=== PATIENT | male | born 1960 | race Caucasian/White ===

== ENCOUNTER 2018-02-02 08:36 | Inpatient (IN) | payer BC ==
[2018-02-02] MEDS ORDERED: Heparin 1000 units/ml (10 Ml vial) 1,000 U in Sodium Chloride 0.9% 500 ML 500 ML IV ONE (08:37)
--- NOTE | 2018-02-02 08:53 | ERPHSYRPT ---
- History of Present Illness Source: patient Exam Limitations: no limitations Physician History: mild ache pain of the right foot ulcers for months, pt refused pain med, no bleeding or drainage at this time, no fever, pt is ambulatory, hx dm Allergies/Adverse Reactions: No Known Drug Allergies Allergy (Verified 02/02/18 08:50) Home Medications: Allopurinol 300 mg [Zyloprim 300 mg] 300 mg PO DAILY 04/26/15 [History] Metformin HCl 500 mg [Glucophage 500 MG] 500 mg PO DAILY 04/26/15 [History ] Aspirin EC 81 mg [Ecotrin 81 mg] 81 mg PO DAILY 07/07/17 [History] Atorvastatin Calcium [Lipitor] 80 mg PO HS 07/07/17 [History] Clopidogrel Bisulfate 75 mg [PLAVIX 75 MG Tablet] 75 mg PO DAILY 07/07/17 [History] Cyanocobalamin (Vitamin B-12) [Vitamin B12] 2,500 mcg PO DAILY 07/07/17 [History ] Gabapentin [Neurontin] 600 mg PO TID 07/07/17 [History] Lisinopril 20 mg [Zestril 20 MG] 20 mg PO DAILY 07/07/17 [History] Hx Tetanus, Diphtheria Vaccination/Date Given: No Hx Influenza Vaccination/Date Given: No Hx Pneumococcal Vaccination/Date Given: No - Review of Systems Constitutional: No Fever Eyes: No Eye Redness Ears, Nose, & Throat: No Nose Discharge Respiratory: No Dyspnea Cardiac: No Chest Pain Abdominal/Gastrointestinal: No Abdominal Pain Musculoskeletal: No Back Pain Skin: Skin Lesions Neurological: No Dizziness - Past Medical History Pertinent Past Medical History: Yes Neurological History: Peripheral Neuropathy ENT History: No Pertinent History Cardiac History: High Cholesterol, Hypertension Respiratory History: No Pertinent History Endocrine Medical History: Diabetes Type II Musculoskeletal History: No Pertinent History GI Medical History: No Pertinent History History: No Pertinent History Psycho-Social History: No Pertinent History Male Reproductive Disorders: Other Other Medical History: ED - Past Surgical History Past Surgical History: Yes Cardiac: Vascular Surgery Musculoskeletal: Other Other Surgical History: Vascular surg pradeep legs, in grown toe nails - Social History Smoking Status: Former smoker How long have you smoked: YRS Exposure to second hand smoke: Yes Drug Use: none Patient Lives Alone: No - Nursing Vital Signs Nursing Vital Signs: Initial Vital Signs Temperature 97.8 F 02/02/18 08:38 Pulse Rate 98 H 02/02/18 08:38 Respiratory Rate 16 02/02/18 08:38 Blood Pressure 166/81 02/02/18 08:38 O2 Sat by Pulse Oximetry 100 02/02/18 08:38 Pain Scale Pain Intensity 0 - Physical Exam General Appearance: no apparent distress Eye Exam: eyes nml inspection Neck Exam: normal inspection Respiratory Exam: No respiratory distress Cardiovascular Exam: regular rate/rhythm Gastrointestinal/Abdomen Exam: No distention Extremity Exam: No limited range of motion Neurologic Exam: alert, oriented x 3, cooperative Skin Exam: warm, other (ulcer of lateral right forefoot and plantar ball 2 to 4 cm, no bleeding, sen and pulses intact, no streaks) - Course Nursing assessment & vital signs reviewed: Yes - Radiology Exams Foot X-ray Interpretation: Discussed w/ radiologist, Other (+osteo and pathologic fx right 5th MT) Ordered Tests: Active Orders 24 hr Category Date Time Status FOOT (MINIMUM 3 VIEWS) Stat Exams 02/02/18 09:01 Completed GUIDE FOR VASCULAR ACCESS [US] Routine Exams 02/02/18 14:50 Ordered PICC LINE PLACEMENT Routine Exams 02/02/18 14:50 Ordered BLOOD CULTURE Stat Lab 02/02/18 09:25 Received CBC W DIFF Stat Lab 02/02/18 09:22 Completed CMP Stat Lab 02/02/18 09:22 Completed Lactic Acid Stat Lab 02/02/18 09:30 Completed SED RATE [Erythrocyte Sedimentation Rate] Stat Lab 02/02/18 15:01 Ordered Transfer Order Routine Transfer 02/02/18 Ordered Medication Summary Discontinued Medications Generic Name Dose Route Start Last Admin Trade Name Freq PRN Reason Stop Dose Admin Heparin Sodium (Beef Lung) 500 units 02/02/18 08:37 Heparin Lock Flush 100 Units/Ml 5ml Syringe IV 02/02/18 08:38 .STK-MED ONE Vancomycin HCl 1 gm in 250 mls @ 167 mls/hr 02/02/18 09:36 02/02/18 09:52 Vancomycin 1gm/ Ns 250ml IV 02/02/18 11:05 167 mls/hr STAT ONE Administration Vancomycin HCl Confirm 02/02/18 09:48 Vancomycin 1gm/ Ns 250ml Administered 02/02/18 09:49 Dose 250 mls @ ud IV .[facility] ONE Heparin Sodium (Porcine) 1,000 501 mls @ ud 02/02/18 08:37 u/ Sodium Chloride IV 02/02/18 08:38 .STK-MED ONE Lab/Rad Data: Laboratory Result Diagrams 02/02/18 09:22 02/02/18 09:22 Laboratory Results 02/02/18 02/02/18 02/02/18 Range/Units 09:30 09:22 09:22 WBC 8.8 (4.0-10.5) K/mm3 RBC 3.71 L (4.1-5.6) M/mm3 Hgb 11.2 L (12.5-18.0) gm/dl Hct 31.6 L (42-50) % MCV 85.2 (78-100) fl MCH 30.1 (26-32) pg MCHC 35.4 (32-36) g/dl RDW 13.1 (11.5-14.0) % Plt Count 387 (150-450) K/mm3 MPV 7.5 (6-9.5) fl Gran % 57.8 (36.0-66.0) % Eos # (Auto) 0.60 H (0-0.5) Absolute Lymphs (auto) 2.30 (1.0-4.6) Absolute Monos (auto) 0.79 (0.0-1.3) Lymphocytes % 26.1 (24.0-44.0) % Monocytes % 9.0 (0.0-12.0) % Eosinophils % 6.8 H (0.00-5.0) % Basophils % 0.3 (0.0-0.4) % Absolute Granulocytes 5.10 (1.4-6.9) Basophils # 0.03 (0-0.4) Sodium 123 L (137-145) mmol/L Potassium 4.5 (3.5-5.1) mmol/L Chloride 86 L (98-107) mmol/L Carbon Dioxide 24 (22-30) mmol/L Anion Gap 17.5 H (5-15) MEQ/L BUN 5 L (9-20) mg/dL Creatinine 0.44 L (0.66-1.25) mg/dL Estimated GFR > 60.0 ML/MIN Glucose 125 H (74-106) mg/dL Lactic Acid 1.8 (0.4-2.0) Calcium 9.0 (8.4-10.2) mg/dL Total Bilirubin 0.50 (0.2-1.3) mg/dL AST 19 (17-59) U/L ALT 16 (0-50) U/L Alkaline Phosphatase 99 (38-126) U/L Serum Total Protein 7.5 (6.3-8.2) g/dL Albumin 4.4 (3.5-5.0) g/dL - Progress Progress: unchanged Progress Note: 02/02/18 15:03 consult d/w Dr Jarquin 02/02/18 15:03 pt unable to transport himself for daily antibiotics, pt sent for picc line, pharm to dose vanc, pt a failure of outpat therapy Discussed with : Germán Will see patient in: hospital (full admit) Counseled pt/family regarding: lab results, diagnosis, rad results - Departure Time of Disposition: 15:04 Departure Disposition: In-patient Admission Clinical Impression: Osteomyelitis Qualifiers: Osteomyelitis type: unspecified type Osteomyelitis location: foot Laterality: right Qualified Code(s): M86.9 - Osteomyelitis, unspecified Condition: Stable Critical Care Time: No Referrals: PENNY WOODY [Primary Care Provider] -
--- NOTE | 2018-02-02 09:32 | XRAY ---
Indication: Worsening ulcers. Osteomyelitis. Comparison: July 07, 2017. 3 nonweightbearing views of the right foot obtained with marker placed adjacent to the 5th MTP where there is worsening lateral soft tissue swelling with new air, probable gas-forming bacterial infection. Also new displaced fracture involving the head of the 5th metatarsal and nondisplaced fracture involving the base of the proximal 5th phalanx, both appearing moth-eaten favoring pathologic fractures. Elsewhere stable heel spurs. Remaining right foot unremarkable. Impression: 1. Worsening cellulitis with new subcutaneous emphysema adjacent to the 5th MTP. Also new pathologic fractures involving the head of the 5th metatarsal and base of the proximal 5th phalanx due to underlying osteomyelitis. 2. Stable heel spurs.
[2018-02-02] MEDS ORDERED: Vancomycin 1GM/ Ns 250ML*** 1 GM/250 ML IVPB IV ONE (09:36)
[2018-02-02 09:47] LABS: BASOPHIL % 0.3 % (0.0-0.4); Basophil (Absolute #) 0.03 (0-0.4); Eosinophil % 6.8 % (0.00-5.0); Granulocytes % 57.8 % (36.0-66.0); Hematocrit 31.6 % (42-50); Hemoglobin 11.2 gm/dl (12.5-18.0); Lymphocytes % 26.1 % (24.0-44.0); Mean Cell Volume 85.2 fl (78-100); Mean Corpuscular Hgb Concent. 35.4 g/dl (32-36); Mean Platelet Volume 7.5 fl (6-9.5); Monocyte (Absolute #) 0.79 (0.0-1.3); Platelet Count 387 K/mm3 (150-450); Red Blood Count 3.71 M/mm3 (4.1-5.6); Red Cell Distribution Width 13.1 % (11.5-14.0); White Blood Count 8.8 K/mm3 (4.0-10.5)
[2018-02-02] MEDS ORDERED: Vancomycin 1GM/ Ns 250ML*** 250 ML IV ONE (09:48)
[2018-02-02 09:54] LABS: Mean Corpuscular Hemoglobin 30.1 pg (26-32)
[2018-02-02 09:57] LABS: ALBUMIN 4.4 g/dL (3.5-5.0); ALKALINE PHOSPHATASE 99 U/L (38-126); ANION GAP 17.5 MEQ/L (5-15); BLOOD UREA NITROGEN 5 mg/dL (9-20); CHLORIDE 86 mmol/L (98-107); Carbon Dioxide 24 mmol/L (22-30); Creatinine 1 0.44 mg/dL (0.66-1.25); Glucose 125 mg/dL (74-106); Potassium 4.5 mmol/L (3.5-5.1); SGOT/AST 19 U/L (17-59); SGPT/ALT 16 U/L (0-50); SODIUM 123 mmol/L (137-145); Total Protein 7.5 g/dL (6.3-8.2)
[2018-02-02] MEDS ORDERED: TYLENOL 325 MG PO PRN (15:48)
[2018-02-02] MEDS ORDERED: PHARMACY DOSING REQUIRED: VANCOMYCIN IV ONE (15:48)
[2018-02-02] MEDS ORDERED: PHARMACY DOSING REQUEST MC ONE (16:17)
--- NOTE | 2018-02-02 16:29 | XRAY ---
Indication: Ultrasound guidance for PICC line placement. Initial sonographic imaging of the right upper extremity was performed for localization of patent veins. A patent basilic vein identified above the elbow. Ultrasound guidance was then used for PICC line insertion. Full PICC line insertion is reported separately.
--- NOTE | 2018-02-02 16:32 | XRAY ---
Indication: Long-term IV access and therapy for right foot osteomyelitis. Informed consent obtained. Patient was placed on the fluoroscopic table in a supine position. Initial sonographic imaging of the right upper extremity was performed for localization of patent veins. The right upper extremity was then prepped and draped in sterile fashion. Tourniquet applied. 1% lidocaine plain used for local anesthesia. Using ultrasound guidance and a micropuncture needle, a basilic vein above the elbow was successfully percutaneously cannulized. A floppy tip 0.018 guidewire inserted. Tourniquet released. Needle was exchanged for a 5 Czech dilator peel-away sheath catheter. Ultimately a 5 Czech double-lumen PICC line was inserted over a longer 0.018 guidewire with the tip positioned in the distal SVC using fluoroscopic guidance. Guidewire removed. Both ports flushed with heparinized saline. Catheter was secured. Postoperative instructions and orders given. Patient discharged in good condition. Impression: Technically successful right upper extremity PICC line placement using ultrasound and fluoroscopic guidance. No immediate complications. Approximately 4 cc blood loss. Approximately 0.5 minute of fluoroscopy used. Catheter length is 39 cm.
[2018-02-02] MEDS: Sodium Chloride 0.9% 1000 ML 1,000 ML IV SCH (16:41)
[2018-02-02] MEDS: CLINDAMYCIN-D5W 600 MG/50 ML*** 600 MG/50 ML BAG IV SCH (16:41)
[2018-02-02] MEDS: NEURONTIN 300 MG PO SCH ×2 (17:29→22:06)
[2018-02-02] MEDS: VANCOCIN 1 GM VIAL*** 1.25 GM in Sodium Chloride 0.9% 250 ML 250 ML IV SCH (17:30)
[2018-02-02] MEDS ORDERED: NON-FORMULARY ITEM (Atorvastatin Calcium [Lipitor] 80 MG) PO SCH (22:00)
[2018-02-02] MEDS ORDERED: NON-FORMULARY ITEM (Gabapentin [Neurontin] 600 MG) PO SCH (22:00)
[2018-02-02] MEDS: ZOCOR 20MG PO SCH (22:07)
[2018-02-03] MEDS: CLINDAMYCIN-D5W 600 MG/50 ML*** 600 MG/50 ML BAG IV SCH ×3 (00:33→16:26)
[2018-02-03] MEDS: VANCOCIN 1 GM VIAL*** 1.25 GM in Sodium Chloride 0.9% 250 ML 250 ML IV SCH ×3 (02:26→17:56)
[2018-02-03 05:57] LABS: ANION GAP 13.1 MEQ/L (5-15); BLOOD UREA NITROGEN 4 mg/dL (9-20); CHLORIDE 94 mmol/L (98-107); Carbon Dioxide 25 mmol/L (22-30); Creatinine 1 0.42 mg/dL (0.66-1.25); Glucose 142 mg/dL (74-106); Potassium 4.6 mmol/L (3.5-5.1); SODIUM 128 mmol/L (137-145)
[2018-02-03 06:05] LABS: BASOPHIL % 0.3 % (0.0-0.4); Basophil (Absolute #) 0.02 (0-0.4); Eosinophil % 5.8 % (0.00-5.0); Eosinophil (Absolute #) 0.37 (0-0.5); Granulocyte Absolute (ANC) 3.76 (1.4-6.9); Granulocytes % 58.9 % (36.0-66.0); Hematocrit 32.8 % (42-50); Hemoglobin 11.3 gm/dl (12.5-18.0); Lymphocyte (Absolute #) 1.65 (1.0-4.6); Lymphocytes % 25.8 % (24.0-44.0); Mean Cell Volume 85.4 fl (78-100); Mean Corpuscular Hemoglobin 29.4 pg (26-32); Mean Corpuscular Hgb Concent. 34.5 g/dl (32-36); Mean Platelet Volume 7.8 fl (6-9.5); Monocyte (Absolute #) 0.59 (0.0-1.3); Monocytes % 9.2 % (0.0-12.0); Platelet Count 375 K/mm3 (150-450); Red Blood Count 3.84 M/mm3 (4.1-5.6); White Blood Count 6.4 K/mm3 (4.0-10.5)
[2018-02-03] MEDS: Sodium Chloride 0.9% 1000 ML 1,000 ML IV SCH ×2 (06:36→20:25)
[2018-02-03] MEDS: Glucophage 500 MG PO SCH (08:36)
[2018-02-03] MEDS: ECOTRIN 81 MG PO SCH (08:36)
[2018-02-03] MEDS: Zestril 20 MG PO SCH (08:37)
[2018-02-03] MEDS: PLAVIX 75 MG Tablet PO SCH (08:37)
[2018-02-03] MEDS: ZYLOPRIM 300 MG PO SCH (08:37)
[2018-02-03] MEDS: NEURONTIN 300 MG PO SCH ×3 (08:37→21:36)
--- NOTE | 2018-02-03 09:27 | HP ---
CHIEF COMPLAINT: Worsening right foot diabetic foot wound. HISTORY OF PRESENT ILLNESS: The patient is a 57 year-old white male patient who has been taking care of a diabetic foot wound for quite some time, being seen in the wound care management center. He is also being followed by Dr. Jarquin. Apparently the wound had looked much worse and the wound care management provider sent the patient to the emergency room for evaluation and management where he was found to have a pathologic fracture of the head of the right fifth metatarsal and gas-forming organisms appeared to be present with some subcutaneous emphysema in that area. We tried to get the patient to be admitted to another facility for evaluation and management by Dr. Jarquin but he felt that he should be admitted here for IV antibiotics. The patient does not wish to be seen by another provider as he is concerned of potential for amputation and he wishes to save the foot. PAST MEDICAL/SURGICAL HISTORY: Otherwise significant for his hypertension, diabetic neuropathy, hyperlipidemia, diabetes mellitus type 2. HOME MEDICATIONS: Currently include allopurinol 300 mg a day, metformin 500 mg twice a day, aspirin 81 mg a day, atorvastatin 80 mg a day, Plavix 75 mg a day, vitamin B12 daily, gabapentin 600 mg t.i.d., lisinopril 20 mg a day. ALLERGIES: NKDA. PHYSICAL EXAMINATION: Revealed a well-nourished, well-developed 57 year-old white male patient appearing in no acute distress. His temperature is 97.8F, pulse 98, respiratory rate 16, blood pressure 166/81 in the emergency room. HEENT: Normocephalic, atraumatic. Pupils equal round reactive to light. Extraocular movements intact. Oropharynx is pink and moist. NECK: Supple without lymphadenopathy, thyromegaly or JVD. CHEST: Clear to auscultation with good air movement bilaterally. HEART: Regular rate and rhythm without murmurs, rubs or gallops. ABDOMEN: Soft. No palpable masses. EXTREMITIES: The right lower extremity revealed the swollen, red area of the foot with the wound present. LAB DATA AND TESTS: He had lactic acid of 1.8. His metabolic panel showed glucose 142, BUN 4, creatinine 0.42. Glomerular filtration rate greater than 60. Sodium 120, potassium 4.6. He had a white blood cell count 6,400, hemoglobin 11.3, PLT count 375,000. Sed rate was 57. His x-ray showed the worsening cellulitis, subcutaneous emphysema adjacent to the fifth MTP with new pathologic fracture involving the head of the fifth metatarsal, underlying osteomyelitis considered to be present, stable heel spurs. ASSESSMENT: The patient had a PICC line placed and he has been admitted to the hospital for IV antibiotics with IV Vancomycin and Cleocin for what I suspect is a bacterial infection with the gas formation. The earliest time that Dr. Jarquin would see the patient is on 02/08/2018. The patient refused to wait to see him. He does not have transportation to come and back to the infusion center so he was therefore admitted to our facility for the IV antibiotics until he can arrange transportation. We have also offered to the patient to see general surgeon for possible debridement and he has declined this as well at the present time.
[2018-02-03] MEDS ORDERED: FLUZONE QUAD (36mo-64yo) 2018-2019 SYRINGE IM ONE (10:00)
[2018-02-03] MEDS ORDERED: NON-FORMULARY ITEM (Cyanocobalamin (Vitamin B-12) [Vitamin B12] 2,500 MCG) PO SCH (10:00)
[2018-02-03] MEDS: Vitamin B-12 500 MCG PO SCH (10:05)
[2018-02-03] MEDS: ZOCOR 20MG PO SCH (21:33)
[2018-02-04] MEDS: CLINDAMYCIN-D5W 600 MG/50 ML*** 600 MG/50 ML BAG IV SCH ×2 (00:38→09:16)
[2018-02-04] MEDS: Sodium Chloride 0.9% 1000 ML 1,000 ML IV SCH ×2 (00:43→09:30)
[2018-02-04] MEDS: VANCOCIN 1 GM VIAL*** 1.25 GM in Sodium Chloride 0.9% 250 ML 250 ML IV SCH ×3 (02:07→17:53)
[2018-02-04] MEDS: Glucophage 500 MG PO SCH (07:54)
[2018-02-04] MEDS: ECOTRIN 81 MG PO SCH (09:16)
[2018-02-04] MEDS: Zestril 20 MG PO SCH (09:16)
[2018-02-04] MEDS: NEURONTIN 300 MG PO SCH ×3 (09:16→21:30)
[2018-02-04] MEDS: PLAVIX 75 MG Tablet PO SCH (09:16)
[2018-02-04] MEDS: ZYLOPRIM 300 MG PO SCH (09:17)
[2018-02-04] MEDS: Vitamin B-12 500 MCG PO SCH (09:17)
[2018-02-04] MEDS ORDERED: TROUGH DRUG LEVELS IJ ONE (09:30)
--- NOTE | 2018-02-04 10:53 | PCM.NOTE ---
Date and Time: 02/04/18 1048 Subjective Assessment: Patient reports about a 2 month history of treating his current ulcers on his right foot. He has pictures of the ulcers on his phone and there are pictures in the chart from PT with measurements. Patient reports they are do to change the dressing tomorrow. He refuses surgical consultation here and states he plans to see Dr. Jarquin 02/08/18 if he has transportation to his [place] office. - Review of Systems Constitutional: No Symptoms Eyes: No Symptoms Ears, Nose, & Throat: No Symptoms Respiratory: No Symptoms Cardiac: No Symptoms Abdominal/Gastrointestinal: No Symptoms Genitourinary Symptoms: No Symptoms Musculoskeletal: No Symptoms Skin: Other (ulcers on feet) Objective Exam General Appearance: no apparent distress, alert, obese Neurologic Exam: alert, cooperative, normal mood/affect Skin Exam: normal color, warm, dry, No rash Respiratory Exam: normal breath sounds, lungs clear, No crackles/rales, No rhonchi, No wheezing Cardiovascular Exam: regular rate/rhythm, No murmur, No friction rub, No gallop Gastrointestinal/Abdomen Exam: soft, normal bowel sounds, No tenderness, No distention, No mass Extremity Exam: other (+1 edema of right lower leg, right foot dressed and wrapped, +1 edema left lower leg) OBJECTIVE DATA Vital Signs: Vital Signs - 24 hr Temp Pulse Resp BP Pulse Ox 02/04/18 08:00 97.7 F 89 18 141/65 97 02/04/18 04:00 98.3 F 83 17 110/58 94 L 02/03/18 23:45 98.6 F 86 17 145/70 95 02/03/18 19:42 98.5 F 91 H 18 138/64 98 02/03/18 16:08 98 F 90 20 162/74 100 02/03/18 11:01 97.6 F 84 18 149/67 98 Pain Assessment - Last Documented Pain Intensity 3 Pain Scale Used 0-10 Pain Scale Intake and Output: Intake & Output 02/02/18 02/03/18 02/04/18 02/05/18 06:59 06:59 06:59 06:59 Intake Total 3533 8997 360 Output Total 2038 6371 973 Balance -924 -5810 -560 Weight 124.8 kg 124.8 kg Lab Results: Accuchecks Date 02/04/18 Date 02/03/18 Date 02/03/18 Date 02/03/18 Time 07:30 Time 21:30 Time 16:08 Time 11:27 Accucheck Value: 147 Accucheck Value: 193 Accucheck Value: 151 Accucheck Value: 183 Radiology Exams: Radiology Procedures Category Date Time Status GUIDE FOR VASCULAR ACCESS [US] Routine Exams 02/02/18 14:50 Completed PICC LINE PLACEMENT Routine Exams 02/02/18 14:50 Completed Multi-Disciplinary Progress Notes: Multi-Disciplinary Progress Notes 02/03/18 15:22 Pharmacy Note by Roosevelt Carrera Wound cultures from 01-12-18 grew Pseudomonas and Staph. Recommend adding Pseudomonas coverage if does not improve. Zosyn, Tobramycin, Cefepime or Azactam would work. Initialized on 02/03/18 15:22 - END OF NOTE 02/03/18 13:50 Case Management Note by Delmy Zaidi S/W PATIENT AT THIS TIME. PATIENT STATES HE HAS AN ADEQUATE HOME ENVIRONMENT AND IS INDEPENDENT AT HOME. 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 HE DENIES ANY NEEDS FOR EQUIPMENT OR SERVICES AT HOME. HIS CAR IS CURRENTLY IN THE SHOP SO TRANSPORTATION IS AN ISSUE. PATIENT GIVEN MEDICAL TRANSPORTATION INFORMATION VIA HANDOUT AND VERIFIED UNDERSTANDING. MAY NEED ADDITIONAL SERVICES SETUP DEPENDING ON STATE OF FOOT AT DC AND PHYSICIAN ORDERS (WOUND CARE/IV THERAPY) Initialized on 02/03/18 13:50 - END OF NOTE Assessment/Plan (1) Osteomyelitis Current Visit: Yes Status: Acute Onset Date: ~02/02/18 Qualifiers: Osteomyelitis type: unspecified type Osteomyelitis location: foot Laterality: right Qualified Code(s): M86.9 - Osteomyelitis, unspecified Assessment & Plan: Will stop clindamycin and continue vancomycin for gram positive coverage. Will add Zosyn for pseudomonas coverage as he had a wound culture in December grow Pseudomonas. No current culture. He would benefit from a bone culture but has refused surgical consultation here and only wants the IV antibiotics and to see Dr. Jarquin on Tuesday. Code(s): M86.9 - OSTEOMYELITIS, UNSPECIFIED (2) Pathological fracture of metatarsal bone of right foot Current Visit: Yes Status: Acute Onset Date: ~02/02/18 Code(s): M84.474A - PATHOLOGICAL FRACTURE, RIGHT FOOT, INIT ENCNTR FOR FRACTURE (3) Diabetes type 2, uncontrolled Current Visit: Yes Status: Chronic Assessment & Plan: Currently controlled. Code(s): E11.65 - TYPE 2 DIABETES MELLITUS WITH HYPERGLYCEMIA (4) Wound infection Current Visit: Yes Status: Acute Onset Date: ~02/03/18 Code(s): T14.8XXA - OTHER INJURY OF UNSPECIFIED BODY REGION, INITIAL ENCOUNTER; L08.9 - LOCAL INFECTION OF THE SKIN AND SUBCUTANEOUS TISSUE, UNSP (5) Failure of outpatient treatment Current Visit: Yes Status: Acute Onset Date: ~02/02/18 Code(s): Z78.9 - OTHER SPECIFIED HEALTH STATUS (6) Hyponatremia Current Visit: Yes Status: Acute Onset Date: ~02/02/18 Assessment & Plan: Will stop IV fluids as he is taking fluids by mouth well. Code(s): E87.1 - HYPO-OSMOLALITY AND HYPONATREMIA (7) Anemia Current Visit: Yes Status: Acute Qualifiers: Anemia type: unspecified type Qualified Code(s): D64.9 - Anemia, unspecified Code(s): D64.9 - ANEMIA, UNSPECIFIED
[2018-02-04] MEDS: CORTISONE 1% CREAM TP SCH ×2 (11:35→21:58)
[2018-02-04] MEDS: Zosyn 3.375GM/100 Ml D5W 3.375 GM/100 ML IVPB IV SCH ×3 (11:50→16:59)
[2018-02-04] MEDS: NovoLOG Insulin SQ PRN (12:08)
[2018-02-04] MEDS: ZOCOR 20MG PO SCH (21:31)
[2018-02-05] MEDS: Zosyn 3.375GM/100 Ml D5W 3.375 GM/100 ML IVPB IV SCH ×4 (00:28→17:30)
[2018-02-05] MEDS: VANCOCIN 1 GM VIAL*** 1.25 GM in Sodium Chloride 0.9% 250 ML 250 ML IV SCH ×3 (01:57→18:19)
[2018-02-05 06:18] LABS: ANION GAP 13.1 MEQ/L (5-15); BLOOD UREA NITROGEN 3 mg/dL (9-20); CHLORIDE 97 mmol/L (98-107); Calcium 9.2 mg/dL (8.4-10.2); Carbon Dioxide 26 mmol/L (22-30); Creatinine 1 0.43 mg/dL (0.66-1.25); Glucose 154 mg/dL (74-106); Potassium 4.5 mmol/L (3.5-5.1); SODIUM 132 mmol/L (137-145)
[2018-02-05 06:32] LABS: BASOPHIL % 0.6 % (0.0-0.4); Basophil (Absolute #) 0.05 (0-0.4); Eosinophil % 6.5 % (0.00-5.0); Eosinophil (Absolute #) 0.52 (0-0.5); Granulocyte Absolute (ANC) 5.05 (1.4-6.9); Granulocytes % 63.3 % (36.0-66.0); Hematocrit 30.2 % (42-50); Hemoglobin 10.2 gm/dl (12.5-18.0); Lymphocyte (Absolute #) 1.78 (1.0-4.6); Lymphocytes % 22.3 % (24.0-44.0); Mean Cell Volume 87.3 fl (78-100); Mean Corpuscular Hgb Concent. 33.8 g/dl (32-36); Mean Platelet Volume 7.8 fl (6-9.5); Monocyte (Absolute #) 0.58 (0.0-1.3); Monocytes % 7.3 % (0.0-12.0); Platelet Count 376 K/mm3 (150-450); Red Blood Count 3.46 M/mm3 (4.1-5.6); Red Cell Distribution Width 13.3 % (11.5-14.0)
[2018-02-05 06:36] LABS: Mean Corpuscular Hemoglobin 29.4 pg (26-32)
[2018-02-05] MEDS: Glucophage 500 MG PO SCH (08:01)
[2018-02-05] MEDS: NEURONTIN 300 MG PO SCH ×3 (10:15→22:04)
[2018-02-05] MEDS: Vitamin B-12 500 MCG PO SCH (10:16)
[2018-02-05] MEDS: ECOTRIN 81 MG PO SCH (10:16)
[2018-02-05] MEDS: CORTISONE 1% CREAM TP SCH ×2 (10:16→22:06)
[2018-02-05] MEDS: PLAVIX 75 MG Tablet PO SCH (10:16)
[2018-02-05] MEDS: ZYLOPRIM 300 MG PO SCH (10:17)
[2018-02-05] MEDS: Zestril 20 MG PO SCH (10:20)
--- NOTE | 2018-02-05 10:40 | PCM.NOTE ---
Date and Time: 02/05/18 1035 Subjective Assessment: Patient reports only pain he has is from neuropathy. He reports he has been able to eat well and denies constipation. I discussed with him and mission planner, Ana Gerard, was present as well that I would recommend he see someone for debridement as soon as possible. He is willing to see a general surgeon her to discuss. His co pilot is Dr. Jarquin who does not have privledges here but who was called from the ER. Patient plans to see him Tuesday as an outpatient. We discussed with patient that the hospital cannot provide transportation to this appointment for him and also discussed that if he is discharged Tuesday, he will need to continue IV antibiotics under the care of Dr. Jarquin. - Review of Systems Constitutional: No Symptoms Eyes: No Symptoms Ears, Nose, & Throat: No Symptoms Respiratory: No Symptoms Cardiac: No Symptoms Abdominal/Gastrointestinal: No Symptoms Genitourinary Symptoms: No Symptoms Musculoskeletal: No Symptoms Skin: No Symptoms Neurological: Other (Neuropathy) Objective Exam General Appearance: no apparent distress Neurologic Exam: alert, cooperative, normal mood/affect Skin Exam: normal color, warm, dry, other (right foot wrapped. Pictures of wound in chart) Cardiovascular Exam: regular rate/rhythm, normal heart sounds, No murmur, No friction rub, No gallop Gastrointestinal/Abdomen Exam: soft, normal bowel sounds, No tenderness, No distention, No mass Extremity Exam: other (no c/c/e) OBJECTIVE DATA Vital Signs: Vital Signs - 24 hr Temp Pulse Resp BP Pulse Ox 02/05/18 08:00 98.1 F 80 17 123/62 98 02/05/18 03:55 97.3 F 79 16 136/65 97 02/04/18 23:49 97.9 F 81 18 133/66 95 02/04/18 19:56 97.6 F 83 18 168/79 98 02/04/18 16:00 98.4 F 85 18 158/72 95 02/04/18 12:00 97.6 F 82 18 176/79 100 Pain Assessment - Last Documented Pain Intensity 3 Pain Scale Used 0-10 Pain Scale,FLACC Intake and Output: Intake & Output 02/03/18 02/04/18 02/05/18 02/06/18 06:59 06:59 06:59 06:59 Intake Total 2057 5895 4775 460 Output Total 5873 3945 3785 500 Balance -639 -4620 688 -40 Weight 124.8 kg 124.8 kg Lab Results: Accuchecks Date 02/05/18 Date 02/04/18 Date 02/04/18 Date 02/04/18 Time 07:30 Time 21:00 Time 16:30 Time 11:30 Accucheck Value: 154 Accucheck Value: 178 Accucheck Value: 177 Accucheck Value: 217 Lab Results-Last 24 Hours 02/04/18 02/05/18 02/05/18 Range/Units 09:55 05:35 05:35 WBC 8.0 (4.0-10.5) K/mm3 RBC 3.46 L (4.1-5.6) M/mm3 Hgb 10.2 L (12.5-18.0) gm/dl Hct 30.2 L (42-50) % MCV 87.3 (78-100) fl MCH 29.4 (26-32) pg MCHC 33.8 (32-36) g/dl RDW 13.3 (11.5-14.0) % Plt Count 376 (150-450) K/mm3 MPV 7.8 (6-9.5) fl Gran % 63.3 (36.0-66.0) % Eos # (Auto) 0.52 H (0-0.5) Absolute Lymphs (auto) 1.78 (1.0-4.6) Absolute Monos (auto) 0.58 (0.0-1.3) Lymphocytes % 22.3 L (24.0-44.0) % Monocytes % 7.3 (0.0-12.0) % Eosinophils % 6.5 H (0.00-5.0) % Basophils % 0.6 (0.0-0.4) % Absolute Granulocytes 5.05 (1.4-6.9) Basophils # 0.05 (0-0.4) Sodium 132 L (137-145) mmol/L Potassium 4.5 (3.5-5.1) mmol/L Chloride 97 L (98-107) mmol/L Carbon Dioxide 26 (22-30) mmol/L Anion Gap 13.1 (5-15) MEQ/L BUN 3 L (9-20) mg/dL Creatinine 0.43 L (0.66-1.25) mg/dL Estimated GFR > 60.0 ML/MIN Glucose 154 H (74-106) mg/dL Calcium 9.2 (8.4-10.2) mg/dL Vancomycin Trough 9.33 L (10-20) ug/mL Assessment/Plan (1) Osteomyelitis Current Visit: Yes Status: Acute Onset Date: ~02/02/18 Qualifiers: Osteomyelitis type: unspecified type Osteomyelitis location: foot Laterality: right Qualified Code(s): M86.9 - Osteomyelitis, unspecified Assessment & Plan: Continue IV vanc and IV zosyn. Patient agreeable to general surgery consult. Ana Rajani states she will contact Dr. Jarquin tomorrow. PT is following. Patient wants to try to save his foot. Code(s): M86.9 - OSTEOMYELITIS, UNSPECIFIED (2) Pathological fracture of metatarsal bone of right foot Current Visit: Yes Status: Acute Onset Date: ~02/02/18 Code(s): M84.474A - PATHOLOGICAL FRACTURE, RIGHT FOOT, INIT ENCNTR FOR FRACTURE (3) Diabetes type 2, uncontrolled Current Visit: Yes Status: Chronic Assessment & Plan: Continue current treatment. Currently controlled in the hospital. Code(s): E11.65 - TYPE 2 DIABETES MELLITUS WITH HYPERGLYCEMIA (4) Wound infection Current Visit: Yes Status: Acute Onset Date: ~02/03/18 Code(s): T14.8XXA - OTHER INJURY OF UNSPECIFIED BODY REGION, INITIAL ENCOUNTER; L08.9 - LOCAL INFECTION OF THE SKIN AND SUBCUTANEOUS TISSUE, UNSP (5) Failure of outpatient treatment Current Visit: Yes Status: Acute Onset Date: ~02/02/18 Code(s): Z78.9 - OTHER SPECIFIED HEALTH STATUS (6) Hyponatremia Current Visit: Yes Status: Acute Onset Date: ~02/02/18 Assessment & Plan: Improving. Code(s): E87.1 - HYPO-OSMOLALITY AND HYPONATREMIA (7) Anemia Current Visit: Yes Status: Acute Qualifiers: Anemia type: unspecified type Qualified Code(s): D64.9 - Anemia, unspecified Code(s): D64.9 - ANEMIA, UNSPECIFIED
[2018-02-05] MEDS: ENOXAPARIN SODIUM SQ SCH (13:00)
[2018-02-05] MEDS: NovoLOG Insulin SQ PRN (13:57)
[2018-02-05] MEDS: ZOCOR 20MG PO SCH (22:04)
[2018-02-06] MEDS: Zosyn 3.375GM/100 Ml D5W 3.375 GM/100 ML IVPB IV SCH ×4 (00:28→17:47)
[2018-02-06] MEDS: VANCOCIN 1 GM VIAL*** 1.25 GM in Sodium Chloride 0.9% 250 ML 250 ML IV SCH ×3 (01:59→18:57)
[2018-02-06] MEDS: Glucophage 500 MG PO SCH (08:10)
--- NOTE | 2018-02-06 08:54 | PCM.NOTE ---
Date and Time: 02/06/18 0852 Subjective Assessment: Patient reports that Dr. Abhay Jimenez saw him and wanted to wait a couple of days. supervisor hardboard said he recommended removing part of his foot. Dictation not completed yet. Pt denies fever, chills, nausea, abdominal pain or any concerns. - Review of Systems Constitutional: No Symptoms Eyes: No Symptoms Ears, Nose, & Throat: No Symptoms Respiratory: No Symptoms Cardiac: No Symptoms Abdominal/Gastrointestinal: No Symptoms Genitourinary Symptoms: No Symptoms Musculoskeletal: No Symptoms Skin: Other (right foot ulcers) Objective Exam General Appearance: no apparent distress, obese Neurologic Exam: alert, cooperative, normal mood/affect Skin Exam: normal color, warm, dry, other (right foot wrapped and dressed; pictures in chart from PT during dressing change yesterday.) Respiratory Exam: normal breath sounds, lungs clear, No prolonged expirations, No crackles/rales, No wheezing Cardiovascular Exam: regular rate/rhythm, normal heart sounds (trace edema bilat ), No murmur, No friction rub, No gallop OBJECTIVE DATA Vital Signs: Vital Signs - 24 hr Temp Pulse Resp BP Pulse Ox 02/06/18 07:34 98.1 F 81 18 126/61 96 02/06/18 04:00 98.1 F 77 18 150/70 96 02/06/18 00:00 98.2 F 84 18 141/66 97 02/05/18 19:59 98.2 F 76 18 167/75 100 02/05/18 16:00 97.6 F 76 17 178/83 100 02/05/18 12:00 97.5 F 75 16 150/70 100 Pain Assessment - Last Documented Pain Intensity 3 Pain Scale Used 0-10 Pain Scale Intake and Output: Intake & Output 02/04/18 02/05/18 02/06/18 02/07/18 06:59 06:59 06:59 06:59 Intake Total 4151 7300 3582 480 Output Total 2821 2825 3100 Balance -1070 692 482 480 Weight 124.8 kg Lab Results: Accuchecks Date 02/06/18 Date 02/05/18 Date 02/05/18 Date 02/05/18 Time 07:30 Time 21:30 Time 16:30 Time 11:30 Accucheck Value: 188 Accucheck Value: 197 Accucheck Value: 161 Accucheck Value: 213 Multi-Disciplinary Progress Notes: Multi-Disciplinary Progress Notes 02/05/18 11:47 Case Management Note by Ana Gerard DISCHARGE PLAN REVIEWED WITH BOTH PATIENT AND HIS BROTHER, WITH DR. MONDRAGON PRESENT. PATIENT PLAN AT THIS TIME IS TO LEAVE HERE ON THURSDAY 02/08, WITH HIS OWN TRANSPORTATION, AND F/U WITH HIS MULTI CARE TECHNICIAN IN [place], DR. ANDERSON. HE WAS OFFERED TRANSFER TO ANOTHER FACILITY WHERE A MULTI CARE TECHNICIAN IS LASER SPECIALIST, HE REFUSED. HE WAS OFFERED TO HAVE FURTHER TREATMENT & SURGICAL CONSULT HERE, AND DID FINALLY CONCEDE, SO THE D/C PLAN MAY CHANGE AFTER HE SEES SURGERY AND THEIR MUTUAL DECISION. WILL CONTINUE TO MONITOR THIS PT FOR ALL D/ C NEEDS. THIS OFFICE WILL F/U WITH DR. ANDERSON'S OFFICE TOMORROW 02/06/2018 AT [phone] TO SEE WHICH AND IF HE HAS PRIVILEGES AT ANY LOCAL HOSPITALS. Initialized on 02/05/18 11:47 - END OF NOTE Assessment/Plan (1) Osteomyelitis Current Visit: Yes Status: Acute Onset Date: ~02/02/18 Qualifiers: Osteomyelitis type: unspecified type Osteomyelitis location: foot Laterality: right Qualified Code(s): M86.9 - Osteomyelitis, unspecified Assessment & Plan: Continue vancomycin and Zosyn. General surgeon consulted. Code(s): M86.9 - OSTEOMYELITIS, UNSPECIFIED (2) Pathological fracture of metatarsal bone of right foot Current Visit: Yes Status: Acute Onset Date: ~02/02/18 Code(s): M84.474A - PATHOLOGICAL FRACTURE, RIGHT FOOT, INIT ENCNTR FOR FRACTURE (3) Diabetes type 2, uncontrolled Current Visit: Yes Status: Chronic Assessment & Plan: Continue current treatment. Code(s): E11.65 - TYPE 2 DIABETES MELLITUS WITH HYPERGLYCEMIA (4) Wound infection Current Visit: Yes Status: Acute Onset Date: ~02/03/18 Code(s): T14.8XXA - OTHER INJURY OF UNSPECIFIED BODY REGION, INITIAL ENCOUNTER; L08.9 - LOCAL INFECTION OF THE SKIN AND SUBCUTANEOUS TISSUE, UNSP (5) Failure of outpatient treatment Current Visit: Yes Status: Acute Onset Date: ~02/02/18 Code(s): Z78.9 - OTHER SPECIFIED HEALTH STATUS (6) Hyponatremia Current Visit: Yes Status: Acute Onset Date: ~02/02/18 Assessment & Plan: will check BMP in AM. Code(s): E87.1 - HYPO-OSMOLALITY AND HYPONATREMIA (7) Anemia Current Visit: Yes Status: Acute Qualifiers: Anemia type: unspecified type Qualified Code(s): D64.9 - Anemia, unspecified Code(s): D64.9 - ANEMIA, UNSPECIFIED
--- NOTE | 2018-02-06 10:12 | CONS ---
CONSULT DATE: 02/05/2018 REASON FOR CONSULT: Osteomyelitis. HISTORY: The patient has had history since May. He has lateral fifth area that opened up and has been debrided. I believe he is under the care of Dr. Jarquin in [place]. He subsequently has first metatarsal head that opened up. There are pictures on the chart. It is markedly necrotic. It does look like it goes to bone. It did have Pseudomonas cultured. It is getting slightly better. The dressing was not taken off today. We will see him again later in the week. At this time it certainly looked like there was a severe infection of the first metatarsal head and I would suspect this would include bone. There is already a positive Pseudomonas culture. Undergoing daily debridement by physical therapy and is getting IV antibiotics. It is unclear what the senior care disposition is. He clearly needs continued treatment of this infection.
[2018-02-06] MEDS: CORTISONE 1% CREAM TP SCH ×2 (10:42→21:48)
[2018-02-06] MEDS: NEURONTIN 300 MG PO SCH ×3 (10:43→21:39)
[2018-02-06] MEDS: Vitamin B-12 500 MCG PO SCH (10:43)
[2018-02-06] MEDS: ENOXAPARIN SODIUM SQ SCH (10:44)
[2018-02-06] MEDS: Zestril 20 MG PO SCH (10:44)
[2018-02-06] MEDS: ECOTRIN 81 MG PO SCH (10:44)
[2018-02-06] MEDS: PLAVIX 75 MG Tablet PO SCH (10:44)
[2018-02-06] MEDS: ZYLOPRIM 300 MG PO SCH (10:50)
[2018-02-06] MEDS: ZOCOR 20MG PO SCH (21:39)
[2018-02-07] MEDS: Zosyn 3.375GM/100 Ml D5W 3.375 GM/100 ML IVPB IV SCH ×5 (00:27→23:09)
[2018-02-07] MEDS: VANCOCIN 1 GM VIAL*** 1.25 GM in Sodium Chloride 0.9% 250 ML 250 ML IV SCH ×3 (01:36→18:15)
[2018-02-07 05:57] LABS: BASOPHIL % 0.6 % (0.0-0.4); Basophil (Absolute #) 0.06 (0-0.4); Eosinophil % 5.8 % (0.00-5.0); Eosinophil (Absolute #) 0.56 (0-0.5); Granulocytes % 67.9 % (36.0-66.0); Hematocrit 32.6 % (42-50); Lymphocyte (Absolute #) 1.94 (1.0-4.6); Lymphocytes % 20.2 % (24.0-44.0); Mean Cell Volume 87.2 fl (78-100); Mean Corpuscular Hemoglobin 29.4 pg (26-32); Mean Corpuscular Hgb Concent. 33.7 g/dl (32-36); Mean Platelet Volume 7.4 fl (6-9.5); Monocyte (Absolute #) 0.53 (0.0-1.3); Monocytes % 5.5 % (0.0-12.0); Platelet Count 339 K/mm3 (150-450); Red Blood Count 3.74 M/mm3 (4.1-5.6); Red Cell Distribution Width 13.3 % (11.5-14.0); White Blood Count 9.6 K/mm3 (4.0-10.5)
[2018-02-07 06:43] LABS: ANION GAP 15.4 MEQ/L (5-15); BLOOD UREA NITROGEN 4 mg/dL (9-20); CHLORIDE 96 mmol/L (98-107); Calcium 9.6 mg/dL (8.4-10.2); Carbon Dioxide 27 mmol/L (22-30); Creatinine 1 0.54 mg/dL (0.66-1.25); Glucose 160 mg/dL (74-106); Potassium 4.4 mmol/L (3.5-5.1); SODIUM 133 mmol/L (137-145)
[2018-02-07] MEDS: Glucophage 500 MG PO SCH (07:40)
--- NOTE | 2018-02-07 08:43 | PCM.NOTE ---
Date and Time: 02/07/18837 Subjective Assessment: Patient only has pain from neuropathy and when his ulcer is debrided. Right now he has an appointment with Dr. Jarquin on Tuesday that he will need to be discharged to go to but it is unclear how he will continue to get IV antibiotics after discharged. I tried to call Dr. Jarquin, but there was no answer so I left my number for him to return my call. Per cyber ops planner, Dr. Barbara Sorto does not think a simple I and D will take care of the problem. They also report that Milka would plan on a surgical procedure as an outpatient on Tuesday at another facility. He does not have privledges here and we do not have another administration intern here. He was seen by surgeon, Dr. Maciej Jimenez, during this admission. - Review of Systems Constitutional: No Symptoms Eyes: No Symptoms Ears, Nose, & Throat: No Symptoms Respiratory: No Symptoms Cardiac: No Symptoms Abdominal/Gastrointestinal: No Symptoms Genitourinary Symptoms: No Symptoms Musculoskeletal: No Symptoms Skin: Other (ulcers of right foot) Neurological: No Symptoms Psychological: No Symptoms Objective Exam General Appearance: no apparent distress, obese Neurologic Exam: alert, cooperative, normal mood/affect Respiratory Exam: normal breath sounds, lungs clear Cardiovascular Exam: regular rate/rhythm, normal heart sounds, No murmur, No friction rub, No gallop Gastrointestinal/Abdomen Exam: soft, normal bowel sounds, No tenderness, No distention, No mass Extremity Exam: other (right foot dressed, trace edema bilat) OBJECTIVE DATA Vital Signs: Vital Signs - 24 hr Temp Pulse Resp BP Pulse Ox 02/07/18 07:12 97.9 F 79 18 122/63 98 02/07/18 04:00 98.1 F 87 20 124/65 96 02/07/18 00:00 97.7 F 76 20 128/63 96 02/06/18 20:00 98.2 F 75 18 145/65 100 02/06/18 16:00 98.5 F 76 18 145/65 99 02/06/18 12:00 98.2 F 77 18 135/65 98 Pain Assessment - Last Documented Pain Intensity 0 Pain Scale Used 0-10 Pain Scale Intake and Output: Intake & Output 11/18/18 11/19/18 11/20/18 11/21/18 06:59 06:59 06:59 06:59 Intake Total 0368 5108 316 Output Total 3177 3100 450 Balance 646 163 1065 Lab Results: Accuchecks Date 02/07/18 Date 02/06/18 Date 02/06/18 Date 02/06/18 Time 07:30 Time 22:00 Time 16:30 Time 12:30 Accucheck Value: 175 Accucheck Value: 173 Accucheck Value: 169 Accucheck Value: 191 Lab Results-Last 24 Hours 02/07/18 02/07/18 Range/Units 05:45 05:45 WBC 9.6 (4.0-10.5) K/mm3 RBC 3.74 L (4.1-5.6) M/mm3 Hgb 11.0 L (12.5-18.0) gm/dl Hct 32.6 L (42-50) % MCV 87.2 (78-100) fl MCH 29.4 (26-32) pg MCHC 33.7 (32-36) g/dl RDW 13.3 (11.5-14.0) % Plt Count 339 (150-450) K/mm3 MPV 7.4 (6-9.5) fl Gran % 67.9 H (36.0-66.0) % Eos # (Auto) 0.56 H (0-0.5) Absolute Lymphs (auto) 1.94 (1.0-4.6) Absolute Monos (auto) 0.53 (0.0-1.3) Lymphocytes % 20.2 L (24.0-44.0) % Monocytes % 5.5 (0.0-12.0) % Eosinophils % 5.8 H (0.00-5.0) % Basophils % 0.6 (0.0-0.4) % Absolute Granulocytes 6.50 (1.4-6.9) Basophils # 0.06 (0-0.4) Sodium 133 L (137-145) mmol/L Potassium 4.4 (3.5-5.1) mmol/L Chloride 96 L (98-107) mmol/L Carbon Dioxide 27 (22-30) mmol/L Anion Gap 15.4 H (5-15) MEQ/L BUN 4 L (9-20) mg/dL Creatinine 0.54 L (0.66-1.25) mg/dL Estimated GFR > 60.0 ML/MIN Glucose 160 H (74-106) mg/dL Calcium 9.6 (8.4-10.2) mg/dL Multi-Disciplinary Progress Notes: Multi-Disciplinary Progress Notes 02/06/18 09:34 Nutrition Note by Reina Perry F/u Note: Note 1999 ada diet con't with 100% po intake. Labs 02/05: Na 132, cl 197, BUN 3 , Cr 0.43, glu 154, alb wnl, hgb 10.2, hct 30.2. Recommend adding cardiac restriction to diet order. Pt refused diet ed. goal #1) maintain po intake >= 75%; meeting. #2) glu wnl; not meeting--both goals continue. Will monitor and f /u prn. TIFFANIE Rosales Initialized on 02/06/18 09:34 - END OF NOTE Assessment/Plan (1) Osteomyelitis Current Visit: Yes Status: Acute Onset Date: ~02/02/18 Qualifiers: Osteomyelitis type: unspecified type Osteomyelitis location: foot Laterality: right Qualified Code(s): M86.9 - Osteomyelitis, unspecified Assessment & Plan: Continue Zosyn and vancomycin. Awaiting call back from Dr. Jarquin. The best plan we have right now is to discharge him to see Dr. Jarquin as patient does not want partial foot amputation by general surgeon here. The problem is how he will continue to receive IV antibiotics for treatment of infection. He failed outpatient levofloxacin. Code(s): M86.9 - OSTEOMYELITIS, UNSPECIFIED (2) Pathological fracture of metatarsal bone of right foot Current Visit: Yes Status: Acute Onset Date: ~02/02/18 Code(s): M84.474A - PATHOLOGICAL FRACTURE, RIGHT FOOT, INIT ENCNTR FOR FRACTURE (3) Diabetes type 2, uncontrolled Current Visit: Yes Status: Chronic Assessment & Plan: Patient on metformin and sliding scale but blood glucoses have been running in the high 100's. Will start lantus 10 units subcutanously daily. Code(s): E11.65 - TYPE 2 DIABETES MELLITUS WITH HYPERGLYCEMIA (4) Wound infection Current Visit: Yes Status: Acute Onset Date: ~02/03/18 Code(s): T14.8XXA - OTHER INJURY OF UNSPECIFIED BODY REGION, INITIAL ENCOUNTER; L08.9 - LOCAL INFECTION OF THE SKIN AND SUBCUTANEOUS TISSUE, UNSP (5) Failure of outpatient treatment Current Visit: Yes Status: Acute Onset Date: ~02/02/18 Code(s): Z78.9 - OTHER SPECIFIED HEALTH STATUS (6) Hyponatremia Current Visit: Yes Status: Acute Onset Date: ~02/02/18 Assessment & Plan: stable. Code(s): E87.1 - HYPO-OSMOLALITY AND HYPONATREMIA (7) Anemia Current Visit: Yes Status: Acute Qualifiers: Anemia type: unspecified type Qualified Code(s): D64.9 - Anemia, unspecified Assessment & Plan: stable. Most likely due to chronic disease. Code(s): D64.9 - ANEMIA, UNSPECIFIED
[2018-02-07] MEDS: ECOTRIN 81 MG PO SCH (09:40)
[2018-02-07] MEDS: Zestril 20 MG PO SCH (09:40)
[2018-02-07] MEDS: NEURONTIN 300 MG PO SCH ×3 (09:40→21:36)
[2018-02-07] MEDS: PLAVIX 75 MG Tablet PO SCH (09:40)
[2018-02-07] MEDS: ENOXAPARIN SODIUM SQ SCH (09:40)
[2018-02-07] MEDS: ZYLOPRIM 300 MG PO SCH (09:40)
[2018-02-07] MEDS: Vitamin B-12 500 MCG PO SCH (09:41)
[2018-02-07] MEDS: CORTISONE 1% CREAM TP SCH ×2 (09:41→21:37)
[2018-02-07] MEDS: Lantus Insulin SQ SCH (09:42)
[2018-02-07] MEDS: NovoLOG Insulin SQ PRN ×2 (12:20→21:36)
[2018-02-07] MEDS: ZOCOR 20MG PO SCH (21:36)
[2018-02-08] MEDS: VANCOCIN 1 GM VIAL*** 1.25 GM in Sodium Chloride 0.9% 250 ML 250 ML IV SCH ×2 (01:28→10:21)
[2018-02-08] MEDS: Zosyn 3.375GM/100 Ml D5W 3.375 GM/100 ML IVPB IV SCH ×2 (06:22→12:10)
[2018-02-08 07:19] VITALS: O2SAT 98
[2018-02-08] MEDS: Glucophage 500 MG PO SCH (07:47)
[2018-02-08] MEDS: Lantus Insulin SQ SCH (07:47)
--- NOTE | 2018-02-08 08:54 | PCM.DCORD ---
- Discharge Discharge Date: 02/08/18 Disposition: Home, Self-Care Condition: Stable Prescriptions: New Ciprofloxacin HCl 750 mg PO Q12H #20 tablet Hydrocortisone 1% Cream [Cortisone 1% Cream] 0.5 gm TP BID #60 g Metformin HCl 500 mg [Glucophage 500 MG] 2 tab PO DAILY #60 tablet Linezolid [Zyvox] 600 mg PO Q12H #20 tablet Continue Allopurinol 300 mg [Zyloprim 300 mg] 300 mg PO DAILY Lisinopril 20 mg [Zestril 20 MG] 20 mg PO DAILY Gabapentin [Neurontin] 600 mg PO TID Clopidogrel Bisulfate 75 mg [PLAVIX 75 MG Tablet] 75 mg PO DAILY Atorvastatin Calcium [Lipitor] 80 mg PO HS Aspirin EC 81 mg [Ecotrin 81 mg] 81 mg PO DAILY Cyanocobalamin (Vitamin B-12) [Vitamin B12] 2,500 mcg PO DAILY Discontinued Metformin HCl 500 mg [Glucophage 500 MG] 500 mg PO DAILY Instructions: Diabetic Foot Ulcer (DC), Osteomyelitis (DC), Wound Infection Additional Instructions: KEEP SCHEDULED FOLLOWUP APPOINTMENT TODAY WITH DR. ANDERSON AT 3:15 You most likely will need antibiotics longer than 10 days. Please check with Dr. Anderson and Dr. Dunlap about the length of antibiotics needed when you see each in follow up. I would like to keep your PICC line in until you see both Dr. Anderson and Dr. Dunlap. You will need to have this flushed weekly at [facility]. Follow up with: PENNY DUNLAP [Primary Care Provider] - 02/16/18 10:00 am MARIE ANDERSON [PODIATRY STAFF] - 02/08/18 3:15 pm (Formerly [facility]) Forms: Discharge Instructions
[2018-02-08] MEDS: CORTISONE 1% CREAM TP SCH (10:23)
[2018-02-08] MEDS: Vitamin B-12 500 MCG PO SCH (10:24)
[2018-02-08] MEDS: ENOXAPARIN SODIUM SQ SCH (10:24)
[2018-02-08] MEDS: PLAVIX 75 MG Tablet PO SCH (10:24)
[2018-02-08] MEDS: Zestril 20 MG PO SCH (10:24)
[2018-02-08] MEDS: ZYLOPRIM 300 MG PO SCH (10:24)
[2018-02-08] MEDS: NEURONTIN 300 MG PO SCH (10:24)
[2018-02-08] MEDS: ECOTRIN 81 MG PO SCH (10:24)
[2018-02-08 11:46] VITALS: BP 122/63; PULSE 86
== END 2018-02-08 13:45 | disposition home or self-care (01) | DRG 540 ==
LOC: ED 08:36 → MED SURG 15:44
PROVIDERS: ADMIT Family Medicine; ATTEND Family Medicine
DX: M86.9 Osteomyelitis, unspecified (principal); M84.474A Pathological fracture, right foot, initial encounter for fracture; E87.1 Hypo-osmolality and hyponatremia; E11.65 Type 2 diabetes mellitus with hyperglycemia; Z79.4 Long term (current) use of insulin; L08.9 Local infection of the skin and subcutaneous tissue, unspecified; Z78.9 Other specified health status; I10 Essential (primary) hypertension; E78.5 Hyperlipidemia, unspecified; D64.9 Anemia, unspecified; G62.9 Polyneuropathy, unspecified; Z79.899 Other long term (current) drug therapy
CPT/HCPCS: 36000; 36415; 36569; 73630; 76937; 77001; 80048; 80053; 80202; 82962; 83605; 85025; 85652; 87040; 96365; 99285; C1769; G0008; J1642; J1644; J1650; J2543; J3370; A9270-GY

== ENCOUNTER 2018-07-04 10:03 | Day surgery (SDC) | payer BC ==
[~2018-07-04 10:03] MED LIST: ACETAZOLAMIDE 250 MG TABLET PO ONE; Ak-Dilate OPHTHALMIC*** 1.065 ML, Cyclogyl 1% OPHTH SOL 5 ML 1.065 ML, GATIFLOXACIN 0.5... OP ONE; BETADINE 5% OPHTHALMIC 30 ML OP ONE; BSS 500 ML, Fortaz/Tazicef 1 GM** 0.2 G IO ONE; Epinephrine Preservative Free 1 MG/ML INTRAOP ONE; LIDOCAINE HCL 1% AMPUL 5 ML IJ ONE; Lactated Ringers 1,000 ML IV SCH; TETRACAINE 0.5% STERI-UNIT SOL OP ONE; Zofran 4 MG/2 ML VIAL IV PRN
[2018-07-04] MEDS ORDERED: DIPRIVAN 200 MG/20 ML IV ONE (10:04)
[2018-07-04] MEDS ORDERED: Lactated Ringers 1,000 ML IV ONE (10:50)
--- NOTE | 2018-07-04 13:09 | OP ---
DATE/TIME OF OPERATION: 07/04/2018 1121 TIME DICTATED: 1235 PREOPERATIVE DIAGNOSIS: Senile cataract of right eye. POSTOPERATIVE DIAGNOSIS: Senile cataract of right eye. SURGEON: Sundar Collazo MD NON LICENSED NUCLEAR PLANT OPERATOR: None. OPERATION: Cataract extraction of right eye with an intraocular lens implant. STANDARD __X___ COMPLEX ANESTHESIA: MAC. ___X___ Monitored anesthesia care in combination with topical and intra-cameral anesthesia (because of the established specific risk of reflux, arrhythmias, or an anxiety attack associated with ocular manipulation as well as difficulty of the medical chemist to manage such potentially catastrophic events while simultaneously attempting to complete the surgical procedure, it was deemed necessary for the patient's safety to have an anesthesiologist or a nurse hoisting pile driving engineer present during the procedure whenever possible. The anesthesiologist or the nurse hoisting pile driving engineer was utilized to monitor and regulate the intravenous sedation of the patient, so the patient was cooperative, relaxed, and comfortable). Topical anesthesia using Tetracaine eye drops together with intra cameral anesthesia using Lidocaine 1% MPF. The nurse was utilized to monitor the patient. ANESTHESIA PROVIDER: Floyd White CRNA. COMPLICATIONS: None. BLOOD LOSS: None. INDICATIONS: The patient is undergoing cataract surgery in the hopes of eliminating the visual complaints and difficulty. PROCEDURE: After arriving at the facility's outpatient surgery area, an IV was started; the patient was given 5 mg of p.o. Versed. (If an anesthesia provider was not monitoring the patient) The patient was then given topical anesthetic Tetracaine eye drops. A cotton pellet was soaked into a solution of a combination of Zymaxid 0.5%, Mendoza-Synephrine 2.5% and Ocufen (other drops might have been substituted referenced in the patient's record). The pellet was inserted by the RN into the lower conjunctival cul-de-sac with a sterile forceps and left for 20 minutes. The pellet was then removed by the RN with a sterile forceps before taking the patient to the operating room. The preoperative area nurse identified the patient and marked the correct eye to be operated on. I identified the correct eye to be operated on and marked it appropriately in the outpatient surgery area. The patient was then taken into the operating room. Tetracaine eye drops were installed again in the correct eye. The eyelids and the lashes and the lid margins were scrubbed with Betadine solution. One drop of the diluted Betadine solution was placed in the conjunctival cul-de-sac for 45 seconds and then was irrigated. A drop of Tetracaine Gel was placed in the conjunctival cul-de-sac. The patient's forehead was taped to secure it during the procedure. The patient was monitored. The patient was then draped in the usual way for this procedure. An eye speculum was used to separate the eyelids. The eye was then fixated and a temporal 2.5 mm incision was made in the clear cornea temporally at the limbus. Through the incision, 0.25 cc of 1% non-preserved lidocaine was injected into the anterior chamber for intracameral anesthesia. The anterior chamber was then filled with viscoelastic. The pupil was small. I felt that it would be safer to mechanically dilate the pupil. A Malyugin ring was used at this point which dilated the pupil. That was removed at the end of the procedure prior to aspiration of the viscoelastic from the anterior chamber and posterior to the intraocular lens implant. The cataract had a great amount of cortical changes. That rendered seeing the anterior capsule difficult for a safe performance of an anterior capsulotomy. I injected an air bubble into the anterior chamber. I then injected 1 ML of vision blue solution into the anterior chamber. The vision blue solution was irrigated from the anterior chamber after 30 seconds. The anterior capsule was stained which facilitated performing the anterior capsulotomy safely. After that was completed, a cystotome was introduced into the anterior chamber and a round anterior capsulotomy was performed. The capsule was removed by a forceps. Hydrodissection was next carried utilizing a 25-gauge cannula and balanced salt solution to delineate the cortical material from the capsule and the nucleus from the cortical material. The nucleus was rotated freely into the capsular bag with no difficulty. The phaco tip of the [employer] Phacoemulsifier was introduced into the anterior chamber and two grooves were made into the nucleus 90 degrees apart. Using two spatulas resulted into the nucleus being fractured into four quadrants. The phaco tip was then used to remove each quadrant of the nucleus. Viscoelastic was used during this process to protect the corneal endothelium. Once the entire nucleus was removed, the phaco tip then was removed and the irrigation tip was introduced into the eye and the cortex was removed. The posterior capsule was polished. It was noticed that there was a tear into the posterior capsule with few vitreous strands into the pupil plan. An anterior vitrectomy was performed. A 15.00 diopter, [id number], posterior chamber lens implant, was inspected and found to be grossly normal. The implant was inserted into the implant injector cartridge; Viscoelastic again was introduced into the anterior chamber, which filled the capsular bag. The implant injector's cartridge tip was placed at the limbal wound and the posterior chamber implant was released into the capsular bag and rotated appropriately. The implant was found to be into the capsular bag and it was centered. ___X__ 0.2 ml of Tri-Moxi was introduced via 27 gauge cannula into the vitreous cavity through the ciliary processes. Viscoelastic was aspirated from the anterior chamber and posterior to the intraocular lens implant from the capsular bag using the irrigating tip. The anterior chamber was irrigated and filled with 5 cc antibiotic solution (500 cc of BSS plus 2 ml of Fortaz 100 mg/ml) ( if patient was not allergic to the medication). The lips of the corneal incision were hydrated using BSS solution. The anterior chamber was checked and found to be water tight. One drop each of antibiotic, steroid and NSAID drops (refer to chart for drops used) were placed in the conjunctival cul-de-sac of the operated eye. Patient tolerated the procedure quite well and left the operating room in satisfactory condition. DISCHARGE SUMMARY: The patient was released in stable condition. The patient and those with the patient were given an instruction sheet as of how to care for the eye after surgery as well as counseling on any abnormal laboratory studies by the postoperative RN. The patient was also given an appointment card for follow-up in the office and is to call immediately for any difficulties including but not limited to pain in the eye, decreased vision, discharge from the eye, headache and or fever. DISCHARGE DIAGNOSIS: Pseudophakia of right eye.
[2018-07-04 13:13] VITALS: O2SAT 100
[2018-07-04 13:15] VITALS: BP 175/85; PULSE 80
== END 2018-07-04 12:50 | disposition home or self-care (01) ==
LOC: SDC 10:03
PROVIDERS: ATTEND Ophthalmology
DX: H25.811 Combined forms of age-related cataract, right eye (principal); E11.9 Type 2 diabetes mellitus without complications; Z79.84 Long term (current) use of oral hypoglycemic drugs; Z79.899 Other long term (current) drug therapy
CPT/HCPCS: 82962; C1780; J0171; J2704; A9270-GY

== ENCOUNTER 2018-11-09 11:47 | Inpatient (IN) | payer BC | END 2018-11-13 11:50 | disposition home or self-care (01) | LOC: MED SURG 11:47 ==

== ENCOUNTER 2018-11-24 17:48 | Inpatient (IN) | payer BC ==
[2018-11-24] MEDS ORDERED: TYLENOL EXTRA STRENGTH 500 MG PO STA (18:26)
--- NOTE | 2018-11-24 18:39 | ERPHSYRPT ---
- History of Present Illness Time Seen by Provider: 11/24/18 18:20 Source: patient Exam Limitations: no limitations Patient Subjective Stated Complaint: pt started treatment on 11/15/18 of IV cefepime outpatient twice daily. pt reports he is being treated for an infected diabetic ulcer of his right foot. pt reprots prior to the he was also treated with vanocomycin for 5 days. today after pt finished his treatment the nurse noted his heart rate to be elevated as well as his temperature. nurse reports she walked pt to [facility] and noted him to be short of breath, she escorted pt to ER registration to be evaluated, pt reports he has severe pain to the entire length of the right leg. reports he feels weak and was short of breath walking the short distance. Triage Nursing Assessment: pt is aox3, pupils perrl, pt is febrile, pt resps are easy and non labored at this time, radial pulses strong and equal, pt tachycardic, cap refill < 3 seconds, pt skin pale warm dry. dressing in palce to the right foot. dressing clean dry. Physician History: Fever and tachycardia after receiving IV cefepime for an infected diabetic foot ulcer on the right side. Timing/Duration: today Fever Severity: moderate Fever Therapy MESS ATTENDANT: none Associated Symptoms: No abdominal pain, No chest pain, No confusion, No cough, No diaphoresis, No headache, No muscle aches, No nausea/vomiting, No rash, No rhinorrhea, No shortness of breath, No sore throat, No stiff neck, No syncope, No weakness International travel in last 2 weeks: No Allergies/Adverse Reactions: No Known Drug Allergies Allergy (Verified 11/24/18 18:17) Home Medications: Allopurinol 300 mg [Zyloprim 300 mg] 300 mg PO DAILY 04/26/15 [History] Aspirin EC 81 mg [Ecotrin 81 mg] 81 mg PO DAILY 07/07/17 [History] Atorvastatin Calcium [Lipitor] 40 mg PO HS 07/07/17 [History] Clopidogrel Bisulfate 75 mg [PLAVIX 75 MG Tablet] 75 mg PO DAILY 07/07/17 [History] Gabapentin [Neurontin] 800 mg PO TID 07/07/17 [History] Lisinopril 20 mg [Zestril 20 MG] 20 mg PO DAILY 07/07/17 [History] Metformin HCl 500 mg [Glucophage 500 MG] 2 tab PO BID 05/29/18 [History] glyBURIDE [Glyburide] 5 mg PO BID 05/29/18 [History] Empagliflozin [Jardiance] 10 mg PO BID 11/09/18 [History] Dulaglutide [Trulicity] 0.75 mg SQ WEEKLY 11/19/18 [History] Hx Tetanus, Diphtheria Vaccination/Date Given: (unk) Hx Influenza Vaccination/Date Given: Yes Hx Pneumococcal Vaccination/Date Given: No Immunizations Up to Date: Yes - Review of Systems Constitutional: Fever, No Fatigue Eyes: No Symptoms, No Eye Pain, No Vision Changes Ears, Nose, & Throat: No Symptoms Respiratory: No Cough, No Dyspnea Cardiac: No Chest Pain, No Edema, No Syncope Abdominal/Gastrointestinal: No Abdominal Pain, No Nausea, No Vomiting, No Diarrhea Genitourinary Symptoms: No Dysuria Musculoskeletal: No Back Pain, No Neck Pain Skin: No Rash Neurological: No Dizziness, No Focal Weakness, No Sensory Changes Psychological: No Symptoms Endocrine: No Symptoms Hematologic/Lymphatic: No Easy Bleeding, No Easy Bruising All Other Systems: Reviewed and Negative - Past Medical History Pertinent Past Medical History: Yes Neurological History: Peripheral Neuropathy ENT History: Cataracts Cardiac History: High Cholesterol, Hypertension Respiratory History: No Pertinent History Endocrine Medical History: Diabetes Type II Musculoskeletal History: Other GI Medical History: No Pertinent History History: No Pertinent History Psycho-Social History: No Pertinent History Male Reproductive Disorders: Other Other Medical History: ED, osteomyelitis in r foot, gout - Past Surgical History Past Surgical History: Yes Neuro Surgical History: No Pertinent History Cardiac: Vascular Surgery Respiratory: No Pertinent History Gastrointestinal: No Pertinent History Genitourinary: No Pertinent History Musculoskeletal: No Pertinent History, Other Male Surgical History: No Pertinent History Other Surgical History: Vascular surg pradeep legs, in grown toe nails - Social History Smoking Status: Former smoker How long have you smoked: YRS Exposure to second hand smoke: No Drug Use: none Patient Lives Alone: No - Nursing Vital Signs Nursing Vital Signs: Initial Vital Signs Temperature 102.5 F 11/24/18 17:58 Pulse Rate 120 H 11/24/18 17:58 Respiratory Rate 20 11/24/18 17:58 Blood Pressure 104/61 11/24/18 17:58 O2 Sat by Pulse Oximetry 99 11/24/18 17:58 Pain Scale Pain Intensity 0 - Physical Exam General Appearance: no apparent distress, alert Eye Exam: PERRL/EOMI ENT Exam: normal ENT inspection, No pharyngeal erythema, No tonsillar exudate Neck Exam: supple, full range of motion, No meningismus Respiratory Exam: normal breath sounds, lungs clear, no respiratory distress Cardiovascular/Chest Exam: normal heart sounds, regular rate/rhythm, No murmur, No edema Gastrointestinal/Abdominal Exam: soft, non tender, no distention Extremity Exam: non-tender, normal range of motion, normal inspection, normal capillary refill, pedal edema (dorsum of right foot, mild with no erythema or warmth) Neurologic Exam: alert, oriented x 3, cooperative, feather cutting machine feeder II-XII nml as tested, normal mood/affect, sensation nml, No motor deficits Skin Exam: normal color, warm, dry, other (ulcer to sole on left foot that has clear drainage and healing granulation tissue), No rash SpO2 Interpretation: normal SpO2: 99 O2 Delivery: Room Air - Course EKG Interpreted by Me: RATE (120), Sinus Tach, NORMAL AXIS, NORMAL INTERVALS, NORMAL QRS, NORMAL ST-T, Other (no change in patient's EKG in comparison from ) - Radiology Exams Chest X-ray Interpretation: Interpreted by me, Reviewed by me, Negative, No Pneumonia , No Pneumothorax, Nml Heart Size, No Infiltrates, Nml Mediastinum, Other (no effusions) Right Foot X-ray Interpretation: Interpreted by me, Reviewed by me, No Fracture, Nml Alignment, Other (right foot has missing 5th metatarsal shaft, unchanged from foot x-ray) Ordered Tests: Active Orders 24 hr Category Date Time Status Kick Boxer STAT Care 11/24/18 18:27 Active EKG-ER Only STAT Care 11/24/18 18:26 Active IV Insertion STAT Care 11/24/18 18:26 Active Pulse Oximetry (ED) STAT Care 11/24/18 18:25 Active Pulse Oximetry (ED) STAT Care 11/24/18 18:26 Active Wound Care STAT Care 11/24/18 19:04 Active CHEST 1 VIEW (PORTABLE) Stat Exams 11/24/18 18:25 Taken FOOT (MINIMUM 3 VIEWS) Stat Exams 11/24/18 18:28 Taken BLOOD CULTURE Stat Lab 11/24/18 18:50 Received CBC W DIFF Stat Lab 11/24/18 18:45 Completed CMP Stat Lab 11/24/18 18:45 Completed CULTURE,URINE Stat Lab 11/24/18 20:25 Received Lactic Acid Stat Lab 11/24/18 18:43 Completed Lactic Acid Stat Lab 11/24/18 20:47 Ordered PROTIME WITH INR Stat Lab 11/24/18 18:45 Completed PTT Stat Lab 11/24/18 18:45 Completed Urinalysis with Microscopy Stat Lab 11/24/18 20:25 Completed Medication Summary Generic Name Dose Route Start Last Admin Trade Name Freq PRN Reason Stop Dose Admin Sodium Chloride 1,000 mls @ 999 mls/hr 11/24/18 18:30 11/24/18 20:23 Sodium Chloride 0.9% 1000 Ml IV 11/24/18 22:30 999 mls/hr .Q1H1M JAYANT Administration Discontinued Medications Generic Name Dose Route Start Last Admin Trade Name Freq PRN Reason Stop Dose Admin Acetaminophen 1,000 mg 11/24/18 18:26 11/24/18 18:45 Tylenol Extra Strength 500 Mg PO 11/24/18 18:27 1,000 mg STAT STA Administration Acetaminophen Confirm 11/24/18 18:42 Tylenol Extra Strength 500 Mg Administered 11/24/18 18:43 Dose 1,000 mg .ROUTE .STK-MED ONE Piperacillin Sod/Tazobactam Sod 3.375 gm in 100 mls @ 200 mls/hr 11/24/18 20: 12 11/24/18 20:33 Zosyn 3.375gm/100 Ml D5w IV 11/24/18 20:41 200 mls/hr STAT STA 200 mls/hr Administration Piperacillin Sod/Tazobactam Sod Confirm 11/24/18 20:21 Zosyn 3.375gm/100 Ml D5w Administered 11/24/18 20:22 Dose 3.375 gm in 100 mls @ ud IV .STK-MED ONE Lab/Rad Data: Laboratory Result Diagrams 11/24/18 18:45 11/24/18 18:45 Laboratory Results 11/24/18 11/24/18 11/24/18 Range/Units 20:25 18:45 18:45 WBC (4.0-10.5) K/mm3 RBC (4.1-5.6) M/mm3 Hgb (12.5-18.0) gm/dl Hct (42-50) % MCV (78-100) fl MCH (26-32) pg MCHC (32-36) g/dl RDW (11.5-14.0) % Plt Count (150-450) K/mm3 MPV (6-9.5) fl Gran % (36.0-66.0) % Eos # (Auto) (0-0.5) Absolute Lymphs (auto) (1.0-4.6) Absolute Monos (auto) (0.0-1.3) Lymphocytes % (24.0-44.0) % Monocytes % (0.0-12.0) % Eosinophils % (0.00-5.0) % Basophils % (0.0-0.4) % Absolute Granulocytes (1.4-6.9) Basophils # (0-0.4) PT 12.0 (8.83-12.87) SECONDS INR 1.06 (0.8-3.0) APTT 31.9 (24.1-36.1) SECONDS Sodium 134 L (137-145) mmol/L Potassium 5.1 (3.5-5.1) mmol/L Chloride 99 (98-107) mmol/L Carbon Dioxide 24 (22-30) mmol/L Anion Gap 16.5 H (5-15) MEQ/L BUN 9 (9-20) mg/dL Creatinine 0.60 L (0.66-1.25) mg/dL Estimated GFR > 60.0 ML/MIN Glucose 191 H (74-106) mg/dL Lactic Acid (0.4-2.0) Calcium 9.0 (8.4-10.2) mg/dL Total Bilirubin 0.50 (0.2-1.3) mg/dL AST 20 (17-59) U/L ALT 17 (0-50) U/L Alkaline Phosphatase 126 (38-126) U/L Serum Total Protein 7.8 (6.3-8.2) g/dL Albumin 4.1 (3.5-5.0) g/dL Urine Color STRAW (YELLOW) Urine Appearance CLEAR (CLEAR) Urine pH 5.0 (5-6) Ur Specific [place] 1.020 (1.005-1.025) Urine Protein NEGATIVE (Negative) Urine Ketones NEGATIVE (NEGATIVE) Urine Blood NEGATIVE (0-5) Jasmeet/ul Urine Nitrite NEGATIVE (NEGATIVE) Urine Bilirubin NEGATIVE (NEGATIVE) Urine Urobilinogen NEGATIVE (0-1) mg/dL Ur Leukocyte Esterase NEGATIVE (NEGATIVE) Urine WBC (Auto) NONE (0-5) /HPF Urine RBC (Auto) NONE (0-2) /HPF U Epithel Cells (Auto) NONE (FEW) /HPF Urine Bacteria (Auto) NONE (NEGATIVE) /HPF Urine Glucose >=500 (NEGATIVE) mg/dL 11/24/18 11/24/18 Range/Units 18:45 18:43 WBC 11.6 H (4.0-10.5) K/mm3 RBC 3.52 L (4.1-5.6) M/mm3 Hgb 10.4 L (12.5-18.0) gm/dl Hct 32.0 L (42-50) % MCV 90.9 (78-100) fl MCH 29.5 (26-32) pg MCHC 32.5 (32-36) g/dl RDW 15.8 H (11.5-14.0) % Plt Count 395 (150-450) K/mm3 MPV 8.2 (6-9.5) fl Gran % 71.2 H (36.0-66.0) % Eos # (Auto) 0.39 (0-0.5) Absolute Lymphs (auto) 1.87 (1.0-4.6) Absolute Monos (auto) 1.01 (0.0-1.3) Lymphocytes % 16.1 L (24.0-44.0) % Monocytes % 8.7 (0.0-12.0) % Eosinophils % 3.4 (0.00-5.0) % Basophils % 0.6 (0.0-0.4) % Absolute Granulocytes 8.27 H (1.4-6.9) Basophils # 0.07 (0-0.4) PT (8.83-12.87) SECONDS INR (0.8-3.0) APTT (24.1-36.1) SECONDS Sodium (137-145) mmol/L Potassium (3.5-5.1) mmol/L Chloride (98-107) mmol/L Carbon Dioxide (22-30) mmol/L Anion Gap (5-15) MEQ/L BUN (9-20) mg/dL Creatinine (0.66-1.25) mg/dL Estimated GFR ML/MIN Glucose (74-106) mg/dL Lactic Acid 2.3 H (0.4-2.0) Calcium (8.4-10.2) mg/dL Total Bilirubin (0.2-1.3) mg/dL AST (17-59) U/L ALT (0-50) U/L Alkaline Phosphatase (38-126) U/L Serum Total Protein (6.3-8.2) g/dL Albumin (3.5-5.0) g/dL Urine Color (YELLOW) Urine Appearance (CLEAR) Urine pH (5-6) Ur Specific [place] (1.005-1.025) Urine Protein (Negative) Urine Ketones (NEGATIVE) Urine Blood (0-5) Jasmeet/ul Urine Nitrite (NEGATIVE) Urine Bilirubin (NEGATIVE) Urine Urobilinogen (0-1) mg/dL Ur Leukocyte Esterase (NEGATIVE) Urine WBC (Auto) (0-5) /HPF Urine RBC (Auto) (0-2) /HPF U Epithel Cells (Auto) (FEW) /HPF Urine Bacteria (Auto) (NEGATIVE) /HPF Urine Glucose (NEGATIVE) mg/dL - Progress Progress: improved Progress Note: 11/24/18 20:53 Patient's fever and tachycardia have improved with IV hydration and medication. Discussed with Dr Dowd, Hospitalist at [facility]. Dr Dowd accepted the patient for admission due to concern of returning osteomyelitis or resistant bacteria causing another right foot infection. Discussed with : Darryl Will see patient in: hospital (full admit) Counseled pt/family regarding: lab results, diagnosis, need for follow-up, rad results - Departure Departure Disposition: In-patient Admission Clinical Impression: SIRS (systemic inflammatory response syndrome) Fever Qualifiers: Fever type: unspecified Qualified Code(s): R50.9 - Fever, unspecified Condition: Fair Critical Care Time: No Referrals: PENNY WOODY [Primary Care Provider] -
[2018-11-24] MEDS ORDERED: Sodium Chloride 0.9% 1000 ML 1,000 ML ONE ×4 (18:42→22:33)
[2018-11-24] MEDS ORDERED: TYLENOL EXTRA STRENGTH 500 MG ONE (18:42)
[2018-11-24] MEDS: Sodium Chloride 0.9% 1000 ML 1,000 ML IV SCH ×4 (18:45→22:39)
[2018-11-24 18:49] LABS: Lactic Acid 2.3 (0.4-2.0)
[2018-11-24 19:06] LABS: BASOPHIL % 0.6 % (0.0-0.4); Basophil (Absolute #) 0.07 (0-0.4); Eosinophil % 3.4 % (0.00-5.0); Eosinophil (Absolute #) 0.39 (0-0.5); Granulocyte Absolute (ANC) 8.27 (1.4-6.9); Granulocytes % 71.2 % (36.0-66.0); Hemoglobin 10.4 gm/dl (12.5-18.0); Lymphocyte (Absolute #) 1.87 (1.0-4.6); Lymphocytes % 16.1 % (24.0-44.0); Mean Cell Volume 90.9 fl (78-100); Mean Corpuscular Hemoglobin 29.5 pg (26-32); Mean Corpuscular Hgb Concent. 32.5 g/dl (32-36); Mean Platelet Volume 8.2 fl (6-9.5); Monocyte (Absolute #) 1.01 (0.0-1.3); Monocytes % 8.7 % (0.0-12.0); Platelet Count 395 K/mm3 (150-450); Red Blood Count 3.52 M/mm3 (4.1-5.6); Red Cell Distribution Width 15.8 % (11.5-14.0); White Blood Count 11.6 K/mm3 (4.0-10.5)
[2018-11-24 19:15] LABS: INR 1.06 (0.8-3.0)
[2018-11-24 19:18] LABS: ALBUMIN 4.1 g/dL (3.5-5.0); ALKALINE PHOSPHATASE 126 U/L (38-126); ANION GAP 16.5 MEQ/L (5-15); BLOOD UREA NITROGEN 9 mg/dL (9-20); CHLORIDE 99 mmol/L (98-107); Carbon Dioxide 24 mmol/L (22-30); Glucose 191 mg/dL (74-106); PTT 31.9 SECONDS (24.1-36.1); Potassium 5.1 mmol/L (3.5-5.1); SGOT/AST 20 U/L (17-59); SGPT/ALT 17 U/L (0-50); SODIUM 134 mmol/L (137-145); Total Protein 7.8 g/dL (6.3-8.2)
[2018-11-24] MEDS ORDERED: Zosyn 3.375GM/100 Ml D5W 3.375 GM/100 ML IVPB IV STA (20:12)
[2018-11-24] MEDS ORDERED: Zosyn 3.375GM/100 Ml D5W 3.375 GM/100 ML IVPB IV ONE (20:21)
[2018-11-24 20:34] LABS: Appearance CLEAR (CLEAR); Bilirubin NEGATIVE (NEGATIVE); Blood NEGATIVE Ery/ul (0-5); Glucose >=500 mg/dL (NEGATIVE); Ketones NEGATIVE (NEGATIVE); Leukocyte Esterase NEGATIVE (NEGATIVE); Nitrite NEGATIVE (NEGATIVE); Protein,Urine Dip NEGATIVE (Negative); Urobilinogen NEGATIVE mg/dL (0-1)
[2018-11-24] MEDS ORDERED: VANCOCIN 1 GM VIAL*** 1 GM in Sodium Chloride 0.9% 250 ML 250 ML IV SCH (21:30)
--- NOTE | 2018-11-24 21:49 | XRAY ---
Indication: Possible sepsis. Osteomyelitis. Impression: No Portable chest obtained. No focal infiltrate, consolidation, or large effusion. Heart and mediastinal structures within normal limits. Right arm PICC line tip projects over the SVC. Bony thorax intact with mild spinal degenerative changes. Impression: Nonacute chest with chronic features.
--- NOTE | 2018-11-24 21:56 | XRAY ---
Indication: Right foot infection. Fever. Diabetes. Comparison: July 03, 2018. 3 nonweightbearing views of the right foot demonstrates new radiolucencies base 1st proximal phalanx with soft tissue swelling and tiny subcutaneous air worrisome for cellulitis/osteomyelitis. Stable 5th metatarsal resection with reabsorption of graft like material, tiny focus osteomyelitis base 5th proximal phalanx, and tiny heel spurs. Remaining right foot unremarkable.
[2018-11-24] MEDS: Zosyn INJ 4.5 GM in D5w 100ML Mini Bag 100 ML 100 ML IV SCH (22:01)
[2018-11-24] MEDS ORDERED: Vancomycin 1GM/ Ns 250ML*** 250 ML IV ONE (22:20)
[2018-11-24] MEDS ORDERED: ZOCOR 20MG ONE (23:47)
[2018-11-25] MEDS: ZOCOR 20MG PO SCH ×2 (00:11→21:25)
[2018-11-25] MEDS: Neurontin 400 MG PO SCH ×4 (00:12→21:25)
[2018-11-25] MEDS: Micronase 5 MG PO SCH ×3 (00:12→16:40)
[2018-11-25] MEDS: Glucophage 500 MG PO SCH ×3 (00:12→16:39)
[2018-11-25 06:20] LABS: BASOPHIL % 0.6 % (0.0-0.4); Basophil (Absolute #) 0.05 (0-0.4); Eosinophil % 4.4 % (0.00-5.0); Eosinophil (Absolute #) 0.38 (0-0.5); Granulocyte Absolute (ANC) 5.49 (1.4-6.9); Granulocytes % 63.5 % (36.0-66.0); Hematocrit 28.3 % (42-50); Lymphocyte (Absolute #) 1.87 (1.0-4.6); Lymphocytes % 21.6 % (24.0-44.0); Mean Corpuscular Hemoglobin 28.9 pg (26-32); Mean Corpuscular Hgb Concent. 31.8 g/dl (32-36); Mean Platelet Volume 8.3 fl (6-9.5); Monocyte (Absolute #) 0.86 (0.0-1.3); Monocytes % 9.9 % (0.0-12.0); Platelet Count 355 K/mm3 (150-450); Red Blood Count 3.11 M/mm3 (4.1-5.6); Red Cell Distribution Width 15.5 % (11.5-14.0); White Blood Count 8.7 K/mm3 (4.0-10.5)
[2018-11-25 06:44] LABS: ANION GAP 11.9 MEQ/L (5-15); BLOOD UREA NITROGEN 6 mg/dL (9-20); CHLORIDE 107 mmol/L (98-107); Calcium 8.4 mg/dL (8.4-10.2); Carbon Dioxide 23 mmol/L (22-30); Creatinine 1 0.54 mg/dL (0.66-1.25); Glucose 102 mg/dL (74-106); Potassium 4.5 mmol/L (3.5-5.1); SODIUM 137 mmol/L (137-145)
[2018-11-25] MEDS: Zosyn INJ 4.5 GM in D5w 100ML Mini Bag 100 ML 100 ML IV SCH ×3 (08:17→21:24)
[2018-11-25] MEDS: VANCOCIN 1 GM VIAL*** 2 GM in Sodium Chloride 0.9% 500 ML 500 ML IV SCH ×2 (09:58→22:07)
--- NOTE | 2018-11-25 16:07 | PCM.HP ---
<RAMOS ROUSE - Last Filed: 11/25/18 15:59> History of Present Illness - Chief Complaint Chief Complaint: SIRS Date: 11/25/18 History of Present Illness: is a 58 year old male seen this am following ER admission for SIRS likely related to his osteomyelitis and failed outpatient therapy. Patient has been getting outpatient IV antibiotic infusion therapy for osteomyelitis. His cultures grew pseudomonas sensitive to cefipime. Patient was going for infusion 2x a day. Patient has PICC line in place. Patient reports that yesterday when he was at infusion services the nurses were concerned that he was running a fever and he was sent over to be evaluated in ER. Patient reports that he has pain in both lower extremities R>L. Patient also reported that he was SOB last night in ER but is not SOB now. Patient reports he has appt with Dr Jarquin lead burner apprentice this month to discuss osteomyelitis treatment options. Patient denies any nausea vomiting constipation. Patient reports diarrhea since being on antibiotics. Patient denies any difficulty with urination. - Review of Systems Constitutional: Fever Eyes: No Vision Changes, No Double Vision Respiratory: Short Of Breath, No Cough Cardiac: Edema, No Chest Pain Abdominal/Gastrointestinal: Diarrhea, No Abdominal Pain, No Nausea, No Vomiting , No Constipation Genitourinary Symptoms: No Dysuria Musculoskeletal: Other (R lower extremity pain and swelling) Skin: Cellulitis Neurological: Other (neuropathy) Endocrine: Other (hypoglycemic episodes) Hematologic/Lymphatic: No Anemia Medications & Allergies Home Medications: Home Medication List Allopurinol 300 mg [Zyloprim 300 mg] 300 mg PO DAILY 04/26/15 [History Confirmed 11/24/18] Aspirin EC 81 mg [Ecotrin 81 mg] 81 mg PO DAILY 07/07/17 [History Confirmed 11/24/18] Atorvastatin Calcium [Lipitor] 40 mg PO HS 07/07/17 [History Confirmed 11/24/18] Clopidogrel Bisulfate 75 mg [PLAVIX 75 MG Tablet] 75 mg PO DAILY 07/07/17 [History Confirmed 11/24/18] Gabapentin [Neurontin] 800 mg PO TID 07/07/17 [History Confirmed 11/24/18] Lisinopril 20 mg [Zestril 20 MG] 20 mg PO DAILY 07/07/17 [History Confirmed 11/24/18] Metformin HCl 500 mg [Glucophage 500 MG] 2 tab PO BID 05/29/18 [History Confirmed 11/24/18] glyBURIDE [Glyburide] 5 mg PO BID 05/29/18 [History Confirmed 11/24/18] Empagliflozin [Jardiance] 10 mg PO BID 11/09/18 [History Confirmed 11/24/18] Dulaglutide [Trulicity] 0.75 mg SQ WEEKLY 11/19/18 [History Confirmed 11/24/18] Allergies/Adverse Reactions: Allergies Allergy/AdvReac Type Severity Reaction Status Date / Time No Known Drug Allergies Allergy Verified 11/24/18 18:17 - Past Medical History Past Medical History: Yes Neurological History: Peripheral Neuropathy ENT History: Cataracts Cardiac History: High Cholesterol, Hypertension Respiratory History: No Pertinent History Endocrine Medical History: Diabetes Type II Musculoskelatal History: Other GI Medical History: No Pertinent History History: No Pertinent History Pyscho-Social History: No Pertinent History Male Reproductive Disorders: Other Comment: ED, osteomyelitis in r foot, gout - Past Surgical History Past Surgical History: Yes Neuro Surgical History: No Pertinent History Cardiac History: Vascular Surgery Respiratory Surgery: No Pertinent History GI Surgical History: No Pertinent History Genitourinary Surgical Hx: No Pertinent History Musculskeletal Surgical Hx: No Pertinent History, Other Male Surgical History: No Pertinent History Other Surgical History: Vascular surg pradeep legs, in grown toe nails - Social History Smoking Status: Former smoker How long have you smoked: YRS Exposure to second hand smoke: No Alcohol: Occasionally Drug Use: none - Physical Exam Vital Signs: Vital Signs - 24 hr Temp Pulse Resp BP Pulse Ox 11/25/18 12:00 18 11/25/18 11:50 98.6 F 88 18 117/61 99 11/25/18 08:00 18 11/25/18 07:24 99.0 F 90 18 135/69 96 11/25/18 04:00 98.4 F 86 18 120/69 95 11/25/18 00:00 98.0 F 93 H 18 125/59 94 L 11/24/18 23:26 98.4 F 93 H 19 123/58 98 11/24/18 21:03 100 H 16 111/53 97 11/24/18 20:56 99 11/24/18 20:36 102 H 18 126/59 99 11/24/18 19:43 98.7 F 11/24/18 19:11 108 H 20 112/63 100 11/24/18 18:40 90 L 11/24/18 18:39 96 11/24/18 17:58 102.5 F 120 H 20 104/61 98 General Appearance: mild distress Neurologic Exam: alert, oriented x 3, cooperative Eye Exam: eyes nml inspection Ears, Nose, Throat Exam: moist mucous membranes Neck Exam: normal inspection Respiratory Exam: normal breath sounds, lungs clear Cardiovascular Exam: regular rate/rhythm, normal heart sounds Gastrointestinal/Abdomen Exam: soft, normal bowel sounds, No tenderness, No distention Rectal Exam: deferred Extremity Exam: pedal edema, other (Non healing r plantar ulcer on ball of foot. Suspicion for overlying cellulitis R foot and ankle. Pain with palpation R foot.) Skin Exam: warm, dry, other (Erythema R foot) Wound Assessment: Skin/Wound Assessment Wound/Incision Assessment Start: 11/24/18 19: 07 Text: Status: Active Freq: Protocol: Document 11/24/18 19:07 MM (Rec: 11/24/18 19:10 MM [id number]) Wound Assessment Right Posterior Foot Wound Type diabetic ulcer Dressing Status Dry & Intact Drainage Amount Minimal Drainage Description Serosanguineous Drainage Odor None/Absent General Appearance Reddened Length (cm) 2 Width (cm) 2 Wound Bed Greatest Portion Red (Granulation) Surrounding Tissue Bright Red Primary Dressing Absorbant Pad Secondary Dressing Gauze Roll/Wrap Results - Labs Lab/Micro Results: Lab Results-Last 24 Hours 11/24/18 11/24/18 11/24/18 Range/Units 18:43 18:45 18:45 WBC 11.6 H (4.0-10.5) K/mm3 RBC 3.52 L (4.1-5.6) M/mm3 Hgb 10.4 L (12.5-18.0) gm/dl Hct 32.0 L (42-50) % MCV 90.9 (78-100) fl MCH 29.5 (26-32) pg MCHC 32.5 (32-36) g/dl RDW 15.8 H (11.5-14.0) % Plt Count 395 (150-450) K/mm3 MPV 8.2 (6-9.5) fl Gran % 71.2 H (36.0-66.0) % Eos # (Auto) 0.39 (0-0.5) Absolute Lymphs (auto) 1.87 (1.0-4.6) Absolute Monos (auto) 1.01 (0.0-1.3) Lymphocytes % 16.1 L (24.0-44.0) % Monocytes % 8.7 (0.0-12.0) % Eosinophils % 3.4 (0.00-5.0) % Basophils % 0.6 (0.0-0.4) % Absolute Granulocytes 8.27 H (1.4-6.9) Basophils # 0.07 (0-0.4) PT (8.83-12.87) SECONDS INR (0.8-3.0) APTT (24.1-36.1) SECONDS Sodium 134 L (137-145) mmol/L Potassium 5.1 (3.5-5.1) mmol/L Chloride 99 (98-107) mmol/L Carbon Dioxide 24 (22-30) mmol/L Anion Gap 16.5 H (5-15) MEQ/L BUN 9 (9-20) mg/dL Creatinine 0.60 L (0.66-1.25) mg/dL Estimated GFR > 60.0 ML/MIN Glucose 191 H (74-106) mg/dL Lactic Acid 2.3 H (0.4-2.0) Calcium 9.0 (8.4-10.2) mg/dL Total Bilirubin 0.50 (0.2-1.3) mg/dL AST 20 (17-59) U/L ALT 17 (0-50) U/L Alkaline Phosphatase 126 (38-126) U/L Serum Total Protein 7.8 (6.3-8.2) g/dL Albumin 4.1 (3.5-5.0) g/dL Urine Color (YELLOW) Urine Appearance (CLEAR) Urine pH (5-6) Ur Specific [place] (1.005-1.025) Urine Protein (Negative) Urine Ketones (NEGATIVE) Urine Blood (0-5) Jasmeet/ul Urine Nitrite (NEGATIVE) Urine Bilirubin (NEGATIVE) Urine Urobilinogen (0-1) mg/dL Ur Leukocyte Esterase (NEGATIVE) Urine WBC (Auto) (0-5) /HPF Urine RBC (Auto) (0-2) /HPF U Epithel Cells (Auto) (FEW) /HPF Urine Bacteria (Auto) (NEGATIVE) /HPF Urine Glucose (NEGATIVE) mg/dL 11/24/18 11/24/18 11/24/18 Range/Units 18:45 20:25 20:56 WBC (4.0-10.5) K/mm3 RBC (4.1-5.6) M/mm3 Hgb (12.5-18.0) gm/dl Hct (42-50) % MCV (78-100) fl MCH (26-32) pg MCHC (32-36) g/dl RDW (11.5-14.0) % Plt Count (150-450) K/mm3 MPV (6-9.5) fl Gran % (36.0-66.0) % Eos # (Auto) (0-0.5) Absolute Lymphs (auto) (1.0-4.6) Absolute Monos (auto) (0.0-1.3) Lymphocytes % (24.0-44.0) % Monocytes % (0.0-12.0) % Eosinophils % (0.00-5.0) % Basophils % (0.0-0.4) % Absolute Granulocytes (1.4-6.9) Basophils # (0-0.4) PT 12.0 (8.83-12.87) SECONDS INR 1.06 (0.8-3.0) APTT 31.9 (24.1-36.1) SECONDS Sodium (137-145) mmol/L Potassium (3.5-5.1) mmol/L Chloride (98-107) mmol/L Carbon Dioxide (22-30) mmol/L Anion Gap (5-15) MEQ/L BUN (9-20) mg/dL Creatinine (0.66-1.25) mg/dL Estimated GFR ML/MIN Glucose (74-106) mg/dL Lactic Acid 1.2 (0.4-2.0) Calcium (8.4-10.2) mg/dL Total Bilirubin (0.2-1.3) mg/dL AST (17-59) U/L ALT (0-50) U/L Alkaline Phosphatase (38-126) U/L Serum Total Protein (6.3-8.2) g/dL Albumin (3.5-5.0) g/dL Urine Color STRAW (YELLOW) Urine Appearance CLEAR (CLEAR) Urine pH 5.0 (5-6) Ur Specific [place] 1.020 (1.005-1.025) Urine Protein NEGATIVE (Negative) Urine Ketones NEGATIVE (NEGATIVE) Urine Blood NEGATIVE (0-5) Jasmeet/ul Urine Nitrite NEGATIVE (NEGATIVE) Urine Bilirubin NEGATIVE (NEGATIVE) Urine Urobilinogen NEGATIVE (0-1) mg/dL Ur Leukocyte Esterase NEGATIVE (NEGATIVE) Urine WBC (Auto) NONE (0-5) /HPF Urine RBC (Auto) NONE (0-2) /HPF U Epithel Cells (Auto) NONE (FEW) /HPF Urine Bacteria (Auto) NONE (NEGATIVE) /HPF Urine Glucose >=500 (NEGATIVE) mg/dL 11/25/18 11/25/18 Range/Units 05:33 05:33 WBC 8.7 (4.0-10.5) K/mm3 RBC 3.11 L (4.1-5.6) M/mm3 Hgb 9.0 L (12.5-18.0) gm/dl Hct 28.3 L (42-50) % MCV 91.0 (78-100) fl MCH 28.9 (26-32) pg MCHC 31.8 L (32-36) g/dl RDW 15.5 H (11.5-14.0) % Plt Count 355 (150-450) K/mm3 MPV 8.3 (6-9.5) fl Gran % 63.5 (36.0-66.0) % Eos # (Auto) 0.38 (0-0.5) Absolute Lymphs (auto) 1.87 (1.0-4.6) Absolute Monos (auto) 0.86 (0.0-1.3) Lymphocytes % 21.6 L (24.0-44.0) % Monocytes % 9.9 (0.0-12.0) % Eosinophils % 4.4 (0.00-5.0) % Basophils % 0.6 (0.0-0.4) % Absolute Granulocytes 5.49 (1.4-6.9) Basophils # 0.05 (0-0.4) PT (8.83-12.87) SECONDS INR (0.8-3.0) APTT (24.1-36.1) SECONDS Sodium 137 (137-145) mmol/L Potassium 4.5 (3.5-5.1) mmol/L Chloride 107 (98-107) mmol/L Carbon Dioxide 23 (22-30) mmol/L Anion Gap 11.9 (5-15) MEQ/L BUN 6 L (9-20) mg/dL Creatinine 0.54 L (0.66-1.25) mg/dL Estimated GFR > 60.0 ML/MIN Glucose 102 (74-106) mg/dL Lactic Acid (0.4-2.0) Calcium 8.4 (8.4-10.2) mg/dL Total Bilirubin (0.2-1.3) mg/dL AST (17-59) U/L ALT (0-50) U/L Alkaline Phosphatase (38-126) U/L Serum Total Protein (6.3-8.2) g/dL Albumin (3.5-5.0) g/dL Urine Color (YELLOW) Urine Appearance (CLEAR) Urine pH (5-6) Ur Specific [place] (1.005-1.025) Urine Protein (Negative) Urine Ketones (NEGATIVE) Urine Blood (0-5) Jasmeet/ul Urine Nitrite (NEGATIVE) Urine Bilirubin (NEGATIVE) Urine Urobilinogen (0-1) mg/dL Ur Leukocyte Esterase (NEGATIVE) Urine WBC (Auto) (0-5) /HPF Urine RBC (Auto) (0-2) /HPF U Epithel Cells (Auto) (FEW) /HPF Urine Bacteria (Auto) (NEGATIVE) /HPF Urine Glucose (NEGATIVE) mg/dL Microbiology 11/24/18 20:25 Urine Culture - Preliminary Clean Catch Midstream NO GROWTH TO DATE - Radiology Impressions Radiology Exams & Impressions: Radiology Procedures Category Date Time Status CHEST 1 VIEW (PORTABLE) Stat Exams 11/24/18 18:25 Completed FOOT (MINIMUM 3 VIEWS) Stat Exams 11/24/18 18:28 Completed Assessment/Plan (1) SIRS (systemic inflammatory response syndrome) Status: Acute Assessment & Plan: Patient failed outpatient tx for osteomyelitis. Changed antibiotics to broad spectrum pending cultures. Patient was initially being treated for pseudomonas but could also have another bacteria causing osteo or cellulitis Code(s): R65.10 - SIRS OF NON-INFECTIOUS ORIGIN W/O ACUTE ORGAN DYSFUNCTION (2) Diabetic foot ulcer Status: Acute Assessment & Plan: Non healing foot ulcer. Patient may need wound debridement to clean infection. Patient does have follow up with lead burner apprentice this month Code(s): E11.621 - TYPE 2 DIABETES MELLITUS WITH FOOT ULCER; L97.509 - NON- PRESSURE CHRONIC ULCER OTH PRT UNSP FOOT W UNSP SEVERITY (3) Failure of outpatient treatment Status: Acute Onset Date: ~02/02/18 Code(s): Z78.9 - OTHER SPECIFIED HEALTH STATUS (4) Osteomyelitis Status: Acute Onset Date: ~02/02/18 Qualifiers: Osteomyelitis type: unspecified type Osteomyelitis location: foot Laterality: right Qualified Code(s): M86.9 - Osteomyelitis, unspecified Code(s): M86.9 - OSTEOMYELITIS, UNSPECIFIED (5) Diabetes type 2, uncontrolled Status: Chronic Assessment & Plan: Patient has reported some low blood sugars around 80. This might be related to glyburide. Will monitor accuchecks and if patient continues to have low BS will discontinue this medication Code(s): E11.65 - TYPE 2 DIABETES MELLITUS WITH HYPERGLYCEMIA <GIUSEPPE LOPEZ - Last Filed: 12/04/18 16:43> History of Present Illness - Chief Complaint History of Present Illness: Agree with H&P and A&P. Results - Labs Lab/Micro Results: Microbiology 11/24/18 18:50 Blood Culture Gram Stain - Final Blood Not Reportable Blood Culture - Final NO GROWTH 11/24/18 18:45 Blood Culture Gram Stain - Final Blood Not Reportable Blood Culture - Final NO GROWTH 11/24/18 20:25 Urine Culture - Final Clean Catch Midstream NO GROWTH
[2018-11-25] MEDS ORDERED: NON-FORMULARY ITEM (Dulaglutide [Trulicity] 0.75 MG) SQ SCH (16:30)
[2018-11-25] MEDS: ECOTRIN 81 MG PO SCH (16:39)
[2018-11-25] MEDS: PLAVIX 75 MG Tablet PO SCH (16:39)
[2018-11-25] MEDS: Zestril 20 MG PO SCH (16:40)
[2018-11-26] MEDS: Zosyn INJ 4.5 GM in D5w 100ML Mini Bag 100 ML 100 ML IV SCH ×3 (05:54→21:35)
[2018-11-26 08:43] LABS: BASOPHIL % 0.6 % (0.0-0.4); Basophil (Absolute #) 0.05 (0-0.4); Eosinophil % 5.1 % (0.00-5.0); Eosinophil (Absolute #) 0.41 (0-0.5); Granulocyte Absolute (ANC) 4.91 (1.4-6.9); Granulocytes % 61.2 % (36.0-66.0); Hematocrit 30.9 % (42-50); Lymphocyte (Absolute #) 2.12 (1.0-4.6); Lymphocytes % 26.4 % (24.0-44.0); Mean Cell Volume 91.7 fl (78-100); Mean Corpuscular Hgb Concent. 32.4 g/dl (32-36); Mean Platelet Volume 8.1 fl (6-9.5); Monocyte (Absolute #) 0.54 (0.0-1.3); Monocytes % 6.7 % (0.0-12.0); Platelet Count 353 K/mm3 (150-450); Red Blood Count 3.37 M/mm3 (4.1-5.6); Red Cell Distribution Width 15.7 % (11.5-14.0)
[2018-11-26 08:44] LABS: Mean Corpuscular Hemoglobin 29.6 pg (26-32)
[2018-11-26] MEDS: Glucophage 500 MG PO SCH ×2 (08:55→17:30)
[2018-11-26] MEDS: Micronase 5 MG PO SCH ×2 (08:55→17:30)
[2018-11-26 09:00] LABS: ANION GAP 13.6 MEQ/L (5-15); BLOOD UREA NITROGEN 4 mg/dL (9-20); CHLORIDE 103 mmol/L (98-107); Calcium 8.8 mg/dL (8.4-10.2); Carbon Dioxide 25 mmol/L (22-30); Creatinine 1 0.56 mg/dL (0.66-1.25); Glucose 143 mg/dL (74-106); Potassium 4.3 mmol/L (3.5-5.1); SODIUM 137 mmol/L (137-145)
[2018-11-26] MEDS ORDERED: PATIENT OWN MEDICATION SQ SCH (10:00)
[2018-11-26] MEDS: Neurontin 400 MG PO SCH ×3 (10:54→21:35)
[2018-11-26] MEDS: ZYLOPRIM 300 MG PO SCH (10:54)
[2018-11-26] MEDS: ECOTRIN 81 MG PO SCH (10:55)
[2018-11-26] MEDS: PLAVIX 75 MG Tablet PO SCH (10:55)
[2018-11-26] MEDS: VANCOCIN 1 GM VIAL*** 2 GM in Sodium Chloride 0.9% 500 ML 500 ML IV SCH ×2 (10:55→22:36)
[2018-11-26] MEDS: Zestril 20 MG PO SCH (10:55)
[2018-11-26] MEDS ORDERED: MEDICATION INTERVENTION MC SCH ×2 (12:00)
--- NOTE | 2018-11-26 15:37 | PCM.NOTE ---
Date and Time: 11/26/18 1536 Subjective Assessment: 58 yr old male seen and examined this am. Patient reports that his leg feels much better. He reports that it is less swollen as well. Patient denies any fevers. He reports that the diarrhea he was having has slowed down. He denies any other concerns at this time. <RAMOS ROUSE - Last Filed: 11/26/18 15:42> Date and Time: 12/04/18 1643 Subjective Assessment: Agree with A&P. <GIUSEPPE LOPEZ - Last Filed: 12/04/18 16:43> - Review of Systems Constitutional: No Fever Eyes: No Vision Changes, No Double Vision Respiratory: No Cough, No Short Of Breath Cardiac: Edema (improved from yesterday), No Chest Pain Abdominal/Gastrointestinal: No Abdominal Pain, No Nausea, No Vomiting, No Diarrhea, No Constipation Genitourinary Symptoms: No Dysuria Musculoskeletal: Other (R lower extremity/foot pain) Skin: Cellulitis Neurological: Other (neuropathy bilateral lower extremities) Hematologic/Lymphatic: No Anemia <RAMOS ROUSE - Last Filed: 11/26/18 15:42> Objective Exam General Appearance: no apparent distress Neurologic Exam: alert, oriented x 3, cooperative, normal mood/affect Skin Exam: normal color, warm, dry (Plantar foot ulcer. Dressing has small amount of blood tinged drainage. Erythema present on R foot has decreased from yesterday.) Wound Assessment: Skin/Wound Assessment Wound/Incision Assessment Start: 11/24/18 19: 07 Text: Status: Active Freq: Protocol: Document 11/24/18 19:07 MM (Rec: 11/24/18 19:10 MM [id number]) Wound Assessment Right Posterior Foot Wound Type diabetic ulcer Dressing Status Dry & Intact Drainage Amount Minimal Drainage Description Serosanguineous Drainage Odor None/Absent General Appearance Reddened Length (cm) 2 Width (cm) 2 Wound Bed Greatest Portion Red (Granulation) Surrounding Tissue Bright Red Primary Dressing Absorbant Pad Secondary Dressing Gauze Roll/Wrap Eye Exam: eyes nml inspection Ears, Nose, Throat Exam: moist mucous membranes Neck Exam: normal inspection Respiratory Exam: normal breath sounds, lungs clear Cardiovascular Exam: regular rate/rhythm, normal heart sounds Gastrointestinal/Abdomen Exam: soft, normal bowel sounds, No tenderness, No distention Extremity Exam: other (R lower extremity cellulitis and R plantar foot ulcer) Back Exam: normal inspection <RAMOS ROUSE - Last Filed: 11/26/18 15:42> OBJECTIVE DATA Vital Signs: Vital Signs - 24 hr Temp Pulse Resp BP Pulse Ox 11/26/18 12:00 98.6 F 82 18 129/60 99 11/26/18 08:00 98.1 F 86 18 116/58 98 11/26/18 04:00 97.9 F 75 18 145/60 96 11/26/18 00:00 18 11/25/18 20:00 98.1 F 89 17 134/62 97 11/25/18 16:00 98.6 F 85 18 144/67 100 Pain Assessment - Last Documented Pain Intensity 4 Pain Scale Used 0-10 Pain Scale Intake and Output: Intake & Output 11/24/18 11/25/18 11/26/18 11/27/18 11:59 11:59 11:59 11:59 Intake Total 3610 2320 580 Output Total 1950 2500 500 Balance 1660 -180 80 Weight 125.2 kg 125 kg Lab Results: Lab Results-Last 24 Hours 11/26/18 11/26/18 Range/Units 08:30 08:30 WBC 8.0 (4.0-10.5) K/mm3 RBC 3.37 L (4.1-5.6) M/mm3 Hgb 10.0 L (12.5-18.0) gm/dl Hct 30.9 L (42-50) % MCV 91.7 (78-100) fl MCH 29.6 (26-32) pg MCHC 32.4 (32-36) g/dl RDW 15.7 H (11.5-14.0) % Plt Count 353 (150-450) K/mm3 MPV 8.1 (6-9.5) fl Gran % 61.2 (36.0-66.0) % Eos # (Auto) 0.41 (0-0.5) Absolute Lymphs (auto) 2.12 (1.0-4.6) Absolute Monos (auto) 0.54 (0.0-1.3) Lymphocytes % 26.4 (24.0-44.0) % Monocytes % 6.7 (0.0-12.0) % Eosinophils % 5.1 H (0.00-5.0) % Basophils % 0.6 (0.0-0.4) % Absolute Granulocytes 4.91 (1.4-6.9) Basophils # 0.05 (0-0.4) Sodium 137 (137-145) mmol/L Potassium 4.3 (3.5-5.1) mmol/L Chloride 103 (98-107) mmol/L Carbon Dioxide 25 (22-30) mmol/L Anion Gap 13.6 (5-15) MEQ/L BUN 4 L (9-20) mg/dL Creatinine 0.56 L (0.66-1.25) mg/dL Estimated GFR > 60.0 ML/MIN Glucose 143 H (74-106) mg/dL Calcium 8.8 (8.4-10.2) mg/dL Radiology Exams: Radiology Procedures Category Date Time Status CHEST 1 VIEW (PORTABLE) Stat Exams 11/24/18 18:25 Completed FOOT (MINIMUM 3 VIEWS) Stat Exams 11/24/18 18:28 Completed Multi-Disciplinary Progress Notes: Multi-Disciplinary Progress Notes 11/26/18 13:26 Pharmacy Note by Britton Noble Vancomycin dosing: Pharmacokinetic dosing service Date: 11/25/18 Time: 0800 Objective: SEPSIS, DIABETIC FOOT Patient: GEORGES SOSA Floor: 112 Age: 58 yo Serum creatinine: 0.56 mg/dL Height: 73 Inches Weight (kg): 125 Diagnosis: DIABETIC FOOT INFECTION, SEPSIS Cultures and sensitivities: Previously - Pseudomonas Other labs: sr cr = 0.56 wbc 11.6 IBW (kg): 79.90 Dosing wt(kg): 125 Estimated Creatinine clearance (ml/min): 130 Clearance limited to 130 ml/ min to reduce risk of overdosing. CRCL method: Cockcroft and Gault using ibw( default). Drug selected: Vancomycin Loading dose (mg): none Vd (liters): 100.0 (factor used: 0.8 L/kg) Bonifacio (hr-1): 0.112 Half life ( hrs): 6.19 Recommended dose: 2000 mg Interval: 12 hrs Infusion time (hrs): 3.0 Predicted peak (mcg/mL): 23.0 Predicted trough (mcg/mL): 8.39 Total body weight is being used for vancomycin dosing. Renal function is stable [ XXXX] /unstable [ ] Recommendations: Give Vancomycin 2000 mg q 12 hrs with an expected Cpeak of 23.0 mcg/ml and an expected Ctrough of 8.39 mcg/ml Patient was previously on vancomnycin 2 gm during previous stay and resulted in trough of 23 Renal dosing of other antibiotics (review renal dosing of other medications and list guidelines here): On Zosyn 4.5 gm Thank you for the consult, will continue to follow. Signature: Britton Noble Patient received 1 gm vancomycin in ed on 11/24 pm Vancomycin Trough Tuesday 930 AM 11/27 Initialized on 11/26/18 13:26 - END OF NOTE <RAMOS ROUSE - Last Filed: 11/26/18 15:42> Vital Signs: Pain Assessment - Last Documented Pain Intensity 0 Pain Scale Used FLACC <GIUSEPPE LOPEZ - Last Filed: 12/04/18 16:43> Assessment/Plan (1) SIRS (systemic inflammatory response syndrome) Status: Acute Assessment & Plan: Patient's WBC has trended down. Patient's VS have stabilized. He has been afebrile. Cultures still pending. Will continue on broad spectrum at this time as patient's symptoms have improved. Code(s): R65.10 - SIRS OF NON-INFECTIOUS ORIGIN W/O ACUTE ORGAN DYSFUNCTION (2) Diabetic foot ulcer Status: Acute Assessment & Plan: Chronic in nature patient has known osteomyelitis and his R foot ulcer will likely need debridement. Patient has appt with Dr Jarquin steam station supervisor Code(s): E11.621 - TYPE 2 DIABETES MELLITUS WITH FOOT ULCER; L97.509 - NON- PRESSURE CHRONIC ULCER OTH PRT UNSP FOOT W UNSP SEVERITY (3) Failure of outpatient treatment Status: Acute Onset Date: ~02/02/18 Code(s): Z78.9 - OTHER SPECIFIED HEALTH STATUS (4) Osteomyelitis Status: Acute Onset Date: ~02/02/18 Qualifiers: Osteomyelitis type: unspecified type Osteomyelitis location: foot Laterality: right Qualified Code(s): M86.9 - Osteomyelitis, unspecified Code(s): M86.9 - OSTEOMYELITIS, UNSPECIFIED (5) Diabetes type 2, uncontrolled Status: Chronic Assessment & Plan: Patient's BS have been above 100 so no reported episodes of hypoglycemia. Will continue to monitor BS. Will continue on routine DM medications at this time. Code(s): E11.65 - TYPE 2 DIABETES MELLITUS WITH HYPERGLYCEMIA <RAMOS ROUSE - Last Filed: 11/26/18 15:42>
[2018-11-26] MEDS: PATIENT OWN MEDICATION PO SCH (16:00)
[2018-11-26] MEDS: ZOCOR 20MG PO SCH (21:35)
[2018-11-27 05:05] LABS: Granulocytes % 51.3 % (36.0-66.0); Hematocrit 29.9 % (42-50); Hemoglobin 9.6 gm/dl (12.5-18.0); Mean Cell Volume 91.2 fl (78-100); Mean Corpuscular Hgb Concent. 32.1 g/dl (32-36); Mean Platelet Volume 8.5 fl (6-9.5); Platelet Count 361 K/mm3 (150-450); Red Blood Count 3.28 M/mm3 (4.1-5.6); Red Cell Distribution Width 15.5 % (11.5-14.0); White Blood Count 8.3 K/mm3 (4.0-10.5)
[2018-11-27 05:06] LABS: BASOPHIL % 0.7 % (0.0-0.4); Basophil (Absolute #) 0.06 (0-0.4); Eosinophil % 5.6 % (0.00-5.0); Eosinophil (Absolute #) 0.46 (0-0.5); Granulocyte Absolute (ANC) 4.24 (1.4-6.9); Lymphocyte (Absolute #) 2.93 (1.0-4.6); Lymphocytes % 35.5 % (24.0-44.0); Monocyte (Absolute #) 0.57 (0.0-1.3); Monocytes % 6.9 % (0.0-12.0)
[2018-11-27 05:10] LABS: Mean Corpuscular Hemoglobin 29.2 pg (26-32)
[2018-11-27 05:31] LABS: ANION GAP 12.7 MEQ/L (5-15); BLOOD UREA NITROGEN 3 mg/dL (9-20); CHLORIDE 104 mmol/L (98-107); Calcium 9.2 mg/dL (8.4-10.2); Carbon Dioxide 25 mmol/L (22-30); Creatinine 1 0.47 mg/dL (0.66-1.25); Glucose 82 mg/dL (74-106); Potassium 4.3 mmol/L (3.5-5.1); SODIUM 137 mmol/L (137-145)
[2018-11-27] MEDS: Zosyn INJ 4.5 GM in D5w 100ML Mini Bag 100 ML 100 ML IV SCH ×3 (05:45→22:18)
[2018-11-27] MEDS: Glucophage 500 MG PO SCH ×2 (07:51→16:30)
[2018-11-27] MEDS: Micronase 5 MG PO SCH ×2 (07:51→16:30)
[2018-11-27] MEDS ORDERED: TROUGH DRUG LEVELS IJ ONE (09:30)
[2018-11-27] MEDS: VANCOCIN 1 GM VIAL*** 2 GM in Sodium Chloride 0.9% 500 ML 500 ML IV SCH ×2 (10:19→22:57)
[2018-11-27] MEDS: Zestril 20 MG PO SCH (10:19)
[2018-11-27] MEDS: ZYLOPRIM 300 MG PO SCH (10:19)
[2018-11-27] MEDS: ECOTRIN 81 MG PO SCH (10:19)
[2018-11-27] MEDS: PLAVIX 75 MG Tablet PO SCH (10:20)
[2018-11-27] MEDS: Neurontin 400 MG PO SCH ×3 (10:20→22:18)
[2018-11-27] MEDS: PATIENT OWN MEDICATION PO SCH (10:20)
[2018-11-27] MEDS: ZOCOR 20MG PO SCH (22:17)
[2018-11-28] MEDS: Zosyn INJ 4.5 GM in D5w 100ML Mini Bag 100 ML 100 ML IV SCH ×3 (05:57→21:45)
[2018-11-28] MEDS: Micronase 5 MG PO SCH ×2 (08:14→16:43)
[2018-11-28] MEDS: Glucophage 500 MG PO SCH ×2 (08:14→16:43)
[2018-11-28] MEDS: VANCOCIN 1 GM VIAL*** 2 GM in Sodium Chloride 0.9% 500 ML 500 ML IV SCH ×2 (11:04→22:41)
[2018-11-28] MEDS: ECOTRIN 81 MG PO SCH (11:09)
[2018-11-28] MEDS: Neurontin 400 MG PO SCH ×3 (11:09→21:45)
[2018-11-28] MEDS: PATIENT OWN MEDICATION PO SCH (11:10)
[2018-11-28] MEDS: PLAVIX 75 MG Tablet PO SCH (11:11)
[2018-11-28] MEDS: ZYLOPRIM 300 MG PO SCH (11:12)
[2018-11-28] MEDS: Zestril 20 MG PO SCH (11:12)
--- NOTE | 2018-11-28 14:04 | XRAY ---
Exam: MRI of the right foot without and with 20 ML's of IV Magnevist contrast from 11/28/2018. Comparison: Right foot plain films from 11/24/2018. Indication/history 58-year-old male with diabetic ulcer at first MTP joint, possible osteomyelitis. Technique: Multiplanar, multisequence MR imaging of the right foot was obtained without and with IV contrast material. Findings: The flexor hallux longus tendon is avulsed from its insertion on the first proximal phalanx with areas retracted approximately 3 cm (see image #12 of series 1200 and image #16 of series 1100). The extensor tendons appear unremarkable without evidence of tear. The muscles are atrophic and edematous. A plantar ulcer extends into the first MTP joint. In the distal 5 cm of the right first metatarsal and in the proximal phalanx of the right great toe, there is bone marrow edema, osteolysis, and contrast enhancement which confirm osteomyelitis. There is septic arthritis at the first metatarsophalangeal joint. There is a prominent joint effusion, synovial enhancement, and osteomyelitis of the adjacent bones. Resection of the right fifth metatarsal, except for a 3 cm segment at its base is seen. There is no evidence of osteomyelitis within the remaining fifth metatarsal segment. Impression: 1. In the distal 5 cm of the right first metatarsal and in the proximal phalanx of the right great toe, there is osteomyelitis. 2. Septic arthritis at the first metatarsophalangeal joint of the right foot.. 3. The flexor hallux longus tendon is avulsed from its insertion within the proximal phalanx of the right great toe with 3 cm retraction proximally. 4. A plantar ulcer extends into the first MTP joint.
[2018-11-28] MEDS: ZOCOR 20MG PO SCH (21:45)
[2018-11-29 04:53] VITALS: BP 139/69; PULSE 92; O2SAT 95
[2018-11-29] MEDS ORDERED: TROUGH DRUG LEVELS IJ ONE (09:30)
== END 2018-11-29 06:25 | disposition home or self-care (01) | DRG 541 ==
LOC: ED 17:48 → MED SURG 21:13
PROVIDERS: ADMIT Family Medicine; ATTEND Family Medicine
DX: M86.171 Other acute osteomyelitis, right ankle and foot (principal); E11.621 Type 2 diabetes mellitus with foot ulcer; E11.65 Type 2 diabetes mellitus with hyperglycemia; E11.649 Type 2 diabetes mellitus with hypoglycemia without coma; Z79.01 Long term (current) use of anticoagulants; Z79.899 Other long term (current) drug therapy
CPT/HCPCS: 36000; 36415; 71045; 73630; 73720; 80048; 80053; 80202; 81001; 83605; 85025; 85610; 85730; 87040; 87086; 93005; 93041; 94760; 96360; 96361; 96365; 99285; J1642; J2543; J3370; A9270-GY

== ENCOUNTER 2018-12-19 10:39 | Observation (INO) | payer BC ==
[2018-12-19] MEDS ORDERED: Sodium Chloride 0.9% 1000 ML 1,000 ML IV STA (10:46)
[2018-12-19] MEDS ORDERED: NovoLOG Insulin SQ PRN (11:34)
[2018-12-19 11:44] LABS: Absolute Neutrophil Ct (ANC) 7.38 (1.4-6.9); BASOPHIL % 0.4 % (0.0-0.4); Basophil (Absolute #) 0.04 (0-0.4); Eosinophil % 2.7 % (0.00-5.0); Eosinophil (Absolute #) 0.28 (0-0.5); Hematocrit 29.2 % (42-50); Hemoglobin 9.5 gm/dl (12.5-18.0); Lymphocyte (Absolute #) 1.83 (1.0-4.6); Lymphocytes % 17.7 % (24.0-44.0); Mean Cell Volume 86.6 fl (78-100); Mean Corpuscular Hgb Concent. 32.5 g/dl (32-36); Mean Platelet Volume 8.1 fl (6-9.5); Monocyte (Absolute #) 0.83 (0.0-1.3); Neutrophil % 71.2 % (36.0-66.0); Platelet Count 611 K/mm3 (150-450); Red Blood Count 3.37 M/mm3 (4.1-5.6); Red Cell Distribution Width 14.9 % (11.5-14.0); White Blood Count 10.4 K/mm3 (4.0-10.5)
[2018-12-19 11:47] LABS: Mean Corpuscular Hemoglobin 28.1 pg (26-32)
[2018-12-19 13:27] LABS: ALKALINE PHOSPHATASE 105 U/L (38-126); ANION GAP 20.5 MEQ/L (5-15); BLOOD UREA NITROGEN 15 mg/dL (9-20); CHLORIDE 97 mmol/L (98-107); Calcium 9.4 mg/dL (8.4-10.2); Carbon Dioxide 21 mmol/L (22-30); Creatinine 1 0.77 mg/dL (0.66-1.25); Glucose 189 mg/dL (74-106); Potassium 4.7 mmol/L (3.5-5.1); SGOT/AST 31 U/L (17-59); SGPT/ALT 22 U/L (0-50); SODIUM 133 mmol/L (137-145); Total Protein 8.2 g/dL (6.3-8.2)
[2018-12-19] MEDS: ZYLOPRIM 300 MG PO SCH (13:31)
[2018-12-19] MEDS: ECOTRIN 81 MG PO SCH (13:31)
[2018-12-19] MEDS: NEURONTIN 300 MG PO SCH ×2 (13:31→17:34)
[2018-12-19] MEDS: SODIUM CHLORIDE 0.45% W/ 20 mEq KCL 1,000 ML IV SCH ×2 (13:31→22:18)
[2018-12-19] MEDS: PLAVIX 75 MG Tablet PO SCH (13:31)
[2018-12-19] MEDS ORDERED: GABAPENTIN 300 MG PO SCH (17:00)
[2018-12-19] MEDS: Glucophage 500 MG PO SCH (17:33)
[2018-12-19] MEDS: Maxipime 2 GM** 2 G in Dextrose 5%/Water IV Soln. 100ML PLUS BAG 100 ML IV SCH (17:34)
[2018-12-19] MEDS ORDERED: NON-FORMULARY ITEM (Atorvastatin Calcium [Lipitor] 10 MG) PO SCH (22:00)
[2018-12-19] MEDS ORDERED: Zocor 10MG PO SCH (22:00)
[2018-12-20] MEDS: Maxipime 2 GM** 2 G in Dextrose 5%/Water IV Soln. 100ML PLUS BAG 100 ML IV SCH (05:54)
[2018-12-20] MEDS: SODIUM CHLORIDE 0.45% W/ 20 mEq KCL 1,000 ML IV SCH (06:49)
[2018-12-20] MEDS: NEURONTIN 300 MG PO SCH (07:49)
[2018-12-20 08:07] VITALS: BP 125/68; PULSE 88; O2SAT 97
[2018-12-20] MEDS: Glucophage 500 MG PO SCH (08:41)
[2018-12-20] MEDS: ZYLOPRIM 300 MG PO SCH (09:18)
--- NOTE | 2018-12-20 09:18 | SSS ---
DISCHARGE DIAGNOSES: 1) HYPOTENSION. 2) DEHYDRATION. 3) OSTEOMYELITIS RIGHT FOOT. 4) DIABETES MELLITUS ON INSULIN. HISTORY: The patient is a 58 year-old white male patient who presented to my office being somewhat hypotensive. His systolic blood pressure was never above 100. He had been noted to have been seen in the infusion center as he has been getting infusions of antibiotics twice daily. He apparently has been having this problem for several months and has been in our facility receiving IV antibiotics approximately a month or so ago. He had follow up with his metal weather stripper, Dr. Jarquin, who has essentially discharged him from his care due to noncompliance on ability to get to his appointments as instructed for his wound care management. He is now seeing a metal weather stripper down in [place] who recently did debridement, bone biopsy and cultures fairly recently. The patient in the interim between his visits to see Dr. Jarquin and this new metal weather stripper had been without antibiotics for three weeks. The patient is fairly noncompliant with his wound treatment appointments as instructed as he continues to claim he has no transportation. In fact this morning the patient has an appointment to see his metal weather stripper for which I was in earlier in order to discharge him in time to be at the appointment and he now tells me that he will not be able to get there because he again has no transportation. The patient has otherwise felt to be ready for discharge home as he is no longer hypotensive after having received IV fluids. MEDICATIONS: The patient's home medications currently include allopurinol 300 mg a day, aspirin 81 mg a day, Lipitor 10 mg at night, Plavix 75 mg daily, Trulicity 0.75 mg subcu weekly, Jardiance 10 mg daily, gabapentin 300 mg t.i.d., Glyburide 5 mg b.i.d., lisinopril 20 mg daily, Metformin 1,000 mg b.i.d. ALLERGIES: NKDA. PHYSICAL EXAMINATION: Revealed a mildly obese, white male patient whose hypotension has resolved with the IV fluids. His initial blood pressures were running in the 80's to 90's systolic. His heart rate was not significantly elevated at the time. He wishes to be a No Code. LAB DATA AND TESTS: His laboratory studies have shown a lactic acid of 1.4. White count 10,400, hemoglobin 9.5, PLT count 611,000. His metabolic panel showed sugar 189, BUN 15, creatinine 0.77. Electrolytes were fairly normal. Liver enzymes were normal. HOSPITAL COURSE: A patient with hypotension due to dehydration and fairly recent debridement of a foot wound. He had just started getting his antibiotics twice a day over the past two to three days. The patient is felt to be ready for discharge home at this time to follow up with his metal weather stripper as soon as possible. We will attempt to make another appointment for him today to see his metal weather stripper as soon as possible. He will continue to use his home medications other than discontinue his lisinopril at this point. He will have follow up also in my office in one week or earlier if he has any further problems.
[2018-12-20] MEDS: ECOTRIN 81 MG PO SCH (09:19)
[2018-12-20] MEDS: PLAVIX 75 MG Tablet PO SCH (09:19)
== END 2018-12-20 11:30 | disposition home or self-care (01) ==
LOC: MED SURG 10:39
PROVIDERS: ADMIT Family Medicine; ATTEND Family Medicine
DX: E86.0 Dehydration (principal); I95.9 Hypotension, unspecified; E11.69 Type 2 diabetes mellitus with other specified complication; M86.8X7 Other osteomyelitis, ankle and foot; Z79.4 Long term (current) use of insulin; Z79.01 Long term (current) use of anticoagulants; Z79.899 Other long term (current) drug therapy; Z91.19 Patient's noncompliance with other medical treatment and regimen
CPT/HCPCS: 36415; 80053; 82962; 83605; 85025; 93268; G0378; J0692; J1642; A9270-GY

== ENCOUNTER 2020-09-09 10:04 | Inpatient (IN) | payer OTHER ==
[2020-09-09] MEDS ORDERED: VANCOMYCIN 1 GRAM/200 ML BAG 1 GM/200 ML PIGGYBACK IV SCH (11:00)
[2020-09-09] MEDS ORDERED: Sodium Chloride 0.9% 10 ML FLUSH Syringe IV PRN (11:15)
[2020-09-09] MEDS: VANCOMYCIN 2 GRAM/400 ML BAG 2 GM/400 ML PIGGYBACK IV SCH ×2 (12:02→21:33)
[2020-09-09 12:27] LABS: Absolute Neutrophil Ct (ANC) 4.39 (1.4-6.9); BASOPHIL % 0.4 % (0.0-0.4); Basophil (Absolute #) 0.03 (0-0.4); Eosinophil % 5.1 % (0.00-5.0); Eosinophil (Absolute #) 0.38 (0-0.5); Hematocrit 40.3 % (42-50); Lymphocyte (Absolute #) 2.16 (1.0-4.6); Mean Cell Volume 91.4 fl (78-100); Mean Corpuscular Hemoglobin 29.5 pg (26-32); Mean Corpuscular Hgb Concent. 32.3 g/dl (32-36); Mean Platelet Volume 9.8 fl (7.5-11.0); Monocytes % 6.7 % (0.0-12.0); Neutrophil % 58.8 % (36.0-66.0); Platelet Count 260 K/mm3 (150-450); Red Blood Count 4.41 M/mm3 (4.1-5.6); Red Cell Distribution Width 15.7 % (11.5-14.0); White Blood Count 7.5 K/mm3 (4.0-10.5)
--- NOTE | 2020-09-09 12:28 | PCM.CONS ---
Podiatry HPI - Consult Date of Consultation Date: 09/09/20 Consulting Provider: CÉSAR BURNS DPM - [facility] History of Present Illness: Kishore is a very pleasant 60-year-old male who Presented to my office today for follow-up of a right heel ulceration. Patient has been seeing me for this issue for a number of months now however has had recurrent infections which have failed a number of attempts at wound care as well as oral antibiotics. Today he presents with a recurrent Pseudomonas infection and a positive probe to bone indicating possible osteomyelitis. Patient indicates that there was some significant drainage over the course of the last week which has led to an indication of possible reinfection. Patient currently denies any constitutional symptoms of infection however he is failed therapy multiple times. Its for this reason I believe the patient needs IV antibiotics to proceed to uncomplicated wound healing without infection. He currently denies any constitutional symptoms of infection. He denies any other pedal complaints at this time. Medications & Allergies Home Medications: Home Medication List Allopurinol 300 mg [Zyloprim 300 mg] 300 mg PO DAILY 04/26/15 [History Confirmed 09/09/20] Aspirin EC 81 mg [Ecotrin 81 mg] 81 mg PO DAILY 07/07/17 [History Confirmed 09/09/20] Atorvastatin Calcium [Lipitor] 80 mg PO HS 07/07/17 [History Confirmed 09/09/20] Clopidogrel Bisulfate 75 mg [PLAVIX 75 MG Tablet] 75 mg PO DAILY 07/07/17 [History Confirmed 09/09/20] Metformin HCl 500 mg [Glucophage 500 MG] 1,000 tab PO BID 05/29/18 [History Confirmed 09/09/20] Dulaglutide [Trulicity] 0.75 mg SQ WEEKLY 11/19/18 [History Confirmed 09/09/20] Carvedilol 3.125 mg [Coreg 3.125 MG] 3.125 mg PO BID 09/09/20 [History Confirmed 09/09/20] Empagliflozin/Metformin HCl [Synjardy 5-1,000 mg Tablet] 5 - 1,000 mg PO BID 09/09/20 [History Confirmed 09/09/20] Gabapentin 800 mg PO TID 09/09/20 [History Confirmed 09/09/20] Brush-3/Dha/Epa/Fish Oil [Fish Oil 1,000 mg Softgel] 1 each PO DAILY 09/09/20 [History Confirmed 09/09/20] Allergies/Adverse Reactions: Allergies Allergy/AdvReac Type Severity Reaction Status Date / Time No Known Drug Allergies Allergy Verified 12/19/18 11:30 - Past Medical History Past Medical History: Yes Neurological History: Peripheral Neuropathy ENT History: Cataracts Cardiac History: High Cholesterol Respiratory History: No Pertinent History Endocrine Medical History: Diabetes Type II Musculoskelatal History: Other GI Medical History: No Pertinent History History: No Pertinent History Pyscho-Social History: No Pertinent History Male Reproductive Disorders: Other Comment: ED, osteomyelitis in r foot, gout - Past Surgical History Past Surgical History: Yes Neuro Surgical History: No Pertinent History Cardiac History: Vascular Surgery Respiratory Surgery: No Pertinent History GI Surgical History: No Pertinent History Genitourinary Surgical Hx: No Pertinent History Musculskeletal Surgical Hx: No Pertinent History, Other Male Surgical History: No Pertinent History Other Surgical History: Vascular surg pradeep legs, in grown toe nails, FOOT SURGERY FOR DECUBITUS - Social History Smoking Status: Former smoker How long have you smoked: YRS Exposure to second hand smoke: Yes Alcohol: Daily Drug Use: none Physical Exam - Narrative Narrative Physical Exam: Podiatry Physical Exam: Vascular: DP and PT pulses non-palpable b/l. CFT <5 seconds b/l. Skin temperature warm to Cold from the proximal tibial tuberosity to distal toes b/l. Absent pedal hair growth b/l. Varicosities noted to lower legs b/l. No cellulitis, proximal streaking or lymphangitis noted. No lymphadenopathy on palpation of the popliteal or inguinal lymph nodes b/l Neurological: Protective sensation diminished 0/10 on the right and 0/10 on the left as indicated with Sargents-Cayla 5.07 monofilament b/l. Lower extremity temperature sensation diminished b/l. Evidence of intrinsic muscle atrophy. Dermatological: Severe trophic changes to the skin. Skin is xerotic and scaly in nature. Turgor is rigid. No cicatrix noted. Open lesion as noted below. Toenails 2 through 5 on the right and 2 through 5 on the right and 1 through 5 on the left. b/l are abnormal in length, thickness and are discolored yellow. They are dystrophic crumbling and incurvated. They are painful on compression. Webspaces are clean, dry and intact b/l.Hyperkeratotic fissure to the plantar medial aspect of the right foot. There is also a small full-thickness ulceration to the lateral aspect of the heel measuring approximately2.0 x 1.8 x 0.5. There is now a positive probe to bone which is a new finding 09/09/2020. Musculoskeletal: Strength is intact for all muscle groups to the bilateral lower extremity. There is a rectus foot architecture noted. Amputations noted to the first ray and the proximal extent of the fifth metatarsal extending from the styloid to the digit. Patient has retained his eversion strength. Patient is ambulating in a pair of diabetic custom molded custom fabricated shoes. Results - Labs Lab/Micro Results: Lab Results-Last 24 Hours 09/09/20 09/09/20 Range/Units 10:39 11:07 POC Glucometer 137 H (74 to 106) mg/dL SARS-CoV-2 (PCR) NEGATIVE (NEGATIVE) Assessment/Plan (1) Pseudomonas aeruginosa infection Current Visit: Yes Status: Acute Code(s): A49.8 - OTHER BACTERIAL INFECTIONS OF UNSPECIFIED SITE (2) Diabetes mellitus with hyperglycemia Current Visit: No Status: Chronic Code(s): E11.65 - TYPE 2 DIABETES MELLITUS WITH HYPERGLYCEMIA (3) Diabetic foot ulcer Current Visit: No Status: Acute Code(s): E11.621 - TYPE 2 DIABETES MELLITUS WITH FOOT ULCER; L97.509 - NON-PRESSURE CHRONIC ULCER OTH PRT UNSP FOOT W UNSP SEVERITY (4) Osteomyelitis Current Visit: No Status: Acute Assessment & Plan: Patient examination and evaluation. Patient is a high risk diabetic patient with multiple histories of diabetic foot amputations. Cultures taken on last visit demonstrating continued growth of Pseudomonas despite multiple courses of antibiotic therapy. Patient has continued to drain excessively to the right foot and now there is a positive probe to bone which was demonstrated last week and is worsening at this time. Patient would benefit from admission at this time and IV antibiotics for a number of 2 to 6 weeks depending on results of bone biopsy of the right calcaneus. Patient will be admitted at this time under the charge of Dr. Dunlap. Orders placed for CBC CMP ESR CRP lactic acid in order to assess for potential acute infection systemically. Patient would likely benefit from surgical intervention with aggressive debridement of the right foot with possible right calcaneus debridement/bone biopsy possible application of Integra split-thickness skin graft. Patient would likely benefit from admission to a [facility] as he is unable to take care of dressing changes by himself and a course of IV antibiotics is likely problematic given that he is unable to obtain transportation. Partial weightbearing to the right heel PT OT to treat and eval. nutrition services aide to assess for discharge to usp for IV antibiotics and monitoring Surgical intervention likely to take place tomorrow/ Thank you for the consult.. Code(s): M86.9 - OSTEOMYELITIS, UNSPECIFIED
[2020-09-09 12:30] LABS: ALBUMIN 4.4 g/dL (3.5-5.0); ALKALINE PHOSPHATASE 65 U/L (38-126); ANION GAP 17.1 MEQ/L (5-15); BLOOD UREA NITROGEN 5 mg/dL (9-20); CHLORIDE 100 mmol/L (98-107); Carbon Dioxide 24 mmol/L (22-30); Creatinine 1 0.56 mg/dL (0.66-1.25); EST GLOMERULAR FILTRATION RATE > 60.0 ML/MIN; Glucose 128 mg/dL (74-106); SGOT/AST 25 U/L (17-59); SGPT/ALT 18 U/L (0-50); SODIUM 137 mmol/L (137-145); Total Protein 6.9 g/dL (6.3-8.2)
[2020-09-09 13:30] LABS: Erythrocyte Sedimentation Rate 6 mm/hr (0-15)
[2020-09-09] MEDS: Zosyn 3.375 GM Vial 3.375 GM in Sodium Chloride 100ML MINI-BAG PLUS 100 ML IV SCH ×2 (15:41→21:29)
[2020-09-09] MEDS: Neurontin 400 MG PO SCH ×2 (15:41→21:28)
[2020-09-09] MEDS ORDERED: HUMALOG SQ PRN (16:49)
[2020-09-09] MEDS: Glucophage 500 MG PO SCH (17:12)
[2020-09-09] MEDS ORDERED: Coreg 3.125 MG ONE (19:37)
[2020-09-09] MEDS ORDERED: Zocor 10MG ONE (19:37)
[2020-09-09] MEDS: Coreg 3.125 MG PO SCH (21:28)
[2020-09-09] MEDS: ZOCOR 20MG PO SCH (21:42)
[2020-09-09] MEDS ORDERED: NON-FORMULARY ITEM (Gabapentin [Gabapentin] 800 MG) PO SCH (22:00)
[2020-09-09] MEDS ORDERED: NON-FORMULARY ITEM (Atorvastatin Calcium [Lipitor] 80 MG) PO SCH (22:00)
[2020-09-10] MEDS: Zosyn 3.375 GM Vial 3.375 GM in Sodium Chloride 100ML MINI-BAG PLUS 100 ML IV SCH ×3 (05:27→21:13)
[2020-09-10] MEDS: Glucophage 500 MG PO SCH ×2 (08:23→17:25)
[2020-09-10] MEDS: ZYLOPRIM 300 MG PO SCH (10:25)
[2020-09-10] MEDS: FISH OIL 1,000 MG CAPSULE PO SCH (10:25)
[2020-09-10] MEDS: ECOTRIN 81 MG PO SCH (10:26)
[2020-09-10] MEDS: Coreg 3.125 MG PO SCH ×2 (10:26→21:12)
[2020-09-10] MEDS: VANCOMYCIN 2 GRAM/400 ML BAG 2 GM/400 ML PIGGYBACK IV SCH ×2 (10:26→21:14)
[2020-09-10] MEDS: Neurontin 400 MG PO SCH ×3 (10:26→21:13)
--- NOTE | 2020-09-10 13:19 | XRAY ---
Exam: AP upright portable chest film from 09/10/2020. Comparison: A portable chest film from 11/24/2018. Indication: Left-sided PICC line placement in 59-year-old male. Findings: 2 images are submitted for evaluation. A left-sided PICC line is seen in place with the tip pointing inferiorly within the distal SVC. No pneumothorax is seen. There is an 11 cm in length bright linear radiopaque density overlying the left side of the chest. This is probably artifactual and may lie in front of or in back of the patient. Correlate clinically. Some obliquely oriented, linear scarring/chronic atelectasis is again seen overlying the right hilum representing no change from 11/24/2018. The remainder of the lung ritchie appears clear. The pulmonary vascularity is normal. Lateral osteophyte formation is seen within the mid and lower thoracic spine. No pleural effusion is evident. Some vascular calcification is seen within both carotid artery bifurcations. Impression: 1. Left-sided PICC line with tip pointing inferiorly within the distal SVC in satisfactory position. No pneumothorax is seen. I called this report to the floor at 1:06 PM on 09/10/2020. 2. 11 cm in length bright linear density overlying the left hemithorax, probably artifactual. Correlate clinically regarding something projected over the left side of the patient's chest, either in front of or in back of the patient. 3. Chronic focal linear scarring/atelectasis overlying the right hilum representing change from 11/24/2018. 4. No air space infiltrates or other acute cardiopulmonary disease is seen. 5. Moderate atherosclerotic vascular calcification is seen within both carotid artery bifurcations on one of the images.
[2020-09-10] MEDS: ENOXAPARIN SODIUM SQ SCH (14:51)
[2020-09-10] MEDS: ZOCOR 20MG PO SCH (21:12)
[2020-09-11 05:04] LABS: Absolute Neutrophil Ct (ANC) 3.78 (1.4-6.9); BASOPHIL % 0.7 % (0.0-0.4); Basophil (Absolute #) 0.05 (0-0.4); Eosinophil % 4.6 % (0.00-5.0); Eosinophil (Absolute #) 0.33 (0-0.5); Hematocrit 37.7 % (42-50); Lymphocyte (Absolute #) 2.57 (1.0-4.6); Lymphocytes % 35.6 % (24.0-44.0); Mean Cell Volume 92.4 fl (78-100); Mean Corpuscular Hemoglobin 29.4 pg (26-32); Mean Corpuscular Hgb Concent. 31.8 g/dl (32-36); Mean Platelet Volume 9.3 fl (7.5-11.0); Monocyte (Absolute #) 0.48 (0.0-1.3); Monocytes % 6.7 % (0.0-12.0); Neutrophil % 52.4 % (36.0-66.0); Platelet Count 249 K/mm3 (150-450); Red Blood Count 4.08 M/mm3 (4.1-5.6); Red Cell Distribution Width 15.5 % (11.5-14.0); White Blood Count 7.2 K/mm3 (4.0-10.5)
[2020-09-11] MEDS: Zosyn 3.375 GM Vial 3.375 GM in Sodium Chloride 100ML MINI-BAG PLUS 100 ML IV SCH ×3 (05:08→21:24)
[2020-09-11 05:18] LABS: ALBUMIN 3.8 g/dL (3.5-5.0); ALKALINE PHOSPHATASE 73 U/L (38-126); ANION GAP 11.9 MEQ/L (5-15); BLOOD UREA NITROGEN 7 mg/dL (9-20); CHLORIDE 104 mmol/L (98-107); Calcium 8.8 mg/dL (8.4-10.2); Carbon Dioxide 24 mmol/L (22-30); Creatinine 1 0.62 mg/dL (0.66-1.25); EST GLOMERULAR FILTRATION RATE > 60.0 ML/MIN; Glucose 139 mg/dL (74-106); Potassium 3.9 mmol/L (3.5-5.1); SGOT/AST 26 U/L (17-59); SGPT/ALT 18 U/L (0-50); SODIUM 136 mmol/L (137-145); Total Protein 6.1 g/dL (6.3-8.2)
[2020-09-11 05:46] LABS: Erythrocyte Sedimentation Rate 6 mm/hr (0-15)
[2020-09-11] MEDS: Glucophage 500 MG PO SCH ×2 (08:11→17:35)
[2020-09-11] MEDS ORDERED: TROUGH DRUG LEVELS IJ ONE (09:30)
[2020-09-11] MEDS: Coreg 3.125 MG PO SCH ×2 (10:55→21:24)
[2020-09-11] MEDS: ECOTRIN 81 MG PO SCH (10:55)
[2020-09-11] MEDS: ZYLOPRIM 300 MG PO SCH (10:55)
[2020-09-11] MEDS: Neurontin 400 MG PO SCH ×3 (10:55→21:23)
[2020-09-11] MEDS: FISH OIL 1,000 MG CAPSULE PO SCH (10:55)
[2020-09-11] MEDS: ENOXAPARIN SODIUM SQ SCH (10:56)
[2020-09-11] MEDS: VANCOMYCIN 2 GRAM/400 ML BAG 2 GM/400 ML PIGGYBACK IV SCH ×2 (11:17→22:00)
[2020-09-11] MEDS: ZOCOR 20MG PO SCH (21:24)
[2020-09-12] MEDS: Zosyn 3.375 GM Vial 3.375 GM in Sodium Chloride 100ML MINI-BAG PLUS 100 ML IV SCH (04:59)
[2020-09-12 05:35] LABS: Absolute Neutrophil Ct (ANC) 4.67 (1.4-6.9); BASOPHIL % 0.6 % (0.0-0.4); Basophil (Absolute #) 0.05 (0-0.4); Eosinophil % 4.6 % (0.00-5.0); Eosinophil (Absolute #) 0.36 (0-0.5); Hematocrit 39.5 % (42-50); Hemoglobin 12.6 gm/dl (12.5-18.0); Lymphocyte (Absolute #) 2.34 (1.0-4.6); Lymphocytes % 29.7 % (24.0-44.0); Mean Cell Volume 92.5 fl (78-100); Mean Corpuscular Hemoglobin 29.5 pg (26-32); Mean Corpuscular Hgb Concent. 31.9 g/dl (32-36); Mean Platelet Volume 9.4 fl (7.5-11.0); Monocyte (Absolute #) 0.47 (0.0-1.3); Neutrophil % 59.1 % (36.0-66.0); Platelet Count 263 K/mm3 (150-450); Red Blood Count 4.27 M/mm3 (4.1-5.6); Red Cell Distribution Width 15.5 % (11.5-14.0); White Blood Count 7.9 K/mm3 (4.0-10.5)
[2020-09-12] MEDS ORDERED: BUPIVACAINE 0.5% VIAL IJ ONE (06:55)
[2020-09-12] MEDS ORDERED: XYLOCAINE 1% HCL 20 ML MDV ONE (06:55)
[2020-09-12] MEDS ORDERED: Lactated Ringers 1,000 ML IV SCH (08:00)
[2020-09-12] MEDS: Glucophage 500 MG PO SCH ×2 (08:06→16:06)
--- NOTE | 2020-09-12 09:41 | OP ---
Podiatry Procedure Note Procedure Date:: 09/12/20 Procedure Time: 09:00 Podiatry Procedure Note: Surgeon: John Barraza DPM Jailer: None Preoperative diagnosis: [Chronic diabetic foot infection, diabetes mellitus type 2 uncontrolled, osteomyelitis right foot, history of multiple amputations] Post-operative diagnosis:[Chronic diabetic foot infection, diabetes mellitus type 2 uncontrolled, osteomyelitis right foot, history of multiple amputations.] Anesthesia: [Local 10 cc of a one-to-one mixture of 0.5% bupivacaine plain and 1 cc of lidocaine plain injected to the posterior tibial nerve distribution] Hemostasis: [Pressure dressing] Findings:[Incision and drainage demonstrating adequate healthy bleeding edge of wound, combination of curettes Aponte and a 15 blade utilized to debride all necrotic fibrotic and devitalized tissue to the wound base and the wound edges. Adequate apposition of the graft on the wound surface. Bolster dressing applied to maintain apposition of graft against wound base] Estimated Blood Loss: [Less than 20 cc] Materials: [Integra [employer] synthetic skin substitute, medical jeanette] Injectibles: [5]ccs 1% lidocaine plain + [5] ccs 0.5 % marcaine plain. Total [10]ccs Specimens:[ Wound culture soft tissue right heel Bone biopsy, Jamshidi needlePathological assessment/permanentRight calcaneus] Complications:[None] Condition:[Stable] Procedure Details:[] Following satisfactory pre-op evaluation the patient was brought into the OR and placed on the OR table in the supine position. Following sedation a time out was then called identifying patient identity, procedure, operative location, date, alergies, antibiotics, and other pertinent information in regards to the surgery to which everyone agreed. At this time 10 cc of a one-to-one mixture of 0.5% Marcaine plain and 1% lidocaine plain was injected to the posterior tibial nerve distribution of the right lower extremity. The foot was then prepped and draped in the usual sterile manner and lowered onto the surgical field. Attention was then directed to the Right lower extremity where the wound at the plantar aspect of the right heel was measured out at 1.8 cm x 2.1 cm x 0.3 cm. Following this a 15 blade was utilized to incise the edge of the wound base demonstrating a healthy bleeding surface at the wound edges. The necrotic and devitalized tissue was removed utilizing a combination of curettes rongeurs and sharp and dull dissection. Following this assessment of the wound base was made determining that there were no remaining nonviable or infected appearing tissue at the surface. At this time a bone biopsy was retrieved utilizing a Jamshidi needle at the level of the calcaneus at the 2 o'clock position of the wound base where there was a positive probe to bone this was handed off the field at this time for pathological assessment and permanent. Following this a pulse lavage with 3 L of sterile saline was utilized to flush the incision site with copious amounts of sterile saline. Following this an additional assessment of the wound base was observed and determined to be free of any necrosis or nonviable tissue. At this time the 2 x 2 Integra synthetic skin substitute was soaked in saline and handed onto the surgical field this was cut according to the wound size and secured utilizing skin jeanette at the plantar aspect of the right extremity apposition was made at this time fenestration ensured lessen the possibility of hematoma underneath the graft. At this time the remaining lower extremity was cleansed with a wet saline soaked lap and a clean lap was utilized to dry the extremity. Following this a bolster dressing was applied consisting of Adaptic a bolster 4 x 4 secured with additional 4 x 4's and an ABD this was then secured utilizing 2 Kerlix and a 4 inch and 6 inch Jamal The patient tolerated Local anesthesia and the procedure well and was transported back to the floor with VSS and VSI to the Right foot. Orders fore the following were placed: 1. notify medicine of return to floor 2. resume all pre-op medications, orders, and diet 3. Keep dressing clean dry and intact until follow-up visit #1. Patient will likely be seen at his [facility] following clinic on Tuesday of next week. 4 nonweightbearing to the right lower extremity. 5 elevate right lower extremity offload right lower extremity 6 patient cleared for discharge from my standpoint
--- NOTE | 2020-09-12 09:46 | PCM.NOTE ---
Podiatry Post-Op Plan Podiatry Post-Op Plan: Podiatry Post-Op Plan Post-operative plan is as follows:[] ANTIBIOTICS: Continue vancomycin 2 g every 12 hours. Piperacillin/tazobactam 3.375 g every 8 hours PAIN CONTROL: Patient largely neuropathic. Tylenol for pain VTE PROPHYLAXIS: Continue Lovenox and 81 mg aspirin at this time DRESSINGS: Dressing to remain clean and dry. Reinforce with Kerlix/ALLYSON as necessary. Dressing is not to be taken down for any reason. Will be assessed on follow-up visit #1 ACTIVITY: NWB to right lower extremity THERAPIES: PT/OT consult for gait training, assistive device training, and assessment of functional status with NWB to right lower extremity incentive Spirometry. PLACEMENT: CM consultpatient to discharge to [facility].
[2020-09-12] MEDS: ECOTRIN 81 MG PO SCH (10:58)
[2020-09-12] MEDS: Neurontin 400 MG PO SCH ×2 (10:58→16:05)
[2020-09-12] MEDS: ENOXAPARIN SODIUM SQ SCH (10:59)
[2020-09-12] MEDS: VANCOMYCIN 2 GRAM/400 ML BAG 2 GM/400 ML PIGGYBACK IV SCH (10:59)
[2020-09-12] MEDS: Coreg 3.125 MG PO SCH (10:59)
[2020-09-12] MEDS: FISH OIL 1,000 MG CAPSULE PO SCH (10:59)
[2020-09-12] MEDS: ZYLOPRIM 300 MG PO SCH (10:59)
[2020-09-12 16:56] VITALS: BP 145/67; PULSE 85; O2SAT 97
[2020-09-14] MEDS ORDERED: NON-FORMULARY ITEM (Dulaglutide [Trulicity] 0.75 MG) SQ SCH (10:00)
--- NOTE | 2020-09-19 09:41 | HP ---
CHIEF COMPLAINT: Foot wound. HISTORY OF PRESENT ILLNESS: The patient is a 60 year-old white male patient who had been seen in consultation by Dr. John Reyes, Animal Control Officer, and was found to have a draining wound in his foot. The compressor station operator is concerned about the patient with possible pseudomonas infection and possibility of osteomyelitis. The patient was admitted to the hospital for medical treatment while he is pending surgery and biopsy of the foot after which the patient responded that he is supposed to go to rehab where he could not be weightbearing for two weeks while he is allowing for this foot issue to heal. PAST MEDICAL/SURGICAL HISTORY: Again significant for diabetes mellitus and atherosclerotic disease. He has diabetic neuropathy as well. HOME MEDICATIONS: Allopurinol 300 mg a day, aspirin enteric coated 81 mg a day, Lipitor 80 mg a day, Plavix 75 mg daily, metformin 500 mg 2 tablets b.i.d., Trulicity 0.75 mg weekly, carvedilol 3.125 mg twice a day. He is on empagliflozin/metformin (Synjardy) 5 - 1,000 mg twice a day, Gabapentin 800 mg t.i.d. ALLERGIES: NKDA. PHYSICAL EXAMINATION: The patient's vital signs on admission were afebrile with stable vital signs. HEENT: Normocephalic, atraumatic. Pupils equal round reactive to light. Extraocular movements intact. Oropharynx is pink and moist. NECK: Supple without lymphadenopathy, thyromegaly or JVD. CHEST: Clear to auscultation. HEART: Regular rate and rhythm. ABDOMEN: Soft. No palpable masses. EXTREMITIES: The right foot has a dressing over a small hole on the area over the heel which is currently not draining, not red or tender. NEUROLOGIC: The patient is alert and oriented x3 with no focal deficits noted. ASSESSMENT: The patient was felt the need to have evaluation and biopsy to rule out synovitis. However the patient had no fever and his white count was not elevated. He will be seen by Dr. John Reyes and apparently taken to surgery on this coming Tuesday for bone biopsy after which he will be discharged to a rehab setting for continue to be nonweightbearing for healing of the foot.
--- NOTE | 2020-09-19 11:13 | DS ---
DISCHARGE DIAGNOSIS: POSSIBLE OSTEOMYELITIS AND NONHEALING WOUND AREA OVER RIGHT HEEL AREA. HOSPITAL COURSE: The patient is a 60 year-old white male patient with a long history of diabetes mellitus type II who has had long trouble with foot problems over the past couple of years. He had gotten to the point where the foot was nearly healed and he had a draining wound on his right heel. He saw Dr. John Reyes in the office and felt that he needed to be admitted and have a bone biopsy performed to rule out osteomyelitis. He was admitted to the hospital on 09/09/2020 and continued on his usual home medications awaiting surgery on 09/12/2020. After 09/12/2020, the patient was to be discharged to a nursing care facility where he remained nonweightbearing for the next two weeks allowing for the foot wound to heal up. Again, the patient was discharged with instructions to follow up with the nursing care facility of his choice in [place]. I believe it was [facility] and to continue his home medications.
== END 2020-09-12 17:43 | DRG 465 ==
LOC: UNDOADMOB 10:04 → MED SURG 10:04 → INTOOBSV 10:19 → OBSVTOIN 10:19 → PREOBSVTOIN 10:32
PROVIDERS: ADMIT Family Medicine; ATTEND Family Medicine
PROC: 0JBQ0ZZ Excision of Right Foot Subcutaneous Tissue and Fascia, Open Approach (ICD-10-PCS; principal; 2020-09-12)
PROC: 0QBL0ZX Excision of Right Tarsal, Open Approach, Diagnostic (ICD-10-PCS; 2020-09-12)
PROC: 0HR Skin and Breast, Replacement (ICD-10-PCS; 2020-09-12)
DX: M86.171 Other acute osteomyelitis, right ankle and foot (principal); E11.621 Type 2 diabetes mellitus with foot ulcer; L97.519 Non-pressure chronic ulcer of other part of right foot with unspecified severity; E11.65 Type 2 diabetes mellitus with hyperglycemia; Z79.899 Other long term (current) drug therapy; Z79.01 Long term (current) use of anticoagulants; E78.00 Pure hypercholesterolemia, unspecified; A49.8 Other bacterial infections of unspecified site; Z20.828 Contact with and (suspected) exposure to other viral communicable diseases
CPT/HCPCS: 11042; 15275; 20225; 36415; 36573; 71045; 80053; 80202; 82947; 83036; 83605; 85025; 85652; 86140; 87070; 87077; 87186; 88307; 88311; J1650; U0003; A9270-GY; J3370

== ENCOUNTER 2021-10-06 12:12 | Observation (INO) | payer MEDICARE ==
[~2021-10-06 12:12] MED LIST changes: -ACETAZOLAMIDE 250 MG TABLET PO ONE; -Ak-Dilate OPHTHALMIC*** 1.065 ML, Cyclogyl 1% OPHTH SOL 5 ML 1.065 ML, GATIFLOXACIN 0.5... OP ONE; -BETADINE 5% OPHTHALMIC 30 ML OP ONE; -BSS 500 ML, Fortaz/Tazicef 1 GM** 0.2 G IO ONE; -Epinephrine Preservative Free 1 MG/ML INTRAOP ONE; -LIDOCAINE HCL 1% AMPUL 5 ML IJ ONE; -Lactated Ringers 1,000 ML IV SCH; +Marcaine Mpf 0.5% Vial 30 Ml ONE; -TETRACAINE 0.5% STERI-UNIT SOL OP ONE; -Zofran 4 MG/2 ML VIAL IV PRN
[2021-10-06 13:44] LABS: ALBUMIN 4.1 g/dL (3.5-5.0); ALKALINE PHOSPHATASE 85 U/L (38-126); Absolute Neutrophil Ct (ANC) 7.25 x10^3/uL (1.4-6.9); BLOOD UREA NITROGEN 8 mg/dL (9-20); Basophil (Absolute #) 0.04 x10^3/uL (0-0.4); CHLORIDE 101 mmol/L (98-107); Calcium 9.3 mg/dL (8.4-10.2); Carbon Dioxide 26 mmol/L (22-30); Creatinine 1 0.66 mg/dL (0.66-1.25); EST GLOMERULAR FILTRATION RATE > 60.0 ML/MIN; Eosinophil % 1.8 % (0.00-5.0); Eosinophil (Absolute #) 0.18 x10^3/uL (0-0.5); Glucose 122 mg/dL (74-106); Hematocrit 37.5 % (42-50); Hemoglobin 11.8 g/dL (12.5-18.0); Lymphocyte (Absolute #) 1.89 x10^3/uL (1.0-4.6); Lymphocytes % 18.7 % (24.0-44.0); Mean Cell Volume 87.6 fL (78-100); Mean Corpuscular Hemoglobin 27.6 pg (26-32); Mean Corpuscular Hgb Concent. 31.5 g/dL (32-36); Mean Platelet Volume 8.9 fL (7.5-11.0); Monocyte (Absolute #) 0.71 x10^3/uL (0.0-1.3); Neutrophil % 71.8 % (36.0-66.0); Platelet Count 347 x10^3/uL (150-450); Potassium 4.1 mmol/L (3.5-5.1); Red Blood Count 4.28 x10^6/uL (4.1-5.6); Red Cell Distribution Width 16.5 % (11.5-14.0); SGOT/AST 23 U/L (17-59); SGPT/ALT 18 U/L (0-50); SODIUM 137 mmol/L (137-145); Total Protein 7.6 g/dL (6.3-8.2); White Blood Count 10.1 x10^3/uL (4.0-10.5)
[2021-10-06 13:53] LABS: INR 0.97 (0.8-3.0); PROTIME 10.3 SECONDS (9.4-12.5); PTT 26.8 SECONDS (25.1-36.5)
[2021-10-06] MEDS: PIPERACILLIN/TAZOBACTAM 3.375 GM in Sodium Chloride 100ML MINI-BAG PLUS 100 ML IV SCH ×2 (15:35→23:46)
[2021-10-06 15:39] LABS: Erythrocyte Sedimentation Rate 41 mm/hr (0-15)
[2021-10-06] MEDS: Sodium Chloride 0.9% 1000 ML 1,000 ML IV SCH ×2 (15:54→20:12)
[2021-10-06] MEDS ORDERED: DIPRIVAN 200 MG/20 ML IV ONE (17:17)
[2021-10-06] MEDS ORDERED: SUBLIMAZE 100 MCG/2 ML ONE (17:17)
[2021-10-06] MEDS ORDERED: Versed 2 MG/2 ML Injection ONE (17:17)
[2021-10-06] MEDS ORDERED: Xylocaine-Mpf 2% 5 Ml Vial ONE (17:17)
[2021-10-06 18:53] LABS: INFLUENZA A NEGATIVE (NEGATIVE); INFLUENZA B NEGATIVE (NEGATIVE); RESPIRATORY SYNCTIAL VIRUS NEGATIVE (Negative); SARS-CoV-2 Xpert Express NEGATIVE (NEGATIVE)
--- NOTE | 2021-10-06 18:59 | PCM.NOTE ---
Podiatry Post-Op Plan Podiatry Post-Op Plan: Post-operative plan is as follows: ANTIBIOTICS: Vanco 1.25g q12h zosyn 3.375g q8h daily. awaiting preliminary cultures obtained intraop for narrowing abx management PAIN CONTROL: Marmaduke 5/325mg q4h moderate pain. Morphine 2 mg q4h severe pain. Patient largely neuropathic. VTE PROPHYLAXIS: Aspirin and Clopidigrel as prescribed at home. Being managed by Dr. Eugene Mcdaniel. DRESSINGS: Dressing to remain clean and dry. Reinforce with Kerlix/ALLYSON as necessary. ACTIVITY: NWB to operative side. THERAPIES: PT/OT consult for gait training, assistive device training, and assessment of functional status with NWB to the Right leg. Incentive Spirometry. PLACEMENT: CM consult for evaluation for possible plan d/c to home after infection appears to resolve. Will plan outpatient for peroneus brevis muscle flap in order to close wound and provide bulk to lateral right heel if angiogram shows at minimum 2 blood vessel runoff to lateral compartment of right lower extremity. Likely no plan for return to OR this stay. Will plan for D/c when patient shows indications of improvement.
[2021-10-06] MEDS: VANCOMYCIN 1.25 GM/250 ML BAG 1.25 GM/250 ML PIGGYBACK IV SCH (20:11)
[2021-10-06] MEDS: HYDROCODONE-ACETAMIN 10-325 MG PO PRN (21:01)
[2021-10-06] MEDS ORDERED: NEURONTIN PO ONE (22:00)
[2021-10-06] MEDS ORDERED: Coreg 3.125 MG PO ONE (22:00)
[2021-10-06] MEDS ORDERED: ZOCOR 20MG PO ONE (22:00)
[2021-10-07] MEDS: VANCOMYCIN 1.25 GM/250 ML BAG 1.25 GM/250 ML PIGGYBACK IV SCH ×3 (03:52→19:38)
[2021-10-07] MEDS ORDERED: NON-FORMULARY ITEM (Dulaglutide [Trulicity] 0.75 MG/0.5 ML Pen.Injctr) SQ SCH (07:15)
[2021-10-07] MEDS ORDERED: MEDICATION INTERVENTION MC SCH ×2 (07:30)
[2021-10-07] MEDS: Glucotrol 5 MG PO SCH ×2 (08:24→16:20)
[2021-10-07] MEDS: HYDROCODONE-ACETAMIN 10-325 MG PO PRN ×2 (08:25→22:07)
[2021-10-07] MEDS: PIPERACILLIN/TAZOBACTAM 3.375 GM in Sodium Chloride 100ML MINI-BAG PLUS 100 ML IV SCH ×3 (08:26→22:06)
[2021-10-07] MEDS: ZYLOPRIM 300 MG PO SCH (09:44)
[2021-10-07] MEDS: Coreg 3.125 MG PO SCH ×2 (09:45→22:08)
[2021-10-07] MEDS: NEURONTIN PO SCH ×3 (09:45→22:06)
[2021-10-07] MEDS: FISH OIL 1,000 MG CAPSULE PO SCH (09:45)
[2021-10-07] MEDS ORDERED: ECOTRIN 81 MG PO SCH (10:00)
[2021-10-07] MEDS ORDERED: METFORMIN HCL PO SCH (10:00)
[2021-10-07] MEDS ORDERED: NON-FORMULARY ITEM (Gabapentin [Gabapentin] 800 MG Tablet) PO SCH (10:00)
[2021-10-07] MEDS ORDERED: PLAVIX Tablet PO SCH (10:00)
[2021-10-07] MEDS ORDERED: [UNRECOGNIZED DRUG - OTHER] PO SCH (10:00)
[2021-10-07] MEDS ORDERED: EMPAGLIFLOZIN PO SCH (10:00)
--- NOTE | 2021-10-07 12:28 | XRAY ---
Indication: [facility] clearance. Comparison: September 10, 2020 Portable chest demonstrates stable minimal right suprahilar subsegmental atelectasis/scarring. Remaining lungs clear. Heart and mediastinal structures within normal limits. PICC line has been removed. Bony thorax intact again with mild osteopenia and degenerative changes. Impression: Continued nonacute chest with chronic features.
[2021-10-07] MEDS: HUMALOG SQ PRN ×2 (12:39→17:30)
--- NOTE | 2021-10-07 16:55 | PCM.NOTE ---
Date and Time: 10/07/21 164 Subjective Assessment: POD #1. patient seen at bedside with minimal complaints. Denies any consitutional symptoms of infection at this time. Minimal pain to right LE. Denies any new calf pain, SOB or chest pain. No other pedal complaints at this time. Physical Exam - Vascular Peripheral Pulses: Posterior tibialis: 0, Dorsalis-Pedis: 0 Capillary Refill Time: > 3 seconds Varicosities: Positive Edema: None Skin: Supple, not atrophic Skin Temperature: Warm to touch - Muscular Muscle Strength: 5/5 on all 4 quadrants Digital Deformity: Mult amps - Narrative Narrative Physical Exam: Podiatry Physical Exam dermatological examination: Wound appearing with minimal necrosis to surrounding wound edges at this time. No residual signs of infection. No other soft tissue or osseous abnormalities identified. OBJECTIVE DATA Vital Signs: Vital Signs - 24 hr Temp Pulse Resp BP Pulse Ox 10/07/21 12:00 98.4 F 82 19 129/61 93 L 10/07/21 08:00 97.5 F 80 19 131/62 98 10/07/21 04:07 97.3 F 76 12 121/58 95 10/07/21 02:00 96.8 F 77 16 129/63 95 10/06/21 22:35 96.8 F 77 16 129/63 95 10/06/21 20:40 98.1 F 77 18 135/63 98 10/06/21 20:10 76 19 155/72 99 10/06/21 20:08 97.7 F 74 18 159/61 10/06/21 19:38 97.1 F 75 18 154/68 99 10/06/21 19:23 97.1 F 75 18 152/72 99 10/06/21 18:50 97.5 F 69 20 106/61 98 Pain Assessment - Last Documented Pain Intensity 3 Pain Scale Used 0-10 Pain Scale Intake and Output: Intake & Output 10/05/21 10/06/21 10/07/21 10/08/21 11:59 11:59 11:59 11:59 Intake Total 1515 528 Output Total 2200 Balance -685 528 Weight 122.8 kg Lab Results: Lab Results-Last 24 Hours 10/06/21 10/06/21 10/06/21 Range/Units 12:30 13:20 20:38 POC Glucometer 139 H (74 to 106) mg/dL Hemoglobin A1c 7.93 H (4.5-6.0) % Influenza Type A Ag NEGATIVE (NEGATIVE) Influenza Type B Ag NEGATIVE (NEGATIVE) RSV (PCR) NEGATIVE (Negative) SARS-CoV-2 (PCR) NEGATIVE (NEGATIVE) 10/06/21 10/07/21 10/07/21 Range/Units 20:45 08:06 11:55 POC Glucometer 111 H 136 H 206 H (74 to 106) mg/dL Hemoglobin A1c (4.5-6.0) % Influenza Type A Ag (NEGATIVE) Influenza Type B Ag (NEGATIVE) RSV (PCR) (Negative) SARS-CoV-2 (PCR) (NEGATIVE) 10/07/21 Range/Units 16:25 POC Glucometer 227 H (74 to 106) mg/dL Hemoglobin A1c (4.5-6.0) % Influenza Type A Ag (NEGATIVE) Influenza Type B Ag (NEGATIVE) RSV (PCR) (Negative) SARS-CoV-2 (PCR) (NEGATIVE) Radiology Exams: Radiology Procedures Category Date Time Status CHEST 1 VIEW (PORTABLE) Urgent Exams 10/07/21 11:49 Completed PICC LINE PLACEMENT Urgent Exams 10/08/21 13:09 Ordered Multi-Disciplinary Progress Notes: Multi-Disciplinary Progress Notes 10/07/21 13:11 Case Management Note by Delmy Zaidi HAS ACCEPTED PATIENT AND WILL START PRECERT TODAY Initialized on 10/07/21 13:11 - END OF NOTE 10/07/21 13:06 Case Management Note by Delmy Zaidi S/W ELIEZER IN ANESTHESIA- HE REPORTS HE PLACED A REGULAR IV 10/06/21. PATIENT DOES NOT CURRENTLY HAVE A PICC LINE. S/W GERARDO- HE WILL NEED A PICC LINE FOR IV ANTIBIOTIC. NEW ORDER RECEIVED AND PLACED Initialized on 10/07/21 13:06 - END OF NOTE 10/07/21 11:50 Case Management Note by Delmy Zaidi REFERRALS FAXED TO [facility], [facility]- UNABLE TO PROVIDE TRANSPORTATION FOR FOLLOW UP APT. Initialized on 10/07/21 11:50 - END OF NOTE 10/07/21 11:28 Case Management Note by Delmy Zaidi S/W PATIENT REGARDING PLACEMENT- PATENT #1 CHOICE IS [facility] BUT IS OPEN TO ANYWHERE THAT CAN GET HIM IN AND PROVIDE HIS CARE AND TRANSPORTATION FOR HIS APTS PATIENT NO FAMILY TO ASSIST Initialized on 10/07/21 11:28 - END OF NOTE 10/07/21 10:50 Case Management Note by Delmy Zaidi S/W PATIENT ABOUT PLANS AT [place]- Lauren GAMBOA HAD MENTIONED [facility] WITH HOME INFUSIONS. WHEN I EDUCATED PATIENT THAT THE [facility] WOULD TEACH HIM OR A CAREGIVER HOW TO DO THE INFUSIONS- PATIENT STATED HE DID NOT FEEL COMFORTABLE WITH THAT. HE PREFERS TO GO TO [place] IF HE CAN TO GET THOSE INFUSIONS. S/W DR. LINDSEY- PATIENT TO HAVE INVANZ 1GM IV DAILY FOR AT LEAST 2 WEEKS- COULD NEED UP TO 6 WEEKS DEPENDING ON CULTURES. Initialized on 10/07/21 10:50 - END OF NOTE Assessment/Plan (1) Diabetes mellitus with hyperglycemia Current Visit: No Status: Chronic Code(s): E11.65 - TYPE 2 DIABETES MELLITUS WITH HYPERGLYCEMIA (2) Diabetic foot ulcer Current Visit: No Status: Acute Assessment & Plan: Examination evaluation. Radiographs reviewed demonstrating no significant soft tissue or osseous pathology at this time. Patient postop day 1 status post incision and drainage with bone debridement to right heel with ulceration probing directly to bone. Patient soft tissue does appear to be improving at this time however awaiting bone biopsies to assess for the potential of bone infection. Patient does have an extensive history of Pseudomonas aeruginosa as an infection agent and would benefit from at minimum repeat debridement at bedside prior to discharge along with several weeks of IV antibiotics. Tentative plan will be for bedside debridement tomorrow of ulceration Plan for minimum 2 weeks of IV antibiotics maximum 6 weeks if surgical pathology returns with positive results. Working closely with Dr. Kenji Mcdaniel to assess if patient's vascular status would support patient having a peroneus brevis muscle flap to provide increased blood flow vascularity and muscle bulk to the deficit at the plantar aspect of the heel and patient's wound healing capacity at that time. Tentatively planning for angiogram on the with Dr. Mcdaniel which will be ultimately determine wound healing capacitiy and probability of proceeding with this plan. At this time patient is amenable to proceeding with discharge to nursing facility for wound care and IV antibiotics. No return to the OR however bedside debridement prior to discharge. Nonweightbearing to the right lower extremity Continue clopidogrel 75 mg as well as aspirin 81 mg for DVT prophylaxis Pain prophylaxis as prescribed Infection prophylaxis as prescribed On discharge patient will be placed on Invanz 1 g daily Will follow alva Code(s): E11.621 - TYPE 2 DIABETES MELLITUS WITH FOOT ULCER; L97.509 - NON- PRESSURE CHRONIC ULCER OTH PRT UNSP FOOT W UNSP SEVERITY (3) Osteomyelitis Current Visit: No Status: Acute Code(s): M86.9 - OSTEOMYELITIS, UNSPECIFIED
[2021-10-07] MEDS: JARDIANCE PO SCH (17:29)
[2021-10-07] MEDS: Glucophage 500 MG PO SCH (17:30)
[2021-10-07] MEDS ORDERED: ZOCOR 20MG PO SCH (22:00)
[2021-10-07] MEDS ORDERED: NON-FORMULARY ITEM (Atorvastatin Calcium [Lipitor] 80 MG Tablet) PO SCH (22:00)
[2021-10-08] MEDS: VANCOMYCIN 1.25 GM/250 ML BAG 1.25 GM/250 ML PIGGYBACK IV SCH (04:00)
[2021-10-08] MEDS: HYDROCODONE-ACETAMIN 10-325 MG PO PRN (04:08)
[2021-10-08] MEDS: PIPERACILLIN/TAZOBACTAM 3.375 GM in Sodium Chloride 100ML MINI-BAG PLUS 100 ML IV SCH (05:30)
[2021-10-08 07:47] VITALS: BP 121/60; PULSE 77; O2SAT 92
[2021-10-08] MEDS: NEURONTIN PO SCH (08:56)
[2021-10-08] MEDS: JARDIANCE PO SCH (08:56)
[2021-10-08] MEDS: FISH OIL 1,000 MG CAPSULE PO SCH (08:56)
[2021-10-08] MEDS: Glucotrol 5 MG PO SCH (08:57)
[2021-10-08] MEDS: Glucophage 500 MG PO SCH (08:57)
[2021-10-08] MEDS: Coreg 3.125 MG PO SCH (08:58)
[2021-10-08] MEDS: ZYLOPRIM 300 MG PO SCH (08:58)
--- NOTE | 2021-10-08 10:57 | SSS ---
DISCHARGE DIAGNOSIS: DIABETIC FOOT WOUND. PRESSER AND BLOCKER KNITTED GOODS: Dr. John Reyes. HISTORY: The patient is a 61-year-old white male patient with long history of diabetic foot problem. He reported that his foot had been healing well. This problem with his foot has been going on for several years. He has had multiple operations on it previously including amputation of great toe. The patient reported that his foot had looked pretty good. He went in for an evaluation to see. Dr. Lopez and was found to have a foot wound which was very odorous and apparently a lot of destruction was already occurring. The patient was brought into the hospital for debridement and for definitive management of his foot wound including IV antibiotics. PAST MEDICAL/SURGICAL HISTORY: Significant for his diabetes mellitus type II under poor control. He had coronary artery disease in the past. HOME MEDICATIONS: Current list includes: [place] 10-325 every 4 hours PRN for pain. He is on Allopurinol 300 mg a day, aspirin 81 mg a day, carvedilol 3.125 mg b.i.d., Plavix 75 mg a day. He is on empagliflozin 10 mg tablet one-half tablet twice a day, gabapentin 900 mg t.i.d., Glipizide 5 mg b.i.d. He is on Humulin Lispro on sliding scale coverage basis. Metformin 1,000 mg b.i.d. ALLERGIES: NKDA. PHYSICAL EXAMINATION: Revealed a well-nourished, well-developed 61-year-old white male patient in no obvious distress. His vital signs showed his temperature to be 97.5F, pulse 80, respiratory rate 19 and blood pressure 131/62. O2 saturation 98% on room air. HEENT: Normocephalic, atraumatic. Pupils equal round reactive to light. Extraocular movements intact. Oropharynx is pink and moist. NECK: Supple without lymphadenopathy, thyromegaly or JVD. CHEST: Clear to auscultation. HEART: Regular rate and rhythm without murmurs, rubs or gallops. ABDOMEN: Soft. No palpable masses. EXTREMITIES: Without cyanosis, clubbing or edema. There is a dressing over the right foot recently placed by his sales engagement manager. He is missing the right great toe. NEUROLOGIC: The patient is alert and oriented x3 with no focal deficits. LAB DATA AND TESTS: His laboratory studies show him to be negative for COVID, respiratory syncytial virus and influenza. His A1C was at 7.93. His white count was 10.1 with hemoglobin 11.8, PLT count 347,000. His sed rate was 41. Prealbumin 13.09. His sugar was initially was 122, BUN 8, creatinine 0.66. His electrolytes and liver enzymes were normal. INR 0.97. Lactic acid 1.6. Chest x-ray continued nonacute with chronic features. He had an EKG showing normal sinus rhythm with no acute changes noted. HOSPITAL COURSE: The patient was admitted. He was taken to surgery and debridement had been performed. The patient received a PICC line today for continued treatment with Vancomycin and Zosyn pending culture reports. He will be placed in rehab as he has been there before for similar circumstances and attempting to obtain placement for him at this time for him to be discharged later today.
[2021-10-08] MEDS ORDERED: TROUGH DRUG LEVELS IJ ONE (11:30)
--- NOTE | 2021-10-08 11:38 | XRAY ---
Indication: Long-term IV access and therapy for right foot infection and diabetic ulcer. Informed consent obtained. Patient was placed on the fluoroscopic table in a supine position. Initial sonographic imaging of the right upper extremity was performed for localization of patent veins. The right upper extremity was then prepped and draped in sterile fashion. Tourniquet applied. 1% lidocaine plain used for local anesthesia. Using ultrasound guidance and a micropuncture needle, a basilic vein above the elbow was successfully percutaneously cannulized. A floppy tip 0.018 guidewire inserted. Tourniquet released. Needle was exchanged for a 5 Macedonian dilator peel-away sheath catheter. Ultimately a 5 Macedonian double-lumen PICC line was inserted over a longer 0.018 guidewire with the tip positioned in the distal SVC using fluoroscopic guidance. Guidewire removed. Both ports flushed with heparinized saline. Catheter was secured. Postoperative instructions and orders given. Patient discharged in good condition. Impression: Technically successful right upper extremity PICC line placement using ultrasound and fluoroscopic guidance. No immediate complications. Approximately 2 cc blood loss. Approximately 0.5 minute of fluoroscopy used. Catheter length is 40 cm.
--- NOTE | 2021-10-08 18:29 | PCM.NOTE ---
Date and Time: 10/08/211827 Subjective Assessment: POD #2. patient seen at bedside with minimal complaints. Denies any consitutional symptoms of infection at this time. Minimal pain to right LE. Denies any new calf pain, SOB or chest pain. No other pedal complaints at this time. Physical Exam - Narrative Narrative Physical Exam: Podiatry Physical Exam dermatological examination: Wound appearing with minimal necrosis to surrounding wound edges at this time. No residual signs of infection. No other soft tissue or osseous abnormalities identified. OBJECTIVE DATA Vital Signs: Vital Signs - 24 hr Temp Pulse Resp BP Pulse Ox 10/08/21 07:46 96.9 F 77 19 121/60 92 L 10/08/21 04:00 97.1 F 82 20 128/60 98 10/08/21 00:46 97.6 F 94 H 20 138/78 96 10/08/21 00:00 97.4 F 83 20 131/58 96 10/07/21 19:48 97.9 F 89 20 146/64 97 Pain Assessment - Last Documented Pain Intensity 0 Pain Scale Used 0-10 Pain Scale Intake and Output: Intake & Output 10/06/21 10/07/21 10/08/21 10/09/21 11:59 11:59 11:59 11:59 Intake Total 1515 3121 Output Total 2200 5800 Balance -834 -1628 Weight 122.8 kg Lab Results: Lab Results-Last 24 Hours 10/06/21 10/07/21 10/08/21 Range/Units 01:20 21:25 07:01 POC Glucometer 201 H 144 H (74 to 106) mg/dL C-Reactive Prot, Quant 67 H (0-10) mg/L Radiology Exams: Radiology Procedures Category Date Time Status CHEST 1 VIEW (PORTABLE) Urgent Exams 10/07/21 11:49 Completed GUIDE FOR VASCULAR ACCESS [US] Routine Exams 10/08/21 11:11 Completed PICC LINE PLACEMENT Urgent Exams 10/08/21 13:09 Completed Multi-Disciplinary Progress Notes: Multi-Disciplinary Progress Notes 10/08/21 11:22 Case Management Note by Delmy Zaidi/Hernandez GERARDO AT [facility]- THEY WILL START INVANZ SOON POSSIBLE Initialized on 10/08/21 11:22 - END OF NOTE 10/08/21 11:11 Case Management Note by Delmy Zaidi/W PATIENT- NOTIFIED MMM ACCEPTED AND WILL BE HERE SHORTLY TO GET HIM. PATIENT VERIFIED UNDERSTANDING AND IS IN AGREEMENT WITH PLAN Initialized on 10/08/21 11:11 - END OF NOTE 10/08/21 10:35 Case Management Note by Delmy Zaidi MMM RECEIVED APPROVAL FROM INSURANCE AND ARE READY FOR PATIENT TODAY Initialized on 10/08/21 10:35 - END OF NOTE Assessment/Plan (1) Diabetes mellitus with hyperglycemia Status: Chronic Code(s): E11.65 - TYPE 2 DIABETES MELLITUS WITH HYPERGLYCEMIA (2) Diabetic foot ulcer Status: Acute Assessment & Plan: Examination evaluation. Radiographs reviewed demonstrating no significant soft tissue or osseous pathology at this time. Patient postop day 1 status post incision and drainage with bone debridement to right heel with ulceration probing directly to bone. Patient soft tissue does appear to be improving at this time however awaiting bone biopsies to assess for the potential of bone infection. Patient does have an extensive history of Pseudomonas aeruginosa as an infection agent and would benefit from at minimum repeat debridement at bedside prior to discharge along with several weeks of IV antibiotics. Attention was directed to the Right foot heel ulceration Verbal consent was obtained prior to the procedure. Sharp, excisional debridement was performed of the Right heel ulcer using a loop curette. Removal of nonviable tissue was performed with the debridement: fibrotic and necrotic tissue Depth of debridement: to level of bone removing necrotic and non viable tissue from the field. Hemostasis was obtained a using pressure dressing. Pre- and post- debridement measurements as follows: Pre-Debridement: Size 3.5 x 1.9 x 1.5 Post-Debridement: Size - 3.7 x 2.6 x 1.5 Plan for minimum 2 weeks of IV antibiotics maximum 6 weeks if surgical pathology returns with positive results. Working closely with Dr. Kenji Mcdaniel to assess if patient's vascular status would support patient having a peroneus brevis muscle flap to provide increased blood flow, vascularity and muscle bulk to the deficit at the plantar aspect of the heel and improve patient's wound healing capacity at that time. Tentatively planning for angiogram on the with Dr. Mcdaniel which will be ultimately determine wound healing capacitiy and probability of proceeding with this plan. At this time patient is amenable to proceeding with discharge to nursing facility for wound care and IV antibiotics. Nonweightbearing to the right lower extremity Continue clopidogrel 75 mg as well as aspirin 81 mg for DVT prophylaxis Pain prophylaxis as prescribed Infection prophylaxis as prescribed PICC line placed On discharge patient will be placed on Invanz 1 g daily Will follow alva Code(s): E11.621 - TYPE 2 DIABETES MELLITUS WITH FOOT ULCER; L97.509 - NON- PRESSURE CHRONIC ULCER OTH PRT UNSP FOOT W UNSP SEVERITY (3) Osteomyelitis Status: Acute Code(s): M86.9 - OSTEOMYELITIS, UNSPECIFIED
--- NOTE | 2021-10-13 08:34 | OP ---
SURGERY DATE/TIME: 10/06/20211815 PREOPERATIVE DIAGNOSES: 1) Chronic diabetic foot ulcer, right heel. 2) Peripheral vascular disease. 3) Osteomyelitis. 4) Infection diabetic foot ulcer. POSTOPERATIVE DIAGNOSES: 1) Chronic diabetic foot ulcer, right heel. 2) Peripheral vascular disease. 3) Osteomyelitis. 4) Infection diabetic foot ulcer. PROCEDURE: Incision and drainage with bone debridement of the right heel ulcer with open packing. SURGEON: John Reyes DPM. COB SAWYER: None. ANESTHESIA: Monitored anesthesia care with a local block. HEMOSTASIS: Pressure dressing. ESTIMATED BLOOD LOSS: Less than 10 cc. MATERIALS: 0.5 inch Iodoform packing. INJECTABLES: 20 cc of 1:1 mixture of 1% lidocaine plain and 0.5% bupivacaine plain injected in a V-block type fashion proximal to the wound postoperatively. INDICATION FOR SURGERY: Kishore is a very well-known patient to my service. I have been seeing him for over a year and working very closely with the vascular surgeon for an attempt at closure of his chronic diabetic foot wound. The patient is no stranger to amputation as the majority of the digits to this extremity have been amputated. The patient did develop a wound to the plantar lateral aspect of the right heel and we have been making attempt to get this closed under the course of a year. Approximately one year ago he had a graft which did shrink the wound quite significantly. However, we have stagnated at approximately 3 x 3 mm of the wound until recently. Today, he presents with a significant malodor, dark necrotic tissue and extreme drainage to the right lower extremity. The patient indicates that he started seeing the symptomatology getting worse over the course of the last 24 hours. However, the patient is unable to see the bottom of his foot and unable to assess what is occurring to his feet. He does not have assistance at home to change his dressing so he is essentially dressing a blind wound until he sees me on a regular basis. The patient understands all risks, complications and benefits of surgical intervention including but not limited to delayed wound healing, nonwound healing, possibility of need for surgical intervention at a later date which in this case is planned to be staged with a muscle flap if his most recent angiogram permits a muscle flap to be performed to this extremity. He understands all of these risks and wishes to proceed with surgical intervention at this time. No guarantees were provided as to the outcome. He is at high risk for amputation. At this time however I will do everything in my power to prevent that from being a reality. It is with that we decided to proceed. DESCRIPTION OF PROCEDURE AND FINDINGS: The patient is brought into the OR and placed on the OR table in the supine position. At this time monitored anesthesia care was administered and the right lower extremity was prepped and draped in the typical sterile fashion. At this time attention was directed to the right heel wound where a significant amount of necrotic tissue was encountered. The wound was measured to be 2.7 x 1.5 x 0.2 initially with a positive probe to bone. Following debridement which was carried out utilizing a combination of 15 blade, curette, rongeur and the wound was measured to be 3.5 x 2.6 x 1.9. There is a positive probe to bone and the bone was debrided utilizing a curette. A bone biopsy was taken as well as bone culture. The culture and biopsy as well as soft tissue culture was obtained and handed off the field at this time for permanent and microbiological assessment. Following this, 3 liters of sterile saline were utilized to flush the surgical site. After this, the site was inspected for any remaining necrotic tissue. The wound was then packed with Iodine soaked Iodoform packing and a dressing consisting of Betadine, Adaptic, 4x4, Kerlix and ALLYSON were applied. ABD and ALLYSON were applied to the right lower extremity with minimal compression. The patient was then reversed from anesthesia and returned to the postoperative anesthesia care unit with vital signs stable and vascular status intact. The patient handled the anesthesia as well as procedure without significant complication. Postoperative orders as indicated in the patient's chart.
== END 2021-10-08 11:32 ==
LOC: MED SURG 12:12
PROVIDERS: ADMIT Family Medicine; ATTEND Family Medicine
DX: E11.621 Type 2 diabetes mellitus with foot ulcer (principal); M79.671 Pain in right foot; E11.42 Type 2 diabetes mellitus with diabetic polyneuropathy; I73.9 Peripheral vascular disease, unspecified; E11.65 Type 2 diabetes mellitus with hyperglycemia; M86.271 Subacute osteomyelitis, right ankle and foot; Z79.899 Other long term (current) drug therapy; Z20.828 Contact with and (suspected) exposure to other viral communicable diseases; Z79.01 Long term (current) use of anticoagulants
CPT/HCPCS: 0241U; 11044; 28005; 36415; 36573; 71045; 76937; 77001; 80053; 82947; 83036; 83605; 84134; 85025; 85610; 85652; 85730; 86140; 87046; 87070; 87075; 87116; 87206; 93005; 97110; 97161; 97165; 99226; G0378; 99024; C1769; J1642; J1817; J2250; J2704; J3010; A9270-GY; J3370

== ENCOUNTER 2021-11-20 05:54 | Day surgery (SDC) | payer MEDICARE ==
[2021-11-20] MEDS ORDERED: Marcaine Mpf 0.5% Vial 30 Ml IJ ONE (05:55)
[2021-11-20] MEDS ORDERED: XYLOCAINE 1% HCL 20 ML MDV ONE (06:17)
[2021-11-20] MEDS ORDERED: Lactated Ringers 1,000 ML IV SCH (06:30)
[2021-11-20] MEDS ORDERED: CEFAZOLIN 2 GM-D5W BAG** 2 GM/50 ML ML IV SCH (06:30)
[2021-11-20] MEDS ORDERED: Lactated Ringers 1,000 ML IV ONE (06:37)
[2021-11-20] MEDS ORDERED: CEFAZOLIN 2 GM-D5W BAG** 2 GM/50 ML ML IV ONE (06:38)
[2021-11-20] MEDS ORDERED: DIPRIVAN 200 MG/20 ML IV ONE ×3 (06:46→06:58)
[2021-11-20] MEDS ORDERED: Zofran 4 MG/2 ML VIAL ONE ×2 (06:50→06:58)
[2021-11-20] MEDS ORDERED: Decadron 4 MG INJ ONE ×2 (06:50→06:58)
[2021-11-20] MEDS ORDERED: BRIDION 200MG/2ML IV ONE (06:54)
[2021-11-20] MEDS ORDERED: SUBLIMAZE 100 MCG/2 ML ONE ×2 (06:58→09:48)
[2021-11-20] MEDS ORDERED: Quelicin Fliptop 200 MG/10 ML ONE (06:58)
[2021-11-20] MEDS ORDERED: Xylocaine-Mpf 2% 5 Ml Vial ONE (06:58)
[2021-11-20] MEDS ORDERED: Pre-Attached Lta Kit TP ONE (07:07)
[2021-11-20] MEDS ORDERED: OFIRMEV 100 ML IV ONE (07:07)
[2021-11-20] MEDS ORDERED: Ephedrine Sulfate 50 MG/ML ONE (08:14)
[2021-11-20 10:04] LABS: Hematocrit 41.6 % (42-50); Hemoglobin 13.3 g/dL (12.5-18.0)
[2021-11-20 10:44] VITALS: PULSE 82
[2021-11-20 10:52] VITALS: BP 132/76; O2SAT 97
--- NOTE | 2021-11-24 11:07 | OP ---
SURGERY DATE/TIME: 11/20/2021 0720 PREOPERATIVE DIAGNOSES: 1) Pain right foot. 2) Foot ulcer due to diabetes mellitus type II. 3) Diabetic peripheral neuropathy. 4) Diabetes mellitus. 5) Diabetic foot ulcer. 6) Osteomyelitis. 7) Peripheral vascular disease with recent intervention. POSTOPERATIVE DIAGNOSES: 1) Pain right foot. 2) Foot ulcer due to diabetes mellitus type II. 3) Diabetic peripheral neuropathy. 4) Diabetes mellitus. 5) Diabetic foot ulcer. 6) Osteomyelitis. 7) Peripheral vascular disease with recent intervention. PROCEDURES: 1) Incision and drainage. 2) Bone debridement of the right heel. 3) Peroneus brevis pedicle muscle flap and application of synthetic skin substitute right foot. SURGEON: John Reyes DPM. SIZE CHANGER: None. ANESTHESIA: General plus a postoperative ankle block consisting of 30 cc of a 1:1 mixture of 1% lidocaine plain and 0.5% bupivacaine plain injected in ankle block-type fashion. HEMOSTASIS: Pressure dressing postoperatively. ESTIMATED BLOOD LOSS: Approximately 60 cc. MATERIALS: Integra 2 x 2 inch graft, surgical cutaneous jeanette, 2-0 Vicryl. INDICATION FOR PROCEDURE: Kishore is very well-known to my service for ulcerations to the right foot. The patient has been seen for approximately two years now and due to his extreme neuropathy and peripheral vascular disease we were at a standstill for proceeding with surgical intervention with the possibility of risk of potential subjugating the patient to a potential amputation needlessly. The patient has handled routine wound care for approximately two years now. From that standpoint he did develop an infection relatively rapidly approximately four weeks ago this was addressed aggressively. Following this the decision was made to be aggressive with vascular surgery to see if we could restore some blood flow to the patient's lower extremity and potentially set him up for potentially expediting the healing process to the right lower extremity. From that standpoint Dr. Kenji Mcdaniel, Vascular Surgeon, has been in close contact with my office in regards to his plans for intervention during the angiogram. The patient was able to unblock a stent to the patient's right lower extremity. Luckily for us the patient does have one blood vessel run off and it is relatively robust to the peroneal compartment. For that reason the decision was made to proceed with peroneus brevis muscle flap that is distally based. This has been discussed with the patient given the long standing history of ulceration, an attempt at limb salvage and prevention of wound from getting worse with time and leading to an amputation. The patient understands that there are no guarantees as to the outcome of the surgical intervention. Plenty of complications could occur as a result of proceeding with surgical intervention at this time including but not limited to infection, hematoma, seroma, possibility of delayed skin healing, possibility of failure of surgical outcome, possibility of of flap, and possible need for surgical intervention at a later date. The patient has voiced his understanding from that standpoint. At this time attempts are for limb salvage and with that we would like to proceed. DESCRIPTION OF PROCEDURE AND FINDINGS: The patient is brought into the OR and placed on the OR table in the supine position. At this time general anesthesia was administered until the patient was sedated. The right lower extremity was prepped and draped in the typical sterile fashion and the surgical extremity was lowered onto the surgical field. At this time a Doppler was utilized to identify 5, 10 and 15 cm from the distal tip of the fibula to identify the perforators which two of the distal ones were easily identifiable utilizing the Doppler probe. These areas were marked out as sites to look out for the distal pedicles. Arc of rotation was also measured initially from the second pedicle proximally this was in order to assess how high the resection of the peroneus brevis muscle belly was to be harvested. Once this was identified a linear incision was made through the skin and initial subcutaneous tissue 1 cm posterior to the fibula at that level. At this time attention was directed to the anterior aspect of the fibula where the muscle belly was identified. The peroneal compartment was incised along the anterior lip of the fibula and reflected off of the lateral aspect of the fibula and interosseous membrane. At this time attention was directed to the intramuscular septum and the muscle sheath was between the peroneus longus and the peroneus brevis. The tendon of the peroneus brevis was quite long and robust at this area and muscle belly was removed from some of the peroneus longus at this point in order to flap down with the peroneus brevis. Once the peroneus brevis was muscle belly was identified any proximal pedicle that dove into the anterior compartment were tied off utilizing 2-0 Vicryl and cut. The last two pedicles approximately 10 cm from the tip of the fibula was then salvaged, identified with vessel loops and protected for the remainder of the toes. The proximal aspect of the peroneus brevis muscle belly was resected and the distal flap was beginning to be performed. Following this a tunnel was made to the lateral aspect of the foot where the peroneus brevis muscle belly was transferred to the plantar aspect of the heel. At this time an incision was made down to the bone at the lateral aspect of the heel excising the ulceration in toto. Curettes were utilized to debride the plantar fascial layer as well as the bone at the plantar aspect of the heel. This site was flushed with copious amounts of sterile saline. Following this the muscle belly was laid into the deficit and sutured utilizing 2-0 Vicryl in a trauma stitch-type fashion at multiple locations as well as the muscle belly. The proximal aspect of the lateral wound was closed primarily utilizing 2-0 Vicryl and surgical skin jeanette in everted-type fashion. Following this a 2 x 2 Integra graft was applied to the heel ulceration and the muscle belly, this was stapled. Any remainder of the graft was resected, scraped off and placed underneath the Integra synthetic skin substitute. Following this a dressing consisting of Betadine, Adaptic, 4x4, Kerlix and ALLYSON was applied to the patient's right lower extremity. A well-padded posterior splint was then applied to the patient's right foot. The patient was then reversed from anesthesia and returned to the postoperative anesthesia care unit with vital signs stable and vascular status intact. The patient handled the anesthesia as well as the procedure without significant complication. Postoperative orders as indicated in the patient's discharge chart.
== END 2021-11-20 11:05 | disposition home or self-care (01) ==
LOC: SDC 05:54
PROVIDERS: ATTEND Podiatrist Foot & Ankle Surgery
DX: E11.621 Type 2 diabetes mellitus with foot ulcer (principal); M79.671 Pain in right foot; E11.42 Type 2 diabetes mellitus with diabetic polyneuropathy; M86.9 Osteomyelitis, unspecified; I73.9 Peripheral vascular disease, unspecified
CPT/HCPCS: 36415; 82947; 85014; 85018; 93005; J0330; J0690; J1100; J2405; J2704; J3010

== ENCOUNTER 2021-12-11 05:51 | Day surgery (SDC) | payer MEDICARE ==
[2021-12-11] MEDS ORDERED: XYLOCAINE 1% HCL 20 ML MDV ONE (06:23)
[2021-12-11] MEDS ORDERED: CEFAZOLIN 2 GM-D5W BAG** 2 GM/50 ML ML IV SCH (07:00)
[2021-12-11] MEDS ORDERED: Lactated Ringers 1,000 ML IV SCH (07:00)
[2021-12-11] MEDS ORDERED: DIPRIVAN 200 MG/20 ML IV ONE (07:13)
[2021-12-11] MEDS ORDERED: Zofran 4 MG/2 ML VIAL ONE (07:13)
[2021-12-11] MEDS ORDERED: Zemuron 100 MG/10 ML ONE (07:13)
[2021-12-11] MEDS ORDERED: BRIDION 200MG/2ML IV ONE (07:13)
[2021-12-11] MEDS ORDERED: Xylocaine-Mpf 2% 5 Ml Vial ONE (07:13)
[2021-12-11] MEDS ORDERED: TORAdol 30 mg Injection ONE ×2 (07:13→10:19)
[2021-12-11] MEDS ORDERED: SUBLIMAZE 100 MCG/2 ML ONE ×2 (07:13→10:27)
[2021-12-11] MEDS ORDERED: Decadron 4 MG INJ ONE (07:13)
[2021-12-11] MEDS ORDERED: OFIRMEV 1,000 MG/100 ML ML IV ONE (07:18)
--- NOTE | 2021-12-11 11:44 | OP ---
SURGERY DATE/TIME: 12/11/2021 0808 PREOPERATIVE DIAGNOSES: 1) Diabetes mellitus complicated by diabetic foot ulcer. 2) Chronic diabetic foot ulcer. 3) Severe peripheral vascular disease. 4) Failed synthetic skin graft. POSTOPERATIVE DIAGNOSES: 1) Diabetes mellitus complicated by diabetic foot ulcer. 2) Chronic diabetic foot ulcer. 3) Severe peripheral vascular disease. 4) Failed synthetic skin graft. PROCEDURES: 1) Repeat incision and drainage with bone debridement right foot and ankle. 2) Application of synthetic skin substitute. 3) Application of negative pressure wound vac therapy. SURGEON: John Reyes DPM. CHANNEL SPECIALIST: None. ANESTHESIA: General. HEMOSTASIS: Pressure dressing. ESTIMATED BLOOD LOSS: Less than 25 cc. MATERIALS: Integra 4 x 5 inch synthetic skin substitute and a Medela Wound Vac. INJECTABLES: 20 cc of 1:1 mixture consisting of 1% lidocaine plain and 0.5% bupivacaine plain injected into common peroneal block. INDICATION FOR SURGERY: Kishore is a very pleasant 61-year-old male who is very well known to my service for chronic heel ulceration. In recent history, the patient did have a significant and acute infection that eroded the soft tissue to the level of the bone with a wound initially starting out as 3.0 x 2.5 in a circular pattern on the plantar aspect of his foot. Discussions were had with the patient in regards to treatment options and the patient has been dealing with this ulceration for over two to three years now. With the recent infection the patient is frustrated and would like to proceed with a limb salvage attempt. Being sent to his vascular surgeon and discussion with Dr. Kenji Mcdaniel in regards to treatment options, he opted for proceeding with a reverse peroneus brevis-type flap to the plantar aspect of the foot given that he does have a robust peroneal artery and blood supply. It is with that we decided to proceed with surgical intervention for this effort. Over the course of the last twenty days, the muscle however appeared to stabilize and take to the lateral aspect of his leg. At this time there is healthy bleeding surface to the muscle belly. However, the synthetic skin substitute that was applied did fail likely secondary to bleeding underneath the graft which is necessary for the patient's vascular supply to be maintained. At this time, the patient understands all risks, benefits and complications of the procedure understanding that this is an attempt of limb salvage. It is with that we decided to proceed. DESCRIPTION OF PROCEDURE AND FINDINGS: The patient is brought into the OR and placed on the OR table. At this time adequate anesthesia was administered until the patient was sedated. The patient's right lower extremity was prepped and draped in the typical sterile fashion and lowered onto to the surgical field. At this time, attention was directed to the right lower extremity where some of the distal aspect of the muscle belly and the bone was exposed. This muscle was debrided utilizing a combination of a 15 blade and a curette until there was healthy bleeding muscle. At this time it should be noted that the muscle does appear to be viable twenty days after the index procedure and the muscle transfer indicating success of the initial procedure. At this time the muscle was debrided and the bone that was exposed was debrided and muscle was sutured to the underlying soft tissue. The wound edges were incised at this time and determined to be healthy with a healthy level of bleeding at the edges. All remaining necrotic and nonviable tissue was evacuated from the surgical site. Following this, a more proximal segment of a wound dehiscence was debrided and this was debrided to the level of the muscle this is a separate wound measuring 6 x 2.3 cm in length to the level of muscle this area was debrided. Both sites were then flushed with copious amounts of sterile saline in a Pulsavac. Following this an Integra was introduced over the incision sites and over the muscle belly. These were secured utilizing jeanette. Following this a negative pressure wound vac therapy was applied to the right lower extremity. Pressure was set to 175 mm of Mercury at this time in order to get adequate apposition of the wound vac over the graft site. At this time a dressing consisting of tube gauze, Kerlix and ALLYSON was applied to secure the wound vac to the leg. A common peroneal block was then performed utilizing 20 cc of a 1:1 mixture of 1% plain and 0.5% bupivacaine plain and the site was covered with a Band-Aid. Following this, the patient was reversed from anesthesia and returned to the postoperative anesthesia care unit with vital signs stable and vascular status intact. The patient handled the anesthesia as well as the procedure without significant complication. Postoperative orders as indicated in the patient's discharge chart.
[2021-12-11] MEDS ORDERED: NORCO 5/325 MG PO PRN (11:55)
[2021-12-11] MEDS ORDERED: NORCO 5/325 MG ONE (11:58)
[2021-12-11 12:28] VITALS: BP 158/82; PULSE 80; O2SAT 98
== END 2021-12-11 12:28 ==
LOC: SDC 05:51
PROVIDERS: ATTEND Podiatrist Foot & Ankle Surgery
DX: E11.621 Type 2 diabetes mellitus with foot ulcer (principal); I73.9 Peripheral vascular disease, unspecified; T86.821 Skin graft (allograft) (autograft) failure; M79.671 Pain in right foot; M25.674 Stiffness of right foot, not elsewhere classified
CPT/HCPCS: 15275; 27607; 82947; 97605; J0690; J1100; J1885; J2405; J2704; J3010; A9270-GY

== ENCOUNTER 2022-01-01 05:56 | Day surgery (SDC) | payer MEDICARE ==
[2022-01-01] MEDS ORDERED: XYLOCAINE 1% HCL 20 ML MDV ONE (06:31)
[2022-01-01] MEDS ORDERED: Marcaine Mpf 0.5% Vial 30 Ml ONE (06:40)
[2022-01-01] MEDS ORDERED: Lactated Ringers 1,000 ML IV ONE (06:50)
[2022-01-01] MEDS ORDERED: Lactated Ringers 1,000 ML IV SCH (07:00)
[2022-01-01] MEDS ORDERED: CEFAZOLIN 2 GM-D5W BAG** 2 GM/50 ML ML IV SCH (07:00)
[2022-01-01] MEDS ORDERED: DIPRIVAN 200 MG/20 ML IV ONE ×4 (08:24→09:22)
[2022-01-01] MEDS ORDERED: Versed 2 MG/2 ML Injection ONE (08:24)
[2022-01-01] MEDS ORDERED: SUBLIMAZE 100 MCG/2 ML ONE (08:24)
[2022-01-01 13:21] VITALS: BP 112/67; PULSE 111; O2SAT 96
--- NOTE | 2022-01-01 13:39 | OP ---
SURGERY DATE: 01/01/2022 SURGERY TIME: 821 PREOPERATIVE DIAGNOSIS: 1. DIABETIC FOOT ULCER. 2. PERIPHERAL VASCULAR DISEASE. 3. OSTEOMYELITIS. 4. FAILURE OF CLOSURE OF SURGICAL WOUND. POSTOPERATIVE DIAGNOSIS: 1. 1. DIABETIC FOOT ULCER. 2. PERIPHERAL VASCULAR DISEASE. 3. OSTEOMYELITIS. 4. FAILURE OF CLOSURE OF SURGICAL WOUND. PROCEDURE: 1. Incision and drainage with bone debridement right lower extremity to the level of the fibula as well as application of a negative pressure wound vac therapy. SURGEON: John Reyes D.P.M. SPORTS DEVELOPMENT OFFICER: None. ANESTHESIA: MAC. HEMOSTASIS: A pressure dressing. ESTIMATED BLOOD LOSS: 200 cc. MATERIALS: Medela wound vac with white and black foam. INJECTABLES: None. INDICATIONS FOR PROCEDURE: Kishore is a very pleasant 61 year-old male very well known to our service. In recent history, he did have worsening of an infection on the right lower extremity on a chronic diabetic food wound that resulted in a significant amount of infection with polymicrobial bacterial infection. Debridements were performed until the infection was alleviated. Patient was left with an extremely large deficit with no proven healing potential at that time as the initiating ulceration was chronic for over 3 years now. Patient was referred to his vascular surgeon where an angiogram with intervention was performed to the right lower extremity. This resulted in confidence in proceeding with a peroneal muscle flap between myself and the vascular surgeon. The peroneus brevis muscle flap was performed in the subsequent weeks. Patient did very well for the muscle and the muscle appears to be viable to this day, approximately 5 weeks later from the index procedure. In the last week, the patient has had a wound vac applied to his leg and was progressing without complication. However, the wound vac was shut off and patient continued to actively bleed through the lateral aspect of his leg leaving the wound macerated for over 6 days. When patient was seen, there was significant amount of degradation of the skin closure as well as worsening of the lateral leg wound. Ironically, in this situation, the plantar heel wound appears to be close to healed at this time. Patient wishes to proceed with limb salvage efforts as we continue to do so and that is consisting of a debridement past the level of tendon to bone of the right ankle as well as application of a wound vac. Since there is exposed tendon and bone, the wound vac would only be viable option if we were to include the white premoistened foam. Patient understands all risks, complications, and benefits. Discussion with patient in regards to outcome given complication at this time is more morbid than when we first initially started. However, he understands this risk and wishes to proceed. Obviously, no guarantees were made in regards to limb salvage efforts. 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 Mcdaniel confidence in success of surgical intervention. It is with that we decided to proceed. DESCRIPTION OF PROCEDURE: The patient was brought in to the OR and placed on the OR table in the supine position. At this time, MAC was administered. The right lower extremity was prepped and draped in the typical sterile fashion. A curette was utilized initially to debride the nonviable tissue of the lateral aspect of the leg with the wound down to the level of the fibula. At this time, the peroneus longus tendon was identified. The tendon was deemed to be nonviable PDS was utilized to suture the ends to the proximal aspect of the peroneus brevis muscle belly and the distal extent was resected from the site exposing a healthier appearing wound. A combination of sharp and blunt dissection was utilized to remove all nonviable tissue from this area. Over the muscle flap, there was some Eschar that had developed in the last several days that was debrided using scrub debridement revealing healthy bleeding muscle beneath. At this time, copious amounts of sterile saline were utilized to flush the surgical site of any necrotic and nonviable tissue. Soft tissue cultures were taken at this time. A wound vac was applied to the right lower extremity 175 mm Hg with no appreciable leaks. A dressing consisting of iodine, Adaptic, 4 X 4, Kerlix, and Jamal was applied to the right lower extremity. Patient was reversed for anesthesia and returned to the PACU with vital signs stable and vascular status intact. Patient handled the anesthesia as well as the procedure without significant complication. Postoperative orders as indicated in the patient's discharge chart.
== END 2022-01-01 13:15 | disposition home or self-care (01) ==
LOC: SDC 05:56
PROVIDERS: ATTEND Podiatrist Foot & Ankle Surgery
DX: E11.621 Type 2 diabetes mellitus with foot ulcer (principal); I73.9 Peripheral vascular disease, unspecified; E11.69 Type 2 diabetes mellitus with other specified complication; M86.9 Osteomyelitis, unspecified; E11.42 Type 2 diabetes mellitus with diabetic polyneuropathy; M79.671 Pain in right foot
CPT/HCPCS: 27607; 82947; 97608; J0690; J2250; J2704; J3010

== ENCOUNTER 2022-02-26 10:00 | Emergency (ER) | payer MEDICARE ==
[2022-02-26 10:38] LABS: Absolute Neutrophil Ct (ANC) 7.09 x10^3/uL (1.4-6.9); Basophil (Absolute #) 0.06 x10^3/uL (0-0.4); Hematocrit 20.9 % (42-50); Lymphocyte (Absolute #) 1.79 x10^3/uL (1.0-4.6); Lymphocytes % 17.3 % (24.0-44.0); Mean Cell Volume 66.8 fL (78-100); Mean Corpuscular Hemoglobin 18.5 pg (26-32); Mean Corpuscular Hgb Concent. 27.8 g/dL (32-36); Mean Platelet Volume 8.4 fL (7.5-11.0); Monocyte (Absolute #) 1.26 x10^3/uL (0.0-1.3); Monocytes % 12.2 % (0.0-12.0); Neutrophil % 68.4 % (36.0-66.0); Platelet Count 700 x10^3/uL (150-450); Red Blood Count 3.13 x10^6/uL (4.1-5.6); Red Cell Distribution Width 18.7 % (11.5-14.0); White Blood Count 10.4 x10^3/uL (4.0-10.5)
[2022-02-26 10:41] LABS: Hemoglobin 5.8 g/dL (12.5-18.0)
[2022-02-26 10:51] LABS: ALBUMIN 3.7 g/dL (3.5-5.0); ALKALINE PHOSPHATASE 91 U/L (38-126); ANION GAP 14.9 MEQ/L (5-15); BLOOD UREA NITROGEN 13 mg/dL (9-20); CHLORIDE 94 mmol/L (98-107); Calcium 8.6 mg/dL (8.4-10.2); Carbon Dioxide 25 mmol/L (22-30); Creatinine 1 1.15 mg/dL (0.66-1.25); EST GLOMERULAR FILTRATION RATE > 60.0 ML/MIN; Glucose 203 mg/dL (74-106); Potassium 4.3 mmol/L (3.5-5.1); SGOT/AST 18 U/L (17-59); SGPT/ALT 13 U/L (0-50); SODIUM 129 mmol/L (137-145); Total Protein 6.6 g/dL (6.3-8.2)
[2022-02-26 10:52] LABS: INR 1.07 (0.8-3.0); PROTIME 11.3 SECONDS (9.4-12.5); PTT 26.5 SECONDS (25.1-36.5)
[2022-02-26 10:59] LABS: Slide Review 1 YES
[2022-02-26 11:28] LABS: INFLUENZA A NEGATIVE (NEGATIVE); INFLUENZA B NEGATIVE (NEGATIVE); RESPIRATORY SYNCTIAL VIRUS NEGATIVE (Negative); SARS-CoV-2 Xpert Express NEGATIVE (NEGATIVE)
--- NOTE | 2022-02-26 12:17 | XRAY ---
Indication: Fever. Comparison: October 07, 2021 Portable chest unchanged again demonstrating right suprahilar subsegmental atelectasis/scarring and right perihilar calcified granuloma. Remaining heart and lungs unremarkable. Bony thorax intact again with osteopenia and degenerative changes. No new/acute findings.
--- NOTE | 2022-02-26 12:18 | ERPHSYRPT ---
- History of Present Illness Source: patient Exam Limitations: other (Poor jail history) Patient Subjective Stated Complaint: pt with abnormal labs drawn this am at [facility], pt HGB and HCT found to be critical - low. pt sent by [facility] for evaluation. pt complains of fatigue and some intermittent confusion. Triage Nursing Assessment: pt is aox3, pupils perrl, pt febrile, resps easy and non labored, cap refill < 3 seconds, radial pulses strong and equal, pt abd soft non tender, pt skin pale warm dry. pt presents with wound vac in place to the right lower foot/ankle, wound vac plugged into exam room outlet at this time. Physician History: 61 yo wm from [place] presents per EMS for low Hb on routine blood draw today. [place] states that pt requested CBC. Pt has a chronic RLE wound due to surgery by Dr. Lopez in September and has wound vac in place. Pt noted to be febrile upon ER presentation but denies cough/N/V/D/abdominal pain/chest pain. He states that he is mildly dyspneic and has generalized myalgias. Melena/hematochezia also denied. Timing/Duration: today Severity: moderate Modifying Factors: Improves With: nothing Associated Symptoms: denies symptoms, shortness of breath Allergies/Adverse Reactions: No Known Drug Allergies Allergy (Verified 02/26/22 10:14) Home Medications: Allopurinol 300 mg [Zyloprim 300 mg] 300 mg PO DAILY 04/26/15 [History] Aspirin EC 81 mg [Ecotrin 81 mg] 81 mg PO DAILY 07/07/17 [History] Atorvastatin Calcium [Lipitor] 80 mg PO HS 07/07/17 [History] Clopidogrel Bisulfate [PLAVIX Tablet] 75 mg PO DAILY 07/07/17 [History] Dulaglutide [Trulicity] 0.75 mg SQ WEEKLY 11/19/18 [History] Carvedilol 3.125 mg [Coreg 3.125 MG] 3.125 mg PO BID 09/09/20 [History] Empagliflozin/Metformin HCl [Synjardy 5-1,000 mg Tablet] 5 - 1,000 mg PO BID 0 09/09/20 [History] Gabapentin 900 mg PO TID 09/09/20 [History] [place]-3/Dha/Epa/Fish Oil [Fish Oil 1,000 mg Softgel] 2 each PO DAILY 09/09/20 [History] Glipizide 5 mg [Glucotrol 5 MG] 5 mg PO BID 10/06/21 [History] Hydrocodone/Acetaminophen [Hydrocodone-Acetamin 10-325 mg] 1 tablet PO Q6H PRN PRN 11/18/21 [History] Glucagon [Baqsimi] 3 mg NS DAILY PRN 12/10/21 [History] Ferrous Sulfate 325 mg [Feosol 325 mg] 325 mg PO DAILY 02/26/22 [History] Hydrocodone/Acetaminophen [Hydrocodone-Acetamin 10-325 mg] 1 each PO Q6HPRN PRN 02/26/22 [History] Hydrocodone/Acetaminophen [Hydrocodone-Acetamin 7.5-325] 1 each PO Q4HPRN PRN 02/26/22 [History] Smz/Tmp Ds Tablet [Bactrim Ds Tablet] 1 tab PO Q12H 02/26/22 [History] Hx Tetanus, Diphtheria Vaccination/Date Given: Yes Hx Influenza Vaccination/Date Given: Yes Hx Pneumococcal Vaccination/Date Given: Yes Immunizations Up to Date: Yes Travel Risk - International Travel Have you traveled outside of the country in past 3 weeks: No - Coronavirus Screening Are you exhibiting any of the following symptoms?: No Close contact with a COVID-19 positive Pt in past 14-21 Days: No - Vaccine Status Have you recieved a Covid-19 vaccination: Yes 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 - Vaccination Dates Dates if Unknown: unk - Review of Systems Constitutional: No Symptoms, Malaise Eyes: No Symptoms Ears, Nose, & Throat: No Symptoms Respiratory: No Symptoms, Dyspnea Cardiac: No Symptoms Abdominal/Gastrointestinal: No Symptoms Genitourinary Symptoms: No Symptoms Musculoskeletal: No Symptoms, Myalgias Neurological: No Symptoms Psychological: No Symptoms Endocrine: No Symptoms Hematologic/Lymphatic: No Symptoms Immunological/Allergic: No Symptoms - Past Medical History Pertinent Past Medical History: Yes Neurological History: Peripheral Neuropathy ENT History: Cataracts Cardiac History: High Cholesterol, Hypertension, Peripheral Vascular Disease Respiratory History: Sleep Apnea Endocrine Medical History: Diabetes Type II, Hypoglycemia Musculoskeletal History: Fractures, Other GI Medical History: No Pertinent History History: No Pertinent History Psycho-Social History: No Pertinent History Male Reproductive Disorders: Other Other Medical History: RIGHT FOOT 4 SURGERIES - REMOVAL 5TH METATARSAL, GREAT TOE AMPUTATED GREAT TOE AND FLAP SURGERY ON HEEL (08/2020), LE BYPASS SURGERY (FEM-POP) BILATERAL - Past Surgical History Past Surgical History: Yes Neuro Surgical History: No Pertinent History Cardiac: Vascular Surgery, Cardiac Stent, Cardiac Catheterization Respiratory: No Pertinent History Gastrointestinal: No Pertinent History Genitourinary: No Pertinent History Musculoskeletal: No Pertinent History, Other Male Surgical History: No Pertinent History Other Surgical History: Vascular surg pradeep legs, in grown toe nails, FOOT SURGERY FOR DECUBITUS - Social History Smoking Status: Former smoker How long have you smoked: YRS Exposure to second hand smoke: No Drug Use: none Patient Lives Alone: No - Nursing Vital Signs Nursing Vital Signs: Initial Vital Signs Temperature 101.4 F 02/26/22 10:01 Pulse Rate 108 H 02/26/22 10:01 Respiratory Rate 18 02/26/22 10:01 Blood Pressure 95/60 02/26/22 10:01 O2 Sat by Pulse Oximetry 94 L 02/26/22 10:01 Pain Scale Pain Intensity 0 Febrile/tachy/hypotensive - Physical Exam General Appearance: no apparent distress Eye Exam: PERRL/EOMI, eyes nml inspection Ears, Nose, Throat Exam: normal ENT inspection, TMs normal, pharynx normal, moist mucous membranes Neck Exam: normal inspection, non-tender, supple, full range of motion, No meningismus, No mass, No Brudzinski, No Kernig's, No carotid bruit Respiratory Exam: airway intact, crackles/rales (Faint rales at bases B) Cardiovascular Exam: tachycardia, No murmur Gastrointestinal/Abdomen Exam: soft, normal bowel sounds, No tenderness Male Genitalia Exam: normal genitalia Rectal Exam: other (No grtoss blood) Back Exam: normal range of motion, other (Mild sacral erythema wo ulcer for mation) Extremity Exam: other (RLL bandaged w posterior pad/wound vac in palce) Neurologic Exam: alert, oriented x 3, cooperative, 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, normal mood/affect, sensation nml Skin Exam: pale Lymphatic Exam: No adenopathy SpO2 Interpretation: normal SpO2: 94 O2 Delivery: Room Air - Course Nursing assessment & vital signs reviewed: Yes EKG Interpreted by Me: RATE (Sinus tach/Normal QT-QTc/Dig effect/No acute ST segment changes) - Radiology Exams Chest X-ray Interpretation: Discussed w/ radiologist (CXR neg per Rad) Ordered Tests: Active Orders 24 hr Category Date Time Status CHEST 1 VIEW (PORTABLE) Stat Exams 02/26/22 10:23 Completed BLOOD CULTURE Stat Lab 02/26/22 10:15 Received CBC W DIFF Stat Lab 02/26/22 10:20 Completed CMP Stat Lab 02/26/22 10:20 Completed Lactic Acid Stat Lab 02/26/22 10:50 Completed PROTIME WITH INR Stat Lab 02/26/22 10:20 Completed PTT Stat Lab 02/26/22 10:20 Completed TROPONIN Q4H Lab 02/26/22 10:20 Completed TROPONIN Q4H Lab 02/26/22 12:36 Completed UA W/RFX CULTURE Stat Lab 02/26/22 14:50 Completed Medication Summary Discontinued Medications Generic Name Dose Route Start Last Admin Trade Name Freq PRN Reason Stop Dose Admin Acetaminophen 1,000 mg 02/26/22 14:03 02/26/22 14:04 Acetaminophen 500 Mg Tablet PO 02/26/22 14:04 1,000 mg NOW ONE Administration Acetaminophen Confirm 02/26/22 14:04 Acetaminophen 500 Mg Tablet Administered 02/26/22 14:05 Dose 1,000 mg .ROUTE .STK-MED ONE Sodium Chloride Confirm 02/26/22 13:58 Sodium Chloride 0.9% 250 Ml Administered 02/26/22 13:59 Dose 250 mls @ ud IV .STK-MED ONE Ceftriaxone Sodium/Dextrose 1 g in 50 mls @ 100 mls/hr 02/26/22 14:51 02/26/22 15:38 Rocephin 1 Gm-D5w 50 Ml Bag IV 02/26/22 15:20 Infused STAT STA Infusion Ceftriaxone Sodium/Dextrose Confirm 02/26/22 15:01 Rocephin 1 Gm-D5w 50 Ml Bag Administered 02/26/22 15:02 Dose 1 g in 50 mls @ ud IV .STK-MED ONE Lab/Rad Data: Laboratory Result Diagrams 02/26/22 10:20 02/26/22 10:20 Laboratory Results 02/26/22 02/26/22 02/26/22 Range/Units Unknown 14:50 12:36 WBC (4.0-10.5) x10^3/uL RBC (4.1-5.6) x10^6/uL Hgb (12.5-18.0) g/dL Hct (42-50) % MCV (78-100) fL MCH (26-32) pg MCHC (32-36) g/dL RDW (11.5-14.0) % Plt Count (150-450) x10^3/uL MPV (7.5-11.0) fL Gran % (36.0-66.0) % Immature Gran % (Auto) (0.00-0.4) % Nucleat RBC Rel Count (0.00-0.1) % Eos # (Auto) (0-0.5) x10^3/uL Immature Gran # (Auto) (0.00-0.03) x10^3u/L Absolute Lymphs (auto) (1.0-4.6) x10^3/uL Absolute Monos (auto) (0.0-1.3) x10^3/uL Absolute Nucleated RBC (0.00-0.01) x10^3u/L Lymphocytes % (24.0-44.0) % Monocytes % (0.0-12.0) % Eosinophils % (0.00-5.0) % Basophils % (0.0-0.4) % Absolute Granulocytes (1.4-6.9) x10^3/uL Basophils # (0-0.4) x10^3/uL PT (9.4-12.5) SECONDS INR (0.8-3.0) APTT (25.1-36.5) SECONDS Sodium (137-145) mmol/L Potassium (3.5-5.1) mmol/L Chloride (98-107) mmol/L Carbon Dioxide (22-30) mmol/L Anion Gap (5-15) MEQ/L BUN (9-20) mg/dL Creatinine (0.66-1.25) mg/dL Estimated GFR ML/MIN Glucose (74-106) mg/dL Lactic Acid (0.4-2.0) Calcium (8.4-10.2) mg/dL Total Bilirubin (0.2-1.3) mg/dL AST (17-59) U/L ALT (0-50) U/L Alkaline Phosphatase (38-126) U/L Troponin I 0.665 H* (0.000-0.034) ng/mL Serum Total Protein (6.3-8.2) g/dL Albumin (3.5-5.0) g/dL Urinalys Dipstick Clnc MAIN LAB Urine Color YELLOW (YELLOW) Urine Appearance CLEAR (CLEAR) Urine pH 5.5 (5-6) Ur Specific [place] 1.010 (1.005-1.025) POC Urine Protein Conf NEGATIVE (Negative) Urine Ketones NEGATIVE (NEGATIVE) Urine Nitrite NEGATIVE (NEGATIVE) Urine Bilirubin NEGATIVE (NEGATIVE) Urine Urobilinogen 0.2 (0-1) mg/dL Urine Leukocytes NEGATIVE (NEGATIVE) Urine WBC (Auto) 0-2 (0-5) /HPF Urine RBC (Auto) Not Reportable U Epithel Cells (Auto) Not Reportable Urine Bacteria (Auto) Not Reportable Urine RBC NEGATIVE (0-5) Jasmeet/ul Ur Culture Indicated? NO Urine Glucose 500 A (NEGATIVE) mg/dL Influenza Type A Ag (NEGATIVE) Influenza Type B Ag (NEGATIVE) RSV (PCR) (Negative) SARS-CoV-2 (PCR) (NEGATIVE) Slides for Path Review ABO Group O Rh Factor POSITIVE Antibody Screen NEGATIVE (NEGATIVE) Crossmatch COMPATIBLE (COMPATIBLE) 02/26/22 02/26/22 02/26/22 Range/Units 10:50 10:35 10:20 WBC 10.4 (4.0-10.5) x10^3/uL RBC 3.13 L (4.1-5.6) x10^6/uL Hgb 5.8 L* (12.5-18.0) g/dL Hct 20.9 L (42-50) % MCV 66.8 L (78-100) fL MCH 18.5 L (26-32) pg MCHC 27.8 L (32-36) g/dL RDW 18.7 H (11.5-14.0) % Plt Count 700 H (150-450) x10^3/uL MPV 8.4 (7.5-11.0) fL Gran % 68.4 H (36.0-66.0) % Immature Gran % (Auto) 0.5 H (0.00-0.4) % Nucleat RBC Rel Count 0.0 (0.00-0.1) % Eos # (Auto) 0.10 (0-0.5) x10^3/uL Immature Gran # (Auto) 0.05 H (0.00-0.03) x10^3u/L Absolute Lymphs (auto) 1.79 (1.0-4.6) x10^3/uL Absolute Monos (auto) 1.26 (0.0-1.3) x10^3/uL Absolute Nucleated RBC 0.00 (0.00-0.01) x10^3u/L Lymphocytes % 17.3 L (24.0-44.0) % Monocytes % 12.2 H (0.0-12.0) % Eosinophils % 1.0 (0.00-5.0) % Basophils % 0.6 (0.0-0.4) % Absolute Granulocytes 7.09 H (1.4-6.9) x10^3/uL Basophils # 0.06 (0-0.4) x10^3/uL PT (9.4-12.5) SECONDS INR (0.8-3.0) APTT (25.1-36.5) SECONDS Sodium (137-145) mmol/L Potassium (3.5-5.1) mmol/L Chloride (98-107) mmol/L Carbon Dioxide (22-30) mmol/L Anion Gap (5-15) MEQ/L BUN (9-20) mg/dL Creatinine (0.66-1.25) mg/dL Estimated GFR ML/MIN Glucose (74-106) mg/dL Lactic Acid 1.3 (0.4-2.0) Calcium (8.4-10.2) mg/dL Total Bilirubin (0.2-1.3) mg/dL AST (17-59) U/L ALT (0-50) U/L Alkaline Phosphatase (38-126) U/L Troponin I (0.000-0.034) ng/mL Serum Total Protein (6.3-8.2) g/dL Albumin (3.5-5.0) g/dL Urinalys Dipstick Clnc Urine Color (YELLOW) Urine Appearance (CLEAR) Urine pH (5-6) Ur Specific [place] (1.005-1.025) POC Urine Protein Conf (Negative) Urine Ketones (NEGATIVE) Urine Nitrite (NEGATIVE) Urine Bilirubin (NEGATIVE) Urine Urobilinogen (0-1) mg/dL Urine Leukocytes (NEGATIVE) Urine WBC (Auto) (0-5) /HPF Urine RBC (Auto) U Epithel Cells (Auto) Urine Bacteria (Auto) Urine RBC (0-5) Jasmeet/ul Ur Culture Indicated? Urine Glucose (NEGATIVE) mg/dL Influenza Type A Ag NEGATIVE (NEGATIVE) Influenza Type B Ag NEGATIVE (NEGATIVE) RSV (PCR) NEGATIVE (Negative) SARS-CoV-2 (PCR) NEGATIVE (NEGATIVE) Slides for Path Review YES ABO Group Rh Factor Antibody Screen (NEGATIVE) Crossmatch (COMPATIBLE) 02/26/22 02/26/22 02/26/22 Range/Units 10:20 10:20 10:20 WBC (4.0-10.5) x10^3/uL RBC (4.1-5.6) x10^6/uL Hgb (12.5-18.0) g/dL Hct (42-50) % MCV (78-100) fL MCH (26-32) pg MCHC (32-36) g/dL RDW (11.5-14.0) % Plt Count (150-450) x10^3/uL MPV (7.5-11.0) fL Gran % (36.0-66.0) % Immature Gran % (Auto) (0.00-0.4) % Nucleat RBC Rel Count (0.00-0.1) % Eos # (Auto) (0-0.5) x10^3/uL Immature Gran # (Auto) (0.00-0.03) x10^3u/L Absolute Lymphs (auto) (1.0-4.6) x10^3/uL Absolute Monos (auto) (0.0-1.3) x10^3/uL Absolute Nucleated RBC (0.00-0.01) x10^3u/L Lymphocytes % (24.0-44.0) % Monocytes % (0.0-12.0) % Eosinophils % (0.00-5.0) % Basophils % (0.0-0.4) % Absolute Granulocytes (1.4-6.9) x10^3/uL Basophils # (0-0.4) x10^3/uL PT 11.3 (9.4-12.5) SECONDS INR 1.07 (0.8-3.0) APTT 26.5 (25.1-36.5) SECONDS Sodium 129 L (137-145) mmol/L Potassium 4.3 (3.5-5.1) mmol/L Chloride 94 L (98-107) mmol/L Carbon Dioxide 25 (22-30) mmol/L Anion Gap 14.9 (5-15) MEQ/L BUN 13 (9-20) mg/dL Creatinine 1.15 (0.66-1.25) mg/dL Estimated GFR > 60.0 ML/MIN Glucose 203 H (74-106) mg/dL Lactic Acid (0.4-2.0) Calcium 8.6 (8.4-10.2) mg/dL Total Bilirubin 0.80 (0.2-1.3) mg/dL AST 18 (17-59) U/L ALT 13 (0-50) U/L Alkaline Phosphatase 91 (38-126) U/L Troponin I 0.542 H* (0.000-0.034) ng/mL Serum Total Protein 6.6 (6.3-8.2) g/dL Albumin 3.7 (3.5-5.0) g/dL Urinalys Dipstick Clnc Urine Color (YELLOW) Urine Appearance (CLEAR) Urine pH (5-6) Ur Specific [place] (1.005-1.025) POC Urine Protein Conf (Negative) Urine Ketones (NEGATIVE) Urine Nitrite (NEGATIVE) Urine Bilirubin (NEGATIVE) Urine Urobilinogen (0-1) mg/dL Urine Leukocytes (NEGATIVE) Urine WBC (Auto) (0-5) /HPF Urine RBC (Auto) U Epithel Cells (Auto) Urine Bacteria (Auto) Urine RBC (0-5) Jasmeet/ul Ur Culture Indicated? Urine Glucose (NEGATIVE) mg/dL Influenza Type A Ag (NEGATIVE) Influenza Type B Ag (NEGATIVE) RSV (PCR) (Negative) SARS-CoV-2 (PCR) (NEGATIVE) Slides for Path Review ABO Group Rh Factor Antibody Screen (NEGATIVE) Crossmatch (COMPATIBLE) - Progress Progress Note: 02/26/22 13:[address] Mcdaniel at [facility] due to elevating troponin Pt alert and oriented x 3 and in NAD during entire stay. 1unit PRBC before transfer 1gm IV Rocephin 02/26/22 18:03 Counseled pt/family regarding: lab results, diagnosis, need for follow-up, rad results - Departure Departure Disposition: Transfer Clinical Impression: Anemia, Elevated troponin, Fever Condition: Stable Critical Care Time: Yes Critical Care Time(excluding separately billable procedures): Critical 30-74 mins Referrals: PENNY WOODY [Primary Care Provider] - Follow up/PCP as directed
[2022-02-26 13:52] LABS: ABO TYPING O; Antibody Screen NEGATIVE (NEGATIVE); RH TYPING POSITIVE
[2022-02-26 13:53] LABS: CROSS MATCH (PRBC) COMPATIBLE (COMPATIBLE)
[2022-02-26] MEDS ORDERED: Sodium Chloride 0.9% 250 ML 250 ML IV ONE (13:58)
[2022-02-26] MEDS ORDERED: TYLENOL EXTRA STRENGTH 500 MG PO ONE (14:03)
[2022-02-26] MEDS ORDERED: TYLENOL EXTRA STRENGTH 500 MG ONE (14:04)
[2022-02-26] MEDS ORDERED: ROCEPHIN 1 Gm-D5w 50 ml Bag** 1 G/50 ML IVPB IV STA (14:51)
[2022-02-26] MEDS ORDERED: ROCEPHIN 1 Gm-D5w 50 ml Bag** 1 G/50 ML IVPB IV ONE (15:01)
[2022-02-26 15:10] LABS: Appearance CLEAR (CLEAR)
[2022-02-26 15:11] LABS: Bilirubin NEGATIVE (NEGATIVE); Dipstick done @ ? MAIN LAB; Glucose 500 mg/dL (NEGATIVE); Ketones NEGATIVE (NEGATIVE); Nitrite NEGATIVE (NEGATIVE); Ph 5.5 (5-6); Protein,Urine Dip NEGATIVE (Negative); RBC NEGATIVE Ery/ul (0-5); Urobilinogen 0.2 mg/dL (0-1)
[2022-02-26 15:16] VITALS: BP 97/59; PULSE 103
[2022-02-26 15:19] LABS: Urine Cultured Indicated? NO; WBC 0-2 /HPF (0-5)
[2022-02-26 15:51] VITALS: O2SAT 94
== END 2022-02-26 15:45 | disposition short-term general hospital (02) ==
LOC: ED 10:00
DX: D64.9 Anemia, unspecified (principal); R77.8 Other specified abnormalities of plasma proteins; R50.9 Fever, unspecified; I21.4 Non-ST elevation (NSTEMI) myocardial infarction; R06.00 Dyspnea, unspecified; M79.10 Myalgia, unspecified site; E78.5 Hyperlipidemia, unspecified; I10 Essential (primary) hypertension; E11.42 Type 2 diabetes mellitus with diabetic polyneuropathy; Z79.02 Long term (current) use of antithrombotics/antiplatelets; Z79.899 Other long term (current) drug therapy; Z79.84 Long term (current) use of oral hypoglycemic drugs; Z79.85 Long-term (current) use of injectable non-insulin antidiabetic drugs; Z79.891 Long term (current) use of opiate analgesic; Z20.828 Contact with and (suspected) exposure to other viral communicable diseases
CPT/HCPCS: 0241U; 36000; 36415; 71045; 80053; 81015; 83605; 84484; 85025; 85610; 85730; 86850; 86900; 86901; 86922; 87040; 99285; 99291; P9016; 36430; J0696; A9270-GY

== ENCOUNTER 2022-03-30 08:43 | Day surgery (SDC) | payer MEDICARE ==
[2022-03-30] MEDS ORDERED: CEFAZOLIN 2 GM-D5W BAG** 2 GM/50 ML ML IV SCH (09:00)
[2022-03-30] MEDS ORDERED: Sensorcaine 0.25% 10 ML ONE (09:20)
[2022-03-30] MEDS ORDERED: XYLOCAINE 1% HCL 20 ML MDV ONE (09:20)
[2022-03-30] MEDS ORDERED: CEFAZOLIN 2 GM-D5W BAG** 2 GM/50 ML ML IV ONE (10:14)
[2022-03-30] MEDS ORDERED: Xylocaine 1% Vial 30 ML PF IJ ONE (11:40)
[2022-03-30] MEDS ORDERED: Marcaine Mpf 0.5% Vial 30 Ml ONE (11:40)
[2022-03-30] MEDS ORDERED: VANCOCIN INJECTION IV ONE (12:04)
[2022-03-30 13:50] VITALS: BP 121/67; PULSE 92; O2SAT 99
[2022-03-30 14:14] LABS: Hematocrit 36.2 % (42-50); Hemoglobin 10.9 g/dL (12.5-18.0)
--- NOTE | 2022-03-31 08:29 | OP ---
SURGERY DATE/TIME: 03/30/2022 1140 PREOPERATIVE DIAGNOSES: 1) Diabetic foot ulcer. 2) Dehiscence of surgical wound. 3) Ulceration to the level of bone lateral right leg. 4) Wound to level of tendon anterior right ankle. 5) Pressure ulcer right heel and lateral foot. 6) Peripheral neuropathy. 7) Peripheral vascular disease. POSTOPERATIVE DIAGNOSES: 1) Diabetic foot ulcer. 2) Dehiscence of surgical wound. 3) Ulceration to the level of bone lateral right leg. 4) Wound to level of tendon anterior right ankle. 5) Pressure ulcer right heel and lateral foot. 6) Peripheral neuropathy. 7) Peripheral vascular disease. PROCEDURES: 1) Incision and drainage as well as debridement to lateral right leg, lateral right ankle. 2) Incision and drainage as well as debridement to level of tendon and fascia right foot. 3) Application of synthetic skin substitute and application of negative pressure wound vac therapy. SURGEON: John Reyes DPM. PROCEDURE RN: None. ANESTHESIA: None. HEMOSTASIS: Pressure dressing. ESTIMATED BLOOD LOSS: Approximately 150 cc. MATERIALS: Integra 4 x 5 synthetic skin substitute, 4-0 Nylon and a Medela Wound Vac. INJECTABLES: 10 cc of a 1:1 mixture of 1% lidocaine plain and 0.5% bupivacaine plain injected in a V block-type at the proximal aspect of the lateral leg wound. The patient is largely neuropathic otherwise. INDICATION FOR SURGERY: Kishore is a very pleasant 61-year-old male who has had a long standing history of a complication as a result of surgical intervention after a peroneus brevis and muscle flap was successful at the plantar aspect of his foot. However, a wound vac was placed to the lateral aspect of the leg leading to significant laceration and infection. As a result, the patient was brought back to the OR and the wound was debrided resulting in a sizeable wound which we had been managing in an outpatient setting for a number of months now. At this time the patient has made progress and bone at the lateral aspect of the leg has improved slowly. However, the patient has stagnated in his therapy. On a recent stay at a new hospital, he did have debridement of a wound at the anterior aspect of the leg which did break down and the tendon at the tibialis anterior has become exposed and the tendon sheath is bowstringing through the wound. At this time discussion with the patient was had in regards to proceeding with surgical intervention in order to get the bone as well as the tendon closed over. The patient is eager and would like to expedite this process if possible. I am willing to accommodate this for the patient due to his prolonged healing status at this time. The patient understands all risks, benefits and complications of surgical intervention including but not limited to infection recurrence, possibility of delayed skin healing, nonskin healing, possibility of need for surgical intervention at a later date that being said this is intended to be a staged procedure and perhaps return to the OR in approximately two to three weeks' time for a repeat application of synthetic skin substitute versus application and harvest of full thickness skin graft. The patient understands all risks and wishes to proceed with surgical intervention at this time. DESCRIPTION OF PROCEDURE AND FINDINGS: The patient is brought into the OR and placed on the OR table in the supine position. At this time the patient's right lower extremity was prepped and draped in the typical sterile fashion and lowered onto the surgical field. At this time light debridement was carried out utilizing a rongeur to the level of bone to the lateral aspect of the right leg. Further debridement of necrotic and fibrotic tissue was carried out at the distal end proximal extent of the wound and this was also carried out to the level of the tendon at the anterior aspect of the right ankle and the tendon was debrided of its sheath and any necrotic tissue and fibrotic tissue that was surrounding the tendon. Three additional wounds at the plantar heel, the lateral aspect of the right foot as well as the distal extent of the right calcaneus was debrided. The measurements of the wounds are as follows: 29 x 2.9 for the lateral leg wound, 7.3 x 5.4 over the right anterior ankle, 2.3 x 2.5 to the lateral styloid process and 4.1 x 2.2 at the distal extent of the lateral wall of the calcaneus. At this time following debridement, a pulse vac was then utilized to clean out the surgical site and then application of a synthetic skin substitute was carefully approximated to the surface of the wounds and a wound vac was applied to the lateral and the anteromedial wounds of the right leg under adequate apposition. A dressing consisting of Betadine, Adaptic, 4x4, Kerlix and ALLYSON were then applied to the right foot to the level of the popliteal fossa. The patient then was returned to the postoperative anesthesia care unit with vital signs stable and vascular status intact. The patient handled the anesthesia as well as the procedure without significant complication. Postoperative orders as indicated in the patient's discharge chart.
== END 2022-03-30 15:10 | disposition home or self-care (01) ==
LOC: SDC 08:43
PROVIDERS: ATTEND Podiatrist Foot & Ankle Surgery
DX: E11.621 Type 2 diabetes mellitus with foot ulcer (principal); T81.31XA Disruption of external operation (surgical) wound, not elsewhere classified, initial encounter; L97.426 Non-pressure chronic ulcer of left heel and midfoot with bone involvement without evidence of necrosis; G62.9 Polyneuropathy, unspecified; I73.9 Peripheral vascular disease, unspecified
CPT/HCPCS: 36415; 82947; 85014; 85018; J0690; J2001; J3370; Q4104

== ENCOUNTER 2022-04-20 09:21 | Observation (INO) | payer MEDICARE ==
[2022-04-20] MEDS ORDERED: CEFAZOLIN 2 GM-D5W BAG** 2 GM/50 ML ML IV ONE (09:57)
[2022-04-20] MEDS ORDERED: Lactated Ringers 1,000 ML IV ONE (09:57)
[2022-04-20] MEDS ORDERED: CEFAZOLIN 2 GM-D5W BAG** 2 GM/50 ML ML IV SCH (10:00)
[2022-04-20] MEDS: Lactated Ringers 1,000 ML IV SCH ×2 (10:02→20:32)
[2022-04-20] MEDS ORDERED: XYLOCAINE 1%/Epi 1:100000 MDV 20 ML ONE (11:04)
[2022-04-20] MEDS ORDERED: Thrombin-JMI 5000 UNITS TP ONE ×2 (11:05→16:48)
[2022-04-20] MEDS ORDERED: MINERAL OIL LIGHT 10 ML FOR SURGERY ONE (11:05)
[2022-04-20] MEDS ORDERED: Xylocaine-Mpf 2% 5 Ml Vial ONE (11:24)
[2022-04-20] MEDS ORDERED: Versed 2 MG/2 ML Injection ONE (11:24)
[2022-04-20] MEDS ORDERED: SUBLIMAZE 100 MCG/2 ML ONE (11:24)
[2022-04-20] MEDS ORDERED: DIPRIVAN 200 MG/20 ML IV ONE (11:24)
[2022-04-20] MEDS ORDERED: Ketamine HCl 50 MG/ML ONE (11:27)
[2022-04-20] MEDS ORDERED: Decadron 4 MG INJ ONE (12:15)
[2022-04-20] MEDS ORDERED: Zofran 4 MG/2 ML VIAL ONE (12:15)
--- NOTE | 2022-04-20 15:16 | OP ---
SURGERY DATE/TIME: 04/20/2022 1143 PREOPERATIVE DIAGNOSES: 1) Diabetic foot wound. 2) Peripheral vascular disease. 3) Peripheral neuropathy. 4) Pain right foot. 5) Pain right leg. 6) Ulceration nonpressure in origin to level of bone. 7) Pressure ulceration to level of tendon. POSTOPERATIVE DIAGNOSES: 1) Diabetic foot wound. 2) Peripheral vascular disease. 3) Peripheral neuropathy. 4) Pain right foot. 5) Pain right leg. 6) Ulceration nonpressure in origin to level of bone. 7) Pressure ulceration to level of tendon. PROCEDURES: 1) Incision and drainage with soft tissue debridement to level of tendon foot right. 2) Incision and drainage with bone debridement right ankle and leg. 3) Application of synthetic skin substitute right foot. [place] and application of split thickness skin graft right thigh to right leg and application of negative pressure wound vac therapy right foot. SURGEON: John Reyes DPM. BOGGER OPERATOR: None. ANESTHESIA: General plus intraoperative block. HEMOSTASIS: Pressure dressing as well as topical thrombin. MATERIALS: 3-0 Nylon, Integra synthetic skin substitute 4x5, Medela Wound Vac. INJECTABLES: 20 cc of 1% lidocaine plain with epinephrine for harvest site right thigh. INDICATION FOR SURGERY: Kishore is a very well-known patient, 61 years old with a chronic leg ulceration as a result of surgical intervention and dehiscence of the wound secondary to wound vac failure. At this time the patient has made significant progress over the last four months and had progressed to the point where the bone is nearly completely closed over after recent synthetic skin substitute. At this time we have decided to proceed with an attempt at split thickness skin grafting to the right leg from the right thigh. The patient is showing signs of improvement over the tendon that is exposed at the right ankle. However, it is not completely closed over at this time and we would like to proceed with an additional synthetic skin substitute. The patient understands all risks, benefits and complications of surgical intervention including but not limited to infection, hematoma, seroma, possibility of delayed wound healing, nonwound healing, delayed skin healing, nonskin healing and possibility of need for surgical intervention at a later date. No guarantees were provided as to the outcome of surgical intervention at this time. It is with that we decided to proceed. DESCRIPTION OF PROCEDURE AND FINDINGS: The patient is brought into the OR and placed on the OR table in the supine position. At this time general anesthesia was administered until the patient was sedated. The right lower extremity wound vac was taken down at this time. Attention was directed to the graft sites where total take was identified over the lateral aspect of the wound and almost 80% take was identified at the anterior aspect of the right ankle. At this time the graft was removed. The right lower extremity was prepped and draped in the typical sterile fashion and lowered onto the surgical field. At this time attention was directed to the lateral aspect of the leg where utilizing a 15 blade, curette and rongeurs debridement was taken place to the level of bone to the right lower extremity at the level of the leg and ankle. Following this a separate wound at the anterior aspect of the right ankle was explored utilizing a curette and 15 blade looking for healthy bleeding edge and was debrided down to the level of tibialis anterior tendon. This was cleansed with sterile saline. Copious amounts of sterile saline were utilized to flush this site under pulse irrigation and low pressure. Following this the anterior leg wound a synthetic skin substitute was applied to the shape of the wound and a wound vac was applied utilizing sterile drape making sure that no appreciable leaks were identified. Following this, the wound at the lateral aspect of the right foot was then debrided utilizing 15 blade, rongeur and a curette until healthy bleeding surface was identified and additional Integra graft was applied to this wound. The heel wound was then debrided utilizing a curette. Following this, 3-0 Nylon was then utilized to coapt the Integra graft to the surface of the skin. Following this an injection consisting of 20 cc of 1% lidocaine with epinephrine was injected to the upper thigh utilizing mineral oil which was slicked on the surface of the skin in preparation for the harvest. A dermatome was utilized with 2 inch blade set to 0.16 mm and a harvest was taken from this site under significant tension. Following this the harvest was run through a 1 to 1.5 mesher and the meshed graft was applied over the lateral aspect of the leg this process was repeated two additional times until the majority of the leg wound was covered. Following this, the grafts were sutured loosely to the surface of the skin utilizing 3.0 Nylon in a simple interrupted-type fashion. Following this a dressing consisting of Xeroform, Bolster, 4x4 and additional 4x4 as well as Adaptic, 4x4, Kerlix and ALLYSON were then applied to the right leg over the proximal harvest site. Topical thrombin was applied and allowed to set. Following this a dressing consisting of Xeroform, 4x4's and wound vac dressing drape was applied to the surgical site. The patient then was reversed from anesthesia and returned to the postoperative anesthesia care unit with vital signs stable and vascular status intact. The patient handled the anesthesia as well as the procedure without significant complication. Postoperative orders as indicated in the patient's discharge chart.
[2022-04-20 16:13] LABS: Hematocrit 37.3 % (42-50); Hemoglobin 11.1 g/dL (12.5-18.0)
[2022-04-20] MEDS ORDERED: NORCO 7.5/325 MG TAB PO PRN (16:16)
[2022-04-20] MEDS ORDERED: NORCO 7.5/325 MG TAB ONE (16:19)
[2022-04-20 20:29] LABS: Absolute Neutrophil Ct (ANC) 11.04 x10^3/uL (1.4-6.9); BASOPHIL % 0.2 % (0.0-0.4); Basophil (Absolute #) 0.03 x10^3/uL (0-0.4); Eosinophil (Absolute #) 0 x10^3/uL (0-0.5); Hematocrit 32.3 % (42-50); Hemoglobin 9.8 g/dL (12.5-18.0); IMMATURE GRAN # 0.04 x10^3u/L (0.00-0.03); IMMATURE GRAN % 0.3 % (0.00-0.4); Lymphocyte (Absolute #) 1.19 x10^3/uL (1.0-4.6); Lymphocytes % 9.6 % (24.0-44.0); Mean Cell Volume 77.6 fL (78-100); Mean Corpuscular Hemoglobin 23.6 pg (26-32); Mean Corpuscular Hgb Concent. 30.3 g/dL (32-36); Mean Platelet Volume 8.6 fL (7.5-11.0); Monocyte (Absolute #) 0.12 x10^3/uL (0.0-1.3); Neutrophil % 88.9 % (36.0-66.0); Platelet Count 469 x10^3/uL (150-450); Red Blood Count 4.16 x10^6/uL (4.1-5.6); Red Cell Distribution Width 23.9 % (11.5-14.0); White Blood Count 12.4 x10^3/uL (4.0-10.5)
[2022-04-20] MEDS: KEFZOL 1 GM/50 ML PREMIX** 1 GM/50 ML IVPB IV SCH (20:32)
[2022-04-20] MEDS: HYDROCODONE-ACETAMIN 10-325 MG PO PRN (20:33)
[2022-04-20] MEDS ORDERED: Coreg 3.125 MG PO ONE (22:00)
[2022-04-20] MEDS ORDERED: ZOCOR 20MG PO ONE (22:00)
[2022-04-20] MEDS ORDERED: Glucotrol 5 MG PO ONE (22:00)
[2022-04-20] MEDS ORDERED: NEURONTIN PO ONE (22:00)
[2022-04-20 22:36] LABS: ABO TYPING O; Antibody Screen NEGATIVE (NEGATIVE); RH TYPING POSITIVE
[2022-04-21 00:27] LABS: Hematocrit 31.1 % (42-50); Hemoglobin 9.2 g/dL (12.5-18.0); Mean Cell Volume 78.5 fL (78-100); Mean Corpuscular Hemoglobin 23.2 pg (26-32); Mean Corpuscular Hgb Concent. 29.6 g/dL (32-36); Mean Platelet Volume 8.3 fL (7.5-11.0); Platelet Count 445 x10^3/uL (150-450); Red Blood Count 3.96 x10^6/uL (4.1-5.6); Red Cell Distribution Width 23.9 % (11.5-14.0); White Blood Count 11.4 x10^3/uL (4.0-10.5)
[2022-04-21] MEDS: HYDROCODONE-ACETAMIN 10-325 MG PO PRN ×5 (00:48→18:22)
[2022-04-21] MEDS: KEFZOL 1 GM/50 ML PREMIX** 1 GM/50 ML IVPB IV SCH ×3 (04:51→22:21)
[2022-04-21 05:32] LABS: Hematocrit 28.3 % (42-50); Hemoglobin 8.6 g/dL (12.5-18.0)
[2022-04-21] MEDS ORDERED: HYDROCODONE-ACETAMIN 10-325 MG PO PRN (07:04)
[2022-04-21] MEDS: ZYLOPRIM 300 MG PO SCH (08:57)
[2022-04-21] MEDS: Glucophage 500 MG PO SCH ×2 (08:57→16:39)
[2022-04-21] MEDS: NEURONTIN PO SCH ×3 (08:58→21:22)
[2022-04-21] MEDS: FISH OIL 1,000 MG CAPSULE PO SCH (08:59)
[2022-04-21] MEDS: ECOTRIN 81 MG PO SCH (08:59)
[2022-04-21] MEDS: Glucotrol 5 MG PO SCH ×2 (09:00→16:39)
[2022-04-21] MEDS: JARDIANCE PO SCH ×2 (09:01→16:39)
[2022-04-21] MEDS: Coreg 3.125 MG PO SCH ×2 (09:01→21:25)
[2022-04-21] MEDS: PLAVIX Tablet PO SCH (09:06)
[2022-04-21 09:39] LABS: Hemoglobin 8.1 g/dL (12.5-18.0)
[2022-04-21] MEDS ORDERED: [UNRECOGNIZED DRUG - OTHER] PO SCH (10:00)
[2022-04-21] MEDS ORDERED: NON-FORMULARY ITEM (Gabapentin [Gabapentin] 800 MG Tablet) PO SCH (10:00)
[2022-04-21] MEDS ORDERED: EMPAGLIFLOZIN PO SCH (10:00)
[2022-04-21] MEDS ORDERED: METFORMIN HCL PO SCH (10:00)
--- NOTE | 2022-04-21 10:58 | PCM.CONS ---
Podiatry HPI - Consult Date of Consultation Date: 04/21/22 Reason for Consult: Post op bleed Consulting Provider: CÉSAR BURNS DPM - [facility] History of Present Illness: Post op bleed/ acute blood loss. Patient POD #1 doing well. Pain moderately controlled. No other complaints Medications & Allergies Home Medications: Home Medication List Allopurinol 300 mg [Zyloprim 300 mg] 300 mg PO DAILY 04/26/15 [History Confirmed 04/20/22] Aspirin EC 81 mg [Ecotrin 81 mg] 81 mg PO DAILY 07/07/17 [History Confirmed 04/20/22] Atorvastatin Calcium [Lipitor] 80 mg PO HS 07/07/17 [History Confirmed 04/20/22] Clopidogrel Bisulfate [PLAVIX Tablet] 75 mg PO DAILY 07/07/17 [History Confirmed 04/20/22] Dulaglutide [Trulicity] 0.75 mg SQ WEEKLY 11/19/18 [History Confirmed 04/20/22] Carvedilol 3.125 mg [Coreg 3.125 MG] 3.125 mg PO BID 09/09/20 [History Confirmed 04/20/22] Empagliflozin/Metformin HCl [Synjardy 5-1,000 mg Tablet] 5 - 1,000 mg PO BID 09/09/20 [History Confirmed 04/20/22] Gabapentin 900 mg PO TID 09/09/20 [History Confirmed 04/20/22] [place]-3/Dha/Epa/Fish Oil [Fish Oil 1,000 mg Softgel] 2 each PO DAILY 09/09/20 [History Confirmed 04/20/22] Glipizide 5 mg [Glucotrol 5 MG] 5 mg PO BID 10/06/21 [History Confirmed 04/20/22] Hydrocodone/Acetaminophen [Hydrocodone-Acetamin 10-325 mg] 1 each PO Q6HPRN PRN 02/26/22 [History Confirmed 04/20/22] Allergies/Adverse Reactions: Allergies Allergy/AdvReac Type Severity Reaction Status Date / Time No Known Drug Allergies Allergy Verified 04/20/22 09:39 - Past Medical History Past Medical History: Yes Neurological History: Peripheral Neuropathy ENT History: Cataracts Cardiac History: Deep Vein Thrombosis, High Cholesterol, Hypertension, Peripheral Vascular Disease Respiratory History: Sleep Apnea Endocrine Medical History: Diabetes Type II, Hypoglycemia Musculoskelatal History: Fractures, Other GI Medical History: No Pertinent History History: No Pertinent History Pyscho-Social History: No Pertinent History Male Reproductive Disorders: Other Comment: RIGHT FOOT 5 SURGERIES - REMOVAL 5TH METATARSAL, GREAT TOE AMPUTATED GREAT TOE AND FLAP SURGERY ON HEEL (08/2020), LE BYPASS SURGERY (FEM-POP) BILATERAL,left foot skin graft with wound vac placed 02/26/23 - Past Surgical History Past Surgical History: Yes Neuro Surgical History: No Pertinent History Cardiac History: Vascular Surgery, Cardiac Stent, Cardiac Catheterization Respiratory Surgery: No Pertinent History GI Surgical History: No Pertinent History Genitourinary Surgical Hx: No Pertinent History Musculskeletal Surgical Hx: No Pertinent History, Other Male Surgical History: No Pertinent History Other Surgical History: Vascular surg pradeep legs, in grown toe nails, FOOT SURGERY FOR DECUBITUS - Social History Smoking Status: Former smoker How long have you smoked: YRS Exposure to second hand smoke: No Alcohol: None Drug Use: none Physical Exam - Narrative Narrative Physical Exam: Podiatry Physical Exam Results - Labs Lab/Micro Results: Lab Results-Last 24 Hours 04/20/22 04/20/22 04/20/22 Range/Units 16:00 20:15 20:15 WBC 12.4 H (4.0-10.5) x10^3/uL RBC 4.16 (4.1-5.6) x10^6/uL Hgb 11.1 L 9.8 L (12.5-18.0) g/dL Hct 37.3 L 32.3 L (42-50) % MCV 77.6 L (78-100) fL MCH 23.6 L (26-32) pg MCHC 30.3 L (32-36) g/dL RDW 23.9 H (11.5-14.0) % Plt Count 469 H (150-450) x10^3/uL MPV 8.6 (7.5-11.0) fL Gran % 88.9 H (36.0-66.0) % Immature Gran % (Auto) 0.3 (0.00-0.4) % Nucleat RBC Rel Count 0.0 (0.00-0.1) % Eos # (Auto) 0 (0-0.5) x10^3/uL Immature Gran # (Auto) 0.04 H (0.00-0.03) x10^3u/L Absolute Lymphs (auto) 1.19 (1.0-4.6) x10^3/uL Absolute Monos (auto) 0.12 (0.0-1.3) x10^3/uL Absolute Nucleated RBC 0.00 (0.00-0.01) x10^3u/L Lymphocytes % 9.6 L (24.0-44.0) % Monocytes % 1.0 (0.0-12.0) % Eosinophils % 0.0 (0.00-5.0) % Basophils % 0.2 (0.0-0.4) % Absolute Granulocytes 11.04 H (1.4-6.9) x10^3/uL Basophils # 0.03 (0-0.4) x10^3/uL POC Glucometer (74 to 106) mg/dL ABO Group O Rh Factor POSITIVE Antibody Screen NEGATIVE (NEGATIVE) 04/20/22 04/21/22 04/21/22 Range/Units 21:00 00:25 04:40 WBC 11.4 H (4.0-10.5) x10^3/uL RBC 3.96 L (4.1-5.6) x10^6/uL Hgb 9.2 L 8.6 L (12.5-18.0) g/dL Hct 31.1 L 28.3 L (42-50) % MCV 78.5 (78-100) fL MCH 23.2 L (26-32) pg MCHC 29.6 L (32-36) g/dL RDW 23.9 H (11.5-14.0) % Plt Count 445 (150-450) x10^3/uL MPV 8.3 (7.5-11.0) fL Gran % (36.0-66.0) % Immature Gran % (Auto) (0.00-0.4) % Nucleat RBC Rel Count (0.00-0.1) % Eos # (Auto) (0-0.5) x10^3/uL Immature Gran # (Auto) (0.00-0.03) x10^3u/L Absolute Lymphs (auto) (1.0-4.6) x10^3/uL Absolute Monos (auto) (0.0-1.3) x10^3/uL Absolute Nucleated RBC (0.00-0.01) x10^3u/L Lymphocytes % (24.0-44.0) % Monocytes % (0.0-12.0) % Eosinophils % (0.00-5.0) % Basophils % (0.0-0.4) % Absolute Granulocytes (1.4-6.9) x10^3/uL Basophils # (0-0.4) x10^3/uL POC Glucometer 253 H (74 to 106) mg/dL ABO Group Rh Factor Antibody Screen (NEGATIVE) 04/21/22 04/21/22 Range/Units 07:31 09:07 WBC (4.0-10.5) x10^3/uL RBC (4.1-5.6) x10^6/uL Hgb 8.1 L (12.5-18.0) g/dL Hct 26.0 L (42-50) % MCV (78-100) fL MCH (26-32) pg MCHC (32-36) g/dL RDW (11.5-14.0) % Plt Count (150-450) x10^3/uL MPV (7.5-11.0) fL Gran % (36.0-66.0) % Immature Gran % (Auto) (0.00-0.4) % Nucleat RBC Rel Count (0.00-0.1) % Eos # (Auto) (0-0.5) x10^3/uL Immature Gran # (Auto) (0.00-0.03) x10^3u/L Absolute Lymphs (auto) (1.0-4.6) x10^3/uL Absolute Monos (auto) (0.0-1.3) x10^3/uL Absolute Nucleated RBC (0.00-0.01) x10^3u/L Lymphocytes % (24.0-44.0) % Monocytes % (0.0-12.0) % Eosinophils % (0.00-5.0) % Basophils % (0.0-0.4) % Absolute Granulocytes (1.4-6.9) x10^3/uL Basophils # (0-0.4) x10^3/uL POC Glucometer 172 H (74 to 106) mg/dL ABO Group Rh Factor Antibody Screen (NEGATIVE) Accuchecks Date 04/21/22 Time 07:35 Assessment/Plan (1) Acute postoperative anemia due to expected blood loss Current Visit: Yes Status: Acute Assessment & Plan: Paient examination and evaluation Patient likely needs continued observation due to acute blood loss from surgical intervention from graft harvest site. Patient to hold plavix for now. 1 unit on hold following type cross and match Hgb dropped 3 units in less than 24 hours and patient showing signs of lethargy Patient will continue non weight bearing at this time This is a limb salvage case Pain control Will follow closely. Code(s): D62 - ACUTE POSTHEMORRHAGIC ANEMIA (2) Diabetes mellitus Current Visit: Yes Status: Acute Code(s): E11.9 - TYPE 2 DIABETES MELLITUS WITHOUT COMPLICATIONS (3) Diabetic foot ulcer Current Visit: No Status: Acute Code(s): E11.621 - TYPE 2 DIABETES MELLITUS WITH FOOT ULCER; L97.509 - NON-PRESSURE CHRONIC ULCER OTH PRT UNSP FOOT W UNSP SEVERITY (4) Diabetes type 2, uncontrolled Current Visit: No Status: Chronic Code(s): E11.65 - TYPE 2 DIABETES MELLITUS WITH HYPERGLYCEMIA
[2022-04-21 16:48] LABS: Hematocrit 22.6 % (42-50)
[2022-04-21] MEDS ORDERED: Hydromorphone 1 mg/ml Injection IV PRN (17:17)
[2022-04-21 18:25] LABS: CROSS MATCH (PRBC) COMPATIBLE (COMPATIBLE)
[2022-04-21] MEDS: Sodium Chloride 0.9% 1000 ML 1,000 ML IV SCH (18:28)
[2022-04-21 18:39] LABS: CROSS MATCH (PRBC) COMPATIBLE (COMPATIBLE)
[2022-04-21] MEDS: ZOCOR 20MG PO SCH (21:22)
[2022-04-21] MEDS ORDERED: NON-FORMULARY ITEM (Atorvastatin Calcium [Lipitor] 80 MG Tablet) PO SCH (22:00)
[2022-04-21] MEDS: Lactated Ringers 1,000 ML IV SCH (23:05)
[2022-04-22] MEDS: HYDROCODONE-ACETAMIN 10-325 MG PO PRN ×5 (03:24→21:31)
[2022-04-22 05:43] LABS: Hematocrit 28.1 % (42-50); Hemoglobin 8.6 g/dL (12.5-18.0)
[2022-04-22] MEDS: KEFZOL 1 GM/50 ML PREMIX** 1 GM/50 ML IVPB IV SCH ×3 (06:00→21:31)
[2022-04-22] MEDS: Glucotrol 5 MG PO SCH ×2 (06:57→17:14)
[2022-04-22] MEDS ORDERED: Hydromorphone 1 mg/ml Injection IV ONE (07:00)
--- NOTE | 2022-04-22 08:05 | PCM.NOTE ---
Date and Time: 04/22/22 0756 Subjective Assessment: Minimal strike through on secondary dressing on presentation. Patient symptoms improving. No other complaints. Physical Exam - General General Appearance: no apparent distress, lethargy - Neuro Neurologic: Epicritic and protopathic (absent) - Vascular Capillary Refill Time: < 3 seconds Edema: None - Narrative Narrative Physical Exam: Podiatry Physical Exam: Bleeding improved to thigh right lower extremity. Dressing to the right lower extremity intact with STSG. Not taken down. Will assess tomorrow. OBJECTIVE DATA Vital Signs: Vital Signs - 24 hr Temp Pulse Resp BP Pulse Ox 04/22/22 07:04 97.1 F 83 18 111/53 100 04/22/22 03:42 97.1 F 85 16 105/58 96 04/22/22 00:16 97.3 F 85 17 100/52 93 L 04/22/22 00:00 20 04/21/22 19:45 94 H 20 100/51 04/21/22 16:00 98.1 F 100 H 16 108/53 92 L 04/21/22 11:37 97.9 F 102 H 16 91/52 95 04/21/22 10:55 97.9 F 102 H 16 91/52 95 Pain Assessment - Last Documented Pain Intensity 8 Pain Scale Used 0-10 Pain Scale Intake and Output: Intake & Output 04/19/22 04/20/22 04/21/22 04/22/22 11:59 11:59 11:59 11:59 Intake Total 850 Output Total 2650 Balance -1800 Weight 111.097 kg 111.097 kg Lab Results: Lab Results-Last 24 Hours 04/21/22 04/21/22 04/21/22 Range/Units 09:07 11:33 16:25 Hgb 8.1 L (12.5-18.0) g/dL Hct 26.0 L (42-50) % POC Glucometer 147 H 180 H (74 to 106) mg/dL Crossmatch (COMPATIBLE) 04/21/22 04/21/22 04/21/22 Range/Units 16:45 18:21 21:35 Hgb 7.0 L* (12.5-18.0) g/dL Hct 22.6 L (42-50) % POC Glucometer 149 H (74 to 106) mg/dL Crossmatch COMPATIBLE (COMPATIBLE) 04/21/22 04/22/22 04/22/22 Range/Units Unknown 05:10 06:34 Hgb 8.6 L D (12.5-18.0) g/dL Hct 28.1 L (42-50) % POC Glucometer 108 H (74 to 106) mg/dL Crossmatch COMPATIBLE (COMPATIBLE) Multi-Disciplinary Progress Notes: Multi-Disciplinary Progress Notes 04/21/22 11:45 Case Management Note by Delmy Zaidi S/W [facility]- THEY WANT TO SKILL PATIENT WHEN HE COMES BACK. THEY WILL NEED TO GET PRECERT FOR STAY. UPDATED CLINICAL FAXED AT THIS TIME Initialized on 04/21/22 11:45 - END OF NOTE Assessment/Plan (1) Acute postoperative anemia due to expected blood loss Current Visit: Yes Status: Acute Assessment & Plan: Improved clinical presentation this AM with minimal 5cc of draiange on primary dressings. Dressing taken down and bleeding appears to be controlled at this time, Continue to hold plavix Monitor H&H are this time and assess for symptoms Pain control wean off parenteral in favor of oral. Case management working on placement back to nursing facility Tomorrow will change dressing to leg and thigh and assess split-thickness skin graft take at that time. Prevalon boot to remain on while in bed at all times Code(s): D62 - ACUTE POSTHEMORRHAGIC ANEMIA (2) Diabetes mellitus Current Visit: Yes Status: Acute Code(s): E11.9 - TYPE 2 DIABETES MELLITUS WITHOUT COMPLICATIONS (3) Diabetic foot ulcer Current Visit: No Status: Acute Code(s): E11.621 - TYPE 2 DIABETES MELLITUS WITH FOOT ULCER; L97.509 - NON-PRESSURE CHRONIC ULCER OTH PRT UNSP FOOT W UNSP SEVERITY (4) Diabetes type 2, uncontrolled Current Visit: No Status: Chronic Code(s): E11.65 - TYPE 2 DIABETES MELLITUS WITH HYPERGLYCEMIA
--- NOTE | 2022-04-22 08:08 | PCM.HP ---
History of Present Illness - Chief Complaint Chief Complaint: POST OP BLEEDING History of Present Illness: is a 61 year old male who had a surgical procedure with Dr Carcamo with some post op bleeding so was admitted for transfusion of 2 units packed red blood cells. - Review of Systems Constitutional: No Fever, No Chills Respiratory: No Cough, No Short Of Breath Cardiac: No Chest Pain, No Edema, No Syncope Abdominal/Gastrointestinal: No Abdominal Pain, No Nausea, No Vomiting, No Diarrhea Skin: No Rash Medications & Allergies Home Medications: Home Medication List Allopurinol 300 mg [Zyloprim 300 mg] 300 mg PO DAILY 04/26/15 [History Confirmed 04/20/22] Aspirin EC 81 mg [Ecotrin 81 mg] 81 mg PO DAILY 07/07/17 [History Confirmed 04/20/22] Atorvastatin Calcium [Lipitor] 80 mg PO HS 07/07/17 [History Confirmed 04/20/22] Clopidogrel Bisulfate [PLAVIX Tablet] 75 mg PO DAILY 07/07/17 [History Confirmed 04/20/22] Dulaglutide [Trulicity] 0.75 mg SQ WEEKLY 11/19/18 [History Confirmed 04/20/22] Carvedilol 3.125 mg [Coreg 3.125 MG] 3.125 mg PO BID 09/09/20 [History Confirmed 04/20/22] Empagliflozin/Metformin HCl [Synjardy 5-1,000 mg Tablet] 5 - 1,000 mg PO BID 09/09/20 [History Confirmed 04/20/22] Gabapentin 900 mg PO TID 09/09/20 [History Confirmed 04/20/22] [place]-3/Dha/Epa/Fish Oil [Fish Oil 1,000 mg Softgel] 2 each PO DAILY 09/09/20 [History Confirmed 04/20/22] Glipizide 5 mg [Glucotrol 5 MG] 5 mg PO BID 10/06/21 [History Confirmed 04/20/22] Hydrocodone/Acetaminophen [Hydrocodone-Acetamin 10-325 mg] 1 each PO Q6HPRN PRN 02/26/22 [History Confirmed 04/20/22] Allergies/Adverse Reactions: Allergies Allergy/AdvReac Type Severity Reaction Status Date / Time No Known Drug Allergies Allergy Verified 04/20/22 09:39 - Past Medical History Past Medical History: Yes Neurological History: Peripheral Neuropathy ENT History: Cataracts Cardiac History: Deep Vein Thrombosis, High Cholesterol, Hypertension, Periphe ral Vascular Disease Respiratory History: Sleep Apnea Endocrine Medical History: Diabetes Type II, Hypoglycemia Musculoskelatal History: Fractures, Other GI Medical History: No Pertinent History History: No Pertinent History Pyscho-Social History: No Pertinent History Male Reproductive Disorders: Other Comment: RIGHT FOOT 5 SURGERIES - REMOVAL 5TH METATARSAL, GREAT TOE AMPUTATED GREAT TOE AND FLAP SURGERY ON HEEL (08/2020), LE BYPASS SURGERY (FEM-POP) BILATERAL,left foot skin graft with wound vac placed 02/26/23 - Past Surgical History Past Surgical History: Yes Neuro Surgical History: No Pertinent History Cardiac History: Vascular Surgery, Cardiac Stent, Cardiac Catheterization Respiratory Surgery: No Pertinent History GI Surgical History: No Pertinent History Genitourinary Surgical Hx: No Pertinent History Musculskeletal Surgical Hx: No Pertinent History, Other Male Surgical History: No Pertinent History Other Surgical History: Vascular surg pradeep legs, in grown toe nails, FOOT SURGERY FOR DECUBITUS - Social History Smoking Status: Former smoker How long have you smoked: YRS Exposure to second hand smoke: No Alcohol: None Drug Use: none - Physical Exam Vital Signs: Vital Signs - 24 hr Temp Pulse Resp BP Pulse Ox 04/22/22 07:04 97.1 F 83 18 111/53 100 04/22/22 03:42 97.1 F 85 16 105/58 96 04/22/22 00:16 97.3 F 85 17 100/52 93 L 04/22/22 00:00 20 04/21/22 19:45 94 H 20 100/51 04/21/22 16:00 98.1 F 100 H 16 108/53 92 L 04/21/22 11:37 97.9 F 102 H 16 91/52 95 04/21/22 10:55 97.9 F 102 H 16 91/52 95 General Appearance: no apparent distress Neurologic Exam: alert, oriented x 3 Respiratory Exam: normal breath sounds, lungs clear, No respiratory distress Cardiovascular Exam: regular rate/rhythm, normal heart sounds, normal peripheral pulses Gastrointestinal/Abdomen Exam: soft, normal bowel sounds, No tenderness, No mass Extremity Exam: other (rt lower leg wrapped and in a boot, patient was just seen by podiatry so wound was left dressed (see podiatry note)) Wound Assessment: Skin/Wound Assessment Wound/Incision Assessment Start: 04/21/22 11:12 Text: Status: Active Freq: Q4H Protocol: Document 04/22/22 04:00 MS (Rec: 04/22/22 04:47 MS [id number]) Wound/Incision Assessment Right Lower Other Wound Assessment Shift Assessment Wound Stage Non Pressure Wound Dressing Status Dry & Intact Drainage Amount None Comment wound vac present, dressing remains CDI Right Upper Thigh Wound Assessment Shift Assessment Wound Type skin graft Wound Stage Non Pressure Wound Dressing Status Dry & Intact Drainage Amount None Comment wrapped per Dr Carcamo, remains CDI Results - Labs Lab/Micro Results: Lab Results-Last 24 Hours 04/21/22 04/21/22 04/21/22 Range/Units 09:07 11:33 16:25 Hgb 8.1 L (12.5-18.0) g/dL Hct 26.0 L (42-50) % POC Glucometer 147 H 180 H (74 to 106) mg/dL Crossmatch (COMPATIBLE) 04/21/22 04/21/22 04/21/22 Range/Units 16:45 18:21 21:35 Hgb 7.0 L* (12.5-18.0) g/dL Hct 22.6 L (42-50) % POC Glucometer 149 H (74 to 106) mg/dL Crossmatch COMPATIBLE (COMPATIBLE) 04/21/22 04/22/22 04/22/22 Range/Units Unknown 05:10 06:34 Hgb 8.6 L D (12.5-18.0) g/dL Hct 28.1 L (42-50) % POC Glucometer 108 H (74 to 106) mg/dL Crossmatch COMPATIBLE (COMPATIBLE) Accuchecks Date 04/22/22 Date 04/21/22 Date 04/21/22 Time 07:04 Time 16:35 Time 11:39 Assessment/Plan (1) Post-op bleeding Current Visit: Yes Status: Acute Assessment & Plan: hgb 8.6 after 2 units of red cells this am. will monitor Code(s): [id number] - (2) Diabetes mellitus Current Visit: Yes Status: Acute Code(s): E11.9 - TYPE 2 DIABETES MELLITUS WITHOUT COMPLICATIONS (3) Anemia Current Visit: No Status: Acute Qualifiers: Code(s): D64.9 - ANEMIA, UNSPECIFIED
[2022-04-22] MEDS: Glucophage 500 MG PO SCH ×2 (08:25→17:14)
[2022-04-22] MEDS: JARDIANCE PO SCH ×2 (08:25→17:14)
[2022-04-22] MEDS: ZYLOPRIM 300 MG PO SCH (10:51)
[2022-04-22] MEDS: NEURONTIN PO SCH ×3 (10:51→21:32)
[2022-04-22] MEDS: ECOTRIN 81 MG PO SCH (10:51)
[2022-04-22] MEDS: Coreg 3.125 MG PO SCH ×2 (10:51→21:32)
[2022-04-22] MEDS: FISH OIL 1,000 MG CAPSULE PO SCH (10:51)
[2022-04-22] MEDS: Sodium Chloride 0.9% 1000 ML 1,000 ML IV SCH (11:21)
[2022-04-22] MEDS: ZOCOR 20MG PO SCH (21:32)
[2022-04-23] MEDS: HYDROCODONE-ACETAMIN 10-325 MG PO PRN ×5 (03:31→22:12)
[2022-04-23 05:52] LABS: Absolute Neutrophil Ct (ANC) 5.72 x10^3/uL (1.4-6.9); BASOPHIL % 0.5 % (0.0-0.4); Basophil (Absolute #) 0.05 x10^3/uL (0-0.4); Eosinophil % 3.5 % (0.00-5.0); Eosinophil (Absolute #) 0.33 x10^3/uL (0-0.5); Hematocrit 26.9 % (42-50); Hemoglobin 8.2 g/dL (12.5-18.0); IMMATURE GRAN # 0.06 x10^3u/L (0.00-0.03); IMMATURE GRAN % 0.6 % (0.00-0.4); Lymphocyte (Absolute #) 2.65 x10^3/uL (1.0-4.6); Lymphocytes % 28.1 % (24.0-44.0); Mean Cell Volume 79.8 fL (78-100); Mean Corpuscular Hemoglobin 24.3 pg (26-32); Mean Corpuscular Hgb Concent. 30.5 g/dL (32-36); Mean Platelet Volume 8.7 fL (7.5-11.0); Monocyte (Absolute #) 0.63 x10^3/uL (0.0-1.3); Monocytes % 6.7 % (0.0-12.0); Neutrophil % 60.6 % (36.0-66.0); Platelet Count 342 x10^3/uL (150-450); Red Blood Count 3.37 x10^6/uL (4.1-5.6); Red Cell Distribution Width 22.2 % (11.5-14.0); White Blood Count 9.4 x10^3/uL (4.0-10.5)
[2022-04-23 06:17] LABS: ALBUMIN 3.6 g/dL (3.5-5.0); ALKALINE PHOSPHATASE 73 U/L (38-126); ANION GAP 9.5 MEQ/L (5-15); BLOOD UREA NITROGEN 10 mg/dL (9-20); CHLORIDE 101 mmol/L (98-107); Calcium 8.3 mg/dL (8.4-10.2); Carbon Dioxide 28 mmol/L (22-30); Creatinine 1 0.64 mg/dL (0.66-1.25); EST GLOMERULAR FILTRATION RATE > 60.0 ML/MIN; Glucose 112 mg/dL (74-106); Potassium 3.8 mmol/L (3.5-5.1); SGOT/AST 14 U/L (17-59); SGPT/ALT 10 U/L (0-50); SODIUM 135 mmol/L (137-145); Total Protein 6.3 g/dL (6.3-8.2)
[2022-04-23] MEDS: KEFZOL 1 GM/50 ML PREMIX** 1 GM/50 ML IVPB IV SCH ×3 (06:28→22:13)
[2022-04-23 07:24] LABS: Slide Review 1 YES
[2022-04-23] MEDS: Glucophage 500 MG PO SCH ×2 (08:00→16:47)
[2022-04-23] MEDS: Glucotrol 5 MG PO SCH ×2 (08:00→16:47)
[2022-04-23] MEDS: JARDIANCE PO SCH ×2 (08:01→16:48)
--- NOTE | 2022-04-23 08:32 | PCM.NOTE ---
Date and Time: 04/23/22830 Subjective Assessment: no acute distress, awaiting ECF recert per nursing. Objective Exam General Appearance: no apparent distress Neurologic Exam: alert, oriented x 3 Wound Assessment: Skin/Wound Assessment Wound/Incision Assessment Start: 04/21/22 11:12 Text: Status: Active Freq: Q6H Protocol: Document 04/23/22 03:30 MS (Rec: 04/23/22 03:40 MS [id number]) Wound/Incision Assessment Right Lower Other Wound Assessment Shift Assessment Wound Type WOUND Wound Stage Non Pressure Wound Dressing Status Dry & Intact Drainage Amount None Comment DRESSING REMAINS CDI AND WOUND VAC IN PLACE Right Upper Thigh Wound Assessment Shift Assessment Wound Type SKIN GRAFT Wound Stage Non Pressure Wound Dressing Status Dry & Intact Drainage Amount None Comment DRESSING REMAINS CDI Wound Photo Photo Taken No Respiratory Exam: normal breath sounds, lungs clear, No respiratory distress Cardiovascular Exam: regular rate/rhythm, normal heart sounds OBJECTIVE DATA Vital Signs: Vital Signs - 24 hr Temp Pulse Resp BP Pulse Ox 04/23/22 08:00 98.0 F 75 16 125/60 99 04/23/22 04:00 97.9 F 80 18 125/58 99 04/23/22 00:00 97.0 F 85 16 113/58 98 04/22/22 20:00 97.1 F 85 18 109/55 99 04/22/22 16:00 97.5 F 77 16 109/58 99 04/22/22 11:26 97.2 F 80 18 119/57 99 Pain Assessment - Last Documented Pain Intensity 6 Pain Scale Used 0-10 Pain Scale Intake and Output: Intake & Output 04/20/22 04/21/22 04/22/22 04/23/22 11:59 11:59 11:59 11:59 Intake Total 850 3683 Output Total 3500 2700 Balance -2650 983 Weight 111.097 kg 111.097 kg Lab Results: Lab Results-Last 24 Hours 04/22/22 04/22/22 04/22/22 Range/Units 10:47 15:15 22:14 WBC (4.0-10.5) x10^3/uL RBC (4.1-5.6) x10^6/uL Hgb (12.5-18.0) g/dL Hct (42-50) % MCV (78-100) fL MCH (26-32) pg MCHC (32-36) g/dL RDW (11.5-14.0) % Plt Count (150-450) x10^3/uL MPV (7.5-11.0) fL Gran % (36.0-66.0) % Immature Gran % (Auto) (0.00-0.4) % Nucleat RBC Rel Count (0.00-0.1) % Eos # (Auto) (0-0.5) x10^3/uL Immature Gran # (Auto) (0.00-0.03) x10^3u/L Absolute Lymphs (auto) (1.0-4.6) x10^3/uL Absolute Monos (auto) (0.0-1.3) x10^3/uL Absolute Nucleated RBC (0.00-0.01) x10^3u/L Lymphocytes % (24.0-44.0) % Monocytes % (0.0-12.0) % Eosinophils % (0.00-5.0) % Basophils % (0.0-0.4) % Absolute Granulocytes (1.4-6.9) x10^3/uL Basophils # (0-0.4) x10^3/uL Sodium (137-145) mmol/L Potassium (3.5-5.1) mmol/L Chloride (98-107) mmol/L Carbon Dioxide (22-30) mmol/L Anion Gap (5-15) MEQ/L BUN (9-20) mg/dL Creatinine (0.66-1.25) mg/dL Estimated GFR ML/MIN Glucose (74-106) mg/dL POC Glucometer 144 H 127 H 125 H (74 to 106) mg/dL Calcium (8.4-10.2) mg/dL Total Bilirubin (0.2-1.3) mg/dL AST (17-59) U/L ALT (0-50) U/L Alkaline Phosphatase (38-126) U/L Serum Total Protein (6.3-8.2) g/dL Albumin (3.5-5.0) g/dL Slides for Path Review 04/23/22 04/23/22 04/23/22 Range/Units 05:10 05:10 07:08 WBC 9.4 (4.0-10.5) x10^3/uL RBC 3.37 L (4.1-5.6) x10^6/uL Hgb 8.2 L (12.5-18.0) g/dL Hct 26.9 L (42-50) % MCV 79.8 (78-100) fL MCH 24.3 L (26-32) pg MCHC 30.5 L (32-36) g/dL RDW 22.2 H (11.5-14.0) % Plt Count 342 (150-450) x10^3/uL MPV 8.7 (7.5-11.0) fL Gran % 60.6 (36.0-66.0) % Immature Gran % (Auto) 0.6 H (0.00-0.4) % Nucleat RBC Rel Count 0.0 (0.00-0.1) % Eos # (Auto) 0.33 (0-0.5) x10^3/uL Immature Gran # (Auto) 0.06 H (0.00-0.03) x10^3u/L Absolute Lymphs (auto) 2.65 (1.0-4.6) x10^3/uL Absolute Monos (auto) 0.63 (0.0-1.3) x10^3/uL Absolute Nucleated RBC 0.00 (0.00-0.01) x10^3u/L Lymphocytes % 28.1 (24.0-44.0) % Monocytes % 6.7 (0.0-12.0) % Eosinophils % 3.5 (0.00-5.0) % Basophils % 0.5 (0.0-0.4) % Absolute Granulocytes 5.72 (1.4-6.9) x10^3/uL Basophils # 0.05 (0-0.4) x10^3/uL Sodium 135 L (137-145) mmol/L Potassium 3.8 (3.5-5.1) mmol/L Chloride 101 (98-107) mmol/L Carbon Dioxide 28 (22-30) mmol/L Anion Gap 9.5 (5-15) MEQ/L BUN 10 (9-20) mg/dL Creatinine 0.64 L (0.66-1.25) mg/dL Estimated GFR > 60.0 ML/MIN Glucose 112 H (74-106) mg/dL POC Glucometer 106 (74 to 106) mg/dL Calcium 8.3 L (8.4-10.2) mg/dL Total Bilirubin 0.30 (0.2-1.3) mg/dL AST 14 L (17-59) U/L ALT 10 (0-50) U/L Alkaline Phosphatase 73 (38-126) U/L Serum Total Protein 6.3 (6.3-8.2) g/dL Albumin 3.6 (3.5-5.0) g/dL Slides for Path Review YES Multi-Disciplinary Progress Notes: Multi-Disciplinary Progress Notes 04/22/22 09:36 Case Management Note by Delmy Zaidi UPDATED CLINICAL FAXED TO [facility] FOR PRECERT Initialized on 04/22/22 09:36 - END OF NOTE Assessment/Plan (1) Post-op bleeding Current Visit: Yes Status: Acute Assessment & Plan: hemoglobin stable at 8.2, restart iron. awaiting certification to return to ECF. dispo per podiatry with graft/wound management at this time when certified for ECF Code(s): [id number] - (2) Diabetes mellitus Current Visit: Yes Status: Acute Code(s): E11.9 - TYPE 2 DIABETES MELLITUS WITHOUT COMPLICATIONS (3) Anemia Current Visit: No Status: Acute Qualifiers: Code(s): D64.9 - ANEMIA, UNSPECIFIED
[2022-04-23] MEDS: ZYLOPRIM 300 MG PO SCH (09:49)
[2022-04-23] MEDS: NEURONTIN PO SCH ×3 (09:49→22:13)
[2022-04-23] MEDS: FEOSOL 325 MG PO SCH (09:49)
[2022-04-23] MEDS: ECOTRIN 81 MG PO SCH (09:49)
[2022-04-23] MEDS: Coreg 3.125 MG PO SCH ×2 (09:50→22:13)
[2022-04-23] MEDS: FISH OIL 1,000 MG CAPSULE PO SCH (09:50)
--- NOTE | 2022-04-23 18:15 | PCM.NOTE ---
Date and Time: 04/23/221813 Subjective Assessment: Dressings changed to thigh and leg. Bleeding all but stopped. Asymptomatic at this time. Good appetite. No other complaints Physical Exam - Narrative Narrative Physical Exam: Podiatry Physical Exam OBJECTIVE DATA Vital Signs: Vital Signs - 24 hr Temp Pulse Resp BP Pulse Ox 04/23/22 15:53 97.1 F 84 18 107/52 97 04/23/22 11:31 98.1 F 83 16 121/56 98 04/23/22 08:00 98.0 F 75 16 125/60 99 04/23/22 04:00 97.9 F 80 18 125/58 99 04/23/22 00:00 97.0 F 85 16 113/58 98 04/22/22 20:00 97.1 F 85 18 109/55 99 Pain Assessment - Last Documented Pain Intensity 3 Pain Scale Used 0-10 Pain Scale Intake and Output: Intake & Output 04/21/22 04/22/22 04/23/22 04/24/22 11:59 11:59 11:59 11:59 Intake Total 850 3923 480 Output Total 3500 3400 400 Balance -2650 523 80 Weight 111.097 kg Lab Results: Lab Results-Last 24 Hours 04/22/22 04/23/22 04/23/22 Range/Units 22:14 05:10 05:10 WBC 9.4 (4.0-10.5) x10^3/uL RBC 3.37 L (4.1-5.6) x10^6/uL Hgb 8.2 L (12.5-18.0) g/dL Hct 26.9 L (42-50) % MCV 79.8 (78-100) fL MCH 24.3 L (26-32) pg MCHC 30.5 L (32-36) g/dL RDW 22.2 H (11.5-14.0) % Plt Count 342 (150-450) x10^3/uL MPV 8.7 (7.5-11.0) fL Gran % 60.6 (36.0-66.0) % Immature Gran % (Auto) 0.6 H (0.00-0.4) % Nucleat RBC Rel Count 0.0 (0.00-0.1) % Eos # (Auto) 0.33 (0-0.5) x10^3/uL Immature Gran # (Auto) 0.06 H (0.00-0.03) x10^3u/L Absolute Lymphs (auto) 2.65 (1.0-4.6) x10^3/uL Absolute Monos (auto) 0.63 (0.0-1.3) x10^3/uL Absolute Nucleated RBC 0.00 (0.00-0.01) x10^3u/L Lymphocytes % 28.1 (24.0-44.0) % Monocytes % 6.7 (0.0-12.0) % Eosinophils % 3.5 (0.00-5.0) % Basophils % 0.5 (0.0-0.4) % Absolute Granulocytes 5.72 (1.4-6.9) x10^3/uL Basophils # 0.05 (0-0.4) x10^3/uL Sodium 135 L (137-145) mmol/L Potassium 3.8 (3.5-5.1) mmol/L Chloride 101 (98-107) mmol/L Carbon Dioxide 28 (22-30) mmol/L Anion Gap 9.5 (5-15) MEQ/L BUN 10 (9-20) mg/dL Creatinine 0.64 L (0.66-1.25) mg/dL Estimated GFR > 60.0 ML/MIN Glucose 112 H (74-106) mg/dL POC Glucometer 125 H (74 to 106) mg/dL Calcium 8.3 L (8.4-10.2) mg/dL Total Bilirubin 0.30 (0.2-1.3) mg/dL AST 14 L (17-59) U/L ALT 10 (0-50) U/L Alkaline Phosphatase 73 (38-126) U/L Serum Total Protein 6.3 (6.3-8.2) g/dL Albumin 3.6 (3.5-5.0) g/dL Slides for Path Review YES 04/23/22 04/23/22 04/23/22 Range/Units 07:08 11:09 14:56 WBC (4.0-10.5) x10^3/uL RBC (4.1-5.6) x10^6/uL Hgb (12.5-18.0) g/dL Hct (42-50) % MCV (78-100) fL MCH (26-32) pg MCHC (32-36) g/dL RDW (11.5-14.0) % Plt Count (150-450) x10^3/uL MPV (7.5-11.0) fL Gran % (36.0-66.0) % Immature Gran % (Auto) (0.00-0.4) % Nucleat RBC Rel Count (0.00-0.1) % Eos # (Auto) (0-0.5) x10^3/uL Immature Gran # (Auto) (0.00-0.03) x10^3u/L Absolute Lymphs (auto) (1.0-4.6) x10^3/uL Absolute Monos (auto) (0.0-1.3) x10^3/uL Absolute Nucleated RBC (0.00-0.01) x10^3u/L Lymphocytes % (24.0-44.0) % Monocytes % (0.0-12.0) % Eosinophils % (0.00-5.0) % Basophils % (0.0-0.4) % Absolute Granulocytes (1.4-6.9) x10^3/uL Basophils # (0-0.4) x10^3/uL Sodium (137-145) mmol/L Potassium (3.5-5.1) mmol/L Chloride (98-107) mmol/L Carbon Dioxide (22-30) mmol/L Anion Gap (5-15) MEQ/L BUN (9-20) mg/dL Creatinine (0.66-1.25) mg/dL Estimated GFR ML/MIN Glucose (74-106) mg/dL POC Glucometer 106 129 H 168 H (74 to 106) mg/dL Calcium (8.4-10.2) mg/dL Total Bilirubin (0.2-1.3) mg/dL AST (17-59) U/L ALT (0-50) U/L Alkaline Phosphatase (38-126) U/L Serum Total Protein (6.3-8.2) g/dL Albumin (3.5-5.0) g/dL Slides for Path Review Multi-Disciplinary Progress Notes: Multi-Disciplinary Progress Notes 04/23/22 09:39 Case Management Note by Delmy Zaidi Addendum entered by Delmy Zaidi 04/23/22 13:30: UPDATED CLINICAL FAXED TO [facility] FOR PRECERT AT THIS TIME Original Note: [facility] THEY ARE WAITING ON INSURANCE APPROVAL FOR PATIENT TO RETURN. THIS PROCESS HAS BEEN STARTED Initialized on 04/23/22 09:39 - END OF NOTE Assessment/Plan (1) Acute postoperative anemia due to expected blood loss Current Visit: Yes Status: Acute Assessment & Plan: Improved clinical presentation this AM. Dressings taken down to leg and thigh and bleeding appears to be controlled at this time Graft at lateral leg showing early signs of take restart plavix tomorrow am Monitor H&H are this time and assess for symptoms Case management working on placement back to nursing facility- awaiting precert. Daily dressing changes to thigh Prevalon boot to remain on while in bed at all times Code(s): D62 - ACUTE POSTHEMORRHAGIC ANEMIA (2) Diabetes mellitus Current Visit: Yes Status: Acute Code(s): E11.9 - TYPE 2 DIABETES MELLITUS WITHOUT COMPLICATIONS (3) Diabetic foot ulcer Current Visit: No Status: Acute Code(s): E11.621 - TYPE 2 DIABETES MELLITUS WITH FOOT ULCER; L97.509 - NON-PRESSURE CHRONIC ULCER OTH PRT UNSP FOOT W UNSP SEVERITY (4) Diabetes type 2, uncontrolled Current Visit: No Status: Chronic Code(s): E11.65 - TYPE 2 DIABETES MELLITUS WITH HYPERGLYCEMIA
[2022-04-23] MEDS: ZOCOR 20MG PO SCH (22:13)
[2022-04-24] MEDS: HYDROCODONE-ACETAMIN 10-325 MG PO PRN ×5 (03:36→19:41)
[2022-04-24] MEDS: KEFZOL 1 GM/50 ML PREMIX** 1 GM/50 ML IVPB IV SCH ×3 (06:39→22:14)
--- NOTE | 2022-04-24 06:58 | PCM.NOTE ---
Date and Time: 04/24/22 0656 Subjective Assessment: POD #4. Resting comfortably in bed this AM. Nurse at bedside. No complaints. Physical Exam - Narrative Narrative Physical Exam: Podiatry Physical Exam OBJECTIVE DATA Vital Signs: Vital Signs - 24 hr Temp Pulse Resp BP Pulse Ox 04/24/22 04:00 97.1 F 82 16 120/56 98 04/24/22 00:00 16 04/23/22 20:00 97.3 F 88 17 114/55 94 L 04/23/22 15:53 97.1 F 84 18 107/52 97 04/23/22 11:31 98.1 F 83 16 121/56 98 04/23/22 08:00 98.0 F 75 16 125/60 99 Pain Assessment - Last Documented Pain Intensity 8 Pain Scale Used 0-10 Pain Scale Intake and Output: Intake & Output 04/21/22 04/22/22 04/23/22 04/24/22 11:59 11:59 11:59 11:59 Intake Total 850 3923 2465 Output Total 3500 3400 2950 Balance -2650 523 -485 Weight 111.097 kg Lab Results: Lab Results-Last 24 Hours 04/23/22 04/23/22 04/23/22 Range/Units 05:10 07:08 11:09 POC Glucometer 106 129 H (74 to 106) mg/dL Slides for Path Review YES 04/23/22 04/23/22 Range/Units 14:56 21:11 POC Glucometer 168 H 134 H (74 to 106) mg/dL Slides for Path Review Multi-Disciplinary Progress Notes: Multi-Disciplinary Progress Notes 04/23/22 09:39 Case Management Note by Delmy Zaidi Addendum entered by Delmy Zaidi 04/23/22 13:30: UPDATED CLINICAL FAXED TO [facility] FOR PRECERT AT THIS TIME Original Note: PATIENT TO RETURN TO [facility] AT TIME OF DC. THEY ARE WAITING ON INSUR ANCE APPROVAL FOR PATIENT TO RETURN. THIS PROCESS HAS BEEN STARTED Initialized on 04/23/22 09:39 - END OF NOTE Assessment/Plan (1) Acute postoperative anemia due to expected blood loss Current Visit: Yes Status: Acute Assessment & Plan: Dressings changed to thigh. no strike through on leg. Bleeding stopped. Asymptomatic at this time. No other complaints restart plavix this AM Monitor H&H are this time and assess for symptoms Case management working on placement back to nursing facility- awaiting precert. Daily dressing changes to thigh Prevalon boot to remain on while in bed at all times Code(s): D62 - ACUTE POSTHEMORRHAGIC ANEMIA (2) Diabetes mellitus Current Visit: Yes Status: Acute Code(s): E11.9 - TYPE 2 DIABETES MELLITUS WITHOUT COMPLICATIONS (3) Diabetic foot ulcer Current Visit: No Status: Acute Code(s): E11.621 - TYPE 2 DIABETES MELLITUS WITH FOOT ULCER; L97.509 - NON-PRESSURE CHRONIC ULCER OTH PRT UNSP FOOT W UNSP SEVERITY (4) Diabetes type 2, uncontrolled Current Visit: No Status: Chronic Code(s): E11.65 - TYPE 2 DIABETES MELLITUS WITH HYPERGLYCEMIA
[2022-04-24] MEDS: JARDIANCE PO SCH ×2 (09:16→17:26)
[2022-04-24] MEDS: Glucophage 500 MG PO SCH ×2 (09:18→17:25)
[2022-04-24] MEDS: Glucotrol 5 MG PO SCH ×2 (09:19→17:26)
[2022-04-24] MEDS: FISH OIL 1,000 MG CAPSULE PO SCH (09:20)
[2022-04-24] MEDS: FEOSOL 325 MG PO SCH (09:21)
[2022-04-24] MEDS: NEURONTIN PO SCH ×3 (09:22→22:12)
[2022-04-24] MEDS: Coreg 3.125 MG PO SCH ×2 (09:23→22:12)
[2022-04-24] MEDS: ECOTRIN 81 MG PO SCH (09:23)
[2022-04-24] MEDS: PLAVIX Tablet PO SCH (09:24)
[2022-04-24] MEDS: ZYLOPRIM 300 MG PO SCH (09:24)
[2022-04-24 11:35] LABS: Hematocrit 27.4 % (42-50); Hemoglobin 8.6 g/dL (12.5-18.0); Mean Cell Volume 80.1 fL (78-100); Mean Corpuscular Hemoglobin 25.1 pg (26-32); Mean Corpuscular Hgb Concent. 31.4 g/dL (32-36); Mean Platelet Volume 8.6 fL (7.5-11.0); Platelet Count 371 x10^3/uL (150-450); Red Blood Count 3.42 x10^6/uL (4.1-5.6); White Blood Count 9.6 x10^3/uL (4.0-10.5)
[2022-04-24] MEDS ORDERED: Docusate Sodium 100 MG PO PRN (14:20)
--- NOTE | 2022-04-24 16:33 | PCM.NOTE ---
Date and Time: 04/24/221626 Subjective Assessment: Dr. Lopez restarted pt's plavix. Pt is papa po fine. Just up to bedside commode and had a BM. Pain was 4/10 prior to this, currently 6-7/10 and anticipates it will settle down to 5/10 shortly. - Review of Systems Constitutional: No Fever Musculoskeletal: Other (leg pain) Objective Exam General Appearance: no apparent distress, alert Neurologic Exam: oriented x 3, cooperative Skin Exam: warm, dry, No rash Wound Assessment: Skin/Wound Assessment Wound/Incision Assessment Start: 04/21/22 11:12 Text: Status: Active Freq: Q6H Protocol: Document 04/24/22 14:00 DENG (Rec: 04/24/22 14:48 DENG [id number]) Wound/Incision Assessment Right Lower Other Wound Assessment Shift Assessment Wound Type Incision Wound Stage Non Pressure Wound Dressing Status Dry & Intact Drainage Amount None Comment WOUND VAC REMAINS IN PLACE, dressing to remain in place Right Upper Thigh Wound Assessment Shift Assessment Wound Type SKIN GRAFT Wound Stage Non Pressure Wound Dressing Status Dry & Intact Comment unable to assess wound d/t dressing to remian in place per surgeons order Wound Photo Photo Taken No Eye Exam: eyes nml inspection Ears, Nose, Throat Exam: moist mucous membranes Neck Exam: normal inspection Respiratory Exam: normal breath sounds, lungs clear, No crackles/rales, No rhonchi, No wheezing Cardiovascular Exam: regular rate/rhythm, normal heart sounds, No murmur Gastrointestinal/Abdomen Exam: soft, normal bowel sounds, No tenderness, No distention, No mass, No guarding, No rebound Extremity Exam: other (L leg wrapped and in protective covering.) Back Exam: normal inspection, No rash OBJECTIVE DATA Vital Signs: Vital Signs - 24 hr Temp Pulse Resp BP Pulse Ox 04/24/22 12:00 97.0 F 84 17 132/62 100 04/24/22 08:00 97.1 F 81 17 126/61 95 04/24/22 04:00 97.1 F 82 16 120/56 98 04/24/22 00:00 16 04/23/22 20:00 97.3 F 88 17 114/55 94 L Pain Assessment - Last Documented Pain Intensity 6 Pain Scale Used 0-10 Pain Scale Intake and Output: Intake & Output 04/22/22 04/23/22 04/24/22 04/25/22 11:59 11:59 11:59 11:59 Intake Total 850 9513 6156 600 Output Total 3503 3400 2950 1000 Balance -2650 032 -839 -025 Lab Results: Lab Results-Last 24 Hours 04/23/22 04/24/22 04/24/22 Range/Units 21:11 07:50 11:02 WBC 9.6 (4.0-10.5) x10^3/uL RBC 3.42 L (4.1-5.6) x10^6/uL Hgb 8.6 L (12.5-18.0) g/dL Hct 27.4 L (42-50) % MCV 80.1 (78-100) fL MCH 25.1 L (26-32) pg MCHC 31.4 L (32-36) g/dL RDW 22.0 H (11.5-14.0) % Plt Count 371 (150-450) x10^3/uL MPV 8.6 (7.5-11.0) fL POC Glucometer 134 H 138 H (74 to 106) mg/dL Hemoglobin A1c (4.5-6.0) % 04/24/22 04/24/22 Range/Units 11:02 11:45 WBC (4.0-10.5) x10^3/uL RBC (4.1-5.6) x10^6/uL Hgb (12.5-18.0) g/dL Hct (42-50) % MCV (78-100) fL MCH (26-32) pg MCHC (32-36) g/dL RDW (11.5-14.0) % Plt Count (150-450) x10^3/uL MPV (7.5-11.0) fL POC Glucometer 143 H (74 to 106) mg/dL Hemoglobin A1c 6.36 H (4.5-6.0) % Assessment/Plan (1) Post-op bleeding Current Visit: Yes Status: Acute Qualifiers: Surgical complication system/body Area: skin Procedure type: non- dermatologic Qualified Code(s): L76.22 - Postprocedural hemorrhage of skin and subcutaneous tissue following other procedure Assessment & Plan: Pt appears stable now. Plan is apparently to await ECF placement. POD #4 today. Code(s): [id number] - (2) Diabetes mellitus Current Visit: Yes Status: Acute Qualifiers: Diabetes mellitus type: type 2 Diabetes mellitus residential insulin use: without meterman use Diabetes mellitus complication status: with skin complications Diabetes mellitus complication detail: with other skin complication Qualified Code(s): E11.628 - Type 2 diabetes mellitus with other skin complications Code(s): E11.9 - TYPE 2 DIABETES MELLITUS WITHOUT COMPLICATIONS (3) Anemia Current Visit: No Status: Acute Qualifiers: Anemia type: other cause Other causes of anemia: other cause, not classif ied Qualified Code(s): D64.89 - Other specified anemias Assessment & Plan: Hgb stable, 8.6 today (was 8.2 yesterday). Code(s): D64.9 - ANEMIA, UNSPECIFIED (4) Diabetic foot ulcer Current Visit: No Status: Acute Qualifiers: Diabetic foot ulcer location: heel Diabetes mellitus type: type 2 Laterality: left Code(s): E11.621 - TYPE 2 DIABETES MELLITUS WITH FOOT ULCER; L97.509 - NON- PRESSURE CHRONIC ULCER OTH PRT UNSP FOOT W UNSP SEVERITY
[2022-04-24] MEDS: ZOCOR 20MG PO SCH (22:12)
[2022-04-25 06:22] LABS: Hematocrit 28.8 % (42-50); Hemoglobin 8.8 g/dL (12.5-18.0); Mean Cell Volume 80.4 fL (78-100); Mean Corpuscular Hemoglobin 24.6 pg (26-32); Mean Corpuscular Hgb Concent. 30.6 g/dL (32-36); Mean Platelet Volume 8.3 fL (7.5-11.0); Platelet Count 377 x10^3/uL (150-450); Red Blood Count 3.58 x10^6/uL (4.1-5.6); White Blood Count 9.1 x10^3/uL (4.0-10.5)
[2022-04-25] MEDS: HYDROCODONE-ACETAMIN 10-325 MG PO PRN ×3 (06:23→20:27)
[2022-04-25] MEDS: KEFZOL 1 GM/50 ML PREMIX** 1 GM/50 ML IVPB IV SCH (06:24)
--- NOTE | 2022-04-25 06:43 | PCM.NOTE ---
Date and Time: 04/25/22 06 Subjective Assessment: POD #5. Resting comfortably in bed this AM. No complaints. Physical Exam - Narrative Narrative Physical Exam: Podiatry Physical Exam OBJECTIVE DATA Vital Signs: Vital Signs - 24 hr Temp Pulse Resp BP Pulse Ox 04/25/22 04:00 97.2 F 90 18 118/59 95 04/24/22 23:40 97.2 F 90 18 105/56 92 L 04/24/22 20:00 97.0 F 95 H 16 130/60 95 04/24/22 12:00 97.0 F 84 17 132/62 100 04/24/22 08:00 97.1 F 81 17 126/61 95 Pain Assessment - Last Documented Pain Intensity 7 Pain Scale Used 0-10 Pain Scale Intake and Output: Intake & Output 04/22/22 04/23/22 04/24/22 04/25/22 11:59 11:59 11:59 11:59 Intake Total 850 3923 2465 1730 Output Total 3500 3400 2950 3850 Balance -2650 813 -172 -4360 Lab Results: Lab Results-Last 24 Hours 04/24/22 04/24/22 04/24/22 Range/Units 07:50 11:02 11:02 WBC 9.6 (4.0-10.5) x10^3/uL RBC 3.42 L (4.1-5.6) x10^6/uL Hgb 8.6 L (12.5-18.0) g/dL Hct 27.4 L (42-50) % MCV 80.1 (78-100) fL MCH 25.1 L (26-32) pg MCHC 31.4 L (32-36) g/dL RDW 22.0 H (11.5-14.0) % Plt Count 371 (150-450) x10^3/uL MPV 8.6 (7.5-11.0) fL POC Glucometer 138 H (74 to 106) mg/dL Hemoglobin A1c 6.36 H (4.5-6.0) % 04/24/22 04/24/22 04/24/22 Range/Units 11:45 16:48 20:52 WBC (4.0-10.5) x10^3/uL RBC (4.1-5.6) x10^6/uL Hgb (12.5-18.0) g/dL Hct (42-50) % MCV (78-100) fL MCH (26-32) pg MCHC (32-36) g/dL RDW (11.5-14.0) % Plt Count (150-450) x10^3/uL MPV (7.5-11.0) fL POC Glucometer 143 H 170 H 112 H (74 to 106) mg/dL Hemoglobin A1c (4.5-6.0) % 04/25/22 Range/Units 06:18 WBC 9.1 (4.0-10.5) x10^3/uL RBC 3.58 L (4.1-5.6) x10^6/uL Hgb 8.8 L (12.5-18.0) g/dL Hct 28.8 L (42-50) % MCV 80.4 (78-100) fL MCH 24.6 L (26-32) pg MCHC 30.6 L (32-36) g/dL RDW 22.0 H (11.5-14.0) % Plt Count 377 (150-450) x10^3/uL MPV 8.3 (7.5-11.0) fL POC Glucometer (74 to 106) mg/dL Hemoglobin A1c (4.5-6.0) % Assessment/Plan (1) Acute postoperative anemia due to expected blood loss Current Visit: Yes Status: Acute Assessment & Plan: Dressings changed to thigh. no strike through on leg. Bleeding stopped. Asymptomatic at this time. No other complaints Tolerated restart of plavix yesterday without complication Case management working on placement back to nursing facility- awaiting precert. Daily dressing changes to thigh until DC Ok for dc from my standpoint at this time. 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 Diabetes mellitus complication status: with skin complications Diabetes mellitus complication detail: with other skin complication Qualified Code(s): E11.628 - Type 2 diabetes mellitus with other skin complications Code(s): E11.9 - TYPE 2 DIABETES MELLITUS WITHOUT COMPLICATIONS (3) Diabetic foot ulcer Current Visit: No Status: Acute Qualifiers: Diabetic foot ulcer location: heel Diabetes mellitus type: type 2 Laterality: left Code(s): E11.621 - TYPE 2 DIABETES MELLITUS WITH FOOT ULCER; L97.509 - NON- PRESSURE CHRONIC ULCER OTH PRT UNSP FOOT W UNSP SEVERITY (4) Diabetes type 2, uncontrolled Current Visit: No Status: Chronic Code(s): E11.65 - TYPE 2 DIABETES MELLITUS WITH HYPERGLYCEMIA
[2022-04-25] MEDS ORDERED: Hydromorphone 1 mg/ml Injection IV PRN (07:33)
[2022-04-25] MEDS: Glucophage 500 MG PO SCH ×2 (08:13→16:56)
[2022-04-25] MEDS: Glucotrol 5 MG PO SCH ×2 (08:13→16:56)
[2022-04-25] MEDS: JARDIANCE PO SCH ×2 (08:13→16:57)
[2022-04-25] MEDS: FEOSOL 325 MG PO SCH (09:08)
[2022-04-25] MEDS: NEURONTIN PO SCH ×3 (09:08→22:14)
[2022-04-25] MEDS: PLAVIX Tablet PO SCH (09:08)
[2022-04-25] MEDS: ECOTRIN 81 MG PO SCH (09:08)
[2022-04-25] MEDS: FISH OIL 1,000 MG CAPSULE PO SCH (09:08)
[2022-04-25] MEDS: ZYLOPRIM 300 MG PO SCH (09:08)
[2022-04-25] MEDS: Coreg 3.125 MG PO SCH ×2 (09:08→22:15)
[2022-04-25] MEDS ORDERED: NON-FORMULARY ITEM (Dulaglutide [Trulicity] 0.75 MG/0.5 ML Pen.Injctr) SQ SCH (10:00)
--- NOTE | 2022-04-25 11:24 | PCM.NOTE ---
Date and Time: 04/25/22 1120 Subjective Assessment: Pt says the burning pain in R thigh (graft donor sites) is decreased; currently 8/10 because the dressing was just changed. Was 5-6/10 overnight. Was able to sleep. Pt is complaining about the quality of the food. - Review of Systems Constitutional: No Fever Abdominal/Gastrointestinal: No Vomiting Objective Exam General Appearance: no apparent distress, alert Neurologic Exam: oriented x 3, cooperative Skin Exam: normal color, warm, dry, No rash Wound Assessment: Skin/Wound Assessment Wound/Incision Assessment Start: 04/21/22 11:12 Text: Status: Active Freq: Q6H Protocol: Document 04/25/22 08:00 (Rec: 04/25/22 08:27 [id number]) Wound/Incision Assessment Right Lower Other Wound Assessment Shift Assessment Wound Type Incision Wound Stage Non Pressure Wound Dressing Status Dry & Intact Drainage Amount None Comment dressing CDI Right Upper Thigh Wound Assessment Shift Assessment Wound Type SKIN GRAFT Wound Stage Non Pressure Wound Dressing Status Dry & Intact Comment dressing in place CDI Eye Exam: eyes nml inspection Ears, Nose, Throat Exam: moist mucous membranes Neck Exam: normal inspection Respiratory Exam: normal breath sounds, lungs clear, No crackles/rales, No rhonchi, No wheezing Cardiovascular Exam: regular rate/rhythm, normal heart sounds, No murmur Gastrointestinal/Abdomen Exam: soft, No normal bowel sounds (hypoactive but present), No tenderness, No distention, No mass, No guarding, No rebound Extremity Exam: other (R leg wrapped at thigh and foot (with foot protector).) OBJECTIVE DATA Vital Signs: Vital Signs - 24 hr Temp Pulse Resp BP Pulse Ox 04/25/22 07:56 97.3 F 92 H 16 135/60 97 04/25/22 04:00 97.2 F 90 18 118/59 95 04/24/22 23:40 97.2 F 90 18 105/56 92 L 04/24/22 20:00 97.0 F 95 H 16 130/60 95 04/24/22 12:00 97.0 F 84 17 132/62 100 Pain Assessment - Last Documented Pain Intensity 7 Pain Scale Used 0-10 Pain Scale Intake and Output: Intake & Output 04/22/22 04/23/22 04/24/22 04/25/22 11:59 11:59 11:59 11:59 Intake Total 643 3002 3795 1730 Output Total 3505 3409 2950 5250 Balance -2650 443 -811 -8288 Lab Results: Lab Results-Last 24 Hours 04/24/22 04/24/22 04/24/22 Range/Units 11:02 11:02 11:45 WBC 9.6 (4.0-10.5) x10^3/uL RBC 3.42 L (4.1-5.6) x10^6/uL Hgb 8.6 L (12.5-18.0) g/dL Hct 27.4 L (42-50) % MCV 80.1 (78-100) fL MCH 25.1 L (26-32) pg MCHC 31.4 L (32-36) g/dL RDW 22.0 H (11.5-14.0) % Plt Count 371 (150-450) x10^3/uL MPV 8.6 (7.5-11.0) fL POC Glucometer 143 H (74 to 106) mg/dL Hemoglobin A1c 6.36 H (4.5-6.0) % 04/24/22 04/24/22 04/25/22 Range/Units 16:48 20:52 06:18 WBC 9.1 (4.0-10.5) x10^3/uL RBC 3.58 L (4.1-5.6) x10^6/uL Hgb 8.8 L (12.5-18.0) g/dL Hct 28.8 L (42-50) % MCV 80.4 (78-100) fL MCH 24.6 L (26-32) pg MCHC 30.6 L (32-36) g/dL RDW 22.0 H (11.5-14.0) % Plt Count 377 (150-450) x10^3/uL MPV 8.3 (7.5-11.0) fL POC Glucometer 170 H 112 H (74 to 106) mg/dL Hemoglobin A1c (4.5-6.0) % 04/25/22 Range/Units 07:02 WBC (4.0-10.5) x10^3/uL RBC (4.1-5.6) x10^6/uL Hgb (12.5-18.0) g/dL Hct (42-50) % MCV (78-100) fL MCH (26-32) pg MCHC (32-36) g/dL RDW (11.5-14.0) % Plt Count (150-450) x10^3/uL MPV (7.5-11.0) fL POC Glucometer 142 H (74 to 106) mg/dL Hemoglobin A1c (4.5-6.0) % Assessment/Plan (1) Post-op bleeding Current Visit: Yes Status: Acute Qualifiers: Surgical complication system/body Area: skin Procedure type: non- dermatologic Qualified Code(s): L76.22 - Postprocedural hemorrhage of skin and subcutaneous tissue following other procedure Assessment & Plan: appears resolved. hgb stable at 8.8 (was 8.6 yesterday). 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 insulin use: without snf use Diabetes mellitus complication status: with skin complications Diabetes mellitus complication detail: with other skin complication Qualified Code(s): E11.628 - Type 2 diabetes mellitus with other skin complications Code(s): E11.9 - TYPE 2 DIABETES MELLITUS WITHOUT COMPLICATIONS (3) Anemia Current Visit: No Status: Acute Qualifiers: Anemia type: other cause Other causes of anemia: other cause, not classified Qualified Code(s): D64.89 - Other specified anemias Code(s): D64.9 - ANEMIA, UNSPECIFIED (4) Diabetic foot ulcer Current Visit: No Status: Acute Qualifiers: Diabetic foot ulcer location: heel Diabetes mellitus type: type 2 Laterality: left Assessment & Plan: likely home tomorrow. Code(s): E11.621 - TYPE 2 DIABETES MELLITUS WITH FOOT ULCER; L97.509 - NON- PRESSURE CHRONIC ULCER OTH PRT UNSP FOOT W UNSP SEVERITY
[2022-04-25] MEDS: Levofloxacin 500 MG Tablet PO SCH (22:14)
[2022-04-25] MEDS: ZOCOR 20MG PO SCH (22:15)
[2022-04-26 04:58] LABS: Hematocrit 29.7 % (42-50); Hemoglobin 9.3 g/dL (12.5-18.0); Mean Cell Volume 79.4 fL (78-100); Mean Corpuscular Hemoglobin 24.9 pg (26-32); Mean Corpuscular Hgb Concent. 31.3 g/dL (32-36); Platelet Count 397 x10^3/uL (150-450); Red Blood Count 3.74 x10^6/uL (4.1-5.6); White Blood Count 10.2 x10^3/uL (4.0-10.5)
[2022-04-26] MEDS: Glucotrol 5 MG PO SCH ×2 (07:45→15:53)
[2022-04-26] MEDS: JARDIANCE PO SCH ×2 (07:45→16:31)
[2022-04-26] MEDS: Glucophage 500 MG PO SCH ×2 (07:45→16:31)
[2022-04-26] MEDS: HYDROCODONE-ACETAMIN 10-325 MG PO PRN ×4 (07:50→21:11)
--- NOTE | 2022-04-26 08:14 | PCM.NOTE ---
Date and Time: 04/26/22 08 Subjective Assessment: patient has no complaints, pain is controlled. tolerating po, awaiting insurance approval to go to half-way Objective Exam General Appearance: no apparent distress Neurologic Exam: alert Wound Assessment: Skin/Wound Assessment Wound/Incision Assessment Start: 04/21/22 11:12 Text: Status: Active Freq: Q6H Protocol: Document 04/26/22 02:00 LB (Rec: 04/26/22 02:25 LB [id number]) Wound/Incision Assessment Right Lower Other Wound Assessment Shift Assessment Wound Type Incision Wound Stage Non Pressure Wound Dressing Status Dry & Intact Drainage Amount None Comment dressing CDI Right Upper Thigh Wound Assessment Shift Assessment Wound Type SKIN GRAFT Wound Stage Non Pressure Wound Dressing Status Dry & Intact Comment dressing in place CDI Wound Photo Photo Taken No Respiratory Exam: normal breath sounds, lungs clear, No respiratory distress Cardiovascular Exam: regular rate/rhythm, normal heart sounds Gastrointestinal/Abdomen Exam: soft, No tenderness, No mass Extremity Exam: other (right lower leg wound vac in place, dressings intact. not undressed as being managed by podiatry) OBJECTIVE DATA Vital Signs: Vital Signs - 24 hr Temp Pulse Resp BP Pulse Ox 04/26/22 07:06 98.0 F 97 H 17 117/55 98 04/26/22 04:00 18 04/26/22 00:00 97.8 F 102 H 17 135/60 92 L 04/25/22 19:26 97.8 F 104 H 18 125/59 96 04/25/22 16:00 97.5 F 104 H 16 125/58 99 04/25/22 12:00 97.3 F 93 H 17 118/58 100 Pain Assessment - Last Documented Pain Intensity 7 Pain Scale Used 0-10 Pain Scale Intake and Output: Intake & Output 04/23/22 04/24/22 04/25/22 04/26/22 11:59 11:59 11:59 11:59 Intake Total 3923 2465 1730 480 Output Total 3400 2950 5250 2300 Balance 319 -227 -2205 -1740 Lab Results: Lab Results-Last 24 Hours 04/25/22 04/25/22 04/25/22 Range/Units 11:25 16:48 20:44 WBC (4.0-10.5) x10^3/uL RBC (4.1-5.6) x10^6/uL Hgb (12.5-18.0) g/dL Hct (42-50) % MCV (78-100) fL MCH (26-32) pg MCHC (32-36) g/dL RDW (11.5-14.0) % Plt Count (150-450) x10^3/uL MPV (7.5-11.0) fL POC Glucometer 149 H 180 H 144 H (74 to 106) mg/dL 04/26/22 04/26/22 Range/Units 04:56 06:48 WBC 10.2 (4.0-10.5) x10^3/uL RBC 3.74 L (4.1-5.6) x10^6/uL Hgb 9.3 L (12.5-18.0) g/dL Hct 29.7 L (42-50) % MCV 79.4 (78-100) fL MCH 24.9 L (26-32) pg MCHC 31.3 L (32-36) g/dL RDW 22.0 H (11.5-14.0) % Plt Count 397 (150-450) x10^3/uL MPV 8.0 (7.5-11.0) fL POC Glucometer 130 H (74 to 106) mg/dL Assessment/Plan (1) Post-op bleeding Current Visit: Yes Status: Acute Qualifiers: Surgical complication system/body Area: skin Procedure type: non- dermatologic Qualified Code(s): L76.22 - Postprocedural hemorrhage of skin and subcutaneous tissue following other procedure Assessment & Plan: hemoglobin up to 9.3, no further bleeding and vitals are stable. 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 insulin use: without long term care social worker use Diabetes mellitus complication status: with skin complications Diabetes mellitus complication detail: with other skin complication Qualified Code(s): E11.628 - Type 2 diabetes mellitus with other skin complications Assessment & Plan: blood sugars are stable on review Code(s): E11.9 - TYPE 2 DIABETES MELLITUS WITHOUT COMPLICATIONS (3) Anemia Current Visit: No Status: Acute Qualifiers: Anemia type: other cause Other causes of anemia: other cause, not classified Qualified Code(s): D64.89 - Other specified anemias Code(s): D64.9 - ANEMIA, UNSPECIFIED
[2022-04-26] MEDS: FISH OIL 1,000 MG CAPSULE PO SCH (09:35)
[2022-04-26] MEDS: ECOTRIN 81 MG PO SCH (09:35)
[2022-04-26] MEDS: Coreg 3.125 MG PO SCH ×2 (09:35→21:11)
[2022-04-26] MEDS: PLAVIX Tablet PO SCH (09:35)
[2022-04-26] MEDS: FEOSOL 325 MG PO SCH (09:35)
[2022-04-26] MEDS: ZYLOPRIM 300 MG PO SCH (09:35)
[2022-04-26] MEDS: NEURONTIN PO SCH ×3 (09:35→21:10)
--- NOTE | 2022-04-26 16:38 | PCM.NOTE ---
Date and Time: 04/26/22 1638 Subjective Assessment: POD #6. Resting comfortably in bed this AM. No complaints. Physical Exam - Narrative Narrative Physical Exam: Podiatry Physical Exam OBJECTIVE DATA Vital Signs: Vital Signs - 24 hr Temp Pulse Resp BP Pulse Ox 04/26/22 12:00 98.0 F 96 H 17 108/52 04/26/22 07:06 98.0 F 97 H 17 117/55 98 04/26/22 04:00 18 04/26/22 00:00 97.8 F 102 H 17 135/60 92 L 04/25/22 19:26 97.8 F 104 H 18 125/59 96 Pain Assessment - Last Documented Pain Intensity 8 Pain Scale Used 0-10 Pain Scale Intake and Output: Intake & Output 04/24/22 04/25/22 04/26/22 04/27/22 11:59 11:59 11:59 11:59 Intake Total 2460 1730 480 Output Total 2950 9900 2300 Snuqwaz -756 -3824 -7752 Lab Results: Lab Results-Last 24 Hours 04/25/22 04/25/22 04/26/22 Range/Units 16:48 20:44 04:56 WBC 10.2 (4.0-10.5) x10^3/uL RBC 3.74 L (4.1-5.6) x10^6/uL Hgb 9.3 L (12.5-18.0) g/dL Hct 29.7 L (42-50) % MCV 79.4 (78-100) fL MCH 24.9 L (26-32) pg MCHC 31.3 L (32-36) g/dL RDW 22.0 H (11.5-14.0) % Plt Count 397 (150-450) x10^3/uL MPV 8.0 (7.5-11.0) fL POC Glucometer 180 H 144 H (74 to 106) mg/dL 04/26/22 04/26/22 04/26/22 Range/Units 06:48 11:53 15:38 WBC (4.0-10.5) x10^3/uL RBC (4.1-5.6) x10^6/uL Hgb (12.5-18.0) g/dL Hct (42-50) % MCV (78-100) fL MCH (26-32) pg MCHC (32-36) g/dL RDW (11.5-14.0) % Plt Count (150-450) x10^3/uL MPV (7.5-11.0) fL POC Glucometer 130 H 112 H 190 H (74 to 106) mg/dL Multi-Disciplinary Progress Notes: Multi-Disciplinary Progress Notes 04/26/22 09:29 Case Management Note by Delmy Zaidi Addendum entered by Delmy Zaidi 04/26/22 12:04: INSURANCE REQUESTING A PEER TO PEER WITH DR. LINDSEY. PER WADE INSURANCE WILL CALL [facility]. LINDSEY'S OFFICE NOTIFIED Original Note: CALLED WADE AT [facility]- STILL WAITING ON PRECERT AT THIS TIME. SHE IS GOING TO CALL INSURANCE TO SEE WHAT THE HOLD UP IS Initialized on 04/26/22 09:29 - END OF NOTE Assessment/Plan (1) Acute postoperative anemia due to expected blood loss Current Visit: Yes Status: Acute Assessment & Plan: Dressings changed to thigh. no strike through on leg. Bleeding stopped. Asymptomatic at this time. No other complaints Tolerated restart of plavix without complication Case management working on placement back to nursing facility- awaiting precert. Daily dressing changes to thigh until DC Ok for dc from my standpoint at this time. 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: without [facility] use Diabetes mellitus complication status: with skin complications Diabetes mellitus complication detail: with other skin complication Qualified Code(s): E11.628 - Type 2 diabetes mellitus with other skin complications Code(s): E11.9 - TYPE 2 DIABETES MELLITUS WITHOUT COMPLICATIONS (3) Diabetic foot ulcer Current Visit: No Status: Acute Qualifiers: Diabetic foot ulcer location: heel Diabetes mellitus type: type 2 Laterality: left Code(s): E11.621 - TYPE 2 DIABETES MELLITUS WITH FOOT ULCER; L97.509 - NON- PRESSURE CHRONIC ULCER OTH PRT UNSP FOOT W UNSP SEVERITY (4) Diabetes type 2, uncontrolled Current Visit: No Status: Chronic Code(s): E11.65 - TYPE 2 DIABETES MELLITUS WITH HYPERGLYCEMIA
[2022-04-26] MEDS: Levofloxacin 500 MG Tablet PO SCH (21:10)
[2022-04-26] MEDS: ZOCOR 20MG PO SCH (21:10)
[2022-04-26] MEDS ORDERED: Levofloxacin 500 MG Tablet PO SCH (22:00)
[2022-04-27] MEDS: HYDROCODONE-ACETAMIN 10-325 MG PO PRN ×3 (03:02→12:03)
[2022-04-27 06:20] LABS: Hematocrit 30.1 % (42-50); Hemoglobin 9.2 g/dL (12.5-18.0); Mean Cell Volume 81.8 fL (78-100); Mean Corpuscular Hgb Concent. 30.6 g/dL (32-36); Mean Platelet Volume 8.2 fL (7.5-11.0); Platelet Count 396 x10^3/uL (150-450); Red Blood Count 3.68 x10^6/uL (4.1-5.6); Red Cell Distribution Width 21.6 % (11.5-14.0); White Blood Count 8.6 x10^3/uL (4.0-10.5)
[2022-04-27] MEDS: Glucotrol 5 MG PO SCH (07:49)
[2022-04-27] MEDS: Glucophage 500 MG PO SCH (07:50)
[2022-04-27] MEDS: JARDIANCE PO SCH (07:51)
[2022-04-27] MEDS: NEURONTIN PO SCH ×2 (08:45→14:41)
[2022-04-27] MEDS: ZYLOPRIM 300 MG PO SCH (08:45)
[2022-04-27] MEDS: FISH OIL 1,000 MG CAPSULE PO SCH (08:46)
[2022-04-27] MEDS: FEOSOL 325 MG PO SCH (08:46)
[2022-04-27] MEDS: ECOTRIN 81 MG PO SCH (08:46)
[2022-04-27] MEDS: Coreg 3.125 MG PO SCH (08:47)
[2022-04-27] MEDS: PLAVIX Tablet PO SCH (08:48)
--- NOTE | 2022-04-27 09:15 | PCM.NOTE ---
Date and Time: 04/27/22913 Subjective Assessment: patient seen and examined this morning. his pain is well controlled, Dr Lindsey changed his dressing to his lower leg this morning and discussed the plan with the patient. he is awaiting precert to go to [facility], will need wound care and assistance Objective Exam General Appearance: no apparent distress Neurologic Exam: alert, oriented x 3 Wound Assessment: Skin/Wound Assessment Wound/Incision Assessment Start: 04/21/22 11:12 Text: Status: Active Freq: Q6H Protocol: Document 04/27/22 08:00 RB (Rec: 04/27/22 08:17 RB [id number]) Wound/Incision Assessment Right Lower Other Wound Assessment Shift Assessment Wound Type Incision Wound Stage Non Pressure Wound Dressing Status Dry & Intact Drainage Amount None Comment Jamal wrap with dressing CDI- wound vac to right foot intact at -175. Right Upper Thigh Wound Assessment Shift Assessment Wound Type SKIN GRAFT Wound Stage Non Pressure Wound Dressing Status Dry & Intact Drainage Amount None Comment dressing CDI Wound Photo Photo Taken No Respiratory Exam: normal breath sounds, lungs clear, No respiratory distress Cardiovascular Exam: regular rate/rhythm, normal heart sounds OBJECTIVE DATA Vital Signs: Vital Signs - 24 hr Temp Pulse Resp BP Pulse Ox 04/27/22 07:51 97.7 F 87 16 100/56 95 04/27/22 04:00 97.9 F 90 18 105/57 97 04/26/22 23:38 97.2 F 97 H 16 110/54 98 04/26/22 19:44 97.3 F 96 H 17 122/60 98 04/26/22 16:00 97.6 F 97 H 16 114/59 94 L 04/26/22 12:00 98.0 F 96 H 17 108/52 Pain Assessment - Last Documented Pain Intensity 6 Pain Scale Used 0-10 Pain Scale Intake and Output: Intake & Output 04/24/22 04/25/22 04/26/22 04/27/22 11:59 11:59 11:59 11:59 Intake Total 2465 2350 460 8598 Output Total 2950 5250 2300 3300 Balance -485 -3520 -1820 -2000 Lab Results: Lab Results-Last 24 Hours 04/26/22 04/26/22 04/26/22 Range/Units 11:53 15:38 21:28 WBC (4.0-10.5) x10^3/uL RBC (4.1-5.6) x10^6/uL Hgb (12.5-18.0) g/dL Hct (42-50) % MCV (78-100) fL MCH (26-32) pg MCHC (32-36) g/dL RDW (11.5-14.0) % Plt Count (150-450) x10^3/uL MPV (7.5-11.0) fL POC Glucometer 112 H 190 H 150 H (74 to 106) mg/dL 04/27/22 04/27/22 Range/Units 06:10 07:26 WBC 8.6 (4.0-10.5) x10^3/uL RBC 3.68 L (4.1-5.6) x10^6/uL Hgb 9.2 L (12.5-18.0) g/dL Hct 30.1 L (42-50) % MCV 81.8 (78-100) fL MCH 25.0 L (26-32) pg MCHC 30.6 L (32-36) g/dL RDW 21.6 H (11.5-14.0) % Plt Count 396 (150-450) x10^3/uL MPV 8.2 (7.5-11.0) fL POC Glucometer 159 H (74 to 106) mg/dL Multi-Disciplinary Progress Notes: Multi-Disciplinary Progress Notes 04/27/22 08:20 Case Management Note by Delmy Zaidi THIS FLATWORK ASSEMBLER CALLED LOCATED WITHIN [facility] OUR PHYSICIAN HAS STILL NOT HEARD FROM THEM FOR THE PEER TO PEER. THEY REPOT IT IS SCHEDULED FOR 1030 BUT THE PHYSICIAN CAN CALL IN AND DO IT SOONER. THIS INFORMATION WAS GIVEN TO DR. LINDSEY'S NURSE Initialized on 04/27/22 08:20 - END OF NOTE 04/26/22 09:29 Case Management Note by Delmy Zaidi Addendum entered by Delmy Zaidi 04/26/22 12:04: INSURANCE REQUESTING A PEER TO PEER WITH DR. LINDSEY. PER WADE INSURANCE WILL CALL [facility]. LINDSEY'S OFFICE NOTIFIED Original Note: CALLED WADE AT [facility]- STILL WAITING ON PRECERT AT THIS TIME. SHE IS GOING TO CALL INSURANCE TO SEE WHAT THE HOLD UP IS Initialized on 04/26/22 09:29 - END OF NOTE Assessment/Plan (1) Post-op bleeding Current Visit: Yes Status: Acute Qualifiers: Surgical complication system/body Area: skin Procedure type: non- dermatologic Qualified Code(s): L76.22 - Postprocedural hemorrhage of skin and subcutaneous tissue following other procedure Assessment & Plan: doing well, no complications. plan to discharge to [facility] when bed is available Code(s): [id number] - (2) Diabetes mellitus Current Visit: Yes Status: Chronic Qualifiers: Diabetes mellitus type: type 2 Diabetes mellitus intermediate frame tender insulin use: without alf use Diabetes mellitus complication status: with skin complications Diabetes mellitus complication detail: with other skin complication Qualified Code(s): E11.628 - Type 2 diabetes mellitus with other skin complications Code(s): E11.9 - TYPE 2 DIABETES MELLITUS WITHOUT COMPLICATIONS (3) Anemia Current Visit: No Status: Acute Qualifiers: Anemia type: other cause Other causes of anemia: other cause, not classified Qualified Code(s): D64.89 - Other specified anemias Code(s): D64.9 - ANEMIA, UNSPECIFIED
[2022-04-27 11:32] VITALS: BP 104/54; PULSE 92; O2SAT 96
--- NOTE | 2022-04-27 13:22 | PCM.NOTE ---
Date and Time: 04/27/22 1322 Subjective Assessment: POD #7. Resting comfortably in bed this AM. No complaints. Physical Exam - Narrative Narrative Physical Exam: Podiatry Physical Exam OBJECTIVE DATA Vital Signs: Vital Signs - 24 hr Temp Pulse Resp BP Pulse Ox 04/27/22 11:31 97.1 F 92 H 18 104/54 96 04/27/22 07:51 97.7 F 87 16 100/56 95 04/27/22 04:00 97.9 F 90 18 105/57 97 04/26/22 23:38 97.2 F 97 H 16 110/54 98 04/26/22 19:44 97.3 F 96 H 17 122/60 98 04/26/22 16:00 97.6 F 97 H 16 114/59 94 L Pain Assessment - Last Documented Pain Intensity 8 Pain Scale Used 0-10 Pain Scale Intake and Output: Intake & Output 04/25/22 04/26/22 04/27/22 04/28/22 11:59 11:59 11:59 11:59 Intake Total 6038 866 3962 Output Total 5250 2300 3300 Balance -3520 -1820 -2000 Lab Results: Lab Results-Last 24 Hours 04/26/22 04/26/22 04/27/22 Range/Units 15:38 21:28 06:10 WBC 8.6 (4.0-10.5) x10^3/uL RBC 3.68 L (4.1-5.6) x10^6/uL Hgb 9.2 L (12.5-18.0) g/dL Hct 30.1 L (42-50) % MCV 81.8 (78-100) fL MCH 25.0 L (26-32) pg MCHC 30.6 L (32-36) g/dL RDW 21.6 H (11.5-14.0) % Plt Count 396 (150-450) x10^3/uL MPV 8.2 (7.5-11.0) fL POC Glucometer 190 H 150 H (74 to 106) mg/dL 04/27/22 04/27/22 Range/Units 07:26 11:25 WBC (4.0-10.5) x10^3/uL RBC (4.1-5.6) x10^6/uL Hgb (12.5-18.0) g/dL Hct (42-50) % MCV (78-100) fL MCH (26-32) pg MCHC (32-36) g/dL RDW (11.5-14.0) % Plt Count (150-450) x10^3/uL MPV (7.5-11.0) fL POC Glucometer 159 H 177 H (74 to 106) mg/dL Multi-Disciplinary Progress Notes: Multi-Disciplinary Progress Notes 04/27/22 13:10 Case Management Note by Delmy Zaidi [facility] HAS RECEIVED APPROVAL FOR PATIENT. THEY WILL CALL BACK WITH A TIME THE [facility] CAN COME GET HIM Initialized on 04/27/22 13:10 - END OF NOTE 04/27/22 11:25 Case Management Note by Delmy Zaidi S/W PATIENT HE CONTINUES TO PLAN TO RETURN TO [facility] AT TIME OF DC Initialized on 04/27/22 11:25 - END OF NOTE 04/27/22 10:28 Case Management Note by Delmy Zaidi PT EVAL FAXED TO [facility] PER INSURANCE REQUEST Initialized on 04/27/22 10:28 - END OF NOTE 04/27/22 08:20 Case Management Note by Delmy Zaidi THIS ENTRY LEVEL PROJECT ENGINEER CALLED [facility] OUR PHYSICIAN HAS STILL NOT HEARD FROM THEM FOR THE PEER TO PEER. THEY REPOT IT IS SCHEDULED FOR 1030 BUT THE PHYSICIAN CAN CALL IN AND DO IT SOONER. THIS INFORMATION WAS GIVEN TO DR. LINDSEY'S NURSE Initialized on 04/27/22 08:20 - END OF NOTE Assessment/Plan (1) Acute postoperative anemia due to expected blood loss Current Visit: Yes Status: Acute Assessment & Plan: Dressings changed to thigh and leg showing signs of partial take of graft at this time No strike through on leg. Bleeding stopped. Asymptomatic at this time. No other complaints Tolerated restart of plavix without complication Approved stay at [facility]. will return tonight Ok for dc from my standpoint at this time. 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 insulin use: without terminal computer operator use Diabetes mellitus complication status: with skin complications Diabetes mellitus complication detail: with other skin complication Qualified Code(s): E11.628 - Type 2 diabetes mellitus with other skin complications Code(s): E11.9 - TYPE 2 DIABETES MELLITUS WITHOUT COMPLICATIONS (3) Diabetic foot ulcer Current Visit: No Status: Acute Qualifiers: Diabetic foot ulcer location: heel Diabetes mellitus type: type 2 Laterality: left Code(s): E11.621 - TYPE 2 DIABETES MELLITUS WITH FOOT ULCER; L97.509 - NON- PRESSURE CHRONIC ULCER OTH PRT UNSP FOOT W UNSP SEVERITY (4) Diabetes type 2, uncontrolled Current Visit: No Status: Chronic Code(s): E11.65 - TYPE 2 DIABETES MELLITUS WITH HYPERGLYCEMIA
--- NOTE | 2022-04-27 14:30 | PCM.DCORD ---
- Discharge Disposition: DC TO ANY "OTHER" SKILLED NURSING Condition: Stable Prescriptions: New Lactobacillus Acidophilus [Acidophilus TABLET] 1 tab PO BID #20 tablet Docusate Sodium 100 mg [Docusate Sodium 100 MG] 100 mg PO BIDPRN PRN #60 cap PRN Reason: Constipation Ferrous Sulfate 325 mg [Feosol 325 mg] 325 mg PO DAILY #30 tablet Levofloxacin [Levofloxacin 500 MG Tablet] 500 mg PO QPM 10 Days #8 tablet Continue Allopurinol 300 mg [Zyloprim 300 mg] 300 mg PO DAILY Clopidogrel Bisulfate [PLAVIX Tablet] 75 mg PO DAILY Atorvastatin Calcium [Lipitor] 80 mg PO HS Aspirin EC 81 mg [Ecotrin 81 mg] 81 mg PO DAILY Dulaglutide [Trulicity] 0.75 mg SQ WEEKLY Gabapentin 900 mg PO TID Empagliflozin/Metformin HCl [Synjardy 5-1,000 mg Tablet] 5 - 1,000 mg PO BID Carvedilol 3.125 mg [Coreg 3.125 MG] 3.125 mg PO BID Delta-3/Dha/Epa/Fish Oil [Fish Oil 1,000 mg Softgel] 2 each PO DAILY Glipizide 5 mg [Glucotrol 5 MG] 5 mg PO BID Hydrocodone/Acetaminophen [Hydrocodone-Acetamin 10-325 mg] 1 each PO Q6HPRN PRN PRN Reason: Pain Additional Instructions: SKILLED NURSING ORDERS: -DIABETIC DIET -ACHS ACCU CHECKS -PT/OT EVAL AND TREAT -SEE ATTACHED MED LIST CÉSAR ORDERS: -DR. LINDSEY TO COME TO [facility] FOR DRESSING CHANGES TO RIGHT FOOT. -KEEP WOUND VAC AND PREVALON BOOT IN PLACE ON RIGHT FOOT. -CALL FOR ANY ISSUES WITH WOUND VAC -DRESSING CHANGES DAILY TO RIGHT THIGH- IODINE, XEROFORM, 4X4, ABD AND SECURE WITH ALLYSON WRAP -PATIENT TO FINISH A 10 DAY COURSE OF LEVAQUIN STARTED HERE. -NONWTBEARING TO RIGHT FOOT Follow up with: PENNY WOODY [Primary Care Provider] -
== END 2022-04-27 15:09 ==
LOC: SDC 09:21 → MED SURG 17:56 → SDC 04-21 10:40
PROVIDERS: ADMIT Family Medicine; ATTEND Family Medicine
DX: E11.621 Type 2 diabetes mellitus with foot ulcer (principal); I73.9 Peripheral vascular disease, unspecified; E11.42 Type 2 diabetes mellitus with diabetic polyneuropathy; M79.671 Pain in right foot; M79.661 Pain in right lower leg; L97.814 Non-pressure chronic ulcer of other part of right lower leg with necrosis of bone; D62 Acute posthemorrhagic anemia; L76.22 Postprocedural hemorrhage of skin and subcutaneous tissue following other procedure; Z79.01 Long term (current) use of anticoagulants; Z79.899 Other long term (current) drug therapy; Z20.828 Contact with and (suspected) exposure to other viral communicable diseases
CPT/HCPCS: 01470; 01480; 13160; 15100; 15275; 28005; 36415; 36430; 80053; 82947; 83036; 85014; 85018; 85025; 85027; 86850; 86900; 86901; 86922; 97161; 97606; 99024; G0378; P9016; 15738; J0690; J1100; J1170; J2250; J2405; J2704; J3010; Q4104; A9270-GY

== ENCOUNTER 2022-05-28 05:43 | Day surgery (SDC) | payer MEDICARE ==
[2022-05-28] MEDS ORDERED: Marcaine Mpf 0.5% Vial 30 Ml ONE (06:26)
[2022-05-28] MEDS ORDERED: XYLOCAINE 1% HCL 20 ML MDV ONE (06:27)
[2022-05-28] MEDS ORDERED: Lactated Ringers 1,000 ML IV SCH (06:30)
[2022-05-28] MEDS ORDERED: CEFAZOLIN 2 GM-D5W BAG** 2 GM/50 ML ML IV SCH (06:30)
[2022-05-28 06:58] LABS: Absolute Neutrophil Ct (ANC) 6.94 x10^3/uL (1.4-6.9); BASOPHIL % 0.6 % (0.0-0.4); Basophil (Absolute #) 0.06 x10^3/uL (0-0.4); Eosinophil % 4.9 % (0.00-5.0); Eosinophil (Absolute #) 0.48 x10^3/uL (0-0.5); Hematocrit 27.6 % (42-50); Hemoglobin 8.3 g/dL (12.5-18.0); IMMATURE GRAN # 0.06 x10^3u/L (0.00-0.03); IMMATURE GRAN % 0.6 % (0.00-0.4); Lymphocyte (Absolute #) 1.59 x10^3/uL (1.0-4.6); Lymphocytes % 16.3 % (24.0-44.0); Mean Cell Volume 80.5 fL (78-100); Mean Corpuscular Hemoglobin 24.2 pg (26-32); Mean Corpuscular Hgb Concent. 30.1 g/dL (32-36); Mean Platelet Volume 7.6 fL (7.5-11.0); Monocyte (Absolute #) 0.61 x10^3/uL (0.0-1.3); Monocytes % 6.3 % (0.0-12.0); Neutrophil % 71.3 % (36.0-66.0); Platelet Count 365 x10^3/uL (150-450); Red Blood Count 3.43 x10^6/uL (4.1-5.6); Red Cell Distribution Width 20.1 % (11.5-14.0); White Blood Count 9.7 x10^3/uL (4.0-10.5)
[2022-05-28] MEDS ORDERED: TORAdol 30 mg Injection ONE (07:01)
[2022-05-28] MEDS ORDERED: Xylocaine-Mpf 2% 5 Ml Vial ONE (07:07)
[2022-05-28] MEDS ORDERED: Versed 2 MG/2 ML Injection ONE (07:07)
[2022-05-28] MEDS ORDERED: DIPRIVAN 200 MG/20 ML IV ONE (07:07)
[2022-05-28] MEDS ORDERED: SUBLIMAZE 100 MCG/2 ML ONE (07:07)
[2022-05-28 07:13] LABS: ALBUMIN 3.6 g/dL (3.5-5.0); ALKALINE PHOSPHATASE 96 U/L (38-126); ANION GAP 11.9 MEQ/L (5-15); BLOOD UREA NITROGEN 5 mg/dL (9-20); CHLORIDE 102 mmol/L (98-107); Calcium 8.6 mg/dL (8.4-10.2); Carbon Dioxide 25 mmol/L (22-30); EST GLOMERULAR FILTRATION RATE > 60.0 ML/MIN; Glucose 140 mg/dL (74-106); Potassium 3.9 mmol/L (3.5-5.1); SGOT/AST 31 U/L (17-59); SGPT/ALT 12 U/L (0-50); SODIUM 135 mmol/L (137-145); Total Protein 6.6 g/dL (6.3-8.2)
[2022-05-28 07:16] LABS: INR 0.94 (0.8-3.0); PROTIME 10.3 SECONDS (9.4-12.5); PTT 29.2 SECONDS (25.1-36.5)
[2022-05-28 08:51] LABS: Hematocrit 27.4 % (42-50); Hemoglobin 8.1 g/dL (12.5-18.0)
[2022-05-28 09:57] VITALS: BP 111/65; PULSE 103; O2SAT 97
--- NOTE | 2022-05-28 10:02 | OP ---
SURGERY DATE/TIME: 05/28/2022 0706 PREOPERATIVE DIAGNOSES: 1) Diabetic foot wound right to level of tendon. 2) Diabetic leg wound to level of bone. 3) Osteomyelitis. 4) Diabetic foot wound. 5) Peripheral neuropathy. 6) Peripheral vascular disease. POSTOPERATIVE DIAGNOSES: 1) Diabetic foot wound right to level of tendon. 2) Diabetic leg wound to level of bone. 3) Osteomyelitis. 4) Diabetic foot wound. 5) Peripheral neuropathy. 6) Peripheral vascular disease. PROCEDURES: 1) Incision and drainage to level of bone with bone debridement and bone biopsy. 2) Incision and drainage multiple areas to level of muscle tendon. 3) Bone biopsy. 4) Application of synthetic skin substitute. 5) Repair and transfer of tibialis anterior to the extensor hallucis longus tendon. SURGEON: John Reyes DPM. SENIOR WINDOWS ADMINISTRATOR: None. ANESTHESIA: Monitored anesthesia care. No local was used due to patient's peripheral neuropathy. HEMOSTASIS: Pressure dressing. ESTIMATED BLOOD LOSS: 500 cc. MATERIALS: Integra Bilayer 2x2, 4-0 Prolene, 3-0 Nylon and 4-0 Monocryl. INJECTABLES: None. INDICATION FOR SURGERY: Kishore is a very pleasant 61-year-old male who is seen today for a limb salvage procedure. The patient has been making significant progress to the lateral aspect of his leg where there was a significant wound dehiscence measuring in the beginning of this journey 32 cm in length with significant bone exposed. At this time the patient has made significant progress following his split thickness skin graft approximately one and a half months ago to the wound healing in multiple locations with some minimal exposed bone to the lateral aspect of the leg and a minimal amount of soft tissue exposed to the distal aspect of the lateral leg. At this time the patient did have an episode where he went to one of the bigger hospitals in the area and a wound care nurse debrided the anterior aspect of his ankle leading to an exposed tendon. At this time the patient does have restless leg and neuropathy and as a result led to bowstringing and opening of that wound significantly. The patient actually had good success with the Integra Bilayer that we applied on his previous visit for shrinking down the wound. The tendon is still exposed and fairly desiccated. Options were discussed with the patient at this time in regards to proceeding the option of a potential resection of the tendon tibialis anterior was discussed and the patient is adamant that he would not like to proceed down that route due to the complications of foot drop that would result and I am in agreement. Bracing at this time would likely be detrimental and due to the fact that the patient is extremely neuropathic he would likely ulcerate because of the pressure secondary to the bracing. At this time we discussed prior to the procedure that no promises were guaranteed however attempts to salvage what tendon was left would be made. At this time the patient understands all risks, complications and benefits of surgical intervention including but not limited to infection, hematoma, seroma, possibility of delayed wound healing, nonwound healing and possibility of failure of surgical intervention, loss of limb and potential loss of life. The patient understands all of this and wishes to proceed. DESCRIPTION OF PROCEDURE AND FINDINGS: The patient was brought into the OR and placed on the OR table in the supine position. At this time monitored anesthesia care was administered until the patient was sedated. At this time the right lower extremity was prepped and draped in the typical sterile fashion and lowered onto the surgical field. At this time attention was directed to the lateral aspect of the leg where a wound measuring significantly smaller at the proximal lateral leg measuring 5.1 x 0.4 was encountered. Bone was still exposed however there is healthy granulation tissue with new epithelialized skin over the dorsal aspect of this bone. Debridement took place. There was an area of concern where there was soft bone. The decision was made to take a bone biopsy at this point and handed off the field for pathologic assessment. At this time debridement took place to the level of the bone at the lateral aspect of the leg. Multiple wounds on the foot located to the anterior ankle, distal lateral ankle and the heel were debrided at this time utilizing a combination of rongeurs, curettes and sharp dissection. Following debridement measurements were taken at the distal lateral ankle. Measurements were 4.6 x 2.5 and the lateral aspect of the foot over the styloid process had a wound measuring 5.2 x 1.4 and over the heel a wound to the level of the tendon was 2.3 x 2.1. Following this, copious amounts of sterile saline were utilized to flush the surgical site. Gloves were changed and instrumentation was exchanged for clean instrumentation. Debridement took place at tibialis anterior tendon. When debriding a majority of the tendon did appear to be nonviable which was resected out. 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 From that standpoint the tendon was retubularized utilizing 4-0 Prolene and then buried beneath the soft tissue utilizing 4-0 Monocryl. After this a 2 x 2 Integra Graft was then placed over the newly debrided tendon after once again copious amounts of sterile saline flushing the surgical site. Any nonviable tissue at the wound margin was then resected and the Integra Graft was placed and secured utilizing 3-0 Nylon. At this time a dressing consisting of Betadine, Adaptic, 4x4, Kerlix and ALLYSON was applied to the lateral aspect of the leg and foot excluding the tibialis anterior tendon and graft site. Over the graft site iodine was applied around the edges and clean Adaptic was placed over this area. A mild compression dressing was applied to the right lower extremity utilizing iodine, Adaptic, 4x4, Kerlix and ALLYSON. The patient was then reversed from anesthesia and returned to the postoperative anesthesia care unit with vital signs stable and vascular status intact. The patient handled the anesthesia as well as the procedure without significant complication. Postoperative orders as indicated in the patient's discharge chart.
== END 2022-05-28 10:30 ==
LOC: SDC 05:43
PROVIDERS: ATTEND Podiatrist Foot & Ankle Surgery
DX: E11.42 Type 2 diabetes mellitus with diabetic polyneuropathy (principal); E11.621 Type 2 diabetes mellitus with foot ulcer; E11.40 Type 2 diabetes mellitus with diabetic neuropathy, unspecified; I73.9 Peripheral vascular disease, unspecified; M86.9 Osteomyelitis, unspecified
CPT/HCPCS: 36415; 80053; 82947; 85014; 85018; 85025; 85610; 85730; 96365; 99211; J0690; J1885; J2250; J2704; J3010

== ENCOUNTER 2022-07-13 09:46 | Day surgery (SDC) | payer MEDICARE ==
[2022-07-13] MEDS ORDERED: Heparin 1000 units/ml (10 Ml vial) 1,000 U in Sodium Chloride 0.9% 500 ML 500 ML IV ONE (09:47)
[2022-07-13] MEDS ORDERED: CEFAZOLIN 2 GM-D5W BAG** 2 GM/50 ML ML IV SCH (10:30)
[2022-07-13] MEDS ORDERED: Lactated Ringers 1,000 ML IV ONE ×2 (10:40→13:09)
[2022-07-13] MEDS ORDERED: CEFAZOLIN 2 GM-D5W BAG** 2 GM/50 ML ML IV ONE (10:40)
[2022-07-13] MEDS: Lactated Ringers 1,000 ML IV SCH ×2 (10:44→21:18)
[2022-07-13 10:46] LABS: Hematocrit 33.5 % (42-50); Hemoglobin 10.1 g/dL (12.5-18.0); Mean Cell Volume 79.8 fL (78-100); Mean Corpuscular Hgb Concent. 30.1 g/dL (32-36); Platelet Count 480 x10^3/uL (150-450); Red Cell Distribution Width 18.4 % (11.5-14.0); White Blood Count 12.1 x10^3/uL (4.0-10.5)
[2022-07-13 11:00] LABS: ALKALINE PHOSPHATASE 100 U/L (38-126); ANION GAP 13.9 MEQ/L (5-15); BLOOD UREA NITROGEN 9 mg/dL (9-20); CHLORIDE 99 mmol/L (98-107); Calcium 9.1 mg/dL (8.4-10.2); Carbon Dioxide 28 mmol/L (22-30); Creatinine 1 0.54 mg/dL (0.66-1.25); EST GLOMERULAR FILTRATION RATE > 60.0 ML/MIN; Glucose 176 mg/dL (74-106); Potassium 4.1 mmol/L (3.5-5.1); SGOT/AST 25 U/L (17-59); SGPT/ALT 28 U/L (0-50); SODIUM 136 mmol/L (137-145); Total Protein 7.5 g/dL (6.3-8.2)
[2022-07-13 11:02] LABS: INR 0.94 (0.8-3.0); PROTIME 10.3 SECONDS (9.4-12.5); PTT 26.5 SECONDS (25.1-36.5)
[2022-07-13] MEDS ORDERED: Marcaine Mpf 0.5% Vial 30 Ml ONE (13:09)
[2022-07-13] MEDS ORDERED: MINERAL OIL LIGHT 10 ML FOR SURGERY ONE (13:09)
[2022-07-13] MEDS ORDERED: Xylocaine 1% Vial 30 ML PF IJ ONE (13:10)
[2022-07-13] MEDS ORDERED: XYLOCAINE 1%/Epi 1:100000 MDV 20 ML ONE (13:20)
[2022-07-13] MEDS ORDERED: Xylocaine-Mpf 2% 5 Ml Vial ONE (13:50)
[2022-07-13] MEDS ORDERED: Quelicin Fliptop 200 MG/10 ML ONE (13:50)
[2022-07-13] MEDS ORDERED: Zofran 4 MG/2 ML VIAL ONE (13:50)
[2022-07-13] MEDS ORDERED: DIPRIVAN 200 MG/20 ML IV ONE (13:51)
[2022-07-13] MEDS ORDERED: Amidate 20 MG/10 ML IV ONE (13:52)
[2022-07-13] MEDS ORDERED: Versed 2 MG/2 ML Injection ONE (13:54)
[2022-07-13] MEDS ORDERED: SUBLIMAZE 100 MCG/2 ML ONE ×2 (13:55→15:12)
[2022-07-13] MEDS ORDERED: Thrombin-JMI 5000 UNITS TP ONE (14:29)
[2022-07-13] MEDS ORDERED: Docusate Sodium 100 MG PO PRN (17:16)
[2022-07-13] MEDS ORDERED: HYDROCODONE-ACETAMIN 10-325 MG PO PRN (17:16)
[2022-07-13] MEDS ORDERED: Cyanocobalamin B-12 1000 MCG/ML IJ SCH (17:30)
[2022-07-13] MEDS ORDERED: NON-FORMULARY ITEM (Dulaglutide [Trulicity] 0.75 MG/0.5 ML Pen.Injctr) SQ SCH (17:30)
[2022-07-13] MEDS ORDERED: MEDICATION INTERVENTION MC SCH (17:45)
[2022-07-13] MEDS: Glucophage 500 MG PO SCH (18:02)
[2022-07-13] MEDS: JARDIANCE PO SCH (18:03)
[2022-07-13] MEDS: NEURONTIN PO SCH (21:02)
[2022-07-13] MEDS: Glucotrol 5 MG PO SCH (21:03)
[2022-07-13] MEDS: Coreg 3.125 MG PO SCH (21:03)
[2022-07-13] MEDS ORDERED: ZOCOR 20MG PO SCH (22:00)
[2022-07-13] MEDS ORDERED: NON-FORMULARY ITEM (Gabapentin [Gabapentin] 800 MG Tablet) PO SCH (22:00)
[2022-07-13] MEDS ORDERED: REQUIP 2MG TAB PO SCH (22:00)
[2022-07-13] MEDS ORDERED: EMPAGLIFLOZIN PO SCH (22:00)
[2022-07-13] MEDS ORDERED: METFORMIN HCL PO SCH (22:00)
[2022-07-13] MEDS ORDERED: NON-FORMULARY ITEM (Atorvastatin Calcium [Lipitor] 80 MG Tablet) PO SCH (22:00)
[2022-07-13] MEDS ORDERED: NON-FORMULARY ITEM (Ropinirole Hcl [Ropinirole Hcl] 1 MG Tablet) PO SCH (22:00)
[2022-07-13] MEDS ORDERED: [UNRECOGNIZED DRUG - OTHER] PO SCH (22:00)
[2022-07-13] MEDS: HYDROCODONE-ACETAMIN 10-325 MG PO PRN (22:04)
[2022-07-14] MEDS: HYDROCODONE-ACETAMIN 10-325 MG PO PRN ×2 (04:07→08:21)
[2022-07-14 07:46] VITALS: BP 121/61; PULSE 87; O2SAT 93
--- NOTE | 2022-07-14 08:15 | OP ---
SURGERY DATE/TIME: 07/13/2022 3839 PREOPERATIVE DIAGNOSES: 1) Osteomyelitis right leg. 2) Diabetic foot wound x4. 3) Peripheral neuropathy secondary to diabetes mellitus type II. 4) Peripheral vascular disease. 5) Chronic nonhealing wounds. POSTOPERATIVE DIAGNOSES: 1) Osteomyelitis right leg. 2) Diabetic foot wound x4. 3) Peripheral neuropathy secondary to diabetes mellitus type II. 4) Peripheral vascular disease. 5) Chronic nonhealing wounds. PROCEDURES: 1) Incision and drainage with bone debridement to the leg. 2) Incision and drainage to the level of muscle right ankle. 3) Split thickness skin graft from left thigh and right foot x3. SURGEON: John Reyes DPM. PRINT DEVELOPER AUTOMATIC: None. ANESTHESIA: General. HEMOSTASIS: Pressure dressing. ESTIMATED BLOOD LOSS: Less than 10 cc. MATERIALS: 3-0 Nylon. INJECTABLES: 20 cc of 1:1 mixture of 1% lidocaine plain and 0.5% bupivacaine plain injected in a V-block type fashion to the right lateral leg. INDICATION FOR SURGERY: Kishore is a very pleasant 61-year-old male well known to my service who has chronic nonhealing wound to the left lower extremity. The patient has made significant improvement since his initial trip to the OR and has resolved many of the complications that he has suffered along the way. The lateral left knee is basically healed with the exception of some small exposed bone with current osteomyelitis. The anterior aspect of the leg underwent a tendon transfer and retubularization previously as well as application of Integra Graft which took beautifully and is now healthy and granular ready for a split thickness skin graft. He does have two other wounds lateral aspect of the leg and a portion of the lateral leg which was a partial success however a failure. Split thickness skin graft was decided as an option today to hopefully get him healed up and done for this surgical intervention in order to heal the issues. The patient has had success with this grafting technique in the past and he would like similar outcome of this leg. The patient understands all risks, complications and benefits of surgical intervention including but not limited to infection, hematoma, seroma, possibility of delayed wound healing, delayed skin healing, nonskin healing, possibility of need for surgical intervention at a later date as well as failure of surgical intervention. The patient does has significant healing issues which is primarily secondary to his peripheral vascular disease. We have been keeping in close contact with his vascular surgeon and the patient understands that there is a possibility of an amputation at a later date is not out of the question. Our goal is to preserve his lower extremity as long as humanly possible. The patient understands all of this. Plenty of time was allowed for the patient to ask questions which were answered to the patient's apparent satisfaction. It is with that we decided to proceed. DESCRIPTION OF PROCEDURE AND FINDINGS: The patient is brought into the OR and placed on the OR table in the supine position. At this time, general anesthesia was administered until the patient was sedated. The bilateral lower extremity was prepped and draped in the typical sterile fashion and lowered onto the surgical field. At this time a curette was utilized to debride the wounds at the lateral aspect to the level of bone at the lateral leg. A small sample of bone was taken in order to culture to check for change in antibiotics if necessary this was handed off the field. Following this, curette was utilized to debride the anterior aspect of the right ankle. The lateral aspect of the foot at the location of the styloid process and then minimally at the distal aspect of the fibula where there is some soft tissue coverage which is healthy granular and bled well. This was flushed with copious amounts of sterile saline under Pulsavac. Following this, harvest was obtained from the left thigh this was obtained with first injecting lidocaine with epinephrine above the harvest site cleaning off the area and then applying mineral spirits to the site for lubrication. The harvest was then performed under tension and was harvested 201 to 125 dermatome mesher this was then secured to the wound utilizing 2-0 Nylon in a simple interrupted-type fashion. Following application of the split thickness skin graft, the leg was cleansed. A dressing consisting of Betadine, Adaptic, 4x4, Kerlix and ALLYSON were applied to the right lower extremity with bolster dressings to encourage take of the graft. Following this the left lower extremity had a dressing consisting of Adaptic, 4x4, ABD, Kerlix and ALLYSON to secure the graft site. The patient was reversed from anesthesia and returned to the postoperative anesthesia care unit with vital signs stable and vascular status intact. The patient handled the anesthesia as well as the procedure without significant complication. Postoperative orders as indicated in the patients discharge chart.
[2022-07-14] MEDS ORDERED: ECOTRIN 81 MG PO SCH (10:00)
[2022-07-14] MEDS ORDERED: ZYLOPRIM 300 MG PO SCH (10:00)
[2022-07-14] MEDS ORDERED: DAPTOmycin 700 MG in Sodium Chloride Flush 30 ML*** 14 ML IV SCH (10:00)
[2022-07-14] MEDS ORDERED: FEOSOL 325 MG PO SCH (10:00)
[2022-07-14] MEDS ORDERED: FISH OIL 1,000 MG CAPSULE PO SCH (10:00)
[2022-07-14] MEDS ORDERED: PLAVIX Tablet PO SCH (10:00)
[2022-07-14] MEDS: NEURONTIN PO SCH (10:23)
[2022-07-14] MEDS: Coreg 3.125 MG PO SCH (10:24)
[2022-07-14] MEDS: Glucotrol 5 MG PO SCH (10:28)
[2022-07-14] MEDS: Glucophage 500 MG PO SCH (10:28)
[2022-07-14] MEDS: JARDIANCE PO SCH (10:28)
--- NOTE | 2022-07-14 11:07 | XRAY ---
Indication: Ultrasound guidance for PICC line placement. Initial sonographic imaging of the left upper extremity was performed for localization of patent veins. A patent basilic vein identified above the elbow. Ultrasound guidance was then used for PICC line insertion. Full PICC line insertion is reported separately.
--- NOTE | 2022-07-14 11:17 | XRAY ---
Indication: Long-term IV access and therapy for right foot osteomyelitis. Informed consent obtained. Patient was placed on the fluoroscopic table in a supine position. Initial sonographic imaging of the left upper extremity was performed for localization of patent veins. The left upper extremity was then prepped and draped in sterile fashion. Tourniquet applied. 1% lidocaine plain used for local anesthesia. Using ultrasound guidance and a micropuncture needle, a basilic vein above the elbow was successfully percutaneously cannulized. A floppy tip 0.018 guidewire inserted. Tourniquet released. Needle was exchanged for a 5 [place] dilator peel-away sheath catheter. Ultimately a 5 [place] double-lumen PICC line was inserted over a longer 0.018 guidewire with the tip positioned in the distal SVC using fluoroscopic guidance. Guidewire removed. Both ports flushed with heparinized saline. Catheter was secured. Postoperative instructions and orders given. Patient discharged in good condition. Impression: Technically successful left upper extremity PICC line placement using ultrasound and fluoroscopic guidance. No immediate complications. Approximately 3 cc blood loss. Approximately 0.7 minute of fluoroscopy used. Catheter length is 50 cm.
== END 2022-07-14 11:16 ==
LOC: SDC 09:46 → MED SURG 16:33 → SDC 07-14 11:16
PROVIDERS: ATTEND Podiatrist Foot & Ankle Surgery
DX: M86.9 Osteomyelitis, unspecified (principal); E11.42 Type 2 diabetes mellitus with diabetic polyneuropathy; I73.9 Peripheral vascular disease, unspecified; S91.301A Unspecified open wound, right foot, initial encounter
CPT/HCPCS: 11044; 15120; 27607; 28003; 36415; 36573; 76937; 77001; 80053; 82550; 82947; 85027; 85610; 85730; 87040; 87070; 87075; C1769; J0330; J0690; J0878; J1642; J1644; J2001; J2250; J2405; J2704; J3010; A9270-GY

== ENCOUNTER 2022-08-06 07:24 | Day surgery (SDC) | payer MEDICARE ==
[2022-08-06] MEDS ORDERED: Thrombin-JMI 5000 UNITS TP ONE (07:25)
[2022-08-06] MEDS ORDERED: Lactated Ringers 1,000 ML IV SCH (07:30)
[2022-08-06] MEDS ORDERED: CEFAZOLIN 2 GM-D5W BAG** 2 GM/50 ML ML IV SCH ×2 (07:30→09:00)
[2022-08-06 07:52] LABS: Hematocrit 34.7 % (42-50); Hemoglobin 10.6 g/dL (12.5-18.0); Mean Corpuscular Hemoglobin 24.1 pg (26-32); Mean Corpuscular Hgb Concent. 30.5 g/dL (32-36); Mean Platelet Volume 8.3 fL (7.5-11.0); Platelet Count 367 x10^3/uL (150-450); Red Blood Count 4.39 x10^6/uL (4.1-5.6); Red Cell Distribution Width 18.2 % (11.5-14.0); White Blood Count 11.5 x10^3/uL (4.0-10.5)
[2022-08-06 08:07] LABS: INR 0.89 (0.8-3.0); PROTIME 9.8 SECONDS (9.4-12.5); PTT 27.9 SECONDS (25.1-36.5)
[2022-08-06] MEDS ORDERED: Lactated Ringers 1,000 ML IV ONE (08:25)
[2022-08-06] MEDS ORDERED: CEFAZOLIN 2 GM-D5W BAG** 2 GM/50 ML ML IV ONE (08:25)
[2022-08-06 08:38] LABS: ALBUMIN 4.1 g/dL (3.5-5.0); ALKALINE PHOSPHATASE 108 U/L (38-126); ANION GAP 16.1 MEQ/L (5-15); BLOOD UREA NITROGEN 12 mg/dL (9-20); CHLORIDE 97 mmol/L (98-107); Calcium 9.2 mg/dL (8.4-10.2); Carbon Dioxide 27 mmol/L (22-30); Creatinine 1 0.57 mg/dL (0.66-1.25); EST GLOMERULAR FILTRATION RATE > 60.0 ML/MIN; Glucose 157 mg/dL (74-106); SGOT/AST 23 U/L (17-59); SGPT/ALT 31 U/L (0-50); SODIUM 136 mmol/L (137-145); Total Protein 7.9 g/dL (6.3-8.2)
--- NOTE | 2022-08-06 10:07 | XRAY ---
Indication: PICC placement. Comparison: February 26, 2022 Portable chest demonstrates new right arm PICC line with tip projecting over distal SVC. Stable minimal right suprahilar subsegmental atelectasis/scarring. Remaining heart and lungs unremarkable.
[2022-08-06] MEDS ORDERED: SUBLIMAZE 100 MCG/2 ML ONE (11:35)
[2022-08-06] MEDS ORDERED: Decadron 4 MG INJ ONE (11:35)
[2022-08-06] MEDS ORDERED: TORAdol 30 mg Injection ONE (11:35)
[2022-08-06] MEDS ORDERED: BRIDION 200MG/2ML IV ONE (11:35)
[2022-08-06] MEDS ORDERED: Zofran 4 MG/2 ML VIAL ONE (11:35)
[2022-08-06] MEDS ORDERED: Xylocaine-Mpf 2% 5 Ml Vial ONE (11:35)
[2022-08-06] MEDS ORDERED: DIPRIVAN 200 MG/20 ML IV ONE (11:35)
[2022-08-06] MEDS ORDERED: Zemuron 100 MG/10 ML ONE (11:35)
[2022-08-06] MEDS ORDERED: XYLOCAINE 1%/Epi 1:100000 MDV 20 ML ONE (11:56)
[2022-08-06] MEDS ORDERED: MINERAL OIL LIGHT 10 ML FOR SURGERY ONE (11:56)
[2022-08-06 14:54] VITALS: O2SAT 97
[2022-08-06 14:57] VITALS: BP 120/88; PULSE 76
--- NOTE | 2022-08-09 13:30 | OP ---
SURGERY DATE/TIME: 08/06/2022 1145 PREOPERATIVE DIAGNOSES: 1) Osteomyelitis right leg. 2) Diabetic foot wound x4. 3) Peripheral neuropathy secondary to diabetes mellitus type II. 4) Peripheral vascular disease. 5) Chronic nonhealing wound. POSTOPERATIVE DIAGNOSES: 1) Osteomyelitis right leg. 2) Diabetic foot wound x4. 3) Peripheral neuropathy secondary to diabetes mellitus type II. 4) Peripheral vascular disease. 5) Chronic nonhealing wound. PROCEDURES: 1) I&D with bone debridement to the right leg. 2) I&D to the level of muscle and tendon right foot. 3) Split thickness skin graft harvest from left thigh to right foot x3. SURGEON: John Reyes DPM. RESIDENCE LIFE COORDINATOR: None. ANESTHESIA: General. HEMOSTASIS: Pressure dressing. ESTIMATED BLOOD LOSS: Less than 10 cc. MATERIALS: 3-0 Nylon. INJECTABLES: 20 cc of 1:1 mixture of 1% lidocaine plain and 0.5% bupivacaine plain injected a V-block fashion to the right lateral leg as well as 1% lidocaine with epi for harvest from left leg. INDICATION FOR SURGERY: Kishore is a very pleasant 61-year-old male who is very well known to our service for a limb salvage case with chronic nonhealing wound to the right lower extremity. The patient has resolved many of these issues at this time and is on his last bit wound to heal. He recently underwent surgical intervention on 07/13/2022 for the same procedure. However, the day after the procedure the group home changed the dressing and pulled the split thickness graft off of his leg. Discussion was had with the patient in order to see what indications best fit proceeding with an Allograft or repeat split thickness skin graft was the best option. The patient indicated that he would like to proceed with another attempt at the split thickness skin graft. With this opportunity we decided to continue with debridement repeatedly to the right lower extremity in order to heal his leg and get him up and weightbearing as the goal has been since the beginning of embarking on this limb salvage case. It is with that the patient understands all risks, complications and benefits of surgical intervention including but not limited to infection, hematoma, seroma, possibility of delayed wound healing, nonwound healing, possibility of infection to the level of bone, possibility of need of repeat surgical intervention and possibility of failure of surgical intervention. No guarantees have been provided as to the outcome in his specific. The patient understands that below knee amputation is not off of the table in order to save his life, if necessary. The patient understands all of these risks and wishes to proceed with surgical intervention. Plenty of time was allowed for the patient to ask questions to his apparent satisfaction and it is with that we decided to proceed. DESCRIPTION OF PROCEDURE AND FINDINGS: The patient is brought into the OR and placed on the OR table in the supine position. At this time, general anesthesia was administered until the patient was sedated. At this time the bilateral lower extremities were prepped and draped in the typical sterile fashion and lowered onto the surgical field. At this time a curette was utilized to debride the wound at the lateral aspect of the lateral leg. A portion of bone was still exposed at the lateral aspect of the fibula which was then curetted. A 15 blade was utilized to make an incision to the surrounding skin edges. Healthy bleeding was noted at this site. The same procedure was performed to the wound at the distal aspect of the lateral malleolus, lateral aspect of the styloid process of the fifth metatarsal, the posterior heel as well as the anterior aspect of the right ankle where a significant wound where recently has healed over the tibialis anterior tendon. At this time the sites were then flushed with copious amounts of sterile saline. Attention was directed to the left leg from a 3 inch guard was sized on the harvester for the dermatome, this was performed after injecting approximately the lidocaine with epi proximally and mineral spirits were utilized to slick the surface for the harvest. The harvest site was then prepared. Under tension the harvest was completed and the graft was then run through a 1 to 1.5 mesher this fenestrated the surface of the graft. The graft was first placed on the anterior aspect of the wound. Any overhanging margins were resected and the lateral styloid process of the fifth metatarsal was then debrided and secured to this full thickness skin graft. The distal aspect of the fibula the blade was then changed out for a 2 inch blade and the 3 inch guard was taken off and the 2 inch guard was placed. Another split thickness graft was taken and run through the dermatome and run through the 1 to 1.5 mesher. At this time this was applied to the site over the lateral aspect of the right ankle at the lateral malleolus and also proximal aspect of the right leg this was all attached utilizing 3-0 Nylon in simple interrupted-type fashion. Following the application of the split thickness skin graft, the leg was cleansed. A dressing consisting of Betadine surrounding the wound, Adaptic, 4x4, Kerlix, and ALLYSON was applied to the right lower extremity with a bolster dressing to encourage take of the graft. Following this the left lower extremity had dressing consisting of iodine, Xeroform, 4x4, ABD, Kerlix and ALLYSON to secure the graft site. The patient was then reversed anesthesia and returned to the postoperative anesthesia care unit with vital signs stable and vascular status intact. The patient handled the anesthesia as well as the procedure without significant complications. Postoperative orders as indicated in the patient's discharge chart.
== END 2022-08-06 15:20 | disposition home or self-care (01) ==
LOC: SDC 07:24
PROVIDERS: ATTEND Podiatrist Foot & Ankle Surgery
DX: M86.9 Osteomyelitis, unspecified (principal); E11.621 Type 2 diabetes mellitus with foot ulcer; E11.42 Type 2 diabetes mellitus with diabetic polyneuropathy; E11.51 Type 2 diabetes mellitus with diabetic peripheral angiopathy without gangrene; S91.301A Unspecified open wound, right foot, initial encounter; I10 Essential (primary) hypertension
CPT/HCPCS: 15100; 27605; 28005; 36415; 71045; 80053; 85027; 85610; 85730; J0690; J1100; J1642; J1885; J2405; J2704; J3010; A9270-GY

== ENCOUNTER 2022-09-14 09:49 | Day surgery (SDC) | payer MEDICARE ==
[~2022-09-14 09:49] MED LIST changes: +Xylocaine 1% Vial 30 ML PF IJ ONE
[2022-09-14] MEDS ORDERED: Lactated Ringers 1,000 ML IV SCH (10:00)
[2022-09-14] MEDS ORDERED: CEFAZOLIN 2 GM-D5W BAG** 2 GM/50 ML ML IV SCH (10:00)
[2022-09-14 10:30] LABS: Hematocrit 33.6 % (42-50); Mean Cell Volume 79.1 fL (78-100); Mean Corpuscular Hemoglobin 23.5 pg (26-32); Mean Corpuscular Hgb Concent. 29.8 g/dL (32-36); Mean Platelet Volume 8.3 fL (7.5-11.0); Platelet Count 509 x10^3/uL (150-450); Red Blood Count 4.25 x10^6/uL (4.1-5.6); Red Cell Distribution Width 17.9 % (11.5-14.0); White Blood Count 15.5 x10^3/uL (4.0-10.5)
[2022-09-14 10:50] LABS: INR 0.9 (0.8-3.0); PROTIME 9.9 SECONDS (9.4-12.5); PTT 27.3 SECONDS (25.1-36.5)
[2022-09-14 10:57] LABS: ALBUMIN 4.5 g/dL (3.5-5.0); BILIRUBIN,TOTAL 0.7 mg/dL (0.2-1.3); Total Protein 8.6 g/dL (6.3-8.2)
[2022-09-14 11:00] LABS: ISTAT CREA 0.6 mg/dL (0.6-1.3); ISTAT K 4.9 mmol/L (3.5-4.9); ISTAT iCA 1.15 mmol/L (1.12-1.32)
[2022-09-14 13:28] VITALS: BP 138/69; PULSE 93; O2SAT 100
--- NOTE | 2022-09-15 08:15 | OP ---
SURGERY DATE/TIME: 09/14/2022 1156 PREOPERATIVE DIAGNOSES: 1) Diabetic foot wound. 2) Diabetes peripheral neuropathy. 3) Peripheral vascular disease. 4) Right foot pain. 5) Right ankle pain. 6) Full thickness ulceration to the level of bone lateral aspect of ankle/fibula and exposed bone at level of styloid process of the fifth metatarsal. POSTOPERATIVE DIAGNOSES: 1) Diabetic foot wound. 2) Diabetes peripheral neuropathy. 3) Peripheral vascular disease. 4) Right foot pain. 5) Right ankle pain. 6) Full thickness ulceration to the level of bone lateral aspect of ankle/fibula and exposed bone at level of styloid process of the fifth metatarsal. PROCEDURES: 1) I&D and bone debridement of the right leg. 2) I&D and bone debridement of the right foot. 3) Application of split thickness skin substitute DermaSpan 12 x 12 cm. SURGEON: John Reyes DPM. ICE CREAM SHOP ASSOCIATE: None. ANESTHESIA: Local. HEMOSTASIS: Pressure dressing. ESTIMATED BLOOD LOSS: Approximately 40 cc. MATERIALS: 12 x 12 DermaSpan, 3-0 nylon. INJECTABLES: 10 cc of 1:1 mixture of 1% lidocaine plain and 0.5% bupivacaine plain injected in a V block-type fashion to the proximal lateral leg. DESCRIPTION OF PROCEDURE AND FINDINGS: Kishore was brought into the OR and placed on the OR table in the supine position. At this time the right lower extremity was prepped and draped in typical sterile fashion up to the level of the thigh and lowered onto the surgical field. At this time the wounds were inspected and measured. The lateral aspect of the leg measured 20 x 3 at the largest margin. The posterior aspect of the calcaneus measured 3 x 1.2. The lateral wound of the styloid process measured 3.5 x 2.4. The wound at the anterior ankle split into two separate wounds which measured 3.2 x 2.2 and 6.3 x 0.8. All of these wounds were debrided. In the case of the lateral aspect of the leg at the proximal portion of the lateral leg wound was debrided down to the level of bone obtaining a healthy bleeding surface. The lateral aspect of the foot at the level of the styloid process of the foot was debrided to the level of the styloid process. The other areas were debrided to the level of soft tissue. Following this, the area was cleansed with 3 liters of sterile saline on Pulsavac and following this the DermaSpan 12 x 12 graft was split in half run through a 1 to 1.5 mesher and applied with minimal tension to the wounds in total this was secured utilizing 3-0 Nylon in a simple interrupted-type fashion to multiple locations around each area on the graft. Following this the wound was cleansed with sterile saline. A dressing consisting of Xeroform, 4x4, ABD, Kerlix, 4 inch and 6 inch ALLYSON were applied to the right lower extremity orthogonal relative to longitudinal axis. The patient was returned to the postoperative anesthesia care unit with vital signs stable and vascular status intact. The patient handled the anesthesia as well as the procedure without significant complication. Postoperative orders as indicated in the patients discharge chart.
== END 2022-09-14 15:00 ==
LOC: SDC 09:49
PROVIDERS: ATTEND Podiatrist Foot & Ankle Surgery
DX: E11.621 Type 2 diabetes mellitus with foot ulcer (principal); E11.42 Type 2 diabetes mellitus with diabetic polyneuropathy; E11.51 Type 2 diabetes mellitus with diabetic peripheral angiopathy without gangrene; M79.671 Pain in right foot; M25.571 Pain in right ankle and joints of right foot
CPT/HCPCS: 15275; 27607; 28005; 36415; 80047; 82040; 82247; 82947; 83521; 84075; 84450; 84460; 85027; 85610; 85730; J0690; J2001

== ENCOUNTER 2022-11-02 06:12 | Day surgery (SDC) | payer MEDICARE ==
[2022-11-02] MEDS ORDERED: Lactated Ringers 1,000 ML IV SCH (06:30)
[2022-11-02 06:40] VITALS: RESP 16
[2022-11-02] MEDS ORDERED: Xylocaine-Mpf 2% 5 Ml Vial ONE (07:01)
[2022-11-02] MEDS ORDERED: DIPRIVAN 200 MG/20 ML IV ONE ×2 (07:01→07:21)
[2022-11-02 07:41] VITALS: O2SAT 100
[2022-11-02] MEDS ORDERED: Sodium Chloride 0.9% 10 ML FLUSH Syringe PICC PRN (07:42)
[2022-11-02 07:53] VITALS: BP 111/59; PULSE 90; TEMP 98.4
--- NOTE | 2022-11-02 16:21 | OP ---
SURGERY DATE: 11/02/2022 SURGERY TIME: 0700 PREOPERATIVE DIAGNOSIS: 1. ANEMIA. POSTOPERATIVE DIAGNOSIS: 1. 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 2. DIVERTICULOSIS THROUGHOUT THE COLON. PROCEDURE: 1. Esophagogastroduodenoscopy. 2. Colonoscopy. SURGEON: Dr. Dunlap. ANESTHESIA: Given by the Anesthesia Department. BRIEF HISTORY: The patient is a 62 year-old white male patient presenting now for evaluation. The patient reported he had had some anemia problems. He has been placed on iron, but his oncologist wished us to do an evaluation of the gastrointestinal tract. The patient was appraised of the risks of the procedure including the risk of perforation, phlebitis, untoward reaction to medication, bleeding, and missed lesions. The patient verbalized his understanding and desired to have the procedure performed. DESCRIPTION OF PROCEDURE: The patient was given the medications by the Anesthesia Department. He was placed in the left lateral decubitus position. A bite block was placed and the flexible Olympus gastroscope was used to intubate the oropharynx. A view of the larynx was normal. The scope was easily introduced in the esophagus which appeared to be normal throughout its length. The stomach was entered where a chemical type gastropathy was apparent, no other mucosal lesions being noted. The gastric rugal folds distended nicely with the insufflation of air. The scope was passed along the greater curvature of the stomach to the antrum. The pylorus was encountered and intubated. The duodenum was inspected and found to be normal. The scope was withdrawn towards the stomach. Again, a retroflex view of the cardia and fundus regions of the stomach revealed no evidence of hiatal hernia. No other mucosal lesions being encountered, the scope was removed from the patient. Next, a digital rectal examination was performed and revealed normal anal sphincter tone, no masses, and a normal prostate. The flexible Olympus pediatric colonoscope was used to intubate the rectum. A view of the colon was developed sequentially to the cecum as identified by the appendiceal orifice and ileocecal valve. There was noted to be fairly poor prep through the colon and semisolid stool in the right hemicolon. The patient was noted to have diverticula throughout the colon. No bleeding was noted. No other mucosal lesions being encountered, the scope was removed from the patient who tolerated the procedure well and was sent back to OP recovery in good condition. The prep was considered to be poor.
== END 2022-11-02 08:19 ==
LOC: SDC 06:12
PROVIDERS: ATTEND Family Medicine
DX: K57.30 Diverticulosis of large intestine without perforation or abscess without bleeding (principal); D64.9 Anemia, unspecified; K31.9 Disease of stomach and duodenum, unspecified; E11.9 Type 2 diabetes mellitus without complications
CPT/HCPCS: 82947; 93005; J1642; J2704

== ENCOUNTER 2022-11-12 05:49 | Day surgery (SDC) | payer MEDICARE ==
[2022-11-12] MEDS ORDERED: Marcaine Mpf 0.5% Vial 30 Ml ONE (06:13)
[2022-11-12] MEDS ORDERED: Xylocaine 1% Vial 30 ML PF IJ ONE (06:13)
[2022-11-12] MEDS ORDERED: Lactated Ringers 1,000 ML IV SCH (06:30)
[2022-11-12 06:34] LABS: Absolute Neutrophil Ct (ANC) 9.13 x10^3/uL (1.4-6.9); BASOPHIL % 0.7 % (0.0-0.4); Basophil (Absolute #) 0.09 x10^3/uL (0-0.4); Eosinophil % 3.5 % (0.00-5.0); Eosinophil (Absolute #) 0.46 x10^3/uL (0-0.5); Hematocrit 26.2 % (42-50); Hemoglobin 7.5 g/dL (12.5-18.0); IMMATURE GRAN % 0.8 % (0.00-0.4); Lymphocyte (Absolute #) 2.57 x10^3/uL (1.0-4.6); Lymphocytes % 19.4 % (24.0-44.0); Mean Cell Volume 73.8 fL (78-100); Mean Corpuscular Hemoglobin 21.1 pg (26-32); Mean Corpuscular Hgb Concent. 28.6 g/dL (32-36); Mean Platelet Volume 7.6 fL (7.5-11.0); Monocyte (Absolute #) 0.88 x10^3/uL (0.0-1.3); Monocytes % 6.7 % (0.0-12.0); Neutrophil % 68.9 % (36.0-66.0); Platelet Count 518 x10^3/uL (150-450); Red Blood Count 3.55 x10^6/uL (4.1-5.6); Red Cell Distribution Width 18.7 % (11.5-14.0); White Blood Count 13.2 x10^3/uL (4.0-10.5)
[2022-11-12 06:36] VITALS: RESP 16
[2022-11-12 07:11] LABS: ALBUMIN 3.9 g/dL (3.5-5.0); ALKALINE PHOSPHATASE 77 U/L (38-126); ANION GAP 16.2 MEQ/L (5-15); BLOOD UREA NITROGEN 9 mg/dL (9-20); CHLORIDE 101 mmol/L (98-107); Calcium 8.7 mg/dL (8.4-10.2); Carbon Dioxide 24 mmol/L (22-30); Creatinine 1 0.64 mg/dL (0.66-1.25); EST GLOMERULAR FILTRATION RATE > 60.0 ML/MIN; Glucose 120 mg/dL (74-106); Potassium 3.9 mmol/L (3.5-5.1); SGOT/AST 18 U/L (17-59); SGPT/ALT 13 U/L (0-50); SODIUM 137 mmol/L (137-145); Total Protein 7.1 g/dL (6.3-8.2)
[2022-11-12] MEDS ORDERED: SUBLIMAZE 100 MCG/2 ML ONE (07:21)
[2022-11-12] MEDS ORDERED: Versed 2 MG/2 ML Injection ONE (07:21)
[2022-11-12] MEDS ORDERED: PIPERACILLIN/TAZOBACTAM 3.375 GM in Sodium Chloride 100ML MINI-BAG PLUS 100 ML IV ONE (07:30)
[2022-11-12] MEDS ORDERED: DIPRIVAN 200 MG/20 ML IV ONE (07:35)
[2022-11-12 08:39] LABS: Hematocrit 25.9 % (42-50); Hemoglobin 7.3 g/dL (12.5-18.0)
[2022-11-12] MEDS ORDERED: HYDROCODONE-ACETAMIN 10-325 MG PO PRN (08:59)
[2022-11-12 09:07] LABS: Slide Review 1 YES
[2022-11-12] MEDS ORDERED: Hydromorphone 1 mg/ml Injection ONE ×2 (09:13→10:07)
[2022-11-12] MEDS: Hydromorphone 1 mg/ml Injection IV PRN ×3 (09:14→10:08)
[2022-11-12] MEDS ORDERED: HYDROCODONE-ACETAMIN 10-325 MG ONE (09:17)
[2022-11-12 09:52] VITALS: O2SAT 98
--- NOTE | 2022-11-12 09:58 | OP ---
SURGERY DATE: 11/12/2022 SURGERY TIME: 712 PREOPERATIVE DIAGNOSIS: 1. RIGHT LOWER EXTREMITY PAIN. 2. DIABETIC PERIPHERAL NEUROPATHY. 3. DIABETES MELLITUS. 4. DIABETIC FOOT ULCER. 5. PRESSURE ULCERATION TO THE LEVEL OF ACHILLES TENDON TWO LOCATIONS, POSTERIOR RIGHT HEEL AND POSTERIOR ANKLE. 6. PERIPHERAL VASCULAR DISEASE. POSTOPERATIVE DIAGNOSIS: 1. RIGHT LOWER EXTREMITY PAIN. 2. DIABETIC PERIPHERAL NEUROPATHY. 3. DIABETES MELLITUS. 4. DIABETIC FOOT ULCER. 5. PRESSURE ULCERATION TO THE LEVEL OF ACHILLES TENDON TWO LOCATIONS, POSTERIOR RIGHT HEEL AND POSTERIOR ANKLE. 6. PERIPHERAL VASCULAR DISEASE. PROCEDURE: 1. Incision/drainage to the level of bone ankle. 2. Incision/drainage to level of bone foot. 3. Debridement to level of tendon posterior right heel and application of synthetic skin substitute Integra bilayer matrix. SURGEON: John Reyes D.P.M. LOCATE TECHNICIAN: None. ANESTHESIA: MAC. HEMOSTASIS: A pressure dressing. ESTIMATED BLOOD LOSS: Approximately 10 cc. MATERIALS: A 4.5 and 2 X 2 Integra bilayer matrix and skin jeanette. INJECTABLES: None. Patient is severely neuropathic. INDICATIONS FOR PROCEDURE: Kishore is a very pleasant 62 y/o male very well known to my service for attempts at a limb salvage to the right lower extremity that has been ongoing for approximately 1 year. We have gotten to this stage multiple times where he is approximately 70-90% healed. However, he has had set backs every time. This current instance relays to a pseudomonas infection that he developed after the intermediate did not change his dressings for 4 days with orders for daily dressing changes. As a result, patient developed a pseudomonas infection and backtracked his healing to approximately 25% healed from where our 75-90% healed status was. Discussion was held with the patient in regards to outcomes in regards to attempts at limb salvage and the fact that we have been ongoing for approximately 1 year. The patient understands all risks, complications, and benefits of surgical intervention including. We have had an extensive conversation about the possibility of failure of surgical salvation of the leg and possible need for a below knee amputation. The patient is adamant he would like to continue as he saw the results over the course of the last several months and is optimistic that he will heal. I do have some level of optimism. However, at this point, we have talked about the chances decreasing as time goes on. The patient is aware of this and wishes to proceed. At this time, the patient understands all risks, complications, and benefits of surgical intervention including, but not limited to, infection; hematoma; seroma; possibility of delayed wound healing, non-wound healing; possible repeat infections with bone infection that would require aggressive surgical intervention. At this time, he understands that there is some osteomyelitis in his fibula and the longer that this wound is open, the higher potential for this becoming problematic. Plenty of time was allowed for the patient to ask questions which were answered to his apparent satisfaction. No guarantees were provided as to the outcome. At this time, we proceeded with surgical intervention. DESCRIPTION OF PROCEDURE: At this time, the patient was brought in to the OR and placed on the OR table in the supine position. At this time, monitored anesthesia was provided until the patient was sedated. The right lower extremity was prepped and draped in the typical sterile fashion and lowered onto the surgical field. At this time, attention was directed towards the anterior leg wounds where some exposed tendon was identified. The surrounding area was debrided utilizing a curette. Any remnants of necrotic or nonviable tissue was resected utilizing a 15 blade and a pair of pick-ups. Following this, attention was directed with a different curette to the lateral aspect of the left ankle and foot where both areas of exposed bone were identified at the proximal aspect of the fibula approximately 5 cm from the proximal extent of the wound. This was debrided in conjunction with the 25 cm length X 5 cm width would at the lateral aspect of the leg. There was also a 3 X 6 cm wound at the lateral aspect with exposed styloid process of the 5th metatarsal which was debrided utilizing a curette and Rongeurs. From that standpoint, the posterior heel wound as well as the exposed Achilles tendon at the posterior aspect of the right leg was debrided utilizing clean curettes. Copious amounts of sterile saline were utilized to flush the surgical sites. At this time, a 4 X 5 and a 2 X 2 Integra bilayer was utilized to enclose the wounds with the use of surgical jeanette. Bolster dressings were utilized to gain adequate apposition of these grafts and a dressing consisting of Kerlix, ABD, and Jamal was used to apply some compression to the right lower extremity. Patient was then reversed from anesthesia and returned to the PACU with vital signs stable and vascular status intact. The patient handled the anesthesia as well as the procedure without significant complication. Postoperative orders as indicated in the patient's discharge chart.
[2022-11-12 10:14] VITALS: BP 125/68; PULSE 85; TEMP 97
[2022-11-12] MEDS ORDERED: Sodium Chloride 0.9% 10 ML FLUSH Syringe PICC PRN (10:54)
[2022-11-12] MEDS ORDERED: PIPERACILLIN/TAZOBACTAM 3.375 GM in Sodium Chloride 100ML MINI-BAG PLUS 100 ML IV SCH (13:00)
== END 2022-11-12 10:26 ==
LOC: SDC 05:49
PROVIDERS: ATTEND Podiatrist Foot & Ankle Surgery
DX: E11.42 Type 2 diabetes mellitus with diabetic polyneuropathy (principal); E11.69 Type 2 diabetes mellitus with other specified complication; E11.621 Type 2 diabetes mellitus with foot ulcer; I73.9 Peripheral vascular disease, unspecified
CPT/HCPCS: 15271; 15275; 27607; 28005; 36415; 80053; 85014; 85018; 85025; 93005; J1170; J1642; J2001; J2250; J2704; J3010; Q4104; A9270-GY; Q4158

== ENCOUNTER 2023-01-18 09:49 | Day surgery (SDC) | payer MEDICARE ==
[2023-01-18] MEDS ORDERED: Sodium Chloride 0.9% 1000 ML 1,000 ML IV SCH (10:30)
[2023-01-18] MEDS ORDERED: CEFAZOLIN 2 GM-D5W BAG** 2 GM/50 ML ML IV SCH (10:30)
[2023-01-18 10:57] VITALS: RESP 18
[2023-01-18] MEDS ORDERED: Marcaine Mpf 0.5% Vial 30 Ml ONE (11:00)
[2023-01-18] MEDS ORDERED: Xylocaine 1% Vial 30 ML PF IJ ONE (11:00)
[2023-01-18 11:12] LABS: Hematocrit 34.6 % (42-50); Mean Cell Volume 76.9 fL (78-100); Mean Corpuscular Hemoglobin 22.2 pg (26-32); Mean Corpuscular Hgb Concent. 28.9 g/dL (32-36); Mean Platelet Volume 7.9 fL (7.5-11.0); Platelet Count 483 x10^3/uL (150-450); Red Cell Distribution Width 21.8 % (11.5-14.0)
[2023-01-18 11:27] LABS: ANION GAP 14.8 MEQ/L (5-15); BILIRUBIN,TOTAL 0.6 mg/dL (0.2-1.3); Calcium 9.4 mg/dL (8.4-10.2); Creatinine 1 0.54 mg/dL (0.66-1.25); INR 0.94 (0.8-3.0); PROTIME 10.3 SECONDS (9.4-12.5); PTT 30.2 SECONDS (25.1-36.5); Total Protein 8.1 g/dL (6.3-8.2)
[2023-01-18 11:56] LABS: Slide Review YES
[2023-01-18 13:35] VITALS: O2SAT 99
[2023-01-18] MEDS ORDERED: Sodium Chloride 0.9% 10 ML FLUSH Syringe PICC PRN (13:46)
[2023-01-18 13:52] VITALS: BP 124/71; PULSE 94; TEMP 96.3
--- NOTE | 2023-01-19 08:16 | OP ---
SURGERY DATE/TIME: 01/18/2023 5407 PREOPERATIVE DIAGNOSES: 1) Right lower extremity pain. 2) Diabetic peripheral neuropathy. 3) Diabetes mellitus. 4) Diabetic foot ulcer. 5) Osteomyelitis. 6) Pressure ulceration level of the Achilles tendon two locations posterior right heel and posterior ankle. 7) Peripheral vascular disease. POSTOPERATIVE DIAGNOSES: 1) Right lower extremity pain. 2) Diabetic peripheral neuropathy. 3) Diabetes mellitus. 4) Diabetic foot ulcer. 5) Osteomyelitis. 6) Pressure ulceration level of the Achilles tendon two locations posterior right heel and posterior ankle. 7) Peripheral vascular disease. PROCEDURES: 1) Incision and drainage to the level of bone, ankle. 2) Incision and drainage to the level of bone, foot. 3) Application of synthetic skin substitute Integra bilayer matrix. SURGEON: John Reyes DPM. COOK FISH EGGS: None. ANESTHESIA: Local. HEMOSTASIS: Pressure dressing. ESTIMATED BLOOD LOSS: Approximately 20 cc. MATERIALS: 1,000 ml Bactisure, 4x10 Integra bilayer matrix and surgical jeanette. INJECTABLES: 20 cc of 1:1 mixture of 1% lidocaine plain and 0.5% bupivacaine plain injected in an isolated sural nerve as well as saphenous nerve block. The patient does have nerve pain in these areas however he is neuropathic. INDICATION FOR SURGERY: Kishore is a very pleasant 62-year-old male very well known to my service for attempts at limb salvage for the right lower extremity. The patient had gotten to a stage of 75% healing however has backtracked with multiple instances of removal of grafts by the ch[facility] infection or failure of the graft. At this time we have multiple eyes on the patient in regards to a multispecialty approach including vascular physicians and myself from the wound care perspective. At this time had a discussion in regards to the outcomes in regards to attempts at limb salvage and the fact that this has been ongoing for approximately a year and a half at this point. The patient understands all risks, benefits and complications of surgical intervention at this time including but not limited to infection, hematoma, seroma, possibility of delayed wound healing, nonwound healing and possibility of bone infection, possibility of need for surgical intervention for which this is likely going to be staged going forward, possibility of failure and a result the likely outcome for this if he fails is below knee amputation. The patient is adamant that he would like to continue as he saw results over the course of the several months and is optimistic that it will heal. From that standpoint, I do have some level of bleeding. However, we are awaiting vascular consultation in a recent history to assess if he does have the adequate flow to heal this. At this time the concession is that I would like the tendon and bone to be closed over and hopefully prevent an infection to the deeper layers of the leg. At this time we decided to proceed with surgical intervention. Once again, no guarantees were provided as to the outcome. The patient was allowed plenty of time to ask questions which were answered to his apparent satisfaction. DESCRIPTION OF PROCEDURE AND FINDINGS: At this time, the patient is brought into the OR and placed on the OR table in the supine position. At this time, the right lower extremity was prepped and draped in the typical sterile fashion and lowered onto the surgical field. A local block consisting of 10 cc of 1:1 mixture of 1% lidocaine plain and 0.5% bupivacaine plain was injected in a V block-type fashion to the lateral aspect of the leg in the distribution of the sural nerve and then an additional V block was performed with another 10 cc at the saphenous nerve. At this time, awaiting appropriate amount of time to allow for the block to take hold attention was directed to the anterior leg wound where some of the exposed tendon was identified. The surrounding area was debrided utilizing a curette and remaining necrotic or nonviable tissue was resected utilizing a 15 blade. Following this, attention was directed to the lateral aspect of the foot where the styloid process of the fifth metatarsal was exposed this was debrided utilizing a curette and the lateral margins of the wound were excised utilizing a 5 blade until healthy bleeding edge was identified. Following this, the lateral aspect of the fibula was identified where approximately 5 cm from the proximal extent of the wound where there was exposed bone or small area less than 0.5 cm in each direction. This was debrided along with the remaining wound measuring for the lateral ankle and measured approximately 32.5 x 4.5 cm. Following this, the posterior aspect of the heel and the Achilles tendon were debrided. From that standpoint, the Bactisure was then utilized to cleanse all surgical sites this was followed by 3 liters of sterile saline and following this a 4x10 Integra was then utilized to close over the wounds with surgical jeanette. Following this, the leg was cleansed. Bolster dressings were utilized to gain adequate apposition of the graft against the surface of the leg. A dressing consisting of Kerlix, ABD and ALLYSON was applied with some moderate compression to the right lower extremity. The patient was then returned to the postoperative anesthesia care unit with vital signs stable and vascular status intact. The patient handled the anesthesia as well as the procedure without significant complication. Postoperative orders as indicated in the patient's discharge chart.
== END 2023-01-18 14:45 ==
LOC: SDC 09:49
PROVIDERS: ATTEND Podiatrist Foot & Ankle Surgery
DX: E11.621 Type 2 diabetes mellitus with foot ulcer (principal); E11.42 Type 2 diabetes mellitus with diabetic polyneuropathy; M79.671 Pain in right foot; M86.9 Osteomyelitis, unspecified; L89.519 Pressure ulcer of right ankle, unspecified stage; L89.619 Pressure ulcer of right heel, unspecified stage; E11.51 Type 2 diabetes mellitus with diabetic peripheral angiopathy without gangrene
CPT/HCPCS: 15275; 27607; 28005; 36415; 80053; 82947; 85027; 85610; 85730; A6260; J0690; J1642; J2001; Q4104; Q4158

== ENCOUNTER 2023-03-31 09:51 | Day surgery (SDC) | payer MEDICARE ==
[2023-03-31] MEDS ORDERED: Thrombin-JMI 5000 UNITS TP ONE (09:52)
[2023-03-31 10:27] LABS: Hematocrit 33.4 % (42-50); Hemoglobin 9.9 g/dL (12.5-18.0); Mean Cell Volume 80.3 fL (78-100); Mean Corpuscular Hemoglobin 23.8 pg (26-32); Mean Corpuscular Hgb Concent. 29.6 g/dL (32-36); Mean Platelet Volume 8.2 fL (7.5-11.0); Platelet Count 494 x10^3/uL (150-450); Red Blood Count 4.16 x10^6/uL (4.1-5.6); Red Cell Distribution Width 18.6 % (11.5-14.0); White Blood Count 15.6 x10^3/uL (4.0-10.5)
[2023-03-31] MEDS ORDERED: Lactated Ringers 1,000 ML IV SCH (10:30)
[2023-03-31] MEDS ORDERED: CEFAZOLIN 2 GM-D5W BAG** 2 GM/50 ML ML IV SCH (10:30)
[2023-03-31 10:44] LABS: ALBUMIN 3.9 g/dL (3.5-5.0); ANION GAP 15.6 MEQ/L (5-15); BILIRUBIN,TOTAL 0.7 mg/dL (0.2-1.3); Calcium 9.2 mg/dL (8.4-10.2); Creatinine 1 0.61 mg/dL (0.66-1.25); EST GLOMERULAR FILTRATION RATE 107.9 ML/MIN; Potassium 3.8 mmol/L (3.5-5.1); Total Protein 7.6 g/dL (6.3-8.2)
[2023-03-31] MEDS ORDERED: Versed 2 MG/2 ML Injection ONE (13:18)
[2023-03-31] MEDS ORDERED: SUBLIMAZE 100 MCG/2 ML ONE ×2 (13:18→15:26)
[2023-03-31] MEDS ORDERED: Amidate 20 MG/10 ML IV ONE (13:18)
[2023-03-31] MEDS ORDERED: Zemuron 100 MG/10 ML ONE ×2 (13:18→13:43)
[2023-03-31] MEDS ORDERED: Marcaine Mpf 0.5% Vial 30 Ml ONE (13:31)
[2023-03-31] MEDS ORDERED: MINERAL OIL LIGHT 10 ML FOR SURGERY ONE (13:31)
[2023-03-31] MEDS ORDERED: Xylocaine 1% Vial 30 ML PF IJ ONE (13:31)
[2023-03-31] MEDS ORDERED: BREVIBLOC 100 MG/10 ML IV ONE (13:46)
[2023-03-31] MEDS ORDERED: XYLOCAINE 1%/Epi 1:100000 MDV 20 ML ONE (13:59)
[2023-03-31] MEDS ORDERED: Triple Antibiotic Ointment ONE (14:19)
[2023-03-31] MEDS ORDERED: BRIDION 200MG/2ML IV ONE (14:58)
[2023-03-31] MEDS ORDERED: NORCO 10-325 MG PO PRN (16:01)
[2023-03-31] MEDS ORDERED: NORCO 10-325 MG ONE (16:05)
[2023-03-31 16:25] VITALS: O2SAT 95
[2023-03-31 17:42] VITALS: BP 126/55; PULSE 98; RESP 18; TEMP 97
--- NOTE | 2023-04-05 14:04 | OP ---
SURGERY DATE/TIME: 03/31/2023 1323 PREOPERATIVE DIAGNOSES: 1) Diabetic peripheral neuropathy. 2) Diabetic foot wound. 3) Right foot pain. 4) Peripheral vascular disease. 5) Right osteomyelitis. POSTOPERATIVE DIAGNOSES: 1) Diabetic peripheral neuropathy. 2) Diabetic foot wound. 3) Right foot pain. 4) Peripheral vascular disease. 5) Right osteomyelitis. PROCEDURES: 1) Debridement to level of subcu right leg. 2) Debridement to level of bone right foot. 3) Split thickness skin graft to multiple sites more than 100 sq/cm. SURGEON: John Reyes DPM. WORKFORCE SPECIALIST: None. ANESTHESIA: General. HEMOSTASIS: Pressure dressing. ESTIMATED BLOOD LOSS: Approximately 10 cc. MATERIALS: 4-0 Nylon. INJECTABLES: 10 cc of 1:1 mixture of 1% lidocaine with epinephrine to the right thigh preharvest of split thickness skin graft. INDICATION FOR SURGERY: Kishore is a very pleasant 62-year-old male very well known to my service for limb salvage efforts to the right lower extremity. In recent history the patient has been aggressively contacted with coordinated care for vascular intervention with a bypass and infectious disease which at this point he is free of infection and wishes to proceed to cover the healthy granulation tissue. This is the first stage of one of many procedures in order to finally get this limb closed after multiple bouts of infection and complication. As a result, no guarantees were provided as to the outcome. The patient is aware of all risks, complications and benefits of surgical intervention at this time including but not limited to infection, hematoma, seroma, possibility of failure of surgical intervention, possible infection and possible need for further intervention at a later date. No guarantees were provided as to the outcome. There is a relatively high probability that the patient is a candidate for below knee amputation. However at this time4, he remains confident in the progress that we have made and wishes to continue to proceed with limb salvage efforts. It is at this time we decided to proceed. DESCRIPTION OF PROCEDURE AND FINDINGS: The patient is brought into the OR and placed on the OR table in the supine position. At this time, general anesthesia was administered until the patient was sedated. The wound to the right lower extremity was debrided. In certain areas the wounds probed to the level of the subcutaneous tissues. However in other areas it did probe to bone. At the lateral forefoot, there was an area approximately 5.1 x 3.1 that debridement was carried down to the styloid process of the fifth metatarsal. The other wounds at the lateral anterior and posterior aspects of the leg measured 24.9 x 7.5, 8.5 x 6.5 and 1.9 x 1.8 respectively giving a total surface area of 245.42 collectively. As a result the debridement took place. Healthy bleeding and granulation tissue was encountered. At this time the decision was made to proceed with the split thickness skin graft in the areas that were viable for take. Split thickness skin graft was harvested utilizing a 2 inch dermatome. Mineral spirits were applied to the right leg after 70% isopropyl alcohol was applied to the leg cleansing it. Dermatome was carried to the level 0.016 of an inch and 1 to 1.5 measure. After the graft was harvested and meshed, this was placed over the granulation tissue at the lateral aspect of the leg, the anterior aspect of the leg and the posterior aspect of the ankle. This was secured utilizing 4-0 Nylon in a simple running suture and a bolster dressing was applied. Following this, a dressing consisting of Xeroform, Adaptic, 4x4, Kerlix and ALLYSON were applied gaining moderate compression to the bolster dressings over the graft. The thigh dressing after harvest topical thrombin was allowed to sit over the wound until clotting took place. A dressing consisting of triple antibiotic, Xeroform and Tegaderm were applied over the harvest site. Following this, the patient was reversed from anesthesia and returned to the postoperative anesthesia care unit with vital signs stable and vascular status intact. The patient handled the anesthesia as well as the procedure without significant complication.
== END 2023-03-31 17:40 ==
LOC: SDC 09:51
PROVIDERS: ATTEND Podiatrist Foot & Ankle Surgery
DX: E11.42 Type 2 diabetes mellitus with diabetic polyneuropathy (principal); E11.621 Type 2 diabetes mellitus with foot ulcer; M79.671 Pain in right foot; E11.51 Type 2 diabetes mellitus with diabetic peripheral angiopathy without gangrene; M86.9 Osteomyelitis, unspecified
CPT/HCPCS: 11042; 11043; 11045; 15100; 15120; 15121; 36415; 80053; 85027; 93005; J0690; J1642; J2001; J2250; J3010; A9270-GY

== ENCOUNTER 2023-05-17 10:39 | Inpatient (IN) | payer MEDICARE ==
[2023-05-17] MEDS: Sodium Chloride 0.9% 1000 ML 1,000 ML IV STA ×2 (11:15→17:50)
[2023-05-17] MEDS ORDERED: Sodium Chloride 0.9% 1000 ML 1,000 ML ONE (11:15)
--- NOTE | 2023-05-17 11:21 | ERPHSYRPT ---
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 HAS STRONG BRUI, PT HAS DRESSING TO LOWER RIGHT LEG, PT HAS DIABETIC UCLER TO RIGHT HEEL Triage Nursing Assessment: PT ALERT, BUT FORGETFULL AT TIMES,RESP EASY, SKIN W/D/P, HAS DRESSING TO LOWER RIGHT LEG, FOWL SMELL FROM DRESSING, ABD SOFT Physician History: 62-year-old male [facility] for evaluation of elevated heart rate and fever. Patient has a known infected right lower extremity diabetic foot wound. Patient has history of end-stage renal disease with a right upper extremity fistula. Patient is conversant however seems confused at times. He does not appear to be in acute distress. Vitals appear to be stable at this point. Symptoms are progressive. Symptoms are moderate in intensity. No specific worsening or improving factors. Patient voices no other complaints or concerns at this time. Portions of this note were created with voice recognition technology. There may be grammatical, spelling, punctuation or sound alike errors Timing/Duration: today Severity: moderate Modifying Factors: Improves With: nothing Associated Symptoms: denies symptoms Allergies/Adverse Reactions: No Known Drug Allergies Allergy (Verified 05/17/23 11:48) Home Medications: Allopurinol 300 mg [Zyloprim 300 mg] 300 mg PO DAILY 04/26/15 [History] Atorvastatin Calcium [Lipitor] 80 mg PO HS 07/07/17 [History] Dulaglutide [Trulicity] 0.75 mg SQ WEEKLY 11/19/18 [History] Carvedilol 3.125 mg [Coreg 3.125 MG] 3.125 mg PO BID 09/09/20 [History] Empagliflozin/Metformin HCl [Synjardy 5-1,000 mg Tablet] 5 - 1,000 mg PO BID 09/09/20 [History] Gabapentin 900 mg PO TID 09/09/20 [History] Glipizide 5 mg [Glucotrol 5 MG] 5 mg PO BID 10/06/21 [History] Hydrocodone/Acetaminophen [Hydrocodone-Acetamin 10-325 mg] 1 each PO Q6HPRN PRN 02/26/22 [History] Ferrous Sulfate 325 mg [Feosol 325 mg] 325 mg PO QID 03/31/23 [History] Furosemide 40 mg PO DAILY 03/31/23 [History] Insulin Aspart [Novolog] 100 unit SQ DAILY PRN 03/31/23 [History] [place]-3 Fatty Acids/Fish Oil [Fish Oil 1,000 mg Capsule] 1,000 mg PO DAILY 03/31/23 [History] Potassium Chloride 20 meq PO DAILY 03/31/23 [History] Pregabalin 25 mg [Lyrica 25 MG] 50 mg PO TID 03/31/23 [History] Ropinirole HCl 1 mg PO BID 03/31/23 [History] Clopidogrel Bisulfate [Clopidogrel] 75 mg PO DAILY 05/17/23 [History] Collagenase Oint [Santyl OINTMENT] 0 gm TOP DAILY 05/17/23 [History] Cyanocobalamin 1000 Mcg/ml [Cyanocobalamin B-12 1000 MCG/ML] 1,000 mcg IJ DAILY 05/17/23 [History] Docusate Sodium 100 mg [Docusate Sodium 100 MG] 100 mg PO DAILY 05/17/23 [History] [place]-3 Fatty Acids/Fish Oil [Fish Oil 1,000 mg Capsule] 1,000 mg PO DAILY 05/17/23 [History] Polyethylene Glycol 3350 17 gm [Miralax Powder 17GM PACKET] 17 gm PO DAILY 05/17/23 [History] Hx Tetanus, Diphtheria Vaccination/Date Given: Yes Hx Influenza Vaccination/Date Given: Yes Hx Pneumococcal Vaccination/Date Given: (UNSURE) Immunizations Up to Date: Yes Travel Risk - International Travel Have you traveled outside of the country in past 3 weeks: No - Vaccine Status Have you recieved a Covid-19 vaccination: Yes Bond Clerk: Unknown - Vaccination Dates Dates if Unknown: unk - Review of Systems Constitutional: No Symptoms, No Fever, No Chills Eyes: No Symptoms Ears, Nose, & Throat: No Symptoms Respiratory: No Symptoms, No Cough, No Dyspnea Cardiac: No Symptoms, No Chest Pain, No Edema, No Syncope Abdominal/Gastrointestinal: No Symptoms, No Abdominal Pain, No Nausea, No Vomiting, No Diarrhea Genitourinary Symptoms: No Symptoms, No Dysuria Musculoskeletal: No Symptoms, No Back Pain, No Neck Pain Skin: No Symptoms, No Rash Neurological: No Symptoms, No Dizziness, No Focal Weakness, No Sensory Changes Psychological: No Symptoms Endocrine: No Symptoms Hematologic/Lymphatic: No Symptoms Immunological/Allergic: No Symptoms All Other Systems: Reviewed and Negative - Past Medical History Pertinent Past Medical History: Yes Neurological History: Peripheral Neuropathy ENT History: Cataracts Cardiac History: Deep Vein Thrombosis, High Cholesterol, Hypertension, Peripheral Vascular Disease Respiratory History: Sleep Apnea Endocrine Medical History: Diabetes Type II, Hypoglycemia Musculoskeletal History: Fractures, Other GI Medical History: No Pertinent History History: No Pertinent History Psycho-Social History: No Pertinent History Male Reproductive Disorders: Other Other Medical History: RIGHT FOOT 5 SURGERIES - REMOVAL 5TH METATARSAL, GREAT TOE AMPUTATED GREAT TOE AND FLAP SURGERY ON HEEL (08/2020), LE BYPASS SURGERY ([facility]) BILATERAL,left thigh skin graft. right foot wound vac placed 02/26/22. - Past Surgical History Past Surgical History: Yes Neuro Surgical History: No Pertinent History Cardiac: Vascular Surgery, Cardiac Stent, Cardiac Catheterization Respiratory: No Pertinent History Gastrointestinal: No Pertinent History Genitourinary: No Pertinent History Musculoskeletal: No Pertinent History, Other Male Surgical History: No Pertinent History Other Surgical History: Vascular surg pradeep legs, in grown toe nails, FOOT SURGERY FOR DECUBITUS. multiple foot surgeries - Social History Smoking Status: Former smoker How long have you smoked: YRS Exposure to second hand smoke: No Drug Use: none Patient Lives Alone: No ([place]) - Nursing Vital Signs Nursing Vital Signs: Initial Vital Signs Temperature 98.5 F 05/17/23 10:50 Pulse Rate 135 H 05/17/23 10:50 Respiratory Rate 16 05/17/23 10:50 Blood Pressure 110/54 05/17/23 10:50 O2 Sat by Pulse Oximetry 96 05/17/23 10:50 Pain Scale Pain Intensity 5 - Physical Exam General Appearance: no apparent distress, alert Eye Exam: PERRL/EOMI, eyes nml inspection Ears, Nose, Throat Exam: normal ENT inspection, moist mucous membranes Neck Exam: normal inspection, non-tender, supple, full range of motion Respiratory Exam: normal breath sounds, lungs clear, airway intact, No respiratory distress Cardiovascular Exam: regular rate/rhythm, normal heart sounds, normal peripheral pulses Gastrointestinal/Abdomen Exam: soft, normal bowel sounds, No tenderness, No mass Back Exam: normal inspection, normal range of motion, No CVA tenderness, No vertebral tenderness Extremity Exam: normal inspection, normal range of motion, pelvis stable Neurologic Exam: alert, oriented x 3, cooperative, normal mood/affect, sensation nml, No motor deficits Skin Exam: normal color, warm, dry, No rash Lymphatic Exam: No adenopathy SpO2 Interpretation: normal SpO2: 96 O2 Delivery: Room Air - Course Nursing assessment & vital signs reviewed: Yes EKG Interpreted by Me: RATE ([id number]), Sinus Tach, NORMAL AXIS, NORMAL INTERVALS - CT Exams Chest CT Interpretation: Tele-radiologist Report (No new or acute findings) Ordered Tests: Active Orders 24 hr Category Date Time Status Rehabilitation Assistant STAT Care 05/17/23 10:54 Active EKG-ER Only STAT Care 05/17/23 10:53 Active IV Insertion STAT Care 05/17/23 10:53 Active NPO (ED) STAT Care 05/17/23 11:32 Active Pulse Oximetry (ED) STAT Care 05/17/23 10:53 Active CHEST 1 VIEW (PORTABLE) Stat Exams 05/17/23 10:53 Completed BLOOD CULTURE Stat Lab 05/17/23 11:25 Received CBC W DIFF Stat Lab 05/17/23 11:10 Completed CMP Stat Lab 05/17/23 11:10 Completed Lactic Acid Stat Lab 05/17/23 11:06 Completed Manual Differential NC Stat Lab 05/17/23 11:10 Completed UA W/RFX UR CULTURE Stat Lab 05/17/23 10:53 Ordered Transfer Order Routine Transfer 05/17/23 Ordered Medication Summary Generic Name Dose Route Start Last Admin Trade Name Freq PRN Reason Stop Dose Admin Vancomycin HCl 1 gm in 200 mls @ 125 mls/hr 05/17/23 11:30 05/17/23 11:45 Vancomycin 1 Gram/200 Ml Bag IV 05/17/23 13:05 125 ml/hr STAT ONE 125 mls/hr Administration Discontinued Medications Generic Name Dose Route Start Last Admin Trade Name Freq PRN Reason Stop Dose Admin Sodium Chloride 1,000 mls @ 999 mls/hr 05/17/23 10:53 05/17/23 11:15 Sodium Chloride 0.9% 1000 Ml IV 05/17/23 11:53 999 mls/hr .Q1H1M STA Administration Sodium Chloride Confirm 05/17/23 11:15 Sodium Chloride 0.9% 1000 Ml Administered 05/17/23 11:16 Dose 1,000 mls @ ud .ROUTE .STK-MED ONE Piperacillin Sod/Tazobactam 100 mls @ 200 mls/hr 05/17/23 11:29 Sod 3.375 gm/ Sodium Chloride IV 05/17/23 11:58 STAT ONE Vancomycin HCl Confirm 05/17/23 11:38 Vancomycin 1 Gram/200 Ml Bag Administered 05/17/23 11:39 Dose 1 gm in 200 mls @ ud IV .STK-MED ONE Lab/Rad Data: Laboratory Result Diagrams 05/17/23 11:10 05/17/23 11:10 Laboratory Results 05/17/23 05/17/23 05/17/23 Range/Units 11:10 11:10 11:06 WBC 24.1 H (4.0-10.5) x10^3/uL RBC 3.50 L (4.1-5.6) x10^6/uL Hgb 7.8 L (12.5-18.0) g/dL Hct 26.7 L (42-50) % MCV 76.3 L (78-100) fL MCH 22.3 L (26-32) pg MCHC 29.2 L (32-36) g/dL RDW 19.7 H (11.5-14.0) % Plt Count 824 H (150-450) x10^3/uL MPV 8.0 (7.5-11.0) fL Sodium 134 L (137-145) mmol/L Potassium 4.1 (3.5-5.1) mmol/L Chloride 100 (98-107) mmol/L Carbon Dioxide 23 (22-30) mmol/L Anion Gap 14.9 (5-15) MEQ/L BUN 11 (9-20) mg/dL Creatinine 0.61 L (0.66-1.25) mg/dL Estimated GFR 107.9 ML/MIN Glucose 159 H (74-106) mg/dL Lactic Acid 0.9 (0.4-2.0) Calcium 8.9 (8.4-10.2) mg/dL Total Bilirubin 0.80 (0.2-1.3) mg/dL AST 25 (17-59) U/L ALT 16 (0-50) U/L Alkaline Phosphatase 109 (38-126) U/L Serum Total Protein 7.3 (6.3-8.2) g/dL Albumin 3.6 (3.5-5.0) g/dL - Progress Progress: improved Progress Note: Case discussed with Dr. Lopez at 11:[address] Lopez advises starting broad- spectrum antibiotics and is planning on taking patient to the OR today for a surgical debridement of his involved right lower extremity/diabetic foot wound with exposed bone Case discussed with hospitalist who accepts admission at 11:38 AM. Plan of care discussed with patient. He agrees to admission to [facility] for further evaluation and treatment. Portions of this note were created with voice recognition technology. There may be grammatical, spelling, punctuation or sound alike errors Patient is 62-year-old male presents to our emergency department via EMS for evaluation of suspected sepsis. [facility]. Patient has a known right lower extremity diabetic foot ulcer which is currently being managed by our plaque maker. No other nidus of infection could be found on p hysical exam. We removed the dressing covering the right lower extremity diabetic foot wound. Foul odor observed. It appears patient's infection is likely coming from his right foot ulcer. Patient was evaluated at the bedside by Dr. Lopez. We started broad-spectrum coverage with vancomycin and Zosyn. Dr. Lopez had advised our patient in the past to undergo a below-knee amputation. However patient declined. Dr. Lopez will take patient to the OR today for surgical debridement. He will consult orthopedic surgery as well. Complexity problem addressed is high, threat to bodily function. Patient is septic No critical care time Complex of data reviewed and analyzed is extensive. Test ordered test reviewed. Results analyzed and correlated clinically. Management discussed with plaque maker and hospitalist. Risk of complication and or risk of morbidity/mortality of patient management is high. Patient requires hospitalization for further evaluation and treatment. Vital stable. Time spent to admit patient is approximately 20 minutes. Plan of care established for shared decision making. No social determinants of health present impede follow-up 05/17/23 11:39 Patient's right upper extremity catheter is a PICC line not a dialysis catheter 05/17/23 12:24 Counseled pt/family regarding: lab results, diagnosis, rad results - Departure Departure Disposition: Observation Clinical Impression: Sepsis, Tachycardia, Diabetic foot ulcer, Leukocytosis, Microcytic anemia Condition: Stable Critical Care Time: No Referrals: PENNY WOODY [Primary Care Provider] - Follow up/PCP as directed
--- NOTE | 2023-05-17 11:23 | XRAY ---
Indication: Fever. Pneumonia. Comparison: March 17, 2023 Portable chest unchanged again demonstrating right perihilar subsegmental atelectasis/scarring and right arm PICC line. Remaining heart and left lung unremarkable. Bony thorax intact. No new/acute findings.
[2023-05-17 11:37] LABS: Hematocrit 26.7 % (42-50); Hemoglobin 7.8 g/dL (12.5-18.0); Mean Cell Volume 76.3 fL (78-100); Mean Corpuscular Hemoglobin 22.3 pg (26-32); Mean Corpuscular Hgb Concent. 29.2 g/dL (32-36); Platelet Count 824 x10^3/uL (150-450); Red Cell Distribution Width 19.7 % (11.5-14.0); White Blood Count 24.1 x10^3/uL (4.0-10.5)
[2023-05-17] MEDS ORDERED: VANCOMYCIN 1 GRAM/200 ML BAG 1 GM/200 ML PIGGYBACK IV ONE (11:38)
[2023-05-17] MEDS: VANCOMYCIN 1 GRAM/200 ML BAG 1 GM/200 ML PIGGYBACK IV ONE (11:45)
[2023-05-17 11:49] LABS: ALBUMIN 3.6 g/dL (3.5-5.0); ANION GAP 14.9 MEQ/L (5-15); BILIRUBIN,TOTAL 0.8 mg/dL (0.2-1.3); Calcium 8.9 mg/dL (8.4-10.2); Creatinine 1 0.61 mg/dL (0.66-1.25); EST GLOMERULAR FILTRATION RATE 107.9 ML/MIN; Potassium 4.1 mmol/L (3.5-5.1); Total Protein 7.3 g/dL (6.3-8.2)
[2023-05-17 12:15] LABS: INFLUENZA A NEGATIVE (NEGATIVE); INFLUENZA B NEGATIVE (NEGATIVE); RESPIRATORY SYNCTIAL VIRUS NEGATIVE (NEGATIVE); SARS-CoV-2 Xpert Express NEGATIVE (NEGATIVE)
[2023-05-17 13:09] LABS: Lymphocytes 3 % (24-44); Monocyte 3 % (0.0-12.0); Neutrophils 94 % (36.-66.); Total Cells Counted 100
[2023-05-17 13:12] LABS: ANISOCYTOSIS 2+; Hypochromia 1+; Platelet Estimate DECREASED (NORMAL)
[2023-05-17] MEDS ORDERED: PIPERACILLIN/TAZOBACTAM IV ONE ×2 (13:15→13:20)
[2023-05-17] MEDS ORDERED: Sodium Chloride 100ML MINI-BAG PLUS 0 ML IV ONE (13:16)
[2023-05-17] MEDS ORDERED: Sodium Chloride 100ML MINI-BAG PLUS 100 ML IV ONE (13:21)
[2023-05-17] MEDS: PIPERACILLIN/TAZOBACTAM 3.375 GM in Sodium Chloride 100ML MINI-BAG PLUS 100 ML IV ONE (13:51)
[2023-05-17] MEDS: HYLENEX 150 UNITS INJECTION SQ ONE (13:52)
[2023-05-17] MEDS ORDERED: Marcaine Mpf 0.5% Vial 30 Ml ONE (14:22)
[2023-05-17] MEDS ORDERED: Xylocaine 1% Vial 30 ML PF IJ ONE (14:22)
--- NOTE | 2023-05-17 14:27 | PCM.HP ---
History of Present Illness - Chief Complaint Chief Complaint: septic wound Date: 05/17/23 History of Present Illness: is a 62 year old male with PMHX of peripgeral neuropathy, cataracts, DVT, hyperlipidemia, PVD, sleep apnea, type II DM, hypoglycemia, cardiac cath with stents, chronic anemia, and multiple foot surgeries. He presented on 05/17/23 to our ED via [facility] for evaluation of elevated heart rate and fever. Patient has a known infected right lower extremity diabetic foot wound. In ER he was thought to have a right upper extremity fistula, however this is PICC line for OP antibiotics and renal function is within normal limits. This was confirmed with [facility]. He does not appear to be in acute distress. Vitals appear to be stable at this point. Lactic acid is normal. ER physician discussed pt case with podiatry who has been managing his care. RLE foot ulcer foul smelling. He was started on vancomycin and zosyn in the ER. WBC elevated at 24.1. He is to have a surgical procedure with podiatry today. Ortho to also be consulted. Pt denes CP, SOB, abd. pain, N/V/D. IV infiltration of left arm with vancomycin in ER. Meds given in ER for this. Right picc line now being used for meds. - Review of Systems Constitutional: No Fever, No Chills Eyes: No Symptoms Ears, Nose, & Throat: No Symptoms Respiratory: No Cough, No Short Of Breath Cardiac: No Chest Pain, No Edema, No Syncope Abdominal/Gastrointestinal: No Abdominal Pain, No Nausea, No Vomiting, No Diarrhea Genitourinary Symptoms: No Dysuria Musculoskeletal: No Back Pain, No Neck Pain Skin: Other (RLE foot wound open ), No Rash Neurological: No Dizziness, No Focal Weakness, No Sensory Changes Psychological: No Symptoms Endocrine: No Symptoms Hematologic/Lymphatic: No Symptoms Immunological/Allergic: No Symptoms Medications & Allergies Home Medications: Home Medication List Allopurinol 300 mg [Zyloprim 300 mg] 300 mg PO DAILY 04/26/15 [History Confirmed 05/17/23] Atorvastatin Calcium [Lipitor] 80 mg PO HS 07/07/17 [History Confirmed 05/17/23] Dulaglutide [Trulicity] 0.75 mg SQ WEEKLY 11/19/18 [History Confirmed 05/17/23] Carvedilol 3.125 mg [Coreg 3.125 MG] 3.125 mg PO BID 09/09/20 [History Confirmed 05/17/23] Empagliflozin/Metformin HCl [Synjardy 5-1,000 mg Tablet] 5 - 1,000 mg PO BID 09/09/20 [History Confirmed 05/17/23] Gabapentin 900 mg PO TID 09/09/20 [History Confirmed 05/17/23] Glipizide 5 mg [Glucotrol 5 MG] 5 mg PO BID 10/06/21 [History Confirmed 05/17/23] Hydrocodone/Acetaminophen [Hydrocodone-Acetamin 10-325 mg] 1 each PO Q6HPRN PRN 02/26/22 [History Confirmed 05/17/23] Aspirin EC 81 mg [Ecotrin 81 mg] 81 mg PO DAILY #0 01/18/23 [Rx Confirmed 05/17/23] Ferrous Sulfate 325 mg [Feosol 325 mg] 325 mg PO QID 03/31/23 [History Confirmed 05/17/23] Furosemide 40 mg PO DAILY 03/31/23 [History Confirmed 05/17/23] Insulin Aspart [Novolog] 100 unit SQ DAILY PRN 03/31/23 [History Confirmed 05/17/23] Lazbuddie-3 Fatty Acids/Fish Oil [Fish Oil 1,000 mg Capsule] 1,000 mg PO DAILY 03/31/23 [History Confirmed 05/17/23] Potassium Chloride 20 meq PO DAILY 03/31/23 [History Confirmed 05/17/23] Pregabalin 25 mg [Lyrica 25 MG] 50 mg PO TID 03/31/23 [History Confirmed 05/17/23] Ropinirole HCl 1 mg PO BID 03/31/23 [History Confirmed 05/17/23] Clopidogrel Bisulfate [Clopidogrel] 75 mg PO DAILY 05/17/23 [History Confirmed 05/17/23] Collagenase Oint [Santyl OINTMENT] 0 gm TOP DAILY 05/17/23 [History C onfirmed 05/17/23] Cyanocobalamin 1000 Mcg/ml [Cyanocobalamin B-12 1000 MCG/ML] 1,000 mcg IJ DAILY 05/17/23 [History Confirmed 05/17/23] Docusate Sodium 100 mg [Docusate Sodium 100 MG] 100 mg PO DAILY 05/17/23 [History Confirmed 05/17/23] Lazbuddie-3 Fatty Acids/Fish Oil [Fish Oil 1,000 mg Capsule] 1,000 mg PO DAILY 05/17/23 [History Confirmed 05/17/23] Polyethylene Glycol 3350 17 gm [Miralax Powder 17GM PACKET] 17 gm PO DAILY 05/17/23 [History Confirmed 05/17/23] Allergies/Adverse Reactions: Allergies Allergy/AdvReac Type Severity Reaction Status Date / Time No Known Drug Allergies Allergy Verified 05/17/23 11:48 - Past Medical History Past Medical History: Yes Neurological History: Peripheral Neuropathy ENT History: Cataracts Cardiac History: Deep Vein Thrombosis, High Cholesterol, Hypertension, Peripheral Vascular Disease Respiratory History: Sleep Apnea Endocrine Medical History: Diabetes Type II, Hypoglycemia Musculoskelatal History: Fractures, Other GI Medical History: No Pertinent History History: No Pertinent History Pyscho-Social History: No Pertinent History Male Reproductive Disorders: Other Comment: RIGHT FOOT 5 SURGERIES - REMOVAL 5TH METATARSAL, GREAT TOE AMPUTATED GREAT TOE AND FLAP SURGERY ON HEEL (08/2020), LE BYPASS SURGERY (FEM-POP) BILATERAL,left thigh skin graft. right foot wound vac placed 02/26/22. - Past Surgical History Past Surgical History: Yes Neuro Surgical History: No Pertinent History Cardiac History: Vascular Surgery, Cardiac Stent, Cardiac Catheterization Respiratory Surgery: No Pertinent History GI Surgical History: No Pertinent History Genitourinary Surgical Hx: No Pertinent History Musculskeletal Surgical Hx: No Pertinent History, Other Male Surgical History: No Pertinent History Other Surgical History: Vascular surg pradeep legs, in grown toe nails, FOOT SURGERY FOR DECUBITUS. multiple foot surgeries - Social History Smoking Status: Former smoker How long have you smoked: YRS Exposure to second hand smoke: No Alcohol: None Drug Use: none - Physical Exam Vital Signs: Vital Signs - 24 hr Temp Pulse Resp BP BP Pulse Ox 05/17/23 13:30 117/81 05/17/23 13:00 130 H 14 126/58 99 05/17/23 12:30 131 H 21 121/64 99 05/17/23 12:25 96 02/27/24 12:00 132 H 12 109/57 94 L 05/17/23 11:30 132 H 12 97/56 95 05/17/23 11:19 95 05/17/23 11:00 132 H 11 L 116/54 96 05/17/23 10:50 98.5 F 135 H 16 110/54 96 General Appearance: no apparent distress, alert Neurologic Exam: alert, oriented x 3, cooperative, normal mood/affect, nml cerebellar function, nml station & gait, sensation nml, No motor deficits Eye Exam: PERRL/EOMI, eyes nml inspection Ears, Nose, Throat Exam: normal ENT inspection, TMs normal, pharynx normal, moist mucous membranes Neck Exam: normal inspection, non-tender, supple, full range of motion Respiratory Exam: normal breath sounds, lungs clear, No respiratory distress Cardiovascular Exam: regular rate/rhythm, normal heart sounds, normal peripheral pulses Gastrointestinal/Abdomen Exam: soft, normal bowel sounds, No tenderness, No mass Back Exam: normal inspection, normal range of motion, No CVA tenderness, No vertebral tenderness Extremity Exam: normal inspection, normal range of motion, pelvis stable Skin Exam: normal color, warm, dry, other (RLE foot wound, See pics in chart for measurements, Open no drainage, foul smelling. Edema of Left arm from vancomycin infiltration with meds given in ER for this. Tightness of left arm and hand.), No rash Lymphatic Exam: No adenopathy Results - Labs Lab/Micro Results: Lab Results-Last 24 Hours 05/17/23 05/17/23 05/17/23 Range/Units 11:06 11:10 11:10 WBC 24.1 H (4.0-10.5) x10^3/uL RBC 3.50 L (4.1-5.6) x10^6/uL Hgb 7.8 L (12.5-18.0) g/dL Hct 26.7 L (42-50) % MCV 76.3 L (78-100) fL MCH 22.3 L (26-32) pg MCHC 29.2 L (32-36) g/dL RDW 19.7 H (11.5-14.0) % Plt Count 824 H (150-450) x10^3/uL MPV 8.0 (7.5-11.0) fL Segmented Neutrophils 94 H (36.-66.) % Lymphocytes (Manual) 3 L (24-44) % Monocytes (Manual) 3 (0.0-12.0) % Hypochromia 1+ Platelet Estimate DECREASED (NORMAL) RBC Morphology ABNORMAL Anisocytosis 2+ Sodium 134 L (137-145) mmol/L Potassium 4.1 (3.5-5.1) mmol/L Chloride 100 (98-107) mmol/L Carbon Dioxide 23 (22-30) mmol/L Anion Gap 14.9 (5-15) MEQ/L BUN 11 (9-20) mg/dL Creatinine 0.61 L (0.66-1.25) mg/dL Estimated GFR 107.9 ML/MIN Glucose 159 H (74-106) mg/dL Lactic Acid 0.9 (0.4-2.0) Calcium 8.9 (8.4-10.2) mg/dL Total Bilirubin 0.80 (0.2-1.3) mg/dL AST 25 (17-59) U/L ALT 16 (0-50) U/L Alkaline Phosphatase 109 (38-126) U/L Serum Total Protein 7.3 (6.3-8.2) g/dL Albumin 3.6 (3.5-5.0) g/dL Influenza Type A Ag (NEGATIVE) Influenza Type B Ag (NEGATIVE) RSV (PCR) (NEGATIVE) SARS-CoV-2 (PCR) (NEGATIVE) 05/17/23 Range/Units 11:28 WBC (4.0-10.5) x10^3/uL RBC (4.1-5.6) x10^6/uL Hgb (12.5-18.0) g/dL Hct (42-50) % MCV (78-100) fL MCH (26-32) pg MCHC (32-36) g/dL RDW (11.5-14.0) % Plt Count (150-450) x10^3/uL MPV (7.5-11.0) fL Segmented Neutrophils (36.-66.) % Lymphocytes (Manual) (24-44) % Monocytes (Manual) (0.0-12.0) % Hypochromia Platelet Estimate (NORMAL) RBC Morphology Anisocytosis Sodium (137-145) mmol/L Potassium (3.5-5.1) mmol/L Chloride (98-107) mmol/L Carbon Dioxide (22-30) mmol/L Anion Gap (5-15) MEQ/L BUN (9-20) mg/dL Creatinine (0.66-1.25) mg/dL Estimated GFR ML/MIN Glucose (74-106) mg/dL Lactic Acid (0.4-2.0) Calcium (8.4-10.2) mg/dL Total Bilirubin (0.2-1.3) mg/dL AST (17-59) U/L ALT (0-50) U/L Alkaline Phosphatase (38-126) U/L Serum Total Protein (6.3-8.2) g/dL Albumin (3.5-5.0) g/dL Influenza Type A Ag NEGATIVE (NEGATIVE) Influenza Type B Ag NEGATIVE (NEGATIVE) RSV (PCR) NEGATIVE (NEGATIVE) SARS-CoV-2 (PCR) NEGATIVE (NEGATIVE) - Radiology Impressions Radiology Exams & Impressions: Radiology Procedures Category Date Time Status CHEST 1 VIEW (PORTABLE) Stat Exams 05/17/23 10:53 Completed Assessment/Plan (1) Diabetic foot ulcer Current Visit: Yes Status: Acute Assessment & Plan: - Podiatry consulted- scheduled for surgical procedure today - procedure under local - Ortho consulted - failed OP antibiotics - Picc line right arm - antibiotics started in ER- continue. - No need for isolation unless draining through bandages or uncovered- if this is the case then will need contact isolation. - Hold meds until back from procedure - BCx2 pending Code(s): E11.621 - TYPE 2 DIABETES MELLITUS WITH FOOT ULCER; L97.509 - NON- PRESSURE CHRONIC ULCER OTH PRT UNSP FOOT W UNSP SEVERITY (2) Leukocytosis Current Visit: Yes Status: Acute Assessment & Plan: - 2:2 right foot ulcer - WBC 24.1 - trend - Lactic acid 0.9 - BC x2 pending Code(s): D72.829 - ELEVATED WHITE BLOOD CELL COUNT, UNSPECIFIED (3) Tachycardia Current Visit: Yes Status: Acute Assessment & Plan: - 2:2 infection - tele - Will need trop x3 when he come back from procedure. - consider increasing coreg - denies Cp - EKG Code(s): R00.0 - TACHYCARDIA, UNSPECIFIED (4) Anemia Current Visit: No Status: Chronic Qualifiers: Anemia type: other cause Other causes of anemia: other cause, not classified Qualified Code(s): D64.89 - Other specified anemias Assessment & Plan: - Hgb stable at 7.8 - trend Code(s): D64.9 - ANEMIA, UNSPECIFIED (5) Failure of outpatient treatment Current Visit: No Status: Acute Onset Date: ~02/02/18 Assessment & Plan: - was in rehab for OP PICC line antibiotics - med not on home med list Code(s): Z78.9 - OTHER SPECIFIED HEALTH STATUS (6) Hyponatremia Current Visit: No Status: Acute Onset Date: ~02/02/18 Assessment & Plan: - Na+ 134- mild - IVF Code(s): E87.1 - HYPO-OSMOLALITY AND HYPONATREMIA (7) Diabetes mellitus Current Visit: No Status: Chronic Qualifiers: Diabetes mellitus type: type 2 Diabetes 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 insulin use: wi thout alf use Diabetes mellitus complication status: with skin complications Diabetes mellitus complication detail: with other skin complica tion Qualified Code(s): E11.628 - Type 2 diabetes mellitus with other skin complications Assessment & Plan: - A1C 6.44 - Controlled on 02/24/23 - accuchecks ac/hs, humalog s/s, lantus Code(s): E11.9 - TYPE 2 DIABETES MELLITUS WITHOUT COMPLICATIONS (8) Hypertension Current Visit: No Status: Chronic Qualifiers: Hypertension type: essential hypertension Qualified Code(s): I10 - Essential (primary) hypertension Assessment & Plan: - Controlled continue home meds Code(s): I10 - ESSENTIAL (PRIMARY) HYPERTENSION (9) IV infiltration Current Visit: Yes Status: Acute Assessment & Plan: - IN ER vancomycin infiltrated left arm - hyaluronidase SC gave in ER - elevate left arm to heart level to decrease edema. Code(s): T80.1XXA - VASCULAR COMP FOL INFUSN, TRANFS AND THERAPUTC INJECT, INIT (10) Hyperlipidemia Current Visit: Yes Status: Chronic Assessment & Plan: - continue statin VTE: Plavix and heparin if ok with podiatry Next of KIN: KEVIN Agudelo [phone] D/c plan: 2-3 days Code status: Full Code(s): E78.5 - HYPERLIPIDEMIA, UNSPECIFIED
[2023-05-17] MEDS ORDERED: Lactated Ringers 1,000 ML IV ONE (14:47)
[2023-05-17] MEDS ORDERED: HUMALOG SQ PRN (15:08)
[2023-05-17 15:41] LABS: Appearance Clear (Clear); Bacteria None Seen /HPF (None Seen); Bilirubin Negative (Negative); Blood Negative (Negative); Epithelial Cells None Seen /HPF (None Seen); Glucose, Urine >=1000 mg/dL (Negative); Hyaline Casts NONE SEEN /LPF (0-2); Ketones 15 (Negative); Leukocyte Esterase Negative (Negative); Nitrite Negative (Negative); Protein,Urine Dip Negative (Negative); RBC 0-2 /HPF (0-5); Specific Gravity 1.025 (1.005-1.030); Urobilinogen 0.2 mg/dL (0.2); WBC 0-2 /HPF (0-5)
[2023-05-17 15:50] LABS: ADD URINE CULTURE? NO (NO)
[2023-05-17] MEDS ORDERED: [UNRECOGNIZED DRUG - OTHER] IV SCH (17:30)
[2023-05-17] MEDS ORDERED: Miralax Powder 17GM PACKET PO PRN (17:30)
[2023-05-17] MEDS ORDERED: Cathflo Activase 2 MG IJ PRN (17:30)
[2023-05-17] MEDS ORDERED: Glutose 15 GM ORAL GEL PO PRN (17:48)
[2023-05-17] MEDS ORDERED: D50W 50 ml Abboject IV PRN (17:48)
[2023-05-17] MEDS ORDERED: GlucaGen 1 MG IM PRN (17:48)
[2023-05-17 18:15] LABS: A-aADO2 32; ARTERIAL BLOOD GAS BASE EXCESS -3.9 (-2.0-2.0); ARTERIAL BLOOD GAS FIO2 21 %; ARTERIAL BLOOD GAS PCO2 28 mmHg (35-45); ARTERIAL BLOOD GAS PO2 83 mmHg (75-100); ARTERIAL BLOOD GAS pH 7.45 (7.35-7.45); CARBOXYHEMOGLOBIN 1.6 % THgb (0.0-6.9); HCO3- 19.5 (22-28); HGB O2 SAT 95.9 g/dF (94-100); Methhemoglobin 0.5 % (1.4-1.5); paO2 pAO1 0.72
[2023-05-17 18:16] LABS: ABG HEMOGLOBIN 7.6; ABG SITE RIGHT BRACHIAL
--- NOTE | 2023-05-17 18:17 | PCM.NOTE ---
ORTHO Progress Note - Progress Note ORTHO Progress Note: 62-year-old male withLeft diabetic foot wound and leg wounds debrided by Dr. Lopez today. He says he had to go down to bone along the fibula.Did not have further good coverage options for soft tissue.We discussed below-knee amputation yesterday and he was going to think about it after he saw vascular consult on April.With fever 103 today possibly septic Objective:Patient alert slightly groggy from anesthesiaRight lower extremity is wrapped in Jamal wrapYesterday showed edematous skin with multiple ulcerations along the lateral leg dorsal foot and heeRight Assessment:Right lower extremity with multiple diabetic ulcerations, possible sepsis Plan:Discussed with Dr. Lopez and the patient that I think he would do best with a below-knee amputation on the right to avoid further sepsis.The risk include bleeding, infection, damage to nerves or blood vessels, Poor wound healing,possible continued pain, possiblePain, possible need for further amputation, and the risk of medical anesthetic complications including the risk of .Patient is not ready to make that decision yet. I will make him n.p.o. after midnight in case he becomes more septic and requires more emergent surgery tomorrow.
[2023-05-17] MEDS: NOREPINEPHRINE 8 MG/250 ML-D5W 8 MG/250 ML PLAST..BAG IV PRN (18:34)
[2023-05-17] MEDS: PIPERACILLIN/TAZOBACTAM 3.375 GM in Sodium Chloride 100ML MINI-BAG PLUS 100 ML IV SCH (18:38)
[2023-05-17] MEDS ORDERED: LOPRESSOR INJECTION IV PRN (18:49)
[2023-05-17 20:05] LABS: ABO TYPING O; Antibody Screen NEGATIVE (NEGATIVE); RH TYPING POSITIVE
[2023-05-17] MEDS: Sodium Chloride 0.9% 1000 ML 1,000 ML IV SCH (20:53)
[2023-05-17] MEDS: VANCOMYCIN 1 GRAM/200 ML BAG 1 GM/200 ML PIGGYBACK IV SCH (20:56)
[2023-05-17] MEDS: Lactated Ringers 1,000 ML IV SCH (20:59)
[2023-05-17] MEDS ORDERED: Coreg 3.125 MG PO SCH (22:00)
[2023-05-17] MEDS: ZOCOR 20MG PO SCH (22:23)
[2023-05-17] MEDS: FEOSOL 325 MG PO SCH (22:23)
[2023-05-17] MEDS: Requip 0.5 MG PO SCH (22:23)
[2023-05-17] MEDS: ENOXAPARIN SODIUM SQ SCH (22:24)
[2023-05-17] MEDS: Lantus Insulin SQ SCH (22:26)
[2023-05-17] MEDS: Glucotrol 5 MG PO SCH (22:26)
[2023-05-17] MEDS: NON-FORMULARY ITEM (Atorvastatin Calcium [Lipitor] 80 MG Tablet) PO SCH (22:28)
[2023-05-17] MEDS: NON-FORMULARY ITEM (Ropinirole Hcl [Ropinirole Hcl] 1 MG Tablet) PO SCH (22:28)
[2023-05-17] MEDS: TYLENOL 325 MG PO PRN (22:44)
[2023-05-17 23:36] LABS: Hematocrit 23.1 % (42-50)
[2023-05-17 23:41] LABS: Hemoglobin 6.6 g/dL (12.5-18.0)
[2023-05-18 01:53] LABS: CROSS MATCH (PRBC) COMPATIBLE (COMPATIBLE)
[2023-05-18 05:30] LABS: Hematocrit 25.4 % (42-50); Hemoglobin 7.2 g/dL (12.5-18.0); Mean Cell Volume 80.9 fL (78-100); Mean Corpuscular Hemoglobin 22.9 pg (26-32); Mean Corpuscular Hgb Concent. 28.3 g/dL (32-36); Mean Platelet Volume 8.1 fL (7.5-11.0); Platelet Count 813 x10^3/uL (150-450); Red Blood Count 3.14 x10^6/uL (4.1-5.6); Red Cell Distribution Width 19.9 % (11.5-14.0); White Blood Count 24.3 x10^3/uL (4.0-10.5)
[2023-05-18 06:30] LABS: ALBUMIN 3.1 g/dL (3.5-5.0); ANION GAP 20.9 MEQ/L (5-15); BILIRUBIN,TOTAL 0.8 mg/dL (0.2-1.3); Calcium 8.7 mg/dL (8.4-10.2); Creatinine 1 0.65 mg/dL (0.66-1.25); EST GLOMERULAR FILTRATION RATE 105.9 ML/MIN; Potassium 3.9 mmol/L (3.5-5.1); Total Protein 6.6 g/dL (6.3-8.2)
[2023-05-18] MEDS ORDERED: Sodium Chloride 0.9% 10 ML FLUSH Syringe IV PRN (07:30)
[2023-05-18] MEDS: [UNRECOGNIZED DRUG - OTHER] IV SCH (07:33)
[2023-05-18] MEDS: SODIUM BICARBONATE IV SCH (07:33)
[2023-05-18] MEDS: SODIUM BICARBONATE 50 MEQ/50 ML ABBOJECT IV ONE (07:43)
[2023-05-18] MEDS: Glucotrol 5 MG PO SCH (08:34)
--- NOTE | 2023-05-18 08:35 | XRAY ---
Indication: Loss of consciousness. Change in mental status. Multiple contiguous axial images obtained through the head without contrast. Comparison: April 26, 2015 Age-appropriate global atrophy and minimal periventricular degenerative micro-ischemia bilaterally. No acute intracranial hemorrhage, abnormal extra-axial fluid collection, or mass effect. Fourth ventricle is midline without hydrocephalus. Bony calvarium intact. Mild mucosal thickening both ethmoid and maxillary both maxillary sinuses. Mastoid air cells are clear. Impression: Mild paranasal sinus disease. Otherwise nonacute senile brain.
--- NOTE | 2023-05-18 08:39 | PCM.NOTE ---
ORTHO Progress Note - Progress Note ORTHO Progress Note: Patient still refusing to consider right below-knee amputation. He may follow-up with me when I return June 08 or May require transfer to [facility] for amputation there
--- NOTE | 2023-05-18 08:47 | XRAY ---
Indication: Elevated d-dimer. Multiple contiguous axial images obtained through the chest using 80 cc Isovue 370 contrast and PE protocol. Comparison: December 02, 2022 Good opacification of the pulmonary arteries to include the lobar and segmental branches. No pulmonary embolus. Heart not enlarged again with scattered coronary calcifications. New right arm PICC line with tip in SVC. Aorta again minimally arteriosclerotic without aneurysm/dissection. Stable tiny mediastinal and bilateral hilar calcified nodes. No pathologic mediastinal/hilar lymphadenopathy. Lungs again demonstrate right lower lobe subsegmental atelectasis/scarring and tiny right posterior gutter calcified granuloma. Minimal bilateral dependent atelectasis. No new pulmonary mass/nodule, infiltrate, or effusion. Bony thorax intact again with mild degenerative changes throughout the spine. Limited upper abdomen again demonstrates fatty liver. Impression: 1. Continued negative pulmonary embolus. No new/acute cardiopulmonary abnormalities. 2. Again chronic findings including right lower lobe atelectasis/scarring, arteriosclerotic disease, chronic bony findings, fatty liver, and old granulomatous disease.
[2023-05-18 09:03] LABS: Slide Review YES
[2023-05-18] MEDS: Lasix 40 MG PO SCH (09:03)
[2023-05-18] MEDS: NORCO 10-325 MG PO PRN (09:03)
[2023-05-18] MEDS: Klor Con PO SCH (09:03)
[2023-05-18] MEDS: ECOTRIN 81 MG PO SCH (09:03)
[2023-05-18] MEDS: FISH OIL 1,000 MG CAPSULE PO SCH (09:03)
[2023-05-18] MEDS: PLAVIX Tablet PO SCH (09:04)
[2023-05-18] MEDS: Docusate Sodium 100 MG PO SCH (09:04)
[2023-05-18] MEDS: ZYLOPRIM 300 MG PO SCH (09:04)
[2023-05-18 10:24] LABS: A-aADO2 2; ABG HEMOGLOBIN 8.2; ABG POTASSIUM 3.8 (3.5-5.1); ARTERIAL BLD GAS O2 SATURATION 98.5 % (95-100); ARTERIAL BLOOD GAS BASE EXCESS -5.7 (-2.0-2.0); ARTERIAL BLOOD GAS FIO2 21 %; ARTERIAL BLOOD GAS PCO2 25 mmHg (35-45); ARTERIAL BLOOD GAS PO2 116 mmHg (75-100); ARTERIAL BLOOD GAS pH 7.45 (7.35-7.45); CARBOXYHEMOGLOBIN 0.9 % THgb (0.0-6.9); HCO3- 17.4 (22-28); HGB O2 SAT 96.7 g/dF (94-100); Methhemoglobin 0.9 % (1.4-1.5); paO2 pAO1 0.98
[2023-05-18 10:25] LABS: ALLEN TEST OK? y
[2023-05-18 13:11] LABS: Hematocrit 25.3 % (42-50); Hemoglobin 7.4 g/dL (12.5-18.0)
--- NOTE | 2023-05-18 13:53 | PCM.DS ---
Discharge Summary Date of Admission: 05/17/23 17:59 Date of Discharge: 05/18/23 Admitting Physician: CORNELIA MORGAN MD Consults: Consults on Case 05/17/23 14:43 Consult Ortho ROUTINE Consult Podiatry ROUTINE 05/17/23 19:09 Consult Cardiology ROUTINE Primary Care Provider: PENNY WOODY Allergies Allergies No Known Drug Allergies Allergy (Verified 05/17/23 11:48) Hospital Summary - Hospital Course Hospital Course: 05/17/23 is a 62 year old male with PMHX of peripgeral neuropathy, cataracts, DVT, hyperlipidemia, PVD, sleep apnea, type II DM, hypoglycemia, cardiac cath with stents, chronic anemia, and multiple foot surgeries. He presented on 05/17/23 [facility] of elevated heart rate and fever. Patient has a known infected right lower extremity diabetic foot wound. In ER he was thought to have a right upper extremity fistula, jennings gissell this is PICC line for OP antibiotics and renal function is within normal limits. This was confirmed with [facility]. He does not appear to be in acute distress. Vitals appear to be stable at this point. Lactic acid is normal. ER physician discussed pt case with podiatry who has been managing his care. RLE foot ulcer foul smelling. He was started on vancomycin and zosyn in the ER. WBC elevated at 24.1. He is to have a surgical procedure with podiatry today. Ortho to also be consulted. Pt denies CP, SOB, abd. pain, N/V/D. IV infiltration of left arm with Vancomycin in ER. Meds given in ER for this. Right arm picc line now being used for meds. 05/18 Pt resting in bed. He is much more alert and awake today. Yesterday when he came back from procedure with podiatry he became obtunded and hypotensive. He was transferred to ICU. 1 liter fluid bolus ordered and this did not improved BP much. He was then started on Levophed gtt. CT head ordered and negative for any acute process. CTA ordered for elevated d-dimer and negative for PE. Troponin was elevated yesterday at 2.010 and trended down. Cardiology consulted today and they recommend transfer to higher level of care for heart cath. They recommended transfer to [facility] for cardiac and vascular surgeon consult at or [facility] in [place]. However they are unable to take any patients at this time. Pt is on a wait list at [facility] in [place] currently. CO2 14 and placed on bicarb gtt this AM. Pt denies CP, SOB, abd pain, N/V/D. He was weaned off he Levophed gtt this AM. - Vitals & Intake/Output Vital Signs: Vital Signs Temperature 97.9 F 05/18/23 11:22 Pulse Rate 122 H 05/18/23 13:00 Respiratory Rate 19 05/18/23 13:00 Blood Pressure 94/55 05/18/23 13:00 O2 Sat by Pulse Oximetry 97 05/18/23 13:00 Intake & Output: Intake & Output 05/16/23 05/17/23 05/18/23 05/19/23 11:59 11:59 11:59 11:59 Intake Total 2523 480 Output Total 1825 Balance 698 480 Weight 106.8 kg 103.1 kg - Lab Result Diagrams: 05/18/23 12:45 05/18/23 05:20 Lab Results-Last 24 Hrs: Lab Results-Last 24 Hours 05/17/23 05/17/23 05/17/23 Range/Units 00:00 15:01 15:30 WBC (4.0-10.5) x10^3/uL RBC (4.1-5.6) x10^6/uL Hgb (12.5-18.0) g/dL Hct (42-50) % MCV (78-100) fL MCH (26-32) pg MCHC (32-36) g/dL RDW (11.5-14.0) % Plt Count (150-450) x10^3/uL MPV (7.5-11.0) fL D-Dimer (0.0-0.50) mg/L Puncture Site pCO2 (35-45) mmHg pO2 (75-100) mmHg Base Excess (-2.0-2.0) O2 Saturation (94-100) g/dF ABG pH (7.35-7.45) ABG HCO3 (22-28) ABG O2 Sat (Measured) (95-100) % Dong Test A-a Gradient a/A Ratio Hemoglobin Carboxyhemoglobin (0.0-6.9) % THgb Methemoglobin (1.4-1.5) % Potassium (3.5-5.1) Temperature C POC O2 Flow Rate % Sodium (137-145) mmol/L Chloride (98-107) mmol/L Carbon Dioxide (22-30) mmol/L Anion Gap (5-15) MEQ/L BUN (9-20) mg/dL Creatinine (0.66-1.25) mg/dL Estimated GFR ML/MIN Glucose (74-106) mg/dL POC Glucometer (74 to 106) mg/dL Lactic Acid (0.4-2.0) Calcium (8.4-10.2) mg/dL Total Bilirubin (0.2-1.3) mg/dL AST (17-59) U/L ALT (0-50) U/L Alkaline Phosphatase (38-126) U/L Troponin I (0.000-0.034) ng/mL NT-Pro-B Natriuret Pep (<300) pg/mL Serum Total Protein (6.3-8.2) g/dL Albumin (3.5-5.0) g/dL Prealbumin 10.65 L (17.6-36.0) mg/dL Urine Color Yellow (Yellow) Urine Appearance Clear (Clear) Urine pH 6.0 (4.6-8.0) Ur Specific Coleridge 1.025 (1.005-1.030) Urine Protein Negative (Negative) Urine Glucose (UA) >=1000 A (Negative) mg/dL Urine Ketones 15 A (Negative) Urine Blood Negative (Negative) Urine Nitrite Negative (Negative) Urine Bilirubin Negative (Negative) Urine Urobilinogen 0.2 (0.2) mg/dL Ur Leukocyte Esterase Negative (Negative) U Hyaline Cast (Auto) NONE SEEN (0-2) /LPF Urine Microscopic RBC 0-2 (0-5) /HPF Urine Microscopic WBC 0-2 (0-5) /HPF Ur Epithelial Cells None Seen (None Seen) /HPF Urine Bacteria None Seen (None Seen) /HPF Urine Culture Reflexed NO (NO) Slides for Path Review ABO Group Rh Factor Antibody Screen (NEGATIVE) Crossmatch COMPATIBLE (COMPATIBLE) 05/17/23 05/17/23 05/17/23 Range/Units 17:25 17:45 18:05 WBC (4.0-10.5) x10^3/uL RBC (4.1-5.6) x10^6/uL Hgb (12.5-18.0) g/dL Hct (42-50) % MCV (78-100) fL MCH (26-32) pg MCHC (32-36) g/dL RDW (11.5-14.0) % Plt Count (150-450) x10^3/uL MPV (7.5-11.0) fL D-Dimer (0.0-0.50) mg/L Puncture Site RIGHT BRACHIAL pCO2 28 L (35-45) mmHg pO2 83 (75-100) mmHg Base Excess -3.9 L (-2.0-2.0) O2 Saturation 95.9 (94-100) g/dF ABG pH 7.45 (7.35-7.45) ABG HCO3 19.5 L (22-28) ABG O2 Sat (Measured) 98.0 (95-100) % Dong Test NOT APPLICABLE A-a Gradient 32 a/A Ratio 0.72 Hemoglobin 7.6 L* Carboxyhemoglobin 1.6 (0.0-6.9) % THgb Methemoglobin 0.5 L (1.4-1.5) % Potassium 4.0 (3.5-5.1) Temperature 37.0 C POC O2 Flow Rate 21 % Sodium (137-145) mmol/L Chloride (98-107) mmol/L Carbon Dioxide (22-30) mmol/L Anion Gap (5-15) MEQ/L BUN (9-20) mg/dL Creatinine (0.66-1.25) mg/dL Estimated GFR ML/MIN Glucose (74-106) mg/dL POC Glucometer 209 H (74 to 106) mg/dL Lactic Acid (0.4-2.0) Calcium (8.4-10.2) mg/dL Total Bilirubin (0.2-1.3) mg/dL AST (17-59) U/L ALT (0-50) U/L Alkaline Phosphatase (38-126) U/L Troponin I 2.010 H* (0.000-0.034) ng/mL NT-Pro-B Natriuret Pep (<300) pg/mL Serum Total Protein (6.3-8.2) g/dL Albumin (3.5-5.0) g/dL Prealbumin (17.6-36.0) mg/dL Urine Color (Yellow) Urine Appearance (Clear) Urine pH (4.6-8.0) Ur Specific Coleridge (1.005-1.030) Urine Protein (Negative) Urine Glucose (UA) (Negative) mg/dL Urine Ketones (Negative) Urine Blood (Negative) Urine Nitrite (Negative) Urine Bilirubin (Negative) Urine Urobilinogen (0.2) mg/dL Ur Leukocyte Esterase (Negative) U Hyaline Cast (Auto) (0-2) /LPF Urine Microscopic RBC (0-5) /HPF Urine Microscopic WBC (0-5) /HPF Ur Epithelial Cells (None Seen) /HPF Urine Bacteria (None Seen) /HPF Urine Culture Reflexed (NO) Slides for Path Review ABO Group Rh Factor Antibody Screen (NEGATIVE) Crossmatch (COMPATIBLE) 05/17/23 05/17/23 05/17/23 Range/Units 18:05 18:30 18:32 WBC (4.0-10.5) x10^3/uL RBC (4.1-5.6) x10^6/uL Hgb (12.5-18.0) g/dL Hct (42-50) % MCV (78-100) fL MCH (26-32) pg MCHC (32-36) g/dL RDW (11.5-14.0) % Plt Count (150-450) x10^3/uL MPV (7.5-11.0) fL D-Dimer 1.23 H* (0.0-0.50) mg/L Puncture Site pCO2 (35-45) mmHg pO2 (75-100) mmHg Base Excess (-2.0-2.0) O2 Saturation (94-100) g/dF ABG pH (7.35-7.45) ABG HCO3 (22-28) ABG O2 Sat (Measured) (95-100) % Dong Test A-a Gradient a/A Ratio Hemoglobin Carboxyhemoglobin (0.0-6.9) % THgb Methemoglobin (1.4-1.5) % Potassium (3.5-5.1) Temperature C POC O2 Flow Rate % Sodium (137-145) mmol/L Chloride (98-107) mmol/L Carbon Dioxide (22-30) mmol/L Anion Gap (5-15) MEQ/L BUN (9-20) mg/dL Creatinine (0.66-1.25) mg/dL Estimated GFR ML/MIN Glucose (74-106) mg/dL POC Glucometer (74 to 106) mg/dL Lactic Acid 1.1 (0.4-2.0) Calcium (8.4-10.2) mg/dL Total Bilirubin (0.2-1.3) mg/dL AST (17-59) U/L ALT (0-50) U/L Alkaline Phosphatase (38-126) U/L Troponin I (0.000-0.034) ng/mL NT-Pro-B Natriuret Pep 3730 (<300) pg/mL Serum Total Protein (6.3-8.2) g/dL Albumin (3.5-5.0) g/dL Prealbumin (17.6-36.0) mg/dL Urine Color (Yellow) Urine Appearance (Clear) Urine pH (4.6-8.0) Ur Specific Coleridge (1.005-1.030) Urine Protein (Negative) Urine Glucose (UA) (Negative) mg/dL Urine Ketones (Negative) Urine Blood (Negative) Urine Nitrite (Negative) Urine Bilirubin (Negative) Urine Urobilinogen (0.2) mg/dL Ur Leukocyte Esterase (Negative) U Hyaline Cast (Auto) (0-2) /LPF Urine Microscopic RBC (0-5) /HPF Urine Microscopic WBC (0-5) /HPF Ur Epithelial Cells (None Seen) /HPF Urine Bacteria (None Seen) /HPF Urine Culture Reflexed (NO) Slides for Path Review ABO Group Rh Factor Antibody Screen (NEGATIVE) Crossmatch (COMPATIBLE) 05/17/23 05/17/23 05/17/23 Range/Units 18:32 19:56 21:33 WBC (4.0-10.5) x10^3/uL RBC (4.1-5.6) x10^6/uL Hgb (12.5-18.0) g/dL Hct (42-50) % MCV (78-100) fL MCH (26-32) pg MCHC (32-36) g/dL RDW (11.5-14.0) % Plt Count (150-450) x10^3/uL MPV (7.5-11.0) fL D-Dimer (0.0-0.50) mg/L Puncture Site pCO2 (35-45) mmHg pO2 (75-100) mmHg Base Excess (-2.0-2.0) O2 Saturation (94-100) g/dF ABG pH (7.35-7.45) ABG HCO3 (22-28) ABG O2 Sat (Measured) (95-100) % Dong Test A-a Gradient a/A Ratio Hemoglobin Carboxyhemoglobin (0.0-6.9) % THgb Methemoglobin (1.4-1.5) % Potassium (3.5-5.1) Temperature C POC O2 Flow Rate % Sodium (137-145) mmol/L Chloride (98-107) mmol/L Carbon Dioxide (22-30) mmol/L Anion Gap (5-15) MEQ/L BUN (9-20) mg/dL Creatinine (0.66-1.25) mg/dL Estimated GFR ML/MIN Glucose (74-106) mg/dL POC Glucometer 175 H (74 to 106) mg/dL Lactic Acid (0.4-2.0) Calcium (8.4-10.2) mg/dL Total Bilirubin (0.2-1.3) mg/dL AST (17-59) U/L ALT (0-50) U/L Alkaline Phosphatase (38-126) U/L Troponin I 1.640 H* (0.000-0.034) ng/mL NT-Pro-B Natriuret Pep (<300) pg/mL Serum Total Protein (6.3-8.2) g/dL Albumin (3.5-5.0) g/dL Prealbumin (17.6-36.0) mg/dL Urine Color (Yellow) Urine Appearance (Clear) Urine pH (4.6-8.0) Ur Specific Coleridge (1.005-1.030) Urine Protein (Negative) Urine Glucose (UA) (Negative) mg/dL Urine Ketones (Negative) Urine Blood (Negative) Urine Nitrite (Negative) Urine Bilirubin (Negative) Urine Urobilinogen (0.2) mg/dL Ur Leukocyte Esterase (Negative) U Hyaline Cast (Auto) (0-2) /LPF Urine Microscopic RBC (0-5) /HPF Urine Microscopic WBC (0-5) /HPF Ur Epithelial Cells (None Seen) /HPF Urine Bacteria (None Seen) /HPF Urine Culture Reflexed (NO) Slides for Path Review ABO Group O Rh Factor POSITIVE Antibody Screen NEGATIVE (NEGATIVE) Crossmatch (COMPATIBLE) 05/17/23 05/17/23 05/18/23 Range/Units 23:34 23:34 05:20 WBC 24.3 H (4.0-10.5) x10^3/uL RBC 3.14 L (4.1-5.6) x10^6/uL Hgb 6.6 L* 7.2 L (12.5-18.0) g/dL Hct 23.1 L 25.4 L (42-50) % MCV 80.9 D (78-100) fL MCH 22.9 L (26-32) pg MCHC 28.3 L (32-36) g/dL RDW 19.9 H (11.5-14.0) % Plt Count 813 H (150-450) x10^3/uL MPV 8.1 (7.5-11.0) fL D-Dimer (0.0-0.50) mg/L Puncture Site pCO2 (35-45) mmHg pO2 (75-100) mmHg Base Excess (-2.0-2.0) O2 Saturation (94-100) g/dF ABG pH (7.35-7.45) ABG HCO3 (22-28) ABG O2 Sat (Measured) (95-100) % Dong Test A-a Gradient a/A Ratio Hemoglobin Carboxyhemoglobin (0.0-6.9) % THgb Methemoglobin (1.4-1.5) % Potassium (3.5-5.1) Temperature C POC O2 Flow Rate % Sodium (137-145) mmol/L Chloride (98-107) mmol/L Carbon Dioxide (22-30) mmol/L Anion Gap (5-15) MEQ/L BUN (9-20) mg/dL Creatinine (0.66-1.25) mg/dL Estimated GFR ML/MIN Glucose (74-106) mg/dL POC Glucometer (74 to 106) mg/dL Lactic Acid (0.4-2.0) Calcium (8.4-10.2) mg/dL Total Bilirubin (0.2-1.3) mg/dL AST (17-59) U/L ALT (0-50) U/L Alkaline Phosphatase (38-126) U/L Troponin I 1.270 H* (0.000-0.034) ng/mL NT-Pro-B Natriuret Pep (<300) pg/mL Serum Total Protein (6.3-8.2) g/dL Albumin (3.5-5.0) g/dL Prealbumin (17.6-36.0) mg/dL Urine Color (Yellow) Urine Appearance (Clear) Urine pH (4.6-8.0) Ur Specific Coleridge (1.005-1.030) Urine Protein (Negative) Urine Glucose (UA) (Negative) mg/dL Urine Ketones (Negative) Urine Blood (Negative) Urine Nitrite (Negative) Urine Bilirubin (Negative) Urine Urobilinogen (0.2) mg/dL Ur Leukocyte Esterase (Negative) U Hyaline Cast (Auto) (0-2) /LPF Urine Microscopic RBC (0-5) /HPF Urine Microscopic WBC (0-5) /HPF Ur Epithelial Cells (None Seen) /HPF Urine Bacteria (None Seen) /HPF Urine Culture Reflexed (NO) Slides for Path Review YES ABO Group Rh Factor Antibody Screen (NEGATIVE) Crossmatch (COMPATIBLE) 05/18/23 05/18/23 05/18/23 Range/Units 05:20 07:02 07:27 WBC (4.0-10.5) x10^3/uL RBC (4.1-5.6) x10^6/uL Hgb (12.5-18.0) g/dL Hct (42-50) % MCV (78-100) fL MCH (26-32) pg MCHC (32-36) g/dL RDW (11.5-14.0) % Plt Count (150-450) x10^3/uL MPV (7.5-11.0) fL D-Dimer (0.0-0.50) mg/L Puncture Site pCO2 (35-45) mmHg pO2 (75-100) mmHg Base Excess (-2.0-2.0) O2 Saturation (94-100) g/dF ABG pH (7.35-7.45) ABG HCO3 (22-28) ABG O2 Sat (Measured) (95-100) % Dong Test A-a Gradient a/A Ratio Hemoglobin Carboxyhemoglobin (0.0-6.9) % THgb Methemoglobin (1.4-1.5) % Potassium 3.9 (3.5-5.1) Temperature C POC O2 Flow Rate % Sodium 138 (137-145) mmol/L Chloride 106 (98-107) mmol/L Carbon Dioxide 14 L* (22-30) mmol/L Anion Gap 20.9 H (5-15) MEQ/L BUN 14 (9-20) mg/dL Creatinine 0.65 L (0.66-1.25) mg/dL Estimated GFR 105.9 ML/MIN Glucose 185 H (74-106) mg/dL POC Glucometer 177 H (74 to 106) mg/dL Lactic Acid 1.0 (0.4-2.0) Calcium 8.7 (8.4-10.2) mg/dL Total Bilirubin 0.80 (0.2-1.3) mg/dL AST 21 (17-59) U/L ALT 12 (0-50) U/L Alkaline Phosphatase 88 (38-126) U/L Troponin I (0.000-0.034) ng/mL NT-Pro-B Natriuret Pep (<300) pg/mL Serum Total Protein 6.6 (6.3-8.2) g/dL Albumin 3.1 L (3.5-5.0) g/dL Prealbumin (17.6-36.0) mg/dL Urine Color (Yellow) Urine Appearance (Clear) Urine pH (4.6-8.0) Ur Specific Coleridge (1.005-1.030) Urine Protein (Negative) Urine Glucose (UA) (Negative) mg/dL Urine Ketones (Negative) Urine Blood (Negative) Urine Nitrite (Negative) Urine Bilirubin (Negative) Urine Urobilinogen (0.2) mg/dL Ur Leukocyte Esterase (Negative) U Hyaline Cast (Auto) (0-2) /LPF Urine Microscopic RBC (0-5) /HPF Urine Microscopic WBC (0-5) /HPF Ur Epithelial Cells (None Seen) /HPF Urine Bacteria (None Seen) /HPF Urine Culture Reflexed (NO) Slides for Path Review ABO Group Rh Factor Antibody Screen (NEGATIVE) Crossmatch (COMPATIBLE) 05/18/23 05/18/23 05/18/23 Range/Units 10:00 11:07 12:45 WBC (4.0-10.5) x10^3/uL RBC (4.1-5.6) x10^6/uL Hgb 7.4 L (12.5-18.0) g/dL Hct 25.3 L (42-50) % MCV (78-100) fL MCH (26-32) pg MCHC (32-36) g/dL RDW (11.5-14.0) % Plt Count (150-450) x10^3/uL MPV (7.5-11.0) fL D-Dimer (0.0-0.50) mg/L Puncture Site ltrad pCO2 25 L (35-45) mmHg pO2 116 H (75-100) mmHg Base Excess -5.7 L (-2.0-2.0) O2 Saturation 96.7 (94-100) g/dF ABG pH 7.45 (7.35-7.45) ABG HCO3 17.4 L (22-28) ABG O2 Sat (Measured) 98.5 (95-100) % Dong Test y A-a Gradient 2 a/A Ratio 0.98 Hemoglobin 8.2 Carboxyhemoglobin 0.9 (0.0-6.9) % THgb Methemoglobin 0.9 L (1.4-1.5) % Potassium 3.8 (3.5-5.1) Temperature 37.0 C POC O2 Flow Rate 21 % Sodium (137-145) mmol/L Chloride (98-107) mmol/L Carbon Dioxide (22-30) mmol/L Anion Gap (5-15) MEQ/L BUN (9-20) mg/dL Creatinine (0.66-1.25) mg/dL Estimated GFR ML/MIN Glucose (74-106) mg/dL POC Glucometer 214 H (74 to 106) mg/dL Lactic Acid (0.4-2.0) Calcium (8.4-10.2) mg/dL Total Bilirubin (0.2-1.3) mg/dL AST (17-59) U/L ALT (0-50) U/L Alkaline Phosphatase (38-126) U/L Troponin I (0.000-0.034) ng/mL NT-Pro-B Natriuret Pep (<300) pg/mL Serum Total Protein (6.3-8.2) g/dL Albumin (3.5-5.0) g/dL Prealbumin (17.6-36.0) mg/dL Urine Color (Yellow) Urine Appearance (Clear) Urine pH (4.6-8.0) Ur Specific Coleridge (1.005-1.030) Urine Protein (Negative) Urine Glucose (UA) (Negative) mg/dL Urine Ketones (Negative) Urine Blood (Negative) Urine Nitrite (Negative) Urine Bilirubin (Negative) Urine Urobilinogen (0.2) mg/dL Ur Leukocyte Esterase (Negative) U Hyaline Cast (Auto) (0-2) /LPF Urine Microscopic RBC (0-5) /HPF Urine Microscopic WBC (0-5) /HPF Ur Epithelial Cells (None Seen) /HPF Urine Bacteria (None Seen) /HPF Urine Culture Reflexed (NO) Slides for Path Review ABO Group Rh Factor Antibody Screen (NEGATIVE) Crossmatch (COMPATIBLE) Micro Results-Entire Visit: Microbiology 05/17/23 16:15 Yeast/Fungus Susceptibility - Final Toe - Right 5th Toe Not Reportable 05/17/23 16:15 Yeast/Fungus Susceptibility - Final Calcaneus - Right Plantar Not Reportable 05/17/23 16:15 Yeast/Fungus Susceptibility - Final Foot - Right Plantar Not Reportable Accuchecks Date 05/18/23 Date 05/18/23 Date 05/17/23 Time 18:21 - Radiology Exams Ordered Rad Exams-Entire Visit: Radiology Procedures Category Date Time Status CHEST 1 VIEW (PORTABLE) Stat Exams 05/17/23 10:53 Completed CHEST WITH CONTRAST [CT] Routine Exams 05/17/23 20:45 Completed ECHO W/2D AND DOPPLER [US] Routine Exams 05/18/23 19:08 Taken HEAD WITHOUT CONTRAST [CT] Routine Exams 05/17/23 20:45 Completed - Procedures and Test Procedures and Tests throughout Hospitalization: Therapy Orders & Screens 05/17/23 15:01 OT Screen per Nursing Assess ONCE Comment: Protocol Order Physician Instructions: Greater than 3 points order OT Admission Screening Reason For Exam: Triggered on Admission Diagnosis: septic wound Open Wound/Cellutlitis/Pressure Ulcers: Yes: heels of right and left f Acute Fx/ORIF/Change in wt bearing status: No Severe MUSCULOSKELETAL pain: No ADL Dysfunction: Yes: weakness Acute CVA w/Hemiparesis/Hemiplegia: No Decreased Functional Mobility/Strength: Yes Sprain/Strain: No Acute Post-op Mobility Dysfunction: No Total Points: 9 PT Screen per Nursing Assess ONCE Comment: Protocol Order Physician Instructions: Greater than 3 points order PT Admission Screenin Reason For Exam: Triggered on Admission Diagnosis: septic wound Open Wound/Cellutlitis/Pressure Ulcers: Yes: heels of right and left f Acute Fx/ORIF/Change in wt bearing status: No Severe MUSCULOSKELETAL pain: No ADL Dysfunction: Yes: weakness Acute CVA w/Hemiparesis/Hemiplegia: No Decreased Functional Mobility/Strength: Yes Sprain/Strain: No Acute Post-op Mobility Dysfunction: No Total Points: 9 05/17/23 17:53 EKG STAT Comment: Diagnosis: septic wound 05/17/23 17:54 Respiratory Therapy Consult ONCE Comment: Reason For Exam: eval and treat Diagnosis: septic wound Discharge Exam General Appearance: no apparent distress, alert Neurologic Exam: alert, oriented x 3, cooperative, normal mood/affect, nml cerebellar function, sensation nml, No motor deficits Eye Exam: PERRL, EOMI, eyes nml inspection Ears, Nose, Throat Exam: normal ENT inspection, pharynx normal, moist mucous membranes Neck Exam: normal inspection, non-tender, supple, full range of motion Respiratory Exam: normal breath sounds, lungs clear, No respiratory distress Cardiovascular Exam: regular rate/rhythm, normal heart sounds Gastrointestinal/Abdomen Exam: soft, No tenderness, No mass Male Genitalia Exam: deferred Rectal Exam: deferred Back Exam: normal inspection, normal range of motion, No CVA tenderness, No vertebral tenderness Extremity Exam: normal inspection, normal range of motion Skin Exam: normal color, warm, dry, other ((RLE foot wound open ),) Wound Assessment: Skin/Wound Assessment Wound/Incision Assessment Start: 05/17/23 15:01 Text: Status: Active Freq: Q6H Protocol: Document 05/18/23 08:00 OTTO (Rec: 05/18/23 08:31 OTTO [id number]) Wound/Incision Assessment Left Heel Wound Assessment Shift Assessment Wound Type CHRONIC DIABETIC WOUND Wound Stage Non Pressure Wound Dressing Status Dry & Intact Drainage Amount None Comment DRESSING CLEAN, DRY AND INTACT . FLOATED ON PILLOWS. Right Foot Wound Assessment Shift Assessment Wound Type CHRONIC DIABETIC WOUND Wound Stage Non Pressure Wound Dressing Status Dry & Intact Drainage Odor None/Absent Comment DRESSING CLEAN, DRY AND INTACT AT THIS TIME, DR. LINDSEY TO CHANGE DRESSING TODAY, FLOATED ON PILLOWS Final Diagnosis/Problem List - Final Discharge Diagnosis/Problem (1) SIRS (systemic inflammatory response syndrome) Current Visit: Yes Status: Acute Assessment & Plan: - Lactate negative - HR > 90 - RR > 20 - WBC > 12,000 - PCO2 <32 - No fever since admission - 2:2 diabetic foot wound Code(s): R65.10 - SIRS OF NON-INFECTIOUS ORIGIN W/O ACUTE ORGAN DYSFUNCTION (2) Diabetic foot ulcer Current Visit: Yes Status: Acute Assessment & Plan: - Podiatry consulted- scheduled for surgical procedure today - procedure under local - Ortho consulted - failed OP antibiotics - Picc line right arm - antibiotics started in ER- continue. - No need for isolation unless draining through bandages or uncovered- if this is the case then will need contact isolation. - Hold meds until back from procedure - BCx2 pending - lyrica and gabapentin held d/t decreased LOC 05/18 - Contact isolation for hx of pseudomonas - Post op bleeding of wound with dressing changes last night - Per ortho pt refuses to consider below the knee amputation - pt want to f/u with cardiovascular surgeon - he has an appointment tomorrow and willing to change appointment to Tuesday. - pain medication changed to [id number] d/t change in LOC yesterday, and continued hypotension today Code(s): E11.621 - TYPE 2 DIABETES MELLITUS WITH FOOT ULCER; L97.509 - NON- PRESSURE CHRONIC ULCER OTH PRT UNSP FOOT W UNSP SEVERITY (3) Metabolic acidosis Current Visit: Yes Status: Acute Assessment & Plan: - 2:2 diabetic foot wound - Bicarb gtt - ABG reviewed - monitor closely Code(s): E87.20 - ACIDOSIS, UNSPECIFIED (4) NSTEMI (non-ST elevated myocardial infarction) Current Visit: Yes Status: Acute Assessment & Plan: - 05/17/23 Trop 0.010, 1.640, 1.270- trended down - 2:2 SIRS - Echo - Tele cardiology consult - recommendations are cardiac cath risk assessment before revascularization surgery - Field Assistant recommend higher level of care in [place] - [facility] not accepting any patients at this time. Code(s): I21.4 - NON-ST ELEVATION (NSTEMI) MYOCARDIAL INFARCTION (5) Hypotension Current Visit: Yes Status: Acute Assessment & Plan: - resolved - weaned off levophed - Stop coreg - Lopressor IV if HR > 120 - On bicarb gtt so IVF stopped Code(s): I95.9 - HYPOTENSION, UNSPECIFIED (6) Leukocytosis Current Visit: Yes Status: Acute Assessment & Plan: - 2:2 right foot diabetic wound - WBC 24.1 - trend - Lactic acid 0.9 - BC x2 pending 05/18 - Cultures from podiatry procedure pending - WBC 24.3 Code(s): D72.829 - ELEVATED WHITE BLOOD CELL COUNT, UNSPECIFIED (7) Tachycardia Current Visit: Yes Status: Acute Assessment & Plan: - 2:2 infection - tele - Will need trop x3 when he come back from procedure. - consider increasing coreg - denies Cp - EKG 05/18 - Coreg stopped as BP cannot tolerate - Lopressor IV if HR > 120 Code(s): R00.0 - TACHYCARDIA, UNSPECIFIED (8) Anemia Current Visit: No Status: Chronic Assessment & Plan: - Hgb stable at 7.8 - trend 05/18 - Post op bleeding last night, Hgb dropped to 6.6- 1 unit of blood given - today Hgb7.4 - trend Code(s): D64.9 - ANEMIA, UNSPECIFIED (9) Failure of outpatient treatment Current Visit: No Status: Acute Onset Date: ~02/02/18 Assessment & Plan: - was in rehab for OP PICC line antibiotics - med not on home med list Code(s): Z78.9 - OTHER SPECIFIED HEALTH STATUS (10) Hyponatremia Current Visit: No Status: Acute Onset Date: ~02/02/18 Assessment & Plan: - Na+ 134- mild - IVF 05/18 - resolved Code(s): E87.1 - HYPO-OSMOLALITY AND HYPONATREMIA (11) Diabetes mellitus Current Visit: No Status: Chronic Assessment & Plan: - A1C 6.44 - Controlled on 02/24/23 - accuchecks ac/hs, humalog s/s, lantus 05/18 - pt refusing insulin- states he heard it was addicting and will not take it. - education provided. Code(s): E11.9 - TYPE 2 DIABETES MELLITUS WITHOUT COMPLICATIONS (12) Hypertension Current Visit: No Status: Chronic Assessment & Plan: - Pt currently has hypotension- meds held Code(s): I10 - ESSENTIAL (PRIMARY) HYPERTENSION (13) IV infiltration Current Visit: Yes Status: Acute Assessment & Plan: - IN ER vancomycin infiltrated left arm - hyaluronidase SC gave in ER - elevate left arm to heart level to decrease edema. Code(s): T80.1XXA - VASCULAR COMP FOL INFUSN, TRANFS AND THERAPUTC INJECT, INIT (14) Hyperlipidemia Current Visit: Yes Status: Chronic Assessment & Plan: - continue statin Code(s): E78.5 - HYPERLIPIDEMIA, UNSPECIFIED (15) Thrombocytosis Current Visit: Yes Status: Acute Assessment & Plan: -Plt 813- trend - 2:2 anemia/ infection - Discharge Discharge Date: 05/18/23 Disposition: DC TO OTHER HOSP Condition: Fair Prescriptions: Continue Allopurinol 300 mg [Zyloprim 300 mg] 300 mg PO DAILY Atorvastatin Calcium [Lipitor] 80 mg PO HS Gabapentin 900 mg PO TID Empagliflozin/Metformin HCl [Synjardy 5-1,000 mg Tablet] 5 - 1,000 mg PO BID Carvedilol 3.125 mg [Coreg 3.125 MG] 3.125 mg PO BID Glipizide 5 mg [Glucotrol 5 MG] 5 mg PO BID Hydrocodone/Acetaminophen [Hydrocodone-Acetamin 10-325 mg] 1 tab PO Q4HPRN PRN PRN Reason: Pain Aspirin EC 81 mg [Ecotrin 81 mg] 81 mg PO DAILY #0 Potassium Chloride 20 meq PO DAILY Insulin Aspart [Novolog] 100 unit SQ UD PRN PRN Reason: Hyperglycemia Furosemide 40 mg PO DAILY [place]-3 Fatty Acids/Fish Oil [Fish Oil 1,000 mg Capsule] 1,000 mg PO DAILY Ferrous Sulfate 325 mg [Feosol 325 mg] 325 mg PO QID Ropinirole HCl 1 mg PO BID Polyethylene Glycol 3350 17 gm [Miralax Powder 17GM PACKET] 17 gm PO [id number] PRN PRN Reason: Constipation Clopidogrel Bisulfate [Clopidogrel] 75 mg PO DAILY Docusate Sodium 100 mg [Docusate Sodium 100 MG] 100 mg PO DAILY Cyanocobalamin 1000 Mcg/ml [Cyanocobalamin B-12 1000 MCG/ML] 1,000 mcg IJ UD Collagenase Oint [Santyl OINTMENT] 0 gm TOP DAILY Heparin Sodium,Porcine/Pf [Heparin 50 Units/5 ml (10/ml)] 50 unit IV UD Pregabalin 50 mg [Lyrica 50MG] 50 mg PO TID Alteplase 2 mg [Cathflo Activase 2 MG] 2 mg IJ Q4HPRN PRN PRN Reason: anticoagulant PICC Acetaminophen 325 mg [Tylenol 325 mg] 650 mg PO Q6HPRN PRN PRN Reason: Pain And/Or Fever Dulaglutide [Trulicity] 0.5 ml SQ IZQUIERDO Glucagon [Baqsimi] 3 mg NS UD Follow up with: PENNY WOODY [Primary Care Provider] -
[2023-05-18] MEDS: Sodium Chloride 0.9% 1000 ML 1,000 ML IV SCH (13:54)
[2023-05-18] MEDS: Sodium Bicarbonate 50 MEQ/50 ML VIAL*** 150 MEQ in Dextrose 5%/Water IV Soln. 1000 ML 1... IV SCH (14:07)
[2023-05-18] MEDS: VANCOMYCIN 1 GRAM/200 ML BAG 1 GM/200 ML PIGGYBACK IV SCH (14:07)
--- NOTE | 2023-05-18 15:02 | OP ---
SURGERY DATE/TIME: 05/17/2023 1518 PREOPERATIVE DIAGNOSES: 1) Diabetic foot wound. 2) Diabetes peripheral neuropathy. 3) Peripheral vascular disease. 4) Right foot pain. 5) Right ankle pain. 6) Osteomyelitis. 7) Contracture level of right knee. 8) Difficulty with ambulation. POSTOPERATIVE DIAGNOSES: 1) Diabetic foot wound. 2) Diabetes peripheral neuropathy. 3) Peripheral vascular disease. 4) Right foot pain. 5) Right ankle pain. 6) Osteomyelitis. 7) Contracture level of right knee. 8) Difficulty with ambulation. 9) Demonstration of full thickness ulceration to level of bone at the aspect of the right ankle fibula, styloid process of the fifth metatarsal and calcaneus. PROCEDURES: 1) Incision and drainage with bone debridement right ankle. 2) Incision and drainage with bone debridement to the right foot, styloid process and calcaneus. 3) Irrigation and debridement. SURGEON: John Reyes DPM. FREIGHT FLAGMAN: None. ANESTHESIA: Local. HEMOSTASIS: Pressure dressing. ESTIMATED BLOOD LOSS: Approximately 200 cc. MATERIALS: None. INJECTABLES: 30 cc of 1:1 mixture of 1% lidocaine plain and 0.5% bupivacaine plain injected in a common peroneal and saphenous nerve block to the right lower extremity. DESCRIPTION OF PROCEDURE AND FINDINGS: The patient was brought into the OR and placed on the OR cart and left on the cart secondary to severe pain and lower extremity contracture. The right lower extremity was prepped and draped in the typical sterile fashion and lowered onto the surgical field. At this time, a block consisting of 30 cc of 1:1 mixture of 1% lidocaine plain and 0.5% bupivacaine plain was injected to the common peroneal and saphenous nerve as well as the posterior tibial nerve distributions. Following this, aggressive debridement took place utilizing a 15 blade to resect any necrotic and infected appearing tissue particularly to calcaneus which at that time demonstrated some exposed calcaneus. Debridement took place utilizing curettes. Bone biopsies were taken for culture and for pathology from the site. Styloid process of the fifth metatarsal demonstrated an additional wound where the exposed bone was at the level at the styloid process of the fifth metatarsal this was significantly devitalized and this was removed from the site this was split into two samples one for culture and one for path. From that standpoint attention was directed to the large lateral leg wound where aggressive debridement took place. There was necrotic tendon visible at the lateral aspect of the ankle that was removed from the site this was cleansed with two - 1,000 ml bags of Bactisure and then cleansed with 3 liters of sterile saline. A dressing consisting of Iodine, Adaptic, 4x4, Kerlix, ABD and ALLYSON was applied to the right lower extremity. The patient was then returned to the postoperative anesthesia care unit with vital signs stable and vascular status intact. The patient handled the anesthesia as well as the procedure without significant complication. Postoperative orders as indicated in the patient's inpatient chart.
[2023-05-18 16:17] VITALS: TEMP 97.5
[2023-05-18 17:04] VITALS: PULSE 119
[2023-05-18 18:23] VITALS: BP 94/53; RESP 13; O2SAT 99
[2023-05-19] MEDS ORDERED: TROUGH DRUG LEVELS IJ ONE (05:30)
[2023-06-03] MEDS ORDERED: Cyanocobalamin B-12 1000 MCG/ML IJ SCH (10:00)
== END 2023-05-18 18:38 | DRG 637 ==
LOC: ED 10:39 → MED SURG 14:07 → OBSVTOIN 17:59 → ICU 17:59
PROVIDERS: ADMIT Internal Medicine; ATTEND Internal Medicine
PROC: 0J9Q0ZZ Drainage of Right Foot Subcutaneous Tissue and Fascia, Open Approach (ICD-10-PCS; principal; 2023-05-17)
DX: E11.621 Type 2 diabetes mellitus with foot ulcer (principal); I21.4 Non-ST elevation (NSTEMI) myocardial infarction; R65.10 Systemic inflammatory response syndrome (SIRS) of non-infectious origin without acute organ dysfunction; L97.929 Non-pressure chronic ulcer of unspecified part of left lower leg with unspecified severity; E87.20 Acidosis, unspecified; L97.919 Non-pressure chronic ulcer of unspecified part of right lower leg with unspecified severity; E87.1 Hypo-osmolality and hyponatremia; T80.1XXA Vascular complications following infusion, transfusion and therapeutic injection, initial encounter; M86.9 Osteomyelitis, unspecified; I73.9 Peripheral vascular disease, unspecified; R79.89 Other specified abnormal findings of blood chemistry; E11.9 Type 2 diabetes mellitus without complications; E78.5 Hyperlipidemia, unspecified; D64.9 Anemia, unspecified; D72.829 Elevated white blood cell count, unspecified; L97.529 Non-pressure chronic ulcer of other part of left foot with unspecified severity; I95.9 Hypotension, unspecified; R00.0 Tachycardia, unspecified; Z78.9 Other specified health status; I10 Essential (primary) hypertension; M79.671 Pain in right foot; D75.839 Thrombocytosis, unspecified; M25.571 Pain in right ankle and joints of right foot; R26.2 Difficulty in walking, not elsewhere classified; M24.561 Contracture, right knee; Z86.718 Personal history of other venous thrombosis and embolism; Z86.79 Personal history of other diseases of the circulatory system; Z79.899 Other long term (current) drug therapy; Z20.828 Contact with and (suspected) exposure to other viral communicable diseases
CPT/HCPCS: 0241U; 27607; 28005; 36000; 36415; 36600; 70450; 71045; 71260; 80053; 81001; 82375; 82803; 82947; 83036; 83605; 83880; 84134; 84484; 85014; 85018; 85025; 85027; 85379; 86850; 86900; 86901; 86922; 87040; 87046; 87070; 87075; 87116; 87205; 87206; 93005; 93041; 93306; 94760; 94762; 96360; 96365; 96372; 99284; P9016; Q3014; 87077; A6260; J1650; J2001; J3470; A9270-GY; J3370

== ENCOUNTER 2023-08-09 14:55 | Emergency (ER) | payer MEDICARE ==
[2023-08-09 15:53] VITALS: BP 110/84; PULSE 83; RESP 18; TEMP 97; O2SAT 98
--- NOTE | 2023-08-09 18:02 | ERPHSYRPT ---
- History of Present Illness Time Seen by Provider: 08/09/23 15:55 Source: patient Exam Limitations: no limitations Patient Subjective Stated Complaint: Skin- Bleeding from PICC line Triage Nursing Assessment: Patient wheeled self back to ED per w/c and requested to stay in w/c. Patient A+O X3. Patient's skin pink, warm and dry. Patient had PICC line placed to left upper AC today. Patient resides at [facility] and around 1300 and noticed the dressing was covered in blood. Patient here to have PICC line checked. Patient denies pain or discomfort. Physician History: 62-year-old male sent to our ED from [facility] for evaluation of PICC line placement. Patient had a PICC line placed today by our PICC team. Patient went to [facility] and they observed there was some blood on the dressing. Patient brought here for evaluation. Patient asymptomatic. On exam patient is resting comfortably sitting up in his wheelchair. No active bleeding observed at the dressing site. Involved extremities neurovascular intact distally. Patient voices no other complaints or concerns at this time. Portions of this note were created with voice recognition technology. There may be grammatical, spelling, punctuation or sound alike errors Timing/Duration: today Severity: mild Modifying Factors: Improves With: nothing Associated Symptoms: denies symptoms Allergies/Adverse Reactions: No Known Drug Allergies Allergy (Verified 08/09/23 15:47) Home Medications: Allopurinol 300 mg [Zyloprim 300 mg] 300 mg PO DAILY 04/26/15 [History] Atorvastatin Calcium [Lipitor] 80 mg PO HS 07/07/17 [History] Carvedilol 3.125 mg [Coreg 3.125 MG] 3.125 mg PO BID 09/09/20 [History] Empagliflozin/Metformin HCl [Synjardy 5-1,000 mg Tablet] 5 - 1,000 mg PO BID 09/09/20 [History] Gabapentin 900 mg PO TID 09/09/20 [History] Glipizide 5 mg [Glucotrol 5 MG] 5 mg PO BID 10/06/21 [History] Hydrocodone/Acetaminophen [Hydrocodone-Acetamin 10-325 mg] 1 tab PO Q4HPRN PRN 02/26/22 [History] Ferrous Sulfate 325 mg [Feosol 325 mg] 325 mg PO QID 03/31/23 [History] Furosemide 40 mg PO DAILY 03/31/23 [History] Insulin Aspart [Novolog] 100 unit SQ UD PRN 03/31/23 [History] [place]-3 Fatty Acids/Fish Oil [Fish Oil 1,000 mg Capsule] 1,000 mg PO DAILY 03/31/23 [History] Potassium Chloride 20 meq PO DAILY 03/31/23 [History] Ropinirole HCl 1 mg PO BID 03/31/23 [History] Acetaminophen 325 mg [Tylenol 325 mg] 650 mg PO Q6HPRN PRN 05/17/23 [History] Alteplase 2 mg [Cathflo Activase 2 MG] 2 mg IJ Q4HPRN PRN 05/17/23 [History] Clopidogrel Bisulfate [Clopidogrel] 75 mg PO DAILY 05/17/23 [History] Collagenase Oint [Santyl OINTMENT] 0 gm TOP DAILY 05/17/23 [History] Cyanocobalamin 1000 Mcg/ml [Cyanocobalamin B-12 1000 MCG/ML] 1,000 mcg IJ UD 05/17/23 [History] Docusate Sodium 100 mg [Docusate Sodium 100 MG] 100 mg PO DAILY 05/17/23 [History] Dulaglutide [Trulicity] 0.5 ml SQ IZQUIERDO 05/17/23 [History] Glucagon [Baqsimi] 3 mg NS UD 05/17/23 [History] Heparin Sodium,Porcine/Pf [Heparin 50 Units/5 ml (10/ml)] 50 unit IV UD 05/17/23 [History] Polyethylene Glycol 3350 17 gm [Miralax Powder 17GM PACKET] 17 gm PO [id number] PRN 05/17/23 [History] Pregabalin 50 mg [Lyrica 50MG] 50 mg PO TID 05/17/23 [History] Hx Tetanus, Diphtheria Vaccination/Date Given: Yes Hx Influenza Vaccination/Date Given: Yes Hx Pneumococcal Vaccination/Date Given: (UNSURE) Immunizations Up to Date: Yes Travel Risk - International Travel Have you traveled outside of the country in past 3 weeks: No - Emerging Infectious Disease Are you exhibiting symptoms associated with any current EIDs: No - Review of Systems Constitutional: No Symptoms, No Fever, No Chills Eyes: No Symptoms Ears, Nose, & Throat: No Symptoms Respiratory: No Symptoms, No Cough, No Dyspnea Cardiac: No Symptoms, No Chest Pain, No Edema, No Syncope Abdominal/Gastrointestinal: No Symptoms, No Abdominal Pain, No Nausea, No Vomiting, No Diarrhea Genitourinary Symptoms: No Symptoms, No Dysuria Musculoskeletal: No Symptoms, No Back Pain, No Neck Pain Skin: No Symptoms, No Rash Neurological: No Symptoms, No Dizziness, No Focal Weakness, No Sensory Changes Psychological: No Symptoms Endocrine: No Symptoms Hematologic/Lymphatic: No Symptoms Immunological/Allergic: No Symptoms All Other Systems: Reviewed and Negative - Past Medical History Pertinent Past Medical History: Yes Neurological History: Peripheral Neuropathy ENT History: Cataracts Cardiac History: Deep Vein Thrombosis, High Cholesterol, Hypertension, Peripheral Vascular Disease Respiratory History: Sleep Apnea Endocrine Medical History: Diabetes Type II, Hypoglycemia Musculoskeletal History: Fractures, Other GI Medical History: No Pertinent History History: No Pertinent History Psycho-Social History: No Pertinent History Male Reproductive Disorders: Other Other Medical History: multiple right foot surgeries eventually leading to right [id number] - Past Surgical History Past Surgical History: Yes Neuro Surgical History: No Pertinent History Cardiac: Vascular Surgery, Cardiac Stent, Cardiac Catheterization Respiratory: No Pertinent History Gastrointestinal: No Pertinent History Genitourinary: No Pertinent History Musculoskeletal: No Pertinent History, Other Male Surgical History: No Pertinent History Other Surgical History: Vascular surg pradeep legs, in grown toe nails, FOOT SURGERY FOR DECUBITUS. multiple foot surgeries - Social History Smoking Status: Former smoker How long have you smoked: YRS Exposure to second hand smoke: No Drug Use: none Patient Lives Alone: No ([place]) - Nursing Vital Signs Nursing Vital Signs: Initial Vital Signs Temperature 97.0 F 08/09/23 15:48 Pulse Rate 83 08/09/23 15:48 Respiratory Rate 18 08/09/23 15:48 Blood Pressure 110/84 08/09/23 15:48 O2 Sat by Pulse Oximetry 98 08/09/23 15:48 Pain Scale Pain Intensity 0 - Physical Exam General Appearance: no apparent distress, alert Eye Exam: PERRL/EOMI, eyes nml inspection Ears, Nose, Throat Exam: normal ENT inspection, TMs normal, pharynx normal, moist mucous membranes Neck Exam: normal inspection, non-tender, supple, full range of motion Respiratory Exam: normal breath sounds, lungs clear, No respiratory distress Cardiovascular Exam: regular rate/rhythm, normal heart sounds, normal peripheral pulses Gastrointestinal/Abdomen Exam: soft, normal bowel sounds, No tenderness, No mass Back Exam: normal inspection, normal range of motion, No CVA tenderness, No vertebral tenderness Extremity Exam: normal inspection, normal range of motion, pelvis stable Neurologic Exam: alert, oriented x 3, cooperative, normal mood/affect, nml cerebellar function, nml station & gait, sensation nml, No motor deficits Skin Exam: normal color, warm, dry, No rash Lymphatic Exam: No adenopathy SpO2 Interpretation: normal SpO2: 98 O2 Delivery: Room Air - Course Nursing assessment & vital signs reviewed: Yes - Progress Progress: improved Progress Note: 62-year-old male presents to our ED for evaluation of PICC line bleeding. Patient was evaluated. No active bleeding. Involved extremities neurovascular tact distally. We contacted the PICC team. They stated that due to scar tissue they had to make a larger than normal incision. Patient on a blood thinner. Patient likely bled secondary to this procedure. No active bleeding. Wound dressed. Patient remains neurovascular tact distally. No indication for further workup. Will discharge home. Patient voices no other complaints or concerns at this time. Portions of this note were created with voice recognition technology. There may be grammatical, spelling, punctuation or sound alike errors Complexity problem addressed is moderate acute complicated. No critical care time. Complexity data reviewed and analyzed is extensive. We consulted with the PICC team to further evaluate the need for further intervention. Risk of complication and or risk morbidity/mortality patient management is low. Vital stable. Time spent to discharge patient approximately 20 minutes. Plan of care established for shared decision making. No social determinants of health present impede follow-up Portions of this note were created with voice recognition technology. There may be grammatical, spelling, punctuation or sound alike errors 08/09/23 18:04 Counseled pt/family regarding: diagnosis, need for follow-up - Departure Departure Disposition: Home Clinical Impression: Bleeding from PICC line Condition: Stable Critical Care Time: No Referrals: GARY BARBOSA OF [Primary Care Provider] - Follow up/PCP as directed
== END 2023-08-09 18:24 | disposition home or self-care (01) ==
LOC: ED 14:55
DX: T82.838A Hemorrhage due to vascular prosthetic devices, implants and grafts, initial encounter (principal); E78.5 Hyperlipidemia, unspecified; I10 Essential (primary) hypertension; E11.42 Type 2 diabetes mellitus with diabetic polyneuropathy; Z79.84 Long term (current) use of oral hypoglycemic drugs; Z79.891 Long term (current) use of opiate analgesic; Z79.4 Long term (current) use of insulin; Z79.02 Long term (current) use of antithrombotics/antiplatelets; Z79.85 Long-term (current) use of injectable non-insulin antidiabetic drugs; Z79.899 Other long term (current) drug therapy
CPT/HCPCS: 99282

== ENCOUNTER 2023-08-30 06:00 | Day surgery (SDC) | payer MEDICARE ==
[2023-08-30] MEDS ORDERED: Lactated Ringers 1,000 ML IV ONE (06:11)
[2023-08-30 06:25] LABS: Absolute Neutrophil Ct (ANC) 5.85 x10^3/uL (1.78-5.38); Basophil (Absolute #) 0.09 x10^3/uL (0.01-0.08); Eosinophil % 6.9 % (0.8-7.0); Eosinophil (Absolute #) 0.63 x10^3/uL (0.04-0.54); Hematocrit 31.2 % (40.1-51.0); Hemoglobin 9.8 g/dL (13.7-17.5); IMMATURE GRAN # 0.06 x10^3u/L (0.001-0.031); IMMATURE GRAN % 0.7 % (0.001-0.429); Lymphocyte (Absolute #) 1.96 x10^3/uL (1.32-3.57); Lymphocytes % 21.5 % (21.8-53.1); Mean Cell Volume 82.1 fL (79.0-92.2); Mean Corpuscular Hemoglobin 25.8 pg (25.7-32.2); Mean Corpuscular Hgb Concent. 31.4 g/dL (32.3-36.5); Mean Platelet Volume 9.1 fL (9.4-12.4); Monocyte (Absolute #) 0.54 x10^3/uL (0.30-0.82); Monocytes % 5.9 % (5.3-12.2); Platelet Count 342 x10^3/uL (163-337); Red Cell Distribution Width 16.3 % (11.6-14.4); White Blood Count 9.1 x10^3/uL (4.23-9.07)
[2023-08-30] MEDS ORDERED: CEFAZOLIN 2 GM-D5W BAG** 2 GM/50 ML ML IV ONE (06:25)
[2023-08-30 06:28] VITALS: RESP 16
[2023-08-30] MEDS ORDERED: Marcaine Mpf 0.5% Vial 30 Ml ONE (06:30)
[2023-08-30] MEDS ORDERED: Xylocaine 1% Vial 30 ML PF IJ ONE (06:30)
[2023-08-30] MEDS: Lactated Ringers 1,000 ML IV SCH (06:31)
[2023-08-30] MEDS: CEFAZOLIN 2 GM-D5W BAG** 2 GM/50 ML ML IV SCH (06:32)
[2023-08-30] MEDS ORDERED: VANCOCIN INJECTION IV ONE (06:35)
[2023-08-30] MEDS ORDERED: Tobramycin 1.2 GM Injection IJ ONE (06:36)
[2023-08-30 06:40] LABS: ALBUMIN 3.9 g/dL (3.5-5.0); ANION GAP 11.9 MEQ/L (5-15); BILIRUBIN,TOTAL 0.5 mg/dL (0.2-1.3); Calcium 9.1 mg/dL (8.4-10.2); Creatinine 1 0.72 mg/dL (0.66-1.25); Potassium 4.9 mmol/L (3.5-5.1); Total Protein 7.1 g/dL (6.3-8.2)
[2023-08-30] MEDS ORDERED: ROCURONIUM BROMIDE IV ONE (06:43)
[2023-08-30] MEDS ORDERED: Versed 2 MG/2 ML Injection ONE (06:43)
[2023-08-30] MEDS ORDERED: SUBLIMAZE 100 MCG/2 ML ONE (06:43)
[2023-08-30] MEDS ORDERED: Amidate 20 MG/10 ML IV ONE (06:43)
[2023-08-30] MEDS ORDERED: Sodium Chloride 0.9% 1000 ML 1,000 ML ONE (06:43)
[2023-08-30] MEDS: Sodium Chloride 0.9% 1000 ML 1,000 ML IV SCH (06:58)
[2023-08-30] MEDS ORDERED: BREVIBLOC 100 MG/10 ML IV ONE (07:25)
[2023-08-30] MEDS ORDERED: PHENYLEPHRINE HCL ONE ×2 (07:40)
[2023-08-30] MEDS ORDERED: Zofran 4 MG/2 ML VIAL ONE (07:46)
[2023-08-30] MEDS ORDERED: BRIDION 200MG/2ML IV ONE (07:58)
--- NOTE | 2023-08-30 08:43 | XRAY ---
Indication: Left calcaneal bone debridement. Intraoperative fluoroscopy provided for 2 seconds. 2 digital spot images submitted for interpretation demonstrates bony debridement posterior inferior calcaneus and filling in with presumed radiopaque cement. Correlate with intraoperative findings/report.
[2023-08-30 08:56] VITALS: O2SAT 99
[2023-08-30 09:14] VITALS: BP 100/65; PULSE 81; TEMP 97
--- NOTE | 2023-08-30 14:14 | XRAY ---
2 seconds of fluoroscopy was used in surgery for left calcaneal bone debridement.
--- NOTE | 2023-08-31 09:18 | OP ---
SURGERY DATE/TIME: 08/30/2023 0714 PREOPERATIVE DIAGNOSES: 1) Osteomyelitis left calcaneus. 2) Diabetic peripheral neuropathy. 3) Controlled diabetes. 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 POSTOPERATIVE DIAGNOSES: 1) Osteomyelitis left calcaneus. 2) Diabetic peripheral neuropathy. 3) Controlled diabetes. 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 PROCEDURES: 1) Incision and drainage with bone debridement left calcaneus. 2) Application of antibiotic impregnated beads. SURGEON: John Reyes DPM. WATER RESOURCE MANAGER: None. ANESTHESIA: Local. HEMOSTASIS: Pressure dressing. QUANTITATIVE BLOOD LOSS: Approximately 10 cc. MATERIALS: 1,000 ml Bactisure, Genex antibiotic beads with 1 gm tobramycin and vancomycin. INJECTABLES: None. INDICATION FOR SURGERY: Kishore is a very pleasant 63-year-old male very well known to my service for bilateral osteomyelitis. Unfortunately, attempts at limb salvage to the right lower extremity failed. At this time, he has had some worsening due to the fact that he has been independent on his left lower extremity, a break down and ulceration to the level of bone. Bone biopsies were taken in clinic demonstrating osteomyelitis as well as MRI that was performed by Dr. Finnegan that demonstrated indications of bone infection in the calcaneus. Decision was made at this time to proceed with a bone debridement as well as packing with antibiotic beads into the deficit. At this time, the patient understands all risks, complications and benefits of surgical intervention including but not limited to infection, hematoma, seroma, possibility of delayed wound healing, nonwound healing and possible need for further surgical intervention at a later date. No guarantees were provided as to the surgical outcome. As this patient does have an above knee amputation on the right, there is high indication for limb salvage to the left lower extremity. The patient understands these risks and wishes to proceed. DESCRIPTION OF PROCEDURE AND FINDINGS: The patient is brought into the OR and placed on the OR table in the supine position. At this time, general anesthesia was administered until the patient was adequately sedated. From that standpoint, the left lower extremity was prepped and draped in the typical sterile fashion and lowered onto the surgical field. At this time, attention was directed to the lateral wall of the calcaneus where a combination of 15 blade, rongeur and curettes were utilized to perform the bone debridement extending approximately 1 cm into the plantar lateral aspect of the calcaneus. From that standpoint, 1,000 ml of Bactisure was utilized top flush the surgical site. 3,000 of sterile saline were utilized to flush the site once again. Bone biopsies were taken prior to this and handed off of the field for pathologic and microbiologic assessment. Genex antibiotic beads impregnated with 1 gm of tobramycin and 1 gm of vancomycin were packed into the deficit. Dressing consisting of Betadine, Adaptic, 4x4, Kerlix and ALLYSON were applied to the patient's left lower extremity with minimal compression. The patient was then reversed from anesthesia was returned to the postoperative anesthesia care unit with vital signs stable and vascular status intact. The patient handled the anesthesia as well as the procedure without significant complication. Postoperative orders as indicated in the patients discharge chart.
== END 2023-08-30 09:50 | disposition home or self-care (01) ==
LOC: SDC 06:00
PROVIDERS: ATTEND Podiatrist Foot & Ankle Surgery
DX: M86.9 Osteomyelitis, unspecified (principal); E11.42 Type 2 diabetes mellitus with diabetic polyneuropathy; Z89.611 Acquired absence of right leg above knee; I10 Essential (primary) hypertension
CPT/HCPCS: 11981; 28005; 36415; 73650; 76000; 80053; 82947; 85025; 87046; 87070; 87075; 87116; 87206; 93005; A6260; C1763; J0690; J1642; J2250; J2371; J2405; J3010; J3260; J3370

== ENCOUNTER 2023-09-20 07:49 | Day surgery (SDC) | payer MEDICARE ==
[~2023-09-20 07:49] MED LIST changes: +MARCAINE 0.5%-EPI 1:200,000 VL IJ ONE; -Marcaine Mpf 0.5% Vial 30 Ml ONE
[2023-09-20] MEDS ORDERED: Thrombin-JMI 5000 UNITS TP ONE ×2 (07:50→10:54)
[2023-09-20 08:28] VITALS: RESP 16
[2023-09-20] MEDS: Sodium Chloride 0.9% 500 ML 500 ML IV SCH (08:28)
[2023-09-20] MEDS: CEFAZOLIN 2 GM-D5W BAG** 2 GM/50 ML ML IV SCH (08:29)
[2023-09-20] MEDS ORDERED: MINERAL OIL LIGHT 10 ML FOR SURGERY ONE (10:14)
[2023-09-20] MEDS ORDERED: XYLOCAINE 1%/Epi 1:100000 MDV 20 ML ONE (10:54)
[2023-09-20] MEDS ORDERED: Zofran 4 MG/2 ML VIAL ONE (11:26)
[2023-09-20] MEDS ORDERED: DIPRIVAN 200 MG/20 ML IV ONE (11:27)
[2023-09-20] MEDS ORDERED: PHENYLEPHRINE HCL ONE (12:02)
[2023-09-20] MEDS ORDERED: Hydromorphone 1 mg/ml Injection ONE (12:56)
[2023-09-20] MEDS ORDERED: SUBLIMAZE 100 MCG/2 ML ONE (12:56)
[2023-09-20] MEDS ORDERED: Sodium Chloride 0.9% 10 ML FLUSH Syringe PICC PRN (15:10)
[2023-09-20 15:36] VITALS: BP 113/80; PULSE 74; TEMP 96.8; O2SAT 98
--- NOTE | 2023-09-21 23:13 | OP ---
SURGERY DATE/TIME: 09/20/2023 1103 - 1225 PREOPERATIVE DIAGNOSES: 1) Osteomyelitis, left calcaneus. 2) Diabetic peripheral neuropathy. 3) Diabetes mellitus. 4) [id number] amputation, right lower extremity. POSTOPERATIVE DIAGNOSES: 1) Osteomyelitis, left calcaneus. 2) Diabetic peripheral neuropathy. 3) Diabetes mellitus. 4) [id number] amputation, right lower extremity. PROCEDURE: Incision and drainage with bone debridement to the left foot as well as split-thickness skin graft harvest from left thigh to left foot. SURGEON: John Reyes MD ANESTHESIA: General. HEMOSTASIS: Pressure dressing. ESTIMATED BLOOD LOSS: Approximately 10 mL. MATERIALS: 4-0 nylon. INJECTABLES: 10 mL of 1% lidocaine plain with epinephrine. INDICATIONS FOR PROCEDURE: The patient is a very pleasant 63-year-old male very well known to my service with attempts at limb salvage to the bilateral lower extremities. Unfortunately, we were unsuccessful to the right lower extremity with a rather severe osteomyelitis infection that resulted in an above-knee amputation. The patient at this time is in the fitting process for his prosthesis. He does still have neuropathy to the left foot which has resulted in a wound to the lateral aspect of the left calcaneus. Recently, this did spread to the level of bone and show some indications of softening. We did get bone biopsies that demonstrated bone infection. However, placement of antibiotic beads for 2 weeks and repeat bone biopsy was obtained demonstrating no indications of bone infection. At this time, we have decided to proceed with split-thickness skin graft as well as repeat bone debridement and biopsy. We will be working closely with his infectious disease doctor in order to eliminate the potential for the infection to spread. However, at this time my primary objective with the recent bone biopsy being negative is to proceed with closure of the wound with as much speed as possible. The patient understands all risks, complications and benefits of surgical intervention at this time, including but not limited to infection, hematoma, seroma, possibility of delayed wound healing, nonwound healing, and possible need for further surgical intervention at a later date. No guarantees were provided as to the outcome of surgical intervention at this time. Plenty of time was allowed for the patient to ask questions, which were answered to his apparent satisfaction. At this time, we decided to proceed. DESCRIPTION OF PROCEDURE AND FINDINGS: The patient was brought to the operating room and placed on the operating room table in the supine position. At this time, general anesthesia was administered until the patient was adequately sedated. Following this, the left lower extremity was prepped and draped in the typical sterile fashion and lowered onto the surgical field. At this time, attention was directed to the left heel where debridement of the wound took place utilizing a combination of 15 blades, curettes and rongeurs. After copious amounts of sterile saline, a bone biopsy was obtained from deep within the calcaneal wall and this was handed off the field for pathological assessment as well as culture. From that standpoint, 3 L of sterile saline were utilized to flush the site and then a bone biopsy was obtained utilizing rongeurs in order to assess the potential for bone infection. Following this, attention was directed to the left thigh where sterile saline was utilized to cleanse and then 70% isopropyl alcohol was then utilized to cleanse once again and dry. Mineral oil was then applied to the left thigh. Under tension, a 3-inch blade was utilized to harvest split-thickness skin graft set at 0.016 inch. This was harvested. Following this, topical thrombin was applied to a Ray-Jhonny and applied to the thigh over the harvest site. A 10 mL injection consisting of 1 mL 1% lidocaine with epinephrine was injected into the left thigh to perform hemostasis and provide for some pain control. The harvest was then run through to 1 x 1.5 Dermatome mesher. Following this, this was secured to the base of the wound utilizing 4-0 nylon in a simple continuous baseball stitch. Hemostasis was then controlled utilizing a pressure dressing. From that standpoint, with the compression dressing, a bolster was applied to improve the chance of take of the skin graft. Following this, dressing consisting of Adaptic, 4 x 4, Kerlix, ABD and Jamal was applied to the left lower extremity. The left thigh had Xeroform, 4 x 4's, ABD and a Kerlix and Jamal applied around the thigh. The patient was then reversed from anesthesia and returned to the postoperative anesthesia care unit with vital signs stable and vascular status intact. The patient handled the anesthesia as well as the procedure without significant complication. Postoperative orders as indicated in the patient's discharge chart.
== END 2023-09-20 16:27 | disposition home or self-care (01) ==
LOC: SDC 07:49
PROVIDERS: ATTEND Podiatrist Foot & Ankle Surgery
DX: M86.9 Osteomyelitis, unspecified (principal); E11.42 Type 2 diabetes mellitus with diabetic polyneuropathy; Z89.611 Acquired absence of right leg above knee
CPT/HCPCS: 15120; 28005; 82947; J0690; J1170; J1642; J2371; J2405; J2704; J3010; A9270-GY

== ENCOUNTER 2023-10-26 10:18 | Emergency (ER) | payer MEDICARE, OTHER ==
--- NOTE | 2023-10-26 10:26 | ERPHSYRPT ---
- History of Present Illness Time Seen by Provider: 10/26/23 10:26 Source: patient, EMS, alf records, old records Exam Limitations: no limitations Physician History: This is an obese 63-year-old white male patient who presents to us by the mate fishing vessel service from the [facility]. The patient's primary complaint is shortness of breath that is worsened and been present for 2 days. Apparently, there is a chest x-ray performed on 10/25/2023. I was unable to locate the x-ray or report in our system. Patient does not ordinarily use oxygen therapy but needed 3 L of oxygen to keep his oxygen saturations at 92% on arrival to our emergency department. Patient was mildly tachycardic as well. Patient denies chest pain. Patient has no abdominal pain. Patient has no nausea vomiting or diarrhea symptoms. I did review lab results dated 10/25/2023. Patient's anion gap is normal at 13.2 and he has a GFR that is normal at 95.7. He has no known drug allergies. Patient is a diabetic and has chronic anemia. 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 Patient has a history of peripheral vascular disease and had had vascular surger y intervention in his bilateral lower extremities. Patient has a history of hypertension and peripheral neuropathy. He has had a history of DVT in the past as well and has a history of coronary disease (cardiac stents). He is on Plavix. Timing/Duration: day(s) (2), worse Severity of Dyspnea-Max: moderate Severity of Dyspnea-Current: moderate Possible Cause: occasional episodes Associated Symptoms: No cough, No chest pain/discomfort, No loss of appetite, No wheezing, No hemoptysis Allergies/Adverse Reactions: No Known Drug Allergies Allergy (Verified 10/26/23 10:36) Home Medications: Allopurinol 300 mg [Zyloprim 300 mg] 300 mg PO DAILY 04/26/15 [History] Atorvastatin Calcium [Lipitor] 80 mg PO HS 07/07/17 [History] Empagliflozin/Metformin HCl [Synjardy 5-1,000 mg Tablet] 5 - 1,000 mg PO BID 09/09/20 [History] Gabapentin 900 mg PO TID 09/09/20 [History] Glipizide 5 mg [Glucotrol 5 MG] 5 mg PO BID 10/06/21 [History] Ferrous Sulfate 325 mg [Feosol 325 mg] 325 mg PO QID 03/31/23 [History] [place]-3 Fatty Acids/Fish Oil [Fish Oil 1,000 mg Capsule] 1,000 mg PO DAILY 03/31/23 [History] Potassium Chloride 20 meq PO DAILY 03/31/23 [History] Ropinirole HCl 1 mg PO BID 03/31/23 [History] Acetaminophen 325 mg [Tylenol 325 mg] 650 mg PO Q6HPRN PRN 05/17/23 [History] Clopidogrel Bisulfate [Clopidogrel] 75 mg PO DAILY 05/17/23 [History] Cyanocobalamin 1000 Mcg/ml [Cyanocobalamin B-12 1000 MCG/ML] 1,000 mcg IJ UD 05/17/23 [History] Docusate Sodium 100 mg [Docusate Sodium 100 MG] 100 mg PO DAILY 05/17/23 [History] Dulaglutide [Trulicity] 0.5 ml SQ [id number] 05/17/23 [History] Glucagon [Baqsimi] 3 mg NS UD 05/17/23 [History] Polyethylene Glycol 3350 17 gm [Miralax Powder 17GM PACKET] 17 gm PO [id number] PRN 05/17/23 [History] Pregabalin 50 mg [Lyrica 50MG] 50 mg PO TID 05/17/23 [History] Daptomycin [Cubicin Rf] 630 mg IV DAILY 08/30/23 [History] Hydrocodone/Acetaminophen [Hydrocodone-Acetamin 10-325 mg] 1 each PO Q4H PRN PRN 08/30/23 [History] Meropenem [Merrem] 500 mg IV TID 08/30/23 [History] Metoprolol Tartrate 25 mg [Lopressor 25MG Tab] 12.5 mg PO BID 08/30/23 [History] Nitroglycerin 0.4 mg Tablet [Nitrostat 0.4 MG Tablet] 0.4 mg SL Q5MIN PRN MR X 3 PRN 08/30/23 [History] Wheat Dextrin [Benefiber] 1 each PO DAILY PRN PRN 10/26/23 [History] Hx Tetanus, Diphtheria Vaccination/Date Given: Yes Hx Influenza Vaccination/Date Given: Yes Hx Pneumococcal Vaccination/Date Given: (UNSURE) Travel Risk - International Travel Have you traveled outside of the country in past 3 weeks: No - Emerging Infectious Disease Are you exhibiting symptoms associated with any current EIDs: Yes Symptoms: Shortness of Breath - Review of Systems Constitutional: No Symptoms Eyes: No Symptoms Ears, Nose, & Throat: No Symptoms Respiratory: Dyspnea, No Cough Cardiac: No Chest Pain Abdominal/Gastrointestinal: No Symptoms Genitourinary Symptoms: No Symptoms Musculoskeletal: Other (Right AKA) Skin: Other (Left lower extremity in a type of Unna boot wrapping) Neurological: No Symptoms Psychological: No Symptoms Endocrine: No Symptoms Hematologic/Lymphatic: No Symptoms Immunological/Allergic: No Symptoms All Other Systems: Reviewed and Negative - Past Medical History Pertinent Past Medical History: Yes Neurological History: Peripheral Neuropathy ENT History: Cataracts Cardiac History: Deep Vein Thrombosis, High Cholesterol, Hypertension, Peripheral Vascular Disease Respiratory History: Sleep Apnea Endocrine Medical History: Diabetes Type II, Hypoglycemia Musculoskeletal History: Fractures, Other GI Medical History: No Pertinent History History: No Pertinent History Psycho-Social History: No Pertinent History Male Reproductive Disorders: Other Other Medical History: multiple right foot surgeries eventually leading to right [id number] - Past Surgical History Past Surgical History: Yes Neuro Surgical History: No Pertinent History Cardiac: Vascular Surgery, Cardiac Stent, Cardiac Catheterization Respiratory: No Pertinent History Gastrointestinal: No Pertinent History Genitourinary: No Pertinent History Musculoskeletal: No Pertinent History, Other Male Surgical History: No Pertinent History Other Surgical History: Vascular surg pradeep legs, in grown toe nails, FOOT SURGERY FOR DECUBITUS. multiple foot surgeries - Social History Smoking Status: Former smoker How long have you smoked: 2017 Exposure to second hand smoke: No Drug Use: none Patient Lives Alone: No ([place]) - Social Determinants of Health Will the patient participate in the screening: Yes Do you worry about a steady place to live?: No In the past 12 months,have you had to go without utilities?: No Transportation Issues: No Has anyone in your support network made you feel unsafe?: No Have you or anyone in your house had to go without enough: No - Nursing Vital Signs Nursing Vital Signs: Initial Vital Signs Temperature 96.4 F 10/26/23 10:19 Pulse Rate 114 H 10/26/23 10:19 Respiratory Rate 19 10/26/23 10:19 Blood Pressure 110/73 10/26/23 10:19 O2 Sat by Pulse Oximetry 92 L 10/26/23 10:19 Pain Scale Pain Intensity 5 - Physical Exam General Appearance: no apparent distress, alert, obese Eye Exam: PERRL/EOMI, eyes nml inspection Ears, Nose, Throat Exam: hearing grossly normal, normal ENT inspection, normal pharynx Neck Exam: normal inspection, non-tender, supple, full range of motion Respiratory Exam: respiratory distress, airway intact, crackles/rales (Mild bibasilar), No chest tenderness, No accessory muscle use (Mild), No wheezing, No stridor Cardiovascular/Chest Exam: normal heart sounds, tachycardia Abdominal/Gastrointestinal Exam: soft, normal bowel sounds, No tenderness Rectal Exam: not done Extremity Exam: non-tender (Left lower extremity with Unna boot type dressing present. The right AKA stump site is intact without evidence of infection) Neurologic Exam: alert, oriented x 3, cooperative, normal mood/affect Skin Exam: normal color, warm, dry Lymphatic Exam: No adenopathy SpO2 Interpretation: normal O2 Delivery: Room Air - Course Nursing assessment & vital signs reviewed: Yes EKG Interpreted by Me: RATE ([id number]), Sinus Tach, NORMAL AXIS, NORMAL INTERVALS, Other (No acute ischemia on today's twelve-lead EKG.) Ordered Tests: Active Orders 24 hr Category Date Time Status Wildlife And Game Protector STAT Care 10/26/23 10:51 Active EKG-ER Only STAT Care 10/26/23 10:50 Active IV Insertion STAT Care 10/26/23 10:50 Active Pulse Oximetry (ED) STAT Care 10/26/23 10:50 Active CHEST WITH CONTRAST [CT] Stat Exams 10/26/23 10:51 Completed CBC W DIFF Stat Lab 10/26/23 11:12 Completed CMP Stat Lab 10/26/23 11:12 Completed Lactic Acid Stat Lab 10/26/23 11:12 Completed NT PRO BNPII Stat Lab 10/26/23 11:12 Completed TROPONIN Q4H Lab 10/26/23 11:12 Completed TROPONIN Q4H Lab 10/26/23 15:00 Ordered TROPONIN Q4H Lab 10/26/23 19:00 Ordered Medication Summary Generic Name Dose Route Start Last Admin Trade Name Frepriyanka PRN Reason Stop Dose Admin Sodium Chloride 500 mls @ 50 mls/hr 10/26/23 11:00 10/26/23 11:11 Sodium Chloride 0.9% 500 Ml IV 11/25/23 10:59 50 mls/hr .Q10H JAYANT Administration Discontinued Medications Generic Name Dose Route Start Last Admin Trade Name Damir PRN Reason Stop Dose Admin Furosemide 40 mg 10/26/23 12:07 10/26/23 12:21 Furosemide 40 Mg/4 Ml Vial IV 10/26/23 12:08 40 mg STAT ONE Administration Furosemide Confirm 10/26/23 12:19 Furosemide 40 Mg/4 Ml Vial Administered 10/26/23 12:20 Dose 40 mg .ROUTE .STK-MED ONE Ceftriaxone Sodium 1 gm in 100 mls @ 200 mls/hr 10/26/23 12:49 10/26/23 12:55 Rocephin 1 Gm / 100 Ml Nacl IV 10/26/23 13:18 200 mls/hr STAT ONE 200 mls/hr Administration Ceftriaxone Sodium Confirm 10/26/23 12:54 Rocephin 1 Gm / 100 Ml Nacl Administered 10/26/23 12:55 Dose 1 gm in 100 mls @ ud IV .STK-MED ONE Lab/Rad Data: Laboratory Result Diagrams 10/26/23 11:12 10/26/23 11:12 Laboratory Results 10/26/23 10/26/23 10/26/23 Range/Units 11:12 11:12 11:12 WBC (4.23-9.07) x10^3/uL RBC (4.63-6.08) x10^6/uL Hgb (13.7-17.5) g/dL Hct (40.1-51.0) % MCV (79.0-92.2) fL MCH (25.7-32.2) pg MCHC (32.3-36.5) g/dL RDW (11.6-14.4) % Plt Count (163-337) x10^3/uL MPV (9.4-12.4) fL Gran % (34.0-67.9) % Immature Gran % (Auto) (0.001-0.429) % Nucleat RBC Rel Count (0.00-0.2) % Eos # (Auto) (0.04-0.54) x10^3/uL Immature Gran # (Auto) (0.001-0.031) x10^3u/L Absolute Lymphs (auto) (1.32-3.57) x10^3/uL Absolute Monos (auto) (0.30-0.82) x10^3/uL Absolute Nucleated RBC (0.00-0.012) x10^3u/L Lymphocytes % (21.8-53.1) % Monocytes % (5.3-12.2) % Eosinophils % (0.8-7.0) % Basophils % (0.2-1.2) % Absolute Granulocytes (1.78-5.38) x10^3/uL Basophils # (0.01-0.08) x10^3/uL Sodium (135-145) mmol/L Potassium (3.5-5.1) mmol/L Chloride (98-107) mmol/L Carbon Dioxide (22-30) mmol/L Anion Gap (5-15) MEQ/L BUN (9-20) mg/dL Creatinine (0.66-1.25) mg/dL Estimated GFR ML/MIN Glucose (74-106) mg/dL Lactic Acid 1.4 (0.4-2.0) Calcium (8.4-10.2) mg/dL Total Bilirubin (0.2-1.3) mg/dL AST (17-59) U/L ALT (0-50) U/L Alkaline Phosphatase (38-126) U/L Troponin I 0.213 H* (0.000-0.033) ng/mL NT-Pro-B Natriuret Pep (<300) pg/mL Serum Total Protein (6.3-8.2) g/dL Albumin (3.5-5.0) g/dL Influenza Type A Ag NEGATIVE (NEGATIVE) Influenza Type B Ag NEGATIVE (NEGATIVE) RSV (PCR) NEGATIVE (NEGATIVE) SARS-CoV-2 (PCR) NEGATIVE (NEGATIVE) 10/26/23 10/26/23 Range/Units 11:12 11:12 WBC 14.5 H (4.23-9.07) x10^3/uL RBC 3.65 L (4.63-6.08) x10^6/uL Hgb 9.7 L (13.7-17.5) g/dL Hct 31.2 L (40.1-51.0) % MCV 85.5 (79.0-92.2) fL MCH 26.6 (25.7-32.2) pg MCHC 31.1 L (32.3-36.5) g/dL RDW 18.6 H (11.6-14.4) % Plt Count 358 H (163-337) x10^3/uL MPV 8.7 L (9.4-12.4) fL Gran % 82.2 H (34.0-67.9) % Immature Gran % (Auto) 0.5 H (0.001-0.429) % Nucleat RBC Rel Count 0.0 (0.00-0.2) % Eos # (Auto) 0 L (0.04-0.54) x10^3/uL Immature Gran # (Auto) 0.07 H (0.001-0.031) x10^3u/L Absolute Lymphs (auto) 1.47 (1.32-3.57) x10^3/uL Absolute Monos (auto) 0.99 H (0.30-0.82) x10^3/uL Absolute Nucleated RBC 0.00 (0.00-0.012) x10^3u/L Lymphocytes % 10.1 L (21.8-53.1) % Monocytes % 6.8 (5.3-12.2) % Eosinophils % 0.0 L (0.8-7.0) % Basophils % 0.4 (0.2-1.2) % Absolute Granulocytes 11.92 H (1.78-5.38) x10^3/uL Basophils # 0.06 (0.01-0.08) x10^3/uL Sodium 140 (135-145) mmol/L Potassium 4.6 (3.5-5.1) mmol/L Chloride 106 (98-107) mmol/L Carbon Dioxide 21 L (22-30) mmol/L Anion Gap 16.8 H (5-15) MEQ/L BUN 29 H (9-20) mg/dL Creatinine 0.92 (0.66-1.25) mg/dL Estimated GFR 92.9 ML/MIN Glucose 215 H (74-106) mg/dL Lactic Acid (0.4-2.0) Calcium 8.8 (8.4-10.2) mg/dL Total Bilirubin 0.90 (0.2-1.3) mg/dL AST 27 (17-59) U/L ALT 27 (0-50) U/L Alkaline Phosphatase 108 (38-126) U/L Troponin I (0.000-0.033) ng/mL NT-Pro-B Natriuret Pep 8480 (<300) pg/mL Serum Total Protein 6.7 (6.3-8.2) g/dL Albumin 3.7 (3.5-5.0) g/dL Influenza Type A Ag (NEGATIVE) Influenza Type B Ag (NEGATIVE) RSV (PCR) (NEGATIVE) SARS-CoV-2 (PCR) (NEGATIVE) - Progress Progress: improved, re-examined Air Movement: fair Progress Note: 10/26/23 11:04 My medical decision making and the assignment of moderate to high complexity of this patient's medical issue today is based on review of the patient's past medical history, review the patient's medication list, reviewed patient drug allergy list, history present illness and physical findings on examination. The workup today includes placement of intravenous line, respiratory therapy consultation, twelve-lead EKG, BNP level, troponin level, CBC, CMP, lactic acid level, viral swabs and group A strep swab. We will not repeat the chest x-ray in this patient. The patient was to be scheduled for CT scan of the chest today. We will perform a CT scan of the chest with contrast to evaluate for pneumonia or pulmonary embolus. Differential diagnosis includes but is not limited to pulmonary embolus, myocardial infarction, CHF exacerbation, COPD exacerbation, pneumonia 10/26/23 12:50 I interpreted the patient's laboratory data results. The patient has a leukocytosis with a left shift. Patient also has chronic anemia. Patient has BNP of over 8000 and a troponin that is elevated at 0.213. These indicate CHF exacerbation and likely heart strain respectively. CT scan of the chest with contrast was interpreted by the radiologist and I reviewed the impression. Impression states negative for pulmonary embolism. New, diffuse patchy consolidating/nonconsolidating airspace disease with bila teral effusions and bibasilar compressive atelectasis. 10/26/23 13:19 I spoke with Stephanie in the transfer center for [facility] in [facility]. I reviewed the patient history, presenting complaint, workup performed, laboratory and radiographic as well as EKG results. She auto accep sandra this patient. The physician excepting is Dr. 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 - Diagnostic Testing Diagnostic test were ordered, analyzed, and reviewed by me: Yes Radiological Interpretation: Reviewed by me, Teleradiologist Report - Risk of complications The pt has a high risk of morbidity or mortality based on: Decision regarding hospitilization or escalation of hosp level of care - Departure Departure Disposition: Transfer Clinical Impression: Shortness of breath, Hypoxia, Elevated troponin, Pneumonia, CHF exacerbation, Chronic anemia Condition: Fair Critical Care Time: Yes Critical Care Time(excluding separately billable procedures): Critical 30-74 mins (50 minutes) Referrals: [facility] [Primary Care Provider] - Follow up/PCP as directed Instructions: Heart Failure
[2023-10-26 10:36] VITALS: TEMP 96.4
[2023-10-26] MEDS ORDERED: Sodium Chloride 0.9% 500 ML 500 ML IV ONE (11:06)
[2023-10-26] MEDS: Sodium Chloride 0.9% 500 ML 500 ML IV SCH (11:11)
[2023-10-26 11:15] LABS: Absolute Neutrophil Ct (ANC) 11.92 x10^3/uL (1.78-5.38); BASOPHIL % 0.4 % (0.2-1.2); Basophil (Absolute #) 0.06 x10^3/uL (0.01-0.08); Eosinophil (Absolute #) 0 x10^3/uL (0.04-0.54); Hematocrit 31.2 % (40.1-51.0); Hemoglobin 9.7 g/dL (13.7-17.5); IMMATURE GRAN # 0.07 x10^3u/L (0.001-0.031); IMMATURE GRAN % 0.5 % (0.001-0.429); Lymphocyte (Absolute #) 1.47 x10^3/uL (1.32-3.57); Lymphocytes % 10.1 % (21.8-53.1); Mean Cell Volume 85.5 fL (79.0-92.2); Mean Corpuscular Hemoglobin 26.6 pg (25.7-32.2); Mean Corpuscular Hgb Concent. 31.1 g/dL (32.3-36.5); Mean Platelet Volume 8.7 fL (9.4-12.4); Monocyte (Absolute #) 0.99 x10^3/uL (0.30-0.82); Monocytes % 6.8 % (5.3-12.2); Neutrophil % 82.2 % (34.0-67.9); Platelet Count 358 x10^3/uL (163-337); Red Blood Count 3.65 x10^6/uL (4.63-6.08); Red Cell Distribution Width 18.6 % (11.6-14.4); White Blood Count 14.5 x10^3/uL (4.23-9.07)
[2023-10-26 11:39] LABS: ALBUMIN 3.7 g/dL (3.5-5.0); ANION GAP 16.8 MEQ/L (5-15); BILIRUBIN,TOTAL 0.9 mg/dL (0.2-1.3); Calcium 8.8 mg/dL (8.4-10.2); Creatinine 1 0.92 mg/dL (0.66-1.25); EST GLOMERULAR FILTRATION RATE 92.9 ML/MIN; Potassium 4.6 mmol/L (3.5-5.1); Total Protein 6.7 g/dL (6.3-8.2)
[2023-10-26 11:59] LABS: INFLUENZA A NEGATIVE (NEGATIVE); INFLUENZA B NEGATIVE (NEGATIVE); RESPIRATORY SYNCTIAL VIRUS NEGATIVE (NEGATIVE); SARS-CoV-2 Xpert Express NEGATIVE (NEGATIVE)
[2023-10-26] MEDS ORDERED: Lasix 40 MG/4 ML ONE (12:19)
[2023-10-26] MEDS: Lasix 40 MG/4 ML IV ONE (12:21)
--- NOTE | 2023-10-26 12:32 | XRAY ---
Indication: Short of breath. History of DVT. Multiple contiguous axial images obtained through the chest using 80 cc Isovue 370 contrast and PE protocol. Comparison: None Good opacification of the pulmonary arteries to include the lobar and segmental branches. No pulmonary embolus. Heart is not enlarged. Aorta is normal in course and caliber with mild scattered calcifications. Left arm PICC line tip in SVC. Small mediastinal lymph nodes, largest right pretracheal measuring 2.6 x 1.6 cm. Lungs demonstrates new diffuse bilateral patchy consolidating/nonconsolidating airspace disease greatest in both upper lobes. Also new moderate bilateral pleural effusions presumed reactive with bilateral lower lobe compressive atelectasis. Bony thorax intact with mild/moderate degenerative changes throughout spine. Limited upper abdomen including adrenal glands unremarkable. Impression: 1. Continued negative pulmonary embolus. 2. New diffuse bilateral patchy consolidating/nonconsolidating airspace disease with moderate bilateral effusions and bibasilar compressive atelectasis.
[2023-10-26] MEDS ORDERED: ROCEPHIN 1 GM / 100 ML NaCl 1 GM/100 ML IVPB IV ONE (12:54)
[2023-10-26] MEDS: ROCEPHIN 1 GM / 100 ML NaCl 1 GM/100 ML IVPB IV ONE (12:55)
[2023-10-26 15:03] VITALS: BP 108/70; PULSE 111; RESP 16; O2SAT 95
== END 2023-10-26 15:48 | disposition short-term general hospital (02) ==
LOC: ED 10:18
DX: J18.9 Pneumonia, unspecified organism (principal); R06.02 Shortness of breath; R09.02 Hypoxemia; R77.8 Other specified abnormalities of plasma proteins; I11.0 Hypertensive heart disease with heart failure; I50.9 Heart failure, unspecified; D64.9 Anemia, unspecified; E11.40 Type 2 diabetes mellitus with diabetic neuropathy, unspecified; E78.5 Hyperlipidemia, unspecified; Z79.02 Long term (current) use of antithrombotics/antiplatelets; Z79.84 Long term (current) use of oral hypoglycemic drugs; Z79.85 Long-term (current) use of injectable non-insulin antidiabetic drugs; Z79.891 Long term (current) use of opiate analgesic; Z79.899 Other long term (current) drug therapy
CPT/HCPCS: 0241U; 36415; 71260; 80053; 83605; 83880; 84484; 85025; 93005; 93041; 94760; 96365; 96374; 99285; 99291; J0696; J1940

== ENCOUNTER 2023-11-17 16:09 | Inpatient (IN) | payer MEDICARE, OTHER ==
[2023-11-17] MEDS ORDERED: DUONEB 0.5-3 MG/3 ml Neb IH ONE (16:39)
[2023-11-17] MEDS: DUONEB 0.5-3 MG/3 ml Neb IH ONE (16:41)
[2023-11-17 17:09] LABS: Absolute Neutrophil Ct (ANC) 9.54 x10^3/uL (1.78-5.38); BASOPHIL % 0.5 % (0.2-1.2); Basophil (Absolute #) 0.06 x10^3/uL (0.01-0.08); Eosinophil % 1.3 % (0.8-7.0); Eosinophil (Absolute #) 0.15 x10^3/uL (0.04-0.54); Hematocrit 35.5 % (40.1-51.0); Hemoglobin 10.5 g/dL (13.7-17.5); IMMATURE GRAN # 0.11 x10^3u/L (0.001-0.031); IMMATURE GRAN % 0.9 % (0.001-0.429); Lymphocyte (Absolute #) 1.39 x10^3/uL (1.32-3.57); Lymphocytes % 11.9 % (21.8-53.1); Mean Cell Volume 93.4 fL (79.0-92.2); Mean Corpuscular Hemoglobin 27.6 pg (25.7-32.2); Mean Corpuscular Hgb Concent. 29.6 g/dL (32.3-36.5); Mean Platelet Volume 8.5 fL (9.4-12.4); Monocyte (Absolute #) 0.45 x10^3/uL (0.30-0.82); Monocytes % 3.8 % (5.3-12.2); NUCLEATED RBC # 0.02 x10^3u/L (0.00-0.012); NUCLEATED RBC % 0.2 % (0.00-0.2); Neutrophil % 81.6 % (34.0-67.9); Platelet Count 312 x10^3/uL (163-337); Red Cell Distribution Width 24.3 % (11.6-14.4); White Blood Count 11.7 x10^3/uL (4.23-9.07)
--- NOTE | 2023-11-17 17:12 | XRAY ---
Indication: Short of breath. Comparison: CT PE exam October 26, 2023. Portable chest again demonstrates CT proven diffuse bilateral patchy consolidating/nonconsolidating airspace disease with moderate bilateral pleural effusions/atelectasis. Heart not enlarged again with left arm PICC line. No new cardiopulmonary abnormalities.
[2023-11-17 17:21] LABS: ALBUMIN 3.8 g/dL (3.5-5.0); ANION GAP 15.2 MEQ/L (5-15); BILIRUBIN,TOTAL 0.6 mg/dL (0.2-1.3); Calcium 8.4 mg/dL (8.4-10.2); Creatinine 1 1.39 mg/dL (0.66-1.25); EST GLOMERULAR FILTRATION RATE 56.6 ML/MIN; MAGNESIUM 2.3 mg/dL (1.6-2.3); Potassium 4.5 mmol/L (3.5-5.1); Total Protein 6.5 g/dL (6.3-8.2)
[2023-11-17 17:38] LABS: PROCALCITONIN 0.105 ng/mL (0.030-0.080)
[2023-11-17 17:45] LABS: INFLUENZA A NEGATIVE (NEGATIVE); INFLUENZA B NEGATIVE (NEGATIVE); RESPIRATORY SYNCTIAL VIRUS NEGATIVE (NEGATIVE); SARS-CoV-2 Xpert Express NEGATIVE (NEGATIVE)
[2023-11-17] MEDS ORDERED: D50W 50 ml Abboject IV ONE (18:34)
[2023-11-17] MEDS: D50W 50 ml Abboject IV ONE (18:35)
--- NOTE | 2023-11-17 18:36 | ERPHSYRPT ---
- History of Present Illness Time Seen by Provider: 11/17/23 16:16 Source: patient, EMS Exam Limitations: no limitations Patient Subjective Stated Complaint: Patient states he has not complaints and feels fine. EMS reports that they were called to patient's residence ([facility]) for Altered Mental Status. Nurse Melisa, from the [facility], called to report that patient has been drowsy all day and is the most alert he has been when EMS arrived to pick him up. Melisa reports patient's B/P is currently low and he was recently started on 02. Triage Nursing Assessment: Patient arrived by ambulance. He is currently alert and oriented. He arrived wearing 02 @ 2L per N/C. No SOB noted at this time. LLE is wrapped in coban; coban not removed at this time. Patient is pale. He is hypotensive. PICC line to LUE; dressing C/D/I. Physician History: 63-year-old male with multiple medical problems including hypertension, coronary artery disease with stenting, diabetes mellitus with right above-knee amputation, wounds on the left heel, lower extremity swelling resident of [facility] is brought in the ER with complaint of altered mental status, generalized weakness fatigue and tiredness. Patient per EMS was not confused or altered. He was having some shortness of breath with oxygen saturation in low 90s, placed on 2 L oxygen and improved in mid 90s. Patient does report coughing up clear to yellow sputum. Denies any chest pain. Patient recently has been increasing the dose of Lasix to get rid of excessive water/CHF. Patient denies any fever or chills. When EMS arrived patient blood pressure was in 80s, on presentation in the ER upon recheck it is in 90s. Allergies/Adverse Reactions: No Known Drug Allergies Allergy (Verified 10/26/23 10:36) Home Medications: Allopurinol 300 mg [Zyloprim 300 mg] 300 mg PO DAILY 04/26/15 [History] Atorvastatin Calcium [Lipitor] 80 mg PO HS 07/07/17 [History] Empagliflozin/Metformin HCl [Synjardy 5-1,000 mg Tablet] 5 - 1,000 mg PO BID 09/09/20 [History] Gabapentin 900 mg PO TID 09/09/20 [History] Glipizide 5 mg [Glucotrol 5 MG] 5 mg PO BID 10/06/21 [History] Ferrous Sulfate 325 mg [Feosol 325 mg] 325 mg PO QID 03/31/23 [History] [place]-3 Fatty Acids/Fish Oil [Fish Oil 1,000 mg Capsule] 1,000 mg PO DAILY 03/31/23 [History] Potassium Chloride 20 meq PO DAILY 03/31/23 [History] Ropinirole HCl 1 mg PO BID 03/31/23 [History] Acetaminophen 325 mg [Tylenol 325 mg] 650 mg PO Q6HPRN PRN 05/17/23 [History] Clopidogrel Bisulfate [Clopidogrel] 75 mg PO DAILY 05/17/23 [History] Cyanocobalamin 1000 Mcg/ml [Cyanocobalamin B-12 1000 MCG/ML] 1,000 mcg IM UD 05/17/23 [History] Docusate Sodium 100 mg [Docusate Sodium 100 MG] 100 mg PO DAILY 05/17/23 [History] Dulaglutide [Trulicity] 0.5 ml SQ WEEKLY 05/17/23 [History] Glucagon [Baqsimi] 3 mg NS UD 05/17/23 [History] Polyethylene Glycol 3350 17 gm [Miralax Powder 17GM PACKET] 17 gm PO [id number] PRN 05/17/23 [History] Hydrocodone/Acetaminophen [Hydrocodone-Acetamin 10-325 mg] 1 each PO Q4H PRN PRN 08/30/23 [History] Nitroglycerin 0.4 mg Tablet [Nitrostat 0.4 MG Tablet] 0.4 mg SL Q5MIN PRN MR X 3 PRN 08/30/23 [History] Amiodarone HCl 200 mg PO DAILY 11/17/23 [History] Apixaban [Eliquis] 5 mg PO BID 11/17/23 [History] Heparin Sodium,Porcine/Pf [Heparin Lock Flush 100 Unit/ml] 1 each IV UD PRN 11/17/23 [History] Losartan Potassium [Cozaar] 12.5 mg PO DAILY 11/17/23 [History] Metoprolol Succinate 25 mg Xl* [Toprol-Xl 25MG Tablets] 25 mg PO BID 11/17/23 [History] Nystatin 1 each TOP UD PRN 11/17/23 [History] Pregabalin 50 mg [Lyrica 50MG] 50 mg PO TID 11/17/23 [History] Hx Tetanus, Diphtheria Vaccination/Date Given: Yes Hx Influenza Vaccination/Date Given: Yes Hx Pneumococcal Vaccination/Date Given: (UNSURE) Immunizations Up to Date: Yes Travel Risk - International Travel Have you traveled outside of the country in past 3 weeks: No - Emerging Infectious Disease Are you exhibiting symptoms associated with any current EIDs: Yes Symptoms: Shortness of Breath - Review of Systems Constitutional: Fatigue, Weakness Eyes: No Symptoms Ears, Nose, & Throat: No Symptoms Respiratory: Cough, Dyspnea Cardiac: Edema Abdominal/Gastrointestinal: No Symptoms Genitourinary Symptoms: No Symptoms Musculoskeletal: Arthralgias, Deformity Skin: Skin Lesions Neurological: No Symptoms Hematologic/Lymphatic: No Symptoms Immunological/Allergic: No Symptoms - Past Medical History Pertinent Past Medical History: Yes Neurological History: Peripheral Neuropathy ENT History: Cataracts Cardiac History: Deep Vein Thrombosis, High Cholesterol, Hypertension, Peripheral Vascular Disease Respiratory History: Pneumonia, Sleep Apnea Endocrine Medical History: Diabetes Type II, Hypoglycemia Musculoskeletal History: Fractures, Other GI Medical History: No Pertinent History History: No Pertinent History Psycho-Social History: No Pertinent History Male Reproductive Disorders: Other Other Medical History: Osteomyelitis, PVD, Sepsis, Cardiomyopathy, Anemia, Hand contracture - Past Surgical History Past Surgical History: Yes Neuro Surgical History: No Pertinent History Cardiac: Vascular Surgery, Cardiac Stent, Cardiac Catheterization Respiratory: No Pertinent History Gastrointestinal: No Pertinent History Genitourinary: No Pertinent History Musculoskeletal: No Pertinent History, Other Male Surgical History: No Pertinent History Other Surgical History: Vascular surg pradeep legs, in grown toe nails, FOOT SURGERY FOR DECUBITUS, multiple foot surgeries, multiple right foot surgeries eventually leading to right [id number] - Social History Smoking Status: Former smoker How long have you smoked: 2017 Exposure to second hand smoke: No Drug Use: none Patient Lives Alone: No ([facility]) - Social Determinants of Health Will the patient participate in the screening: Yes Do you worry about a steady place to live?: No Do you have any problems with any of the following?: No known problems In the past 12 months,have you had to go without utilities?: No Transportation Issues: No Has anyone in your support network made you feel unsafe?: No Have you or anyone in your house had to go without enough: No Comment: Currently living at [facility] Vital Signs Nursing Vital Signs: Initial Vital Signs Pulse Rate 75 11/17/23 16:14 Respiratory Rate 11 L 11/17/23 16:14 Blood Pressure 83/54 11/17/23 16:14 O2 Sat by Pulse Oximetry 98 11/17/23 16:14 Pain Scale Pain Intensity 0 - Physical Exam General Appearance: no apparent distress, alert Ears, Nose, Throat Exam: normal ENT inspection Neck Exam: normal inspection, full range of motion Respiratory Exam: diminished breath sounds, crackles/rales, rhonchi Cardiovascular Exam: regular rate/rhythm, normal heart sounds Gastrointestinal/Abdomen Exam: soft, normal bowel sounds, No tenderness Back Exam: normal inspection Extremity Exam: pelvis stable, amputations (Right above-knee amputation) Neurologic Exam: alert, oriented x 3, cooperative, helmet hat brim cutter II-XII nml as tested, nml cerebellar function, sensation nml, No motor deficits Skin Exam: normal color SpO2 Interpretation: O2 applied SpO2: 94 O2 Delivery: Nasal Cannula - Course EKG Interpreted by Me: RATE (75), Sinus Rhythm, NORMAL AXIS, NORMAL INTERVALS, Q-wave Ordered Tests: Medication Summary Generic Name Dose Route Start Last Admin Trade Name Freq PRN Reason Stop Dose Admin Acetaminophen 650 mg 11/17/23 19:31 Acetaminophen 325 Mg Tablet PO 12/17/23 19:30 Q6HPRN PRN PAIN AND/OR FEVER Hydrocodone Bitart/Acetaminophen 1 tablet 11/17/23 19:31 Hydrocodone/Acetamin 10-325 Mg Tablet PO 11/22/23 19:30 Q4H PRN PRN PAIN Albuterol/Ipratropium 3 ml 11/17/23 20:36 Ipratropium/Albuterol Sulfate 3 Ml Ampul.Neb IH 12/17/23 20:35 Q4HPRN PRN SHORTNESS OF BREATH/WHEEZING Apixaban 5 mg 11/17/23 22:00 11/19/23 09:22 Apixaban 2.5 Mg Tablet PO 12/17/23 21:59 5 mg BID JAYANT Administration Aspirin 81 mg 11/18/23 10:00 11/19/23 09:22 Aspirin 81 Mg Tablet.Ec PO 12/18/23 09:59 81 mg DAILY JAYANT Administration Clopidogrel Bisulfate 75 mg 11/18/23 10:00 11/19/23 09:22 Clopidogrel Bisulfate 75 Mg Tablet PO 12/18/23 09:59 75 mg DAILY JAYANT Administration Cyanocobalamin 1,000 mcg 11/17/23 19:45 Cyanocobalamin 1000 Mcg/Ml Vial IM 12/17/23 19:44 Q30D PRN Docusate Sodium 100 mg 11/18/23 10:00 11/19/23 09:23 Docusate Sodium 100 Mg Capsule PO 12/18/23 09:59 100 mg DAILY JAYANT Administration Docusate Sodium 100 mg 11/17/23 19:35 Docusate Sodium 100 Mg Capsule PO 12/17/23 19:34 BIDPRN PRN CONSTIPATION Empagliflozin 5 mg 11/18/23 09:00 11/19/23 08:01 Empagliflozin 10 Mg Tablet PO 12/18/23 08:59 5 mg BIDWM JAYANT Administration Ferrous Sulfate 325 mg 11/17/23 22:00 11/19/23 12:02 Ferrous Sulfate 325 Mg Tablet PO 12/17/23 21:59 325 mg QID JAYANT Administration Fish Oil 1,000 mg 11/18/23 10:00 11/19/23 09:23 [place]-3 Fatty Acids/Fish Oil 1000 Mg Capsule PO 12/18/23 09:59 1,000 mg DAILY JAYANT Administration Gabapentin 900 mg 11/17/23 22:00 11/19/23 14:25 Gabapentin 300 Mg Capsule PO 12/17/23 21:59 900 mg TID JAYANT Administration Guaifenesin 600 mg 11/17/23 22:00 11/19/23 09:23 Guaifenesin 600 Mg Tablet Er PO 12/17/23 21:59 600 mg BID JAYANT Administration Piperacillin Sod/Tazobactam 100 mls @ 200 mls/hr 11/18/23 08:08 11/19/23 12:02 Sod 4.5 gm/ Sodium Chloride IV 12/18/23 08:07 200 mls/hr Q6HT JAYANT Administration Insulin Human Lispro 0 unit 11/17/23 19:35 Insulin Lispro 1 Unit SQ 12/17/23 19:34 UD PRN HYPERGLYCEMIA Lactobacillus Acidophilus 1 tab 11/18/23 10:00 11/19/23 09:23 Lactobacillus Acidophilus 1 Tab Tablet PO 12/18/23 09:59 1 tab DAILY JAYANT Administration Metformin HCl 1,000 mg 11/18/23 09:00 11/19/23 08:01 Metformin Hcl 500 Mg Tablet PO 12/18/23 08:59 1,000 mg BIDWM JAYANT Administration Metoprolol Succinate 25 mg 11/17/23 22:00 11/19/23 09:24 Metoprolol Succinate 25 Mg Xl Tab PO 12/17/23 21:59 Not Given BID JAYANT Miscellaneous Information 1 each 11/18/23 09:00 Medication Intervention 1 Each Each 12/18/23 08:59 .RN TO CHECK JAYANT Nitroglycerin 0.4 mg 11/17/23 19:31 Nitroglycerin 0.4 Mg Tablet Bottle SL 12/17/23 19:30 Q5MIN PRN MR X 3 PRN CHEST PAIN Nystatin 1 gm 11/18/23 22:00 11/19/23 09:32 Nystatin 15 Gm Powder TOP 12/18/23 21:59 1 gm BID JAYANT Administration Ondansetron HCl 4 mg 11/17/23 19:35 Ondansetron Hcl 4 Mg/2 Ml Vial IV 12/17/23 19:34 Q6H PRN PRN NAUSEA/VOMITING Pantoprazole Sodium 40 mg 11/18/23 17:15 11/19/23 09:23 Pantoprazole 40 Mg Vial IV 12/18/23 17:14 40 mg Q24H10 JAYANT Administration Polyethylene Glycol 17 gm 11/17/23 19:31 Polyethylene Glycol 3350 17 Gm Packet PO 12/17/23 19:30 [id number] PRN CONSTIPATION Potassium Chloride 20 meq 11/18/23 10:00 11/19/23 09:22 Potassium Chloride Tab 10 Meq Tab PO 12/18/23 09:59 20 meq DAILY JAYANT Administration Pregabalin 50 mg 11/17/23 22:00 11/19/23 14:25 Pregabalin 50 Mg Capsule PO 12/17/23 21:59 50 mg TID JAYANT Administration Ropinirole HCl 1 mg 11/17/23 22:00 11/19/23 09:22 Ropinirole Hcl 0.5 Mg Tablet PO 12/17/23 21:59 1 mg BID JAYANT Administration Simvastatin 40 mg 11/17/23 22:00 11/18/23 21:45 Simvastatin 20 Mg Tablet PO 12/17/23 21:59 40 mg HS JAYANT Administration Discontinued Medications Generic Name Dose Route Start Last Admin Trade Name Damir PRN Reason Stop Dose Admin Albuterol/Ipratropium 3 ml 11/17/23 16:32 11/17/23 16:41 Ipratropium/Albuterol Sulfate 3 Ml Ampul.Neb 11/17/23 16:33 3 ml STAT ONE Administration Albuterol/Ipratropium Confirm 11/17/23 16:39 Ipratropium/Albuterol Sulfate 3 Ml Ampul.Neb Administered 11/17/23 16:40 Dose 3 ml IH .STK-MED ONE Albuterol/Ipratropium 3 ml 11/18/23 01:00 Ipratropium/Albuterol Sulfate 3 Ml Ampul.Neb 12/18/23 00:59 Q6HRT JAYANT Allopurinol 300 mg 11/18/23 10:00 Allopurinol 300 Mg Tablet PO 12/18/23 09:59 DAILY JAYANT Amiodarone HCl 200 mg 11/18/23 10:00 11/18/23 10:14 Amiodarone Hcl 200 Mg Tab PO 12/18/23 09:59 Not Given DAILY JAYANT Dextrose 25 ml 11/17/23 18:34 11/17/23 18:35 Dextrose 50%-Water 50 Ml Abboject IV 11/17/23 18:35 25 ml STAT ONE Administration Dextrose Confirm 11/17/23 18:34 Dextrose 50%-Water 50 Ml Abboject Administered 11/17/23 18:35 Dose 50 ml IV .STK-MED ONE Empagliflozin 5 mg 11/18/23 09:00 Empagliflozin 10 Mg Tablet PO 12/18/23 08:59 BREAKFAST JAYANT Ceftriaxone Sodium 2 gm in 100 mls @ 200 mls/hr 11/17/23 18:05 11/17/23 20:41 Rocephin 2 Gm/100 Ml Nacl IV 11/17/23 18:34 200 mls/hr STAT ONE Administration Azithromycin 500 mg in 250 mls @ 250 mls/hr 11/17/23 18:05 11/17/23 21:19 Zithromax 500 Mg/ 250 Ml Nacl Premix IV 11/17/23 19:04 250 mls/hr STAT STA Administration Ceftriaxone Sodium 1 gm in 100 mls @ 200 mls/hr 11/18/23 10:00 Rocephin 1 Gm / 100 Ml Nacl IV 12/18/23 09:59 Q24H10 JAYANT Azithromycin 500 mg in 250 mls @ 250 mls/hr 11/18/23 10:00 Zithromax 500 Mg/ 250 Ml Nacl Premix IV 12/18/23 09:59 Q24H10 JAYANT Azithromycin Confirm 11/17/23 21:16 Zithromax 500 Mg/ 250 Ml Nacl Premix Administered 11/17/23 21:17 Dose 500 mg in 250 mls @ ud IV .STK-MED ONE Dextrose/Sodium Chloride 1,000 mls @ 50 mls/hr 11/18/23 08:30 11/18/23 09:48 Dextrose 5%-Ns Iv Solution 1000 Ml IV 12/18/23 08:29 50 mls/hr .Q20H JAYANT Administration Non-Formulary Medication 5 mg 11/17/23 22:00 11/18/23 00:12 Apixaban [Eliquis] PO 12/17/23 21:59 Not Given BID JAYANT Non-Formulary Medication 900 mg 11/17/23 22:00 11/18/23 00:13 Gabapentin [Gabapentin] PO 12/17/23 21:59 Not Given TID JAYANT Non-Formulary Medication 80 mg 11/17/23 22:00 11/18/23 00:13 Atorvastatin Calcium [Lipitor] PO 12/17/23 21:59 Not Given HS JAYANT Non-Formulary Medication 1 mg 11/17/23 22:00 11/18/23 00:14 Ropinirole Hcl [Ropinirole Hcl] PO 12/17/23 21:59 Not Given BID JAYANT Non-Formulary Medication 5 - 1,000 mg 11/17/23 22:00 11/18/23 00:15 Empagliflozin/Metformin Hcl [Synjardy 5-1,000 Mg Tablet] PO 12/17/23 21:59 Not Given BID JAYANT Non-Formulary Medication 0.5 ml 11/17/23 19:45 Dulaglutide [Trulicity] SQ 12/17/23 19:44 WEEKLY JAYANT Nystatin 0 gm 11/18/23 08:51 Nystatin 15 Gm Powder TOP 12/18/23 08:50 UD PRN yeast Lab/Rad Data: Laboratory Result Diagrams 11/17/23 16:55 11/17/23 16:55 Laboratory Results 11/17/23 11/17/23 11/17/23 Range/Units 18:33 16:55 16:55 WBC (4.23-9.07) x10^3/uL RBC (4.63-6.08) x10^6/uL Hgb (13.7-17.5) g/dL Hct (40.1-51.0) % MCV (79.0-92.2) fL MCH (25.7-32.2) pg MCHC (32.3-36.5) g/dL RDW (11.6-14.4) % Plt Count (163-337) x10^3/uL MPV (9.4-12.4) fL Gran % (34.0-67.9) % Immature Gran % (Auto) (0.001-0.429) % Nucleat RBC Rel Count (0.00-0.2) % Eos # (Auto) (0.04-0.54) x10^3/uL Immature Gran # (Auto) (0.001-0.031) x10^3u/L Absolute Lymphs (auto) (1.32-3.57) x10^3/uL Absolute Monos (auto) (0.30-0.82) x10^3/uL Absolute Nucleated RBC (0.00-0.012) x10^3u/L Lymphocytes % (21.8-53.1) % Monocytes % (5.3-12.2) % Eosinophils % (0.8-7.0) % Basophils % (0.2-1.2) % Absolute Granulocytes (1.78-5.38) x10^3/uL Basophils # (0.01-0.08) x10^3/uL Sodium (135-145) mmol/L Potassium (3.5-5.1) mmol/L Chloride (98-107) mmol/L Carbon Dioxide (22-30) mmol/L Anion Gap (5-15) MEQ/L BUN (9-20) mg/dL Creatinine (0.66-1.25) mg/dL Estimated GFR ML/MIN Glucose (74-106) mg/dL POC Glucometer 48 L* (50 to 500) mg/dL Lactic Acid (0.4-2.0) Calcium (8.4-10.2) mg/dL Magnesium (1.6-2.3) mg/dL Total Bilirubin (0.2-1.3) mg/dL AST (17-59) U/L ALT (0-50) U/L Alkaline Phosphatase (38-126) U/L Troponin I (0.000-0.033) ng/mL NT-Pro-B Natriuret Pep 7670 (<300) pg/mL Serum Total Protein (6.3-8.2) g/dL Albumin (3.5-5.0) g/dL Procalcitonin 0.105 H (0.030-0.080) ng/mL Influenza Type A Ag NEGATIVE (NEGATIVE) Influenza Type B Ag NEGATIVE (NEGATIVE) RSV (PCR) NEGATIVE (NEGATIVE) SARS-CoV-2 (PCR) NEGATIVE (NEGATIVE) Slides for Path Review 11/17/23 11/17/23 11/17/23 Range/Units 16:55 16:55 16:55 WBC 11.7 H (4.23-9.07) x10^3/uL RBC 3.80 L (4.63-6.08) x10^6/uL Hgb 10.5 L (13.7-17.5) g/dL Hct 35.5 L (40.1-51.0) % MCV 93.4 H (79.0-92.2) fL MCH 27.6 (25.7-32.2) pg MCHC 29.6 L (32.3-36.5) g/dL RDW 24.3 H (11.6-14.4) % Plt Count 312 (163-337) x10^3/uL MPV 8.5 L (9.4-12.4) fL Gran % 81.6 H (34.0-67.9) % Immature Gran % (Auto) 0.9 H (0.001-0.429) % Nucleat RBC Rel Count 0.2 (0.00-0.2) % Eos # (Auto) 0.15 (0.04-0.54) x10^3/uL Immature Gran # (Auto) 0.11 H (0.001-0.031) x10^3u/L Absolute Lymphs (auto) 1.39 (1.32-3.57) x10^3/uL Absolute Monos (auto) 0.45 (0.30-0.82) x10^3/uL Absolute Nucleated RBC 0.02 H (0.00-0.012) x10^3u/L Lymphocytes % 11.9 L (21.8-53.1) % Monocytes % 3.8 L (5.3-12.2) % Eosinophils % 1.3 (0.8-7.0) % Basophils % 0.5 (0.2-1.2) % Absolute Granulocytes 9.54 H (1.78-5.38) x10^3/uL Basophils # 0.06 (0.01-0.08) x10^3/uL Sodium 139 (135-145) mmol/L Potassium 4.5 (3.5-5.1) mmol/L Chloride 103 (98-107) mmol/L Carbon Dioxide 26 (22-30) mmol/L Anion Gap 15.2 H (5-15) MEQ/L BUN 30 H (9-20) mg/dL Creatinine 1.39 H (0.66-1.25) mg/dL Estimated GFR 56.6 ML/MIN Glucose 63 L (74-106) mg/dL POC Glucometer (50 to 500) mg/dL Lactic Acid (0.4-2.0) Calcium 8.4 (8.4-10.2) mg/dL Magnesium 2.3 (1.6-2.3) mg/dL Total Bilirubin 0.60 (0.2-1.3) mg/dL AST 20 (17-59) U/L ALT 15 (0-50) U/L Alkaline Phosphatase 73 (38-126) U/L Troponin I < 0.012 (0.000-0.033) ng/mL NT-Pro-B Natriuret Pep (<300) pg/mL Serum Total Protein 6.5 (6.3-8.2) g/dL Albumin 3.8 (3.5-5.0) g/dL Procalcitonin (0.030-0.080) ng/mL Influenza Type A Ag (NEGATIVE) Influenza Type B Ag (NEGATIVE) RSV (PCR) (NEGATIVE) SARS-CoV-2 (PCR) (NEGATIVE) Slides for Path Review YES 11/17/23 Range/Units 16:32 WBC (4.23-9.07) x10^3/uL RBC (4.63-6.08) x10^6/uL Hgb (13.7-17.5) g/dL Hct (40.1-51.0) % MCV (79.0-92.2) fL MCH (25.7-32.2) pg MCHC (32.3-36.5) g/dL RDW (11.6-14.4) % Plt Count (163-337) x10^3/uL MPV (9.4-12.4) fL Gran % (34.0-67.9) % Immature Gran % (Auto) (0.001-0.429) % Nucleat RBC Rel Count (0.00-0.2) % Eos # (Auto) (0.04-0.54) x10^3/uL Immature Gran # (Auto) (0.001-0.031) x10^3u/L Absolute Lymphs (auto) (1.32-3.57) x10^3/uL Absolute Monos (auto) (0.30-0.82) x10^3/uL Absolute Nucleated RBC (0.00-0.012) x10^3u/L Lymphocytes % (21.8-53.1) % Monocytes % (5.3-12.2) % Eosinophils % (0.8-7.0) % Basophils % (0.2-1.2) % Absolute Granulocytes (1.78-5.38) x10^3/uL Basophils # (0.01-0.08) x10^3/uL Sodium (135-145) mmol/L Potassium (3.5-5.1) mmol/L Chloride (98-107) mmol/L Carbon Dioxide (22-30) mmol/L Anion Gap (5-15) MEQ/L BUN (9-20) mg/dL Creatinine (0.66-1.25) mg/dL Estimated GFR ML/MIN Glucose (74-106) mg/dL POC Glucometer (50 to 500) mg/dL Lactic Acid 1.2 (0.4-2.0) Calcium (8.4-10.2) mg/dL Magnesium (1.6-2.3) mg/dL Total Bilirubin (0.2-1.3) mg/dL AST (17-59) U/L ALT (0-50) U/L Alkaline Phosphatase (38-126) U/L Troponin I (0.000-0.033) ng/mL NT-Pro-B Natriuret Pep (<300) pg/mL Serum Total Protein (6.3-8.2) g/dL Albumin (3.5-5.0) g/dL Procalcitonin (0.030-0.080) ng/mL Influenza Type A Ag (NEGATIVE) Influenza Type B Ag (NEGATIVE) RSV (PCR) (NEGATIVE) SARS-CoV-2 (PCR) (NEGATIVE) Slides for Path Review - Progress Progress: improved Progress Note: 11/17/23 18:35 63-year-old is evaluated in ER for generalized weakness, some shortness of breath and hypotension. Patient blood pressure started to improve on pres entation and currently without any fluids is 126 systolic. Patient is not in any distress. He is on 2 L oxygen. Chest x-ray showed bilateral consolidations. Given dose of antibiotics. Workup showed white count of 11, chemistries mild YAS with a baseline creatinine of 1.03 and today is 1.39. I believe this is secondary to aggressive diuresis. We will not give him fluids because chest x-ray also showed bilateral effusion as well. He is given neb treatment, feeling better on reevaluation. Discussed with Dr. Broussard patient is being admitted. Discussed with : Tejal Counseled pt/family regarding: lab results, diagnosis, need for follow-up, rad results Medical Desision Making - Independent Historian Additional History obtained from: Pathology Laboratory Technologist/EMT - Discussion of managment Care discussed with:: hospitalist Reviewed:: Test results Agreed on:: Treatment plan, place in obs Will see patient: in hospital - Diagnostic Testing Diagnostic test were ordered, analyzed, and reviewed by me: Yes Radiological Interpretation: Reviewed by me - Risk of complications The pt has a mod risk of morbidity or mortality based on: Need for prescription drug management The pt has a high risk of morbidity or mortality based on: Decision regarding hospitilization or escalation of hosp level of care - Departure Departure Disposition: Observation Clinical Impression: YAS (acute kidney injury), Generalized weakness, Hypotension, Pneumonia Condition: Stable Critical Care Time: No
[2023-11-17] MEDS ORDERED: NORCO 10-325 MG PO PRN (19:31)
[2023-11-17] MEDS ORDERED: Miralax Powder 17GM PACKET PO PRN (19:31)
[2023-11-17] MEDS ORDERED: TYLENOL 325 MG PO PRN (19:31)
[2023-11-17] MEDS ORDERED: Nitrostat 0.4 MG Tablet SL PRN (19:31)
[2023-11-17] MEDS ORDERED: HUMALOG SQ PRN (19:35)
[2023-11-17] MEDS ORDERED: Docusate Sodium 100 MG PO PRN (19:35)
[2023-11-17] MEDS ORDERED: Zofran 4 MG/2 ML VIAL IV PRN (19:35)
[2023-11-17] MEDS ORDERED: Cyanocobalamin B-12 1000 MCG/ML IM PRN (19:45)
[2023-11-17] MEDS ORDERED: NON-FORMULARY ITEM (Glucagon [Baqsimi] 3 MG Spray) NS SCH (19:45)
[2023-11-17] MEDS ORDERED: NON-FORMULARY ITEM (Dulaglutide [Trulicity] 0.75 MG/0.5 ML Pen.Injctr) SQ SCH (19:45)
--- NOTE | 2023-11-17 20:02 | PCM.HP ---
History of Present Illness - Chief Complaint Chief Complaint: Cough Date: 11/17/23 History of Present Illness: is a 63 year old male with a history of hypertension, coronary artery disease with stenting, diabetes mellitus with right above-knee amputation, wounds on the left heel, lower extremity swelling resident of [facility] is brought in the ER with complaint of altered mental status, generalized weakness fatigue and tiredness. Patient per EMS was not confused or altered. He was having some shortness of breath with oxygen saturation in low 90s, placed on 2 L oxygen and improved in mid 90s. Patient does report coughing up clear to yellow sputum and generalized malaise for the past "couple of days" with worsening. Denies any chest pain. Patient recently has been increasing the dose of Lasix to get rid of excessive water/CHF. Patient denies any fever or chills. When EMS arrived patient blood pressure was in 80s, on presentation in the ER upon recheck it is in 90s. Subsequently in the ED, his BP improved to 126/75. In the ED, the patient was noted to have bilateral infiltrates and pleural effusions. - Review of Systems Constitutional: Malaise Eyes: No Symptoms Ears, Nose, & Throat: No Symptoms Respiratory: Cough, Short Of Breath Cardiac: Edema (left leg) Abdominal/Gastrointestinal: No Symptoms Genitourinary Symptoms: No Symptoms Musculoskeletal: No Symptoms Skin: Other (chronic left pretibial wound) Neurological: No Symptoms Psychological: No Symptoms Endocrine: No Symptoms Hematologic/Lymphatic: No Symptoms Immunological/Allergic: No Symptoms All Other Systems: Reviewed and Negative Medications & Allergies Home Medications: Home Medication List Allopurinol 300 mg [Zyloprim 300 mg] 300 mg PO DAILY 04/26/15 [History Confirmed 11/17/23] Atorvastatin Calcium [Lipitor] 80 mg PO HS 07/07/17 [History Confirmed 11/17/23] Empagliflozin/Metformin HCl [Synjardy 5-1,000 mg Tablet] 5 - 1,000 mg PO BID 09/09/20 [History Confirmed 11/17/23] Gabapentin 900 mg PO TID 09/09/20 [History Confirmed 11/17/23] Glipizide 5 mg [Glucotrol 5 MG] 5 mg PO BID 10/06/21 [History Confirmed 11/17/23] Aspirin EC 81 mg [Ecotrin 81 mg] 81 mg PO DAILY #0 01/18/23 [Rx Confirmed 11/17/23] Ferrous Sulfate 325 mg [Feosol 325 mg] 325 mg PO QID 03/31/23 [History Confirmed 11/17/23] [place]-3 Fatty Acids/Fish Oil [Fish Oil 1,000 mg Capsule] 1,000 mg PO DAILY 03/31/23 [History Confirmed 11/17/23] Potassium Chloride 20 meq PO DAILY 03/31/23 [History Confirmed 11/17/23] Ropinirole HCl 1 mg PO BID 03/31/23 [History Confirmed 11/17/23] Acetaminophen 325 mg [Tylenol 325 mg] 650 mg PO Q6HPRN PRN 05/17/23 [History Confirmed 11/17/23] Clopidogrel Bisulfate [Clopidogrel] 75 mg PO DAILY 05/17/23 [History Confirmed 11/17/23] Cyanocobalamin 1000 Mcg/ml [Cyanocobalamin B-12 1000 MCG/ML] 1,000 mcg IM UD 05/17/23 [History Confirmed 11/17/23] Docusate Sodium 100 mg [Docusate Sodium 100 MG] 100 mg PO DAILY 05/17/23 [History Confirmed 11/17/23] Dulaglutide [Trulicity] 0.5 ml SQ WEEKLY 05/17/23 [History Confirmed 11/17/23] Glucagon [Baqsimi] 3 mg NS UD 05/17/23 [History Confirmed 11/17/23] Polyethylene Glycol 3350 17 gm [Miralax Powder 17GM PACKET] 17 gm PO [id number] PRN 05/17/23 [History Confirmed 11/17/23] Hydrocodone/Acetaminophen [Hydrocodone-Acetamin 10-325 mg] 1 each PO Q4H PRN PRN 08/30/23 [History Confirmed 11/17/23] Nitroglycerin 0.4 mg Tablet [Nitrostat 0.4 MG Tablet] 0.4 mg SL Q5MIN PRN MR X 3 PRN 08/30/23 [History Confirmed 11/17/23] Amiodarone HCl 200 mg PO DAILY 11/17/23 [History Confirmed 11/17/23] Apixaban [Eliquis] 5 mg PO BID 11/17/23 [History Confirmed 11/17/23] Heparin Sodium,Porcine/Pf [Heparin Lock Flush 100 Unit/ml] 1 each IV UD PRN 11/17/23 [History Confirmed 11/17/23] Losartan Potassium [Cozaar] 12.5 mg PO DAILY 11/17/23 [History Confirmed 0 11/17/23] Metoprolol Succinate 25 mg Xl* [Toprol-Xl 25MG Tablets] 25 mg PO BID 11/17/23 [History Confirmed 11/17/23] Nystatin 1 each TOP UD PRN 11/17/23 [History Confirmed 11/17/23] Pregabalin 50 mg [Lyrica 50MG] 50 mg PO TID 11/17/23 [History Confirmed 11/17/23] Allergies/Adverse Reactions: Allergies Allergy/AdvReac Type Severity Reaction Status Date / Time No Known Drug Allergies Allergy Verified 10/26/23 10:36 - Past Medical History Past Medical History: Yes Neurological History: Peripheral Neuropathy ENT History: Cataracts Cardiac History: Deep Vein Thrombosis, High Cholesterol, Hypertension, Peripheral Vascular Disease Respiratory History: Pneumonia, Sleep Apnea Endocrine Medical History: Diabetes Type II, Hypoglycemia Musculoskelatal History: Fractures, Other GI Medical History: No Pertinent History History: No Pertinent History Pyscho-Social History: No Pertinent History Male Reproductive Disorders: Other Comment: Osteomyelitis, PVD, Sepsis, Cardiomyopathy, Anemia, Hand contracture - Past Surgical History Past Surgical History: Yes Neuro Surgical History: No Pertinent History Cardiac History: Vascular Surgery, Cardiac Stent, Cardiac Catheterization Respiratory Surgery: No Pertinent History GI Surgical History: No Pertinent History Genitourinary Surgical Hx: No Pertinent History Musculskeletal Surgical Hx: Amputation, Other Male Surgical History: No Pertinent History Other Surgical History: Vascular surg pradeep legs, in grown toe nails, FOOT SURGERY FOR DECUBITUS, multiple foot surgeries, multiple right foot surgeries eventually leading to right [id number] - Social History Smoking Status: Former smoker How long have you smoked: 2016 Exposure to second hand smoke: No Alcohol: None Drug Use: none - Social Determinants of Health Will the patient participate in the screening: Yes Do you worry about a steady place to live?: No Do you have any problems with any of the following?: No known problems In the past 12 months,have you had to go without utilities?: No Have you or anyone in your house had to go without enough: No Transportation Issues: No Has anyone in your support network made you feel unsafe?: No Does the patient want assistance with any of the above?: No Comment: Currently living at [facility] - Physical Exam Vital Signs: Vital Signs - 24 hr Temp Pulse Resp BP BP Pulse Ox 11/17/23 18:41 78 20 107/56 99 11/17/23 18:38 94 L 11/17/23 18:30 79 17 111/57 95 11/17/23 18:20 73 18 105/54 99 11/17/23 18:10 63 7 L 106/53 98 11/17/23 18:00 70 19 107/59 90 L 11/17/23 17:50 78 21 105/55 93 L 11/17/23 17:41 73 17 97/63 93 L 11/17/23 17:30 75 24 109/61 92 L 11/17/23 17:20 71 20 104/59 91 L 11/17/23 17:10 65 12 101/54 91 L 11/17/23 17:09 71 13 105/58 90 L 11/17/23 17:08 75 21 11/17/23 17:00 75 16 90 L 11/17/23 16:52 74 20 11/17/23 16:44 76 20 94 L 11/17/23 16:40 73 17 92/53 11/17/23 16:30 74 12 90/40 94 L 11/17/23 16:27 76 21 93/55 92 L 11/17/23 16:17 96.7 F 76 23 83/54 97 11/17/23 16:14 75 11 L 83/54 98 General Appearance: no apparent distress, alert Neurologic Exam: alert, oriented x 3, strip feeder II-XII nml as tested, normal mood/affect, nml cerebellar function Eye Exam: PERRL/EOMI, eyes nml inspection Ears, Nose, Throat Exam: normal ENT inspection Neck Exam: normal inspection, non-tender, supple, full range of motion, meningismus Respiratory Exam: diminished breath sounds, rhonchi Cardiovascular Exam: regular rate/rhythm, normal heart sounds, edema (left an kle) Gastrointestinal/Abdomen Exam: soft, normal bowel sounds Back Exam: normal range of motion Extremity Exam: normal range of motion, pedal edema, other (right BKA) Skin Exam: other (chronic left pretibial wound noted) Results - Labs Lab/Micro Results: Lab Results-Last 24 Hours 11/17/23 11/17/23 11/17/23 Range/Units 16:32 16:55 16:55 WBC 11.7 H (4.23-9.07) x10^3/uL RBC 3.80 L (4.63-6.08) x10^6/uL Hgb 10.5 L (13.7-17.5) g/dL Hct 35.5 L (40.1-51.0) % MCV 93.4 H (79.0-92.2) fL MCH 27.6 (25.7-32.2) pg MCHC 29.6 L (32.3-36.5) g/dL RDW 24.3 H (11.6-14.4) % Plt Count 312 (163-337) x10^3/uL MPV 8.5 L (9.4-12.4) fL Gran % 81.6 H (34.0-67.9) % Immature Gran % (Auto) 0.9 H (0.001-0.429) % Nucleat RBC Rel Count 0.2 (0.00-0.2) % Eos # (Auto) 0.15 (0.04-0.54) x10^3/uL Immature Gran # (Auto) 0.11 H (0.001-0.031) x10^3u/L Absolute Lymphs (auto) 1.39 (1.32-3.57) x10^3/uL Absolute Monos (auto) 0.45 (0.30-0.82) x10^3/uL Absolute Nucleated RBC 0.02 H (0.00-0.012) x10^3u/L Lymphocytes % 11.9 L (21.8-53.1) % Monocytes % 3.8 L (5.3-12.2) % Eosinophils % 1.3 (0.8-7.0) % Basophils % 0.5 (0.2-1.2) % Absolute Granulocytes 9.54 H (1.78-5.38) x10^3/uL Basophils # 0.06 (0.01-0.08) x10^3/uL Sodium 139 (135-145) mmol/L Potassium 4.5 (3.5-5.1) mmol/L Chloride 103 (98-107) mmol/L Carbon Dioxide 26 (22-30) mmol/L Anion Gap 15.2 H (5-15) MEQ/L BUN 30 H (9-20) mg/dL Creatinine 1.39 H (0.66-1.25) mg/dL Estimated GFR 56.6 ML/MIN Glucose 63 L (74-106) mg/dL POC Glucometer (50 to 500) mg/dL Lactic Acid 1.2 (0.4-2.0) Calcium 8.4 (8.4-10.2) mg/dL Magnesium 2.3 (1.6-2.3) mg/dL Total Bilirubin 0.60 (0.2-1.3) mg/dL AST 20 (17-59) U/L ALT 15 (0-50) U/L Alkaline Phosphatase 73 (38-126) U/L Troponin I (0.000-0.033) ng/mL NT-Pro-B Natriuret Pep (<300) pg/mL Serum Total Protein 6.5 (6.3-8.2) g/dL Albumin 3.8 (3.5-5.0) g/dL Procalcitonin (0.030-0.080) ng/mL Influenza Type A Ag (NEGATIVE) Influenza Type B Ag (NEGATIVE) RSV (PCR) (NEGATIVE) SARS-CoV-2 (PCR) (NEGATIVE) 11/17/23 11/17/23 11/17/23 Range/Units 16:55 16:55 16:55 WBC (4.23-9.07) x10^3/uL RBC (4.63-6.08) x10^6/uL Hgb (13.7-17.5) g/dL Hct (40.1-51.0) % MCV (79.0-92.2) fL MCH (25.7-32.2) pg MCHC (32.3-36.5) g/dL RDW (11.6-14.4) % Plt Count (163-337) x10^3/uL MPV (9.4-12.4) fL Gran % (34.0-67.9) % Immature Gran % (Auto) (0.001-0.429) % Nucleat RBC Rel Count (0.00-0.2) % Eos # (Auto) (0.04-0.54) x10^3/uL Immature Gran # (Auto) (0.001-0.031) x10^3u/L Absolute Lymphs (auto) (1.32-3.57) x10^3/uL Absolute Monos (auto) (0.30-0.82) x10^3/uL Absolute Nucleated RBC (0.00-0.012) x10^3u/L Lymphocytes % (21.8-53.1) % Monocytes % (5.3-12.2) % Eosinophils % (0.8-7.0) % Basophils % (0.2-1.2) % Absolute Granulocytes (1.78-5.38) x10^3/uL Basophils # (0.01-0.08) x10^3/uL Sodium (135-145) mmol/L Potassium (3.5-5.1) mmol/L Chloride (98-107) mmol/L Carbon Dioxide (22-30) mmol/L Anion Gap (5-15) MEQ/L BUN (9-20) mg/dL Creatinine (0.66-1.25) mg/dL Estimated GFR ML/MIN Glucose (74-106) mg/dL POC Glucometer (50 to 500) mg/dL Lactic Acid (0.4-2.0) Calcium (8.4-10.2) mg/dL Magnesium (1.6-2.3) mg/dL Total Bilirubin (0.2-1.3) mg/dL AST (17-59) U/L ALT (0-50) U/L Alkaline Phosphatase (38-126) U/L Troponin I < 0.012 (0.000-0.033) ng/mL NT-Pro-B Natriuret Pep 7670 (<300) pg/mL Serum Total Protein (6.3-8.2) g/dL Albumin (3.5-5.0) g/dL Procalcitonin 0.105 H (0.030-0.080) ng/mL Influenza Type A Ag NEGATIVE (NEGATIVE) Influenza Type B Ag NEGATIVE (NEGATIVE) RSV (PCR) NEGATIVE (NEGATIVE) SARS-CoV-2 (PCR) NEGATIVE (NEGATIVE) 11/17/23 Range/Units 18:33 WBC (4.23-9.07) x10^3/uL RBC (4.63-6.08) x10^6/uL Hgb (13.7-17.5) g/dL Hct (40.1-51.0) % MCV (79.0-92.2) fL MCH (25.7-32.2) pg MCHC (32.3-36.5) g/dL RDW (11.6-14.4) % Plt Count (163-337) x10^3/uL MPV (9.4-12.4) fL Gran % (34.0-67.9) % Immature Gran % (Auto) (0.001-0.429) % Nucleat RBC Rel Count (0.00-0.2) % Eos # (Auto) (0.04-0.54) x10^3/uL Immature Gran # (Auto) (0.001-0.031) x10^3u/L Absolute Lymphs (auto) (1.32-3.57) x10^3/uL Absolute Monos (auto) (0.30-0.82) x10^3/uL Absolute Nucleated RBC (0.00-0.012) x10^3u/L Lymphocytes % (21.8-53.1) % Monocytes % (5.3-12.2) % Eosinophils % (0.8-7.0) % Basophils % (0.2-1.2) % Absolute Granulocytes (1.78-5.38) x10^3/uL Basophils # (0.01-0.08) x10^3/uL Sodium (135-145) mmol/L Potassium (3.5-5.1) mmol/L Chloride (98-107) mmol/L Carbon Dioxide (22-30) mmol/L Anion Gap (5-15) MEQ/L BUN (9-20) mg/dL Creatinine (0.66-1.25) mg/dL Estimated GFR ML/MIN Glucose (74-106) mg/dL POC Glucometer 48 L* (50 to 500) mg/dL Lactic Acid (0.4-2.0) Calcium (8.4-10.2) mg/dL Magnesium (1.6-2.3) mg/dL Total Bilirubin (0.2-1.3) mg/dL AST (17-59) U/L ALT (0-50) U/L Alkaline Phosphatase (38-126) U/L Troponin I (0.000-0.033) ng/mL NT-Pro-B Natriuret Pep (<300) pg/mL Serum Total Protein (6.3-8.2) g/dL Albumin (3.5-5.0) g/dL Procalcitonin (0.030-0.080) ng/mL Influenza Type A Ag (NEGATIVE) Influenza Type B Ag (NEGATIVE) RSV (PCR) (NEGATIVE) SARS-CoV-2 (PCR) (NEGATIVE) Accuchecks Date 11/17/23 Time 18:34 - Radiology Impressions Radiology Exams & Impressions: Radiology Procedures Category Date Time Status CHEST 1 VIEW (PORTABLE) Stat Exams 11/17/23 16:32 Completed THORACENTESIS [US] Routine Exams 11/18/23 07:00 Ordered - Other Procedures and Tests Respiratory Therapy 11/17/23 18:52 Oxygen Nasal Cannula 2 lpm Respiratory Therapy Consult ONCE Assessment/Plan (1) Pneumonia Current Visit: Yes Status: Acute Assessment & Plan: IV antibiotics. Continue to monitor cultures. Code(s): J18.9 - PNEUMONIA, UNSPECIFIED ORGANISM (2) Pleural effusion Current Visit: Yes Status: Acute Assessment & Plan: Moderate effusions noted, despite recent increase in Lasix. Will request US guided thoracentesis in AM. Code(s): J90 - PLEURAL EFFUSION, NOT ELSEWHERE CLASSIFIED (3) Septic shock Current Visit: Yes Status: Acute Assessment & Plan: BP improved. Sepsis as a result of pneumonia was present on admission. Monitor BP on antibiotics. Code(s): A41.9 - SEPSIS, UNSPECIFIED ORGANISM; R65.21 - SEVERE SEPSIS WITH SEPTIC SHOCK (4) Leukocytosis Current Visit: No Status: Acute Assessment & Plan: Due to sepsis and pneumonia. Follow up UA Code(s): D72.829 - ELEVATED WHITE BLOOD CELL COUNT, UNSPECIFIED (5) DM2 (diabetes mellitus, type 2) Current Visit: Yes Status: Acute Assessment & Plan: Hypoglycemia noted on admission. Hold glyburide. Monitor sugars on ISS (6) YAS (acute kidney injury) Current Visit: Yes Status: Acute Assessment & Plan: Hold losartan. Monitor renal function. Code(s): N17.9 - ACUTE KIDNEY FAILURE, UNSPECIFIED Telemedicine Encounter - Telemedicine Encounter Telemedicine Encounter: "The entirety of this encounter was performed via Telemedicine" This visit was performed using real-time audio and video connection between my location and thepatients locationwith the assistance of a surrogateat the patients location. Written or verbal consent was obtained from the patient/guardian to perform this visit [email or web address]. Any patient questions regarding the telemedicine interaction were answered.
[2023-11-17 20:33] LABS: Slide Review 1 YES
[2023-11-17] MEDS ORDERED: DUONEB 0.5-3 MG/3 ml Neb IH PRN (20:36)
[2023-11-17] MEDS: ROCEPHIN 2 GM/100 ML NACL 2 GM/100 ML IVPB IV ONE (20:41)
[2023-11-17] MEDS ORDERED: Zithromax 500 MG/ 250 ML NaCl Premix 500 MG/250 ML IVPB IV ONE (21:16)
[2023-11-17] MEDS: Zithromax 500 MG/ 250 ML NaCl Premix 500 MG/250 ML IVPB IV STA (21:19)
[2023-11-17] MEDS: Lyrica 50MG PO SCH (22:44)
[2023-11-17] MEDS: Mucinex 600MG ER Tabs PO SCH (22:44)
[2023-11-17] MEDS: ELIQUIS 2.5 MG TABLET PO SCH (22:44)
[2023-11-17] MEDS: Toprol-Xl 25MG Tablets PO SCH (22:44)
[2023-11-17] MEDS: FEOSOL 325 MG PO SCH (22:44)
[2023-11-18] MEDS: NON-FORMULARY ITEM (Apixaban [Eliquis] 5 MG Tablet) PO SCH (00:12)
[2023-11-18] MEDS: NON-FORMULARY ITEM (Gabapentin [Gabapentin] 800 MG Tablet) PO SCH (00:13)
[2023-11-18] MEDS: NON-FORMULARY ITEM (Atorvastatin Calcium [Lipitor] 80 MG Tablet) PO SCH (00:13)
[2023-11-18] MEDS: NON-FORMULARY ITEM (Ropinirole Hcl [Ropinirole Hcl] 1 MG Tablet) PO SCH (00:14)
[2023-11-18] MEDS: METFORMIN HCL PO SCH (00:15)
[2023-11-18] MEDS: [UNRECOGNIZED DRUG - OTHER] PO SCH (00:15)
[2023-11-18] MEDS: EMPAGLIFLOZIN PO SCH (00:15)
[2023-11-18] MEDS: NEURONTIN PO SCH (00:25)
[2023-11-18] MEDS: ZOCOR 20MG PO SCH (00:26)
[2023-11-18] MEDS: Requip 0.5 MG PO SCH (00:27)
[2023-11-18] MEDS ORDERED: DUONEB 0.5-3 MG/3 ml Neb IH SCH (01:00)
[2023-11-18 05:47] LABS: Absolute Neutrophil Ct (ANC) 13.39 x10^3/uL (1.78-5.38); BASOPHIL % 0.3 % (0.2-1.2); Basophil (Absolute #) 0.04 x10^3/uL (0.01-0.08); Eosinophil % 1.4 % (0.8-7.0); Eosinophil (Absolute #) 0.22 x10^3/uL (0.04-0.54); Hematocrit 34.2 % (40.1-51.0); Hemoglobin 10.2 g/dL (13.7-17.5); IMMATURE GRAN # 0.09 x10^3u/L (0.001-0.031); IMMATURE GRAN % 0.6 % (0.001-0.429); Lymphocyte (Absolute #) 0.98 x10^3/uL (1.32-3.57); Lymphocytes % 6.3 % (21.8-53.1); Mean Cell Volume 91.9 fL (79.0-92.2); Mean Corpuscular Hemoglobin 27.4 pg (25.7-32.2); Mean Corpuscular Hgb Concent. 29.8 g/dL (32.3-36.5); Monocyte (Absolute #) 0.92 x10^3/uL (0.30-0.82); Monocytes % 5.9 % (5.3-12.2); NUCLEATED RBC # 0.02 x10^3u/L (0.00-0.012); NUCLEATED RBC % 0.1 % (0.00-0.2); Neutrophil % 85.5 % (34.0-67.9); Platelet Count 315 x10^3/uL (163-337); Red Blood Count 3.72 x10^6/uL (4.63-6.08); Red Cell Distribution Width 24.4 % (11.6-14.4); White Blood Count 15.6 x10^3/uL (4.23-9.07)
[2023-11-18 06:14] LABS: ALBUMIN 3.8 g/dL (3.5-5.0); ANION GAP 14.8 MEQ/L (5-15); BILIRUBIN,TOTAL 0.8 mg/dL (0.2-1.3); Calcium 8.5 mg/dL (8.4-10.2); Creatinine 1 1.35 mg/dL (0.66-1.25); EST GLOMERULAR FILTRATION RATE 58.6 ML/MIN; Potassium 4.5 mmol/L (3.5-5.1); Total Protein 6.5 g/dL (6.3-8.2)
[2023-11-18 08:31] LABS: Slide Review 1 YES
[2023-11-18] MEDS ORDERED: NYSTOP POWDER 15 GM TOP PRN (08:51)
[2023-11-18] MEDS ORDERED: JARDIANCE PO SCH (09:00)
[2023-11-18] MEDS ORDERED: MEDICATION INTERVENTION MC SCH (09:00)
[2023-11-18] MEDS: PIPERACILLIN/TAZOBACTAM 4.5 GM in Sodium Chloride 100ML MINI-BAG PLUS 100 ML IV SCH (09:09)
[2023-11-18] MEDS: Dextrose 5%-NS IV Solution 1000 ML 1,000 ML IV SCH (09:48)
[2023-11-18] MEDS ORDERED: ZYLOPRIM 300 MG PO SCH (10:00)
[2023-11-18] MEDS ORDERED: Zithromax 500 MG/ 250 ML NaCl Premix 500 MG/250 ML IVPB IV SCH (10:00)
[2023-11-18] MEDS ORDERED: ROCEPHIN 1 GM / 100 ML NaCl 1 GM/100 ML IVPB IV SCH (10:00)
[2023-11-18] MEDS: Acidophilus TABLET PO SCH (10:13)
[2023-11-18] MEDS: Docusate Sodium 100 MG PO SCH (10:13)
[2023-11-18] MEDS: Klor Con PO SCH (10:13)
[2023-11-18] MEDS: Cordarone 200 MG PO SCH (10:14)
[2023-11-18] MEDS: Glucophage 500 MG PO SCH (10:14)
[2023-11-18] MEDS: JARDIANCE PO SCH (10:15)
[2023-11-18] MEDS: FISH OIL 1,000 MG CAPSULE PO SCH (10:21)
[2023-11-18] MEDS: ECOTRIN 81 MG PO SCH (10:24)
[2023-11-18] MEDS: PLAVIX Tablet PO SCH (10:25)
--- NOTE | 2023-11-18 12:49 | XRAY ---
Indication: Status post right thoracentesis. Comparison: One day earlier. Portable chest demonstrates marked diminished right effusion/atelectasis with mild residual consistent with paracentesis. No pneumothorax. Remaining chest unchanged again left lung infiltrate/atelectasis/effusion, cardiomegaly, and left arm PICC line.
[2023-11-18 13:07] LABS: BODY FLUID CELL COUNT WBC 0.503 u/L
[2023-11-18 13:08] LABS: BODY FLUID CELL COUNT RBC < 0.002 x10^6u/L
[2023-11-18 13:09] LABS: BF CLARITY CLEAR (CLEAR); BF SPECIMEN TYPE PLEURAL; BF-COLOR XANTHROCHORMIC (COLORLESS)
[2023-11-18 13:18] LABS: Appearance Clear (Clear); Bacteria None Seen /HPF (None Seen); Bilirubin Negative (Negative); Blood Negative (Negative); Epithelial Cells None Seen /HPF (None Seen); Glucose, Urine >=1000 mg/dL (Negative); Ketones Trace (Negative); Leukocyte Esterase Negative (Negative); Nitrite Negative (Negative); Protein,Urine Dip Negative (Negative); RBC 0-2 /HPF (0-5); Urobilinogen 0.2 mg/dL (0.2); WBC 0-2 /HPF (0-5)
[2023-11-18 13:19] LABS: ADD URINE CULTURE? NO (NO)
--- NOTE | 2023-11-18 16:28 | PCM.NOTE ---
Date and Time: 11/18/23 1626 Subjective Assessment: 11/18/23 is a 63 year old male with a history of hypertension, coronary artery disease with stenting, diabetes mellitus with right above-knee amputation, wounds on the left heel, and lower extremity swelling. He is a resident of [facility]. He was brought in the ER on 11/16 with complaint of altered mental status, generalized weakness fatigue and tiredness. Patient per EMS was not confused or altered. He was having some shortness of breath with oxygen saturation in low 90s, placed on 2 L oxygen and improved in mid 90s. Patient does report coughing up clear to yellow sputum and generalized malaise for the past "couple of days" with worsening. Denies any chest pain. Patient recently has been increasing the dose of Lasix to get rid of excessive water/CHF. Patient denies any fever or chills. When EMS arrived patient blood pressure was in 80s, on presentation in the ER upon recheck it is in 90s. Subsequently in the ED, his BP improved to 126/75. In the ED, the patient was noted to have bilateral infiltrates and pleural effusions. Today he had 2.2 L removed of right pleural effusion. He explained he has never had that done before. He is on 2LNC 94%, baseline is room air. Antibiotics changed to Zosyn as WBC elevated to 15.6 and not on steroids. Podiatry consulted for BLLE wounds and rewrapping. He had been following podiatry OP for these concerns. He states he overall does not feel well today. He denies CP, abd pain, N/V/D. - Review of Systems Constitutional: No Fever, No Chills Eyes: No Symptoms Ears, Nose, & Throat: No Symptoms Respiratory: Short Of Breath, No Cough Cardiac: No Chest Pain, No Edema, No Syncope Abdominal/Gastrointestinal: No Abdominal Pain, No Nausea, No Vomiting, No Diarrhea Genitourinary Symptoms: No Dysuria Musculoskeletal: No Back Pain, No Neck Pain Skin: Skin Lesions (BLLE), No Rash Neurological: No Dizziness, No Focal Weakness, No Sensory Changes Psychological: No Symptoms Endocrine: No Symptoms Hematologic/Lymphatic: No Symptoms Immunological/Allergic: No Symptoms Objective Exam General Appearance: no apparent distress, alert Neurologic Exam: alert, oriented x 3, cooperative, normal mood/affect, nml cerebellar function, sensation nml, No motor deficits Skin Exam: warm, dry, pale, other (see pics in chart- podiatry to change dressings to BLLE) Wound Assessment: Skin/Wound Assessment Wound/Incision Assessment Start: 11/17/23 19:58 Text: Status: Active Freq: Q6H Protocol: Document 11/18/23 10:00 ZACARIAS (Rec: 11/18/23 11:14 [email or web address] [id number]) Wound/Incision Assessment Left Lower Extremity Wound Assessment Shift Assessment Wound Stage Non Pressure Wound Dressing Status Dry & Intact Secondary Dressing coban Left Lateral Heel Wound Assessment Shift Assessment Wound Type Pressure Ulcer Dressing Status Changed Drainage Amount None Drainage Odor None/Absent Length (cm) (cm) 1.5 Width (cm) (cm) 2.4 Comment Dressing changed today by TERESA Moreno Dr. nurse. Chelo boots placed. Picture taken today and placed in chart. Left Toe Wound Assessment Shift Assessment Wound Type Abrasion Wound Stage Non Pressure Wound Dressing Status Changed Drainage Amount None General Appearance Clean/Dry Comment Abrasions to 2nd and 3rd digit . 1st digit edematous and red measurements 1.2x 1.4 cm. Dressing removed by TERESA Moreno Dr.'s nurse. Picture taken of 1st digit. Left Upper Thigh Wound Assessment Shift Assessment Wound Type skin graft site Wound Stage Non Pressure Wound Dressing Status Dry & Intact Drainage Amount None Drainage Description Serosanguineous General Appearance Well Approximated,Clean/Dry, Reddened Wound Bed Greatest Portion Red (Granulation) Primary Dressing Non-Adherent Gauze Pads Secondary Dressing tegaderm Comment Healing skin graft site from previous surgery, Dressing telfa pad and tegaderm remain intact. Left Knee Wound Assessment Shift Assessment Wound Type Abrasion Wound Stage Non Pressure Wound Dressing Status Dry & Intact Drainage Amount None General Appearance Clean/Dry,Reddened Wound Bed Greatest Portion Red (Granulation) Primary Dressing mepilex Comment Dressing remains intact. Lower Abdomen Wound Assessment Shift Assessment Wound Type excoriation Wound Stage Non Pressure Wound General Appearance Open to air,Reddened Surrounding Tissue [place] Comment excoriation to abdominal folds . Sacrum Wound Assessment Shift Assessment Wound Type shearing Wound Stage Non Pressure Wound Drainage Amount None General Appearance Open to air,Reddened Wound Bed Greatest Portion Pale [place] Surrounding Tissue [place] Comment sacrum is reddened, blanchable , with some shearing in areas- barrier cream applied PRN. Wound Photo Photo Taken Yes Date: 11/18/23 Time: 10:00 Comment: Left later heal pic placed in chart alongside left big toe. Eye Exam: PERRL, EOMI, eyes nml inspection Ears, Nose, Throat Exam: normal ENT inspection, pharynx normal, moist mucous membranes Neck Exam: normal inspection, non-tender, supple, full range of motion Respiratory Exam: normal breath sounds, lungs clear, diminished breath sounds (BLLL), No respiratory distress Cardiovascular Exam: regular rate/rhythm, normal heart sounds Gastrointestinal/Abdomen Exam: soft, No tenderness, No mass Extremity Exam: normal inspection, normal range of motion Back Exam: normal inspection, normal range of motion, No CVA tenderness, No vertebral tenderness Male Genitalia Exam: deferred Rectal Exam: deferred Objective Data Vital Signs: Vital Signs - 24 hr Temp Pulse Resp BP BP Pulse Ox 11/18/23 12:00 97.4 F 87 17 93/50 91 L 11/18/23 08:00 97.4 F 89 17 98/52 90 L 11/18/23 07:23 93 H 18 94 L 11/18/23 04:00 97.3 F 91 H 16 99/57 90 L 11/18/23 00:00 97.3 F 76 20 88/50 94 L 11/17/23 20:37 78 18 93 L 11/17/23 19:39 96.6 F 76 16 108/57 95 11/17/23 18:41 78 20 107/56 99 11/17/23 18:38 94 L 11/17/23 18:30 79 17 111/57 95 11/17/23 18:20 73 18 105/54 99 11/17/23 18:10 63 7 L 106/53 98 11/17/23 18:00 70 19 107/59 90 L 11/17/23 17:50 78 21 105/55 93 L 11/17/23 17:41 73 17 97/63 93 L 11/17/23 17:30 75 24 109/61 92 L 11/17/23 17:20 71 20 104/59 91 L 11/17/23 17:10 65 12 101/54 91 L 11/17/23 17:09 71 13 105/58 90 L 11/17/23 17:08 75 21 11/17/23 17:00 75 16 90 L 11/17/23 16:52 74 20 11/17/23 16:44 76 20 94 L 11/17/23 16:40 73 17 92/53 11/17/23 16:30 74 12 90/40 94 L 11/17/23 16:27 76 21 93/55 92 L Pain Assessment - Last Documented Pain Intensity 4 Intake and Output: Intake & Output 11/16/23 11/17/23 11/18/23 11/19/23 11:59 11:59 11:59 11:59 Intake Total 300 Output Total 1800 750 Balance -1500 -750 Weight 126.3 kg 126.3 kg Lab Results: Lab Results-Last 24 Hours 11/17/23 11/17/23 11/17/23 Range/Units 16:32 16:55 16:55 Specimen Type WBC 11.7 H (4.23-9.07) x10^3/uL RBC 3.80 L (4.63-6.08) x10^6/uL Hgb 10.5 L (13.7-17.5) g/dL Hct 35.5 L (40.1-51.0) % MCV 93.4 H (79.0-92.2) fL MCH 27.6 (25.7-32.2) pg MCHC 29.6 L (32.3-36.5) g/dL RDW 24.3 H (11.6-14.4) % Plt Count 312 (163-337) x10^3/uL MPV 8.5 L (9.4-12.4) fL Gran % 81.6 H (34.0-67.9) % Immature Gran % (Auto) 0.9 H (0.001-0.429) % Nucleat RBC Rel Count 0.2 (0.00-0.2) % Eos # (Auto) 0.15 (0.04-0.54) x10^3/uL Immature Gran # (Auto) 0.11 H (0.001-0.031) x10^3u/L Absolute Lymphs (auto) 1.39 (1.32-3.57) x10^3/uL Absolute Monos (auto) 0.45 (0.30-0.82) x10^3/uL Absolute Nucleated RBC 0.02 H (0.00-0.012) x10^3u/L Lymphocytes % 11.9 L (21.8-53.1) % Monocytes % 3.8 L (5.3-12.2) % Eosinophils % 1.3 (0.8-7.0) % Basophils % 0.5 (0.2-1.2) % Absolute Granulocytes 9.54 H (1.78-5.38) x10^3/uL Basophils # 0.06 (0.01-0.08) x10^3/uL Sodium 139 (135-145) mmol/L Potassium 4.5 (3.5-5.1) mmol/L Chloride 103 (98-107) mmol/L Carbon Dioxide 26 (22-30) mmol/L Anion Gap 15.2 H (5-15) MEQ/L BUN 30 H (9-20) mg/dL Creatinine 1.39 H (0.66-1.25) mg/dL Estimated GFR 56.6 ML/MIN Glucose 63 L (74-106) mg/dL POC Glucometer (50 to 500) mg/dL Lactic Acid 1.2 (0.4-2.0) Calcium 8.4 (8.4-10.2) mg/dL Magnesium 2.3 (1.6-2.3) mg/dL Total Bilirubin 0.60 (0.2-1.3) mg/dL AST 20 (17-59) U/L ALT 15 (0-50) U/L Alkaline Phosphatase 73 (38-126) U/L Lactate Dehydrogenase (120-246) U/L Troponin I (0.000-0.033) ng/mL NT-Pro-B Natriuret Pep (<300) pg/mL Serum Total Protein 6.5 (6.3-8.2) g/dL Albumin 3.8 (3.5-5.0) g/dL Procalcitonin (0.030-0.080) ng/mL Urine Color (Yellow) Urine Appearance (Clear) Urine pH (4.6-8.0) Ur Specific [place] (1.005-1.030) Urine Protein (Negative) Urine Glucose (UA) (Negative) mg/dL Urine Ketones (Negative) Urine Blood (Negative) Urine Nitrite (Negative) Urine Bilirubin (Negative) Urine Urobilinogen (0.2) mg/dL Ur Leukocyte Esterase (Negative) U Hyaline Cast (Auto) (0-2) /LPF Urine Microscopic RBC (0-5) /HPF Urine Microscopic WBC (0-5) /HPF Ur Epithelial Cells (None Seen) /HPF Urine Bacteria (None Seen) /HPF Urine Culture Reflexed (NO) Fluid Color (COLORLESS) Fluid Clarity (CLEAR) Fluid WBC (Auto) u/L Fluid RBC (Auto) x10^6u/L Fld Polynuclear WBCs % % Fl Mononuclear % Auto % Influenza Type A Ag (NEGATIVE) Influenza Type B Ag (NEGATIVE) RSV (PCR) (NEGATIVE) SARS-CoV-2 (PCR) (NEGATIVE) Slides for Path Review YES 11/17/23 11/17/23 11/17/23 Range/Units 16:55 16:55 16:55 Specimen Type WBC (4.23-9.07) x10^3/uL RBC (4.63-6.08) x10^6/uL Hgb (13.7-17.5) g/dL Hct (40.1-51.0) % MCV (79.0-92.2) fL MCH (25.7-32.2) pg MCHC (32.3-36.5) g/dL RDW (11.6-14.4) % Plt Count (163-337) x10^3/uL MPV (9.4-12.4) fL Gran % (34.0-67.9) % Immature Gran % (Auto) (0.001-0.429) % Nucleat RBC Rel Count (0.00-0.2) % Eos # (Auto) (0.04-0.54) x10^3/uL Immature Gran # (Auto) (0.001-0.031) x10^3u/L Absolute Lymphs (auto) (1.32-3.57) x10^3/uL Absolute Monos (auto) (0.30-0.82) x10^3/uL Absolute Nucleated RBC (0.00-0.012) x10^3u/L Lymphocytes % (21.8-53.1) % Monocytes % (5.3-12.2) % Eosinophils % (0.8-7.0) % Basophils % (0.2-1.2) % Absolute Granulocytes (1.78-5.38) x10^3/uL Basophils # (0.01-0.08) x10^3/uL Sodium (135-145) mmol/L Potassium (3.5-5.1) mmol/L Chloride (98-107) mmol/L Carbon Dioxide (22-30) mmol/L Anion Gap (5-15) MEQ/L BUN (9-20) mg/dL Creatinine (0.66-1.25) mg/dL Estimated GFR ML/MIN Glucose (74-106) mg/dL POC Glucometer (50 to 500) mg/dL Lactic Acid (0.4-2.0) Calcium (8.4-10.2) mg/dL Magnesium (1.6-2.3) mg/dL Total Bilirubin (0.2-1.3) mg/dL AST (17-59) U/L ALT (0-50) U/L Alkaline Phosphatase (38-126) U/L Lactate Dehydrogenase (120-246) U/L Troponin I < 0.012 (0.000-0.033) ng/mL NT-Pro-B Natriuret Pep 7670 (<300) pg/mL Serum Total Protein (6.3-8.2) g/dL Albumin (3.5-5.0) g/dL Procalcitonin 0.105 H (0.030-0.080) ng/mL Urine Color (Yellow) Urine Appearance (Clear) Urine pH (4.6-8.0) Ur Specific [place] (1.005-1.030) Urine Protein (Negative) Urine Glucose (UA) (Negative) mg/dL Urine Ketones (Negative) Urine Blood (Negative) Urine Nitrite (Negative) Urine Bilirubin (Negative) Urine Urobilinogen (0.2) mg/dL Ur Leukocyte Esterase (Negative) U Hyaline Cast (Auto) (0-2) /LPF Urine Microscopic RBC (0-5) /HPF Urine Microscopic WBC (0-5) /HPF Ur Epithelial Cells (None Seen) /HPF Urine Bacteria (None Seen) /HPF Urine Culture Reflexed (NO) Fluid Color (COLORLESS) Fluid Clarity (CLEAR) Fluid WBC (Auto) u/L Fluid RBC (Auto) x10^6u/L Fld Polynuclear WBCs % % Fl Mononuclear % Auto % Influenza Type A Ag NEGATIVE (NEGATIVE) Influenza Type B Ag NEGATIVE (NEGATIVE) RSV (PCR) NEGATIVE (NEGATIVE) SARS-CoV-2 (PCR) NEGATIVE (NEGATIVE) Slides for Path Review 11/17/23 11/17/23 11/17/23 Range/Units 18:33 19:35 20:45 Specimen Type WBC (4.23-9.07) x10^3/uL RBC (4.63-6.08) x10^6/uL Hgb (13.7-17.5) g/dL Hct (40.1-51.0) % MCV (79.0-92.2) fL MCH (25.7-32.2) pg MCHC (32.3-36.5) g/dL RDW (11.6-14.4) % Plt Count (163-337) x10^3/uL MPV (9.4-12.4) fL Gran % (34.0-67.9) % Immature Gran % (Auto) (0.001-0.429) % Nucleat RBC Rel Count (0.00-0.2) % Eos # (Auto) (0.04-0.54) x10^3/uL Immature Gran # (Auto) (0.001-0.031) x10^3u/L Absolute Lymphs (auto) (1.32-3.57) x10^3/uL Absolute Monos (auto) (0.30-0.82) x10^3/uL Absolute Nucleated RBC (0.00-0.012) x10^3u/L Lymphocytes % (21.8-53.1) % Monocytes % (5.3-12.2) % Eosinophils % (0.8-7.0) % Basophils % (0.2-1.2) % Absolute Granulocytes (1.78-5.38) x10^3/uL Basophils # (0.01-0.08) x10^3/uL Sodium (135-145) mmol/L Potassium (3.5-5.1) mmol/L Chloride (98-107) mmol/L Carbon Dioxide (22-30) mmol/L Anion Gap (5-15) MEQ/L BUN (9-20) mg/dL Creatinine (0.66-1.25) mg/dL Estimated GFR ML/MIN Glucose (74-106) mg/dL POC Glucometer 48 L* (50 to 500) mg/dL Lactic Acid (0.4-2.0) Calcium (8.4-10.2) mg/dL Magnesium (1.6-2.3) mg/dL Total Bilirubin (0.2-1.3) mg/dL AST (17-59) U/L ALT (0-50) U/L Alkaline Phosphatase (38-126) U/L Lactate Dehydrogenase (120-246) U/L Troponin I < 0.012 (0.000-0.033) ng/mL NT-Pro-B Natriuret Pep (<300) pg/mL Serum Total Protein (6.3-8.2) g/dL Albumin (3.5-5.0) g/dL Procalcitonin (0.030-0.080) ng/mL Urine Color Yellow (Yellow) Urine Appearance Clear (Clear) Urine pH 5.0 (4.6-8.0) Ur Specific [place] 1.020 (1.005-1.030) Urine Protein Negative (Negative) Urine Glucose (UA) >=1000 A (Negative) mg/dL Urine Ketones Trace A (Negative) Urine Blood Negative (Negative) Urine Nitrite Negative (Negative) Urine Bilirubin Negative (Negative) Urine Urobilinogen 0.2 (0.2) mg/dL Ur Leukocyte Esterase Negative (Negative) U Hyaline Cast (Auto) 3-5 A (0-2) /LPF Urine Microscopic RBC 0-2 (0-5) /HPF Urine Microscopic WBC 0-2 (0-5) /HPF Ur Epithelial Cells None Seen (None Seen) /HPF Urine Bacteria None Seen (None Seen) /HPF Urine Culture Reflexed NO (NO) Fluid Color (COLORLESS) Fluid Clarity (CLEAR) Fluid WBC (Auto) u/L Fluid RBC (Auto) x10^6u/L Fld Polynuclear WBCs % % Fl Mononuclear % Auto % Influenza Type A Ag (NEGATIVE) Influenza Type B Ag (NEGATIVE) RSV (PCR) (NEGATIVE) SARS-CoV-2 (PCR) (NEGATIVE) Slides for Path Review 11/17/23 11/18/23 11/18/23 Range/Units 21:03 05:35 05:35 Specimen Type WBC 15.6 H (4.23-9.07) x10^3/uL RBC 3.72 L (4.63-6.08) x10^6/uL Hgb 10.2 L (13.7-17.5) g/dL Hct 34.2 L (40.1-51.0) % MCV 91.9 (79.0-92.2) fL MCH 27.4 (25.7-32.2) pg MCHC 29.8 L (32.3-36.5) g/dL RDW 24.4 H (11.6-14.4) % Plt Count 315 (163-337) x10^3/uL MPV 9.0 L (9.4-12.4) fL Gran % 85.5 H (34.0-67.9) % Immature Gran % (Auto) 0.6 H (0.001-0.429) % Nucleat RBC Rel Count 0.1 (0.00-0.2) % Eos # (Auto) 0.22 (0.04-0.54) x10^3/uL Immature Gran # (Auto) 0.09 H (0.001-0.031) x10^3u/L Absolute Lymphs (auto) 0.98 L (1.32-3.57) x10^3/uL Absolute Monos (auto) 0.92 H (0.30-0.82) x10^3/uL Absolute Nucleated RBC 0.02 H (0.00-0.012) x10^3u/L Lymphocytes % 6.3 L (21.8-53.1) % Monocytes % 5.9 (5.3-12.2) % Eosinophils % 1.4 (0.8-7.0) % Basophils % 0.3 (0.2-1.2) % Absolute Granulocytes 13.39 H (1.78-5.38) x10^3/uL Basophils # 0.04 (0.01-0.08) x10^3/uL Sodium (135-145) mmol/L Potassium (3.5-5.1) mmol/L Chloride (98-107) mmol/L Carbon Dioxide (22-30) mmol/L Anion Gap (5-15) MEQ/L BUN (9-20) mg/dL Creatinine (0.66-1.25) mg/dL Estimated GFR ML/MIN Glucose (74-106) mg/dL POC Glucometer 107 H (50 to 500) mg/dL Lactic Acid (0.4-2.0) Calcium (8.4-10.2) mg/dL Magnesium (1.6-2.3) mg/dL Total Bilirubin (0.2-1.3) mg/dL AST (17-59) U/L ALT (0-50) U/L Alkaline Phosphatase (38-126) U/L Lactate Dehydrogenase (120-246) U/L Troponin I 0.013 (0.000-0.033) ng/mL NT-Pro-B Natriuret Pep (<300) pg/mL Serum Total Protein (6.3-8.2) g/dL Albumin (3.5-5.0) g/dL Procalcitonin (0.030-0.080) ng/mL Urine Color (Yellow) Urine Appearance (Clear) Urine pH (4.6-8.0) Ur Specific [place] (1.005-1.030) Urine Protein (Negative) Urine Glucose (UA) (Negative) mg/dL Urine Ketones (Negative) Urine Blood (Negative) Urine Nitrite (Negative) Urine Bilirubin (Negative) Urine Urobilinogen (0.2) mg/dL Ur Leukocyte Esterase (Negative) U Hyaline Cast (Auto) (0-2) /LPF Urine Microscopic RBC (0-5) /HPF Urine Microscopic WBC (0-5) /HPF Ur Epithelial Cells (None Seen) /HPF Urine Bacteria (None Seen) /HPF Urine Culture Reflexed (NO) Fluid Color (COLORLESS) Fluid Clarity (CLEAR) Fluid WBC (Auto) u/L Fluid RBC (Auto) x10^6u/L Fld Polynuclear WBCs % % Fl Mononuclear % Auto % Influenza Type A Ag (NEGATIVE) Influenza Type B Ag (NEGATIVE) RSV (PCR) (NEGATIVE) SARS-CoV-2 (PCR) (NEGATIVE) Slides for Path Review YES 11/18/23 11/18/23 11/18/23 Range/Units 05:35 07:35 12:30 Specimen Type PLEURAL WBC (4.23-9.07) x10^3/uL RBC (4.63-6.08) x10^6/uL Hgb (13.7-17.5) g/dL Hct (40.1-51.0) % MCV (79.0-92.2) fL MCH (25.7-32.2) pg MCHC (32.3-36.5) g/dL RDW (11.6-14.4) % Plt Count (163-337) x10^3/uL MPV (9.4-12.4) fL Gran % (34.0-67.9) % Immature Gran % (Auto) (0.001-0.429) % Nucleat RBC Rel Count (0.00-0.2) % Eos # (Auto) (0.04-0.54) x10^3/uL Immature Gran # (Auto) (0.001-0.031) x10^3u/L Absolute Lymphs (auto) (1.32-3.57) x10^3/uL Absolute Monos (auto) (0.30-0.82) x10^3/uL Absolute Nucleated RBC (0.00-0.012) x10^3u/L Lymphocytes % (21.8-53.1) % Monocytes % (5.3-12.2) % Eosinophils % (0.8-7.0) % Basophils % (0.2-1.2) % Absolute Granulocytes (1.78-5.38) x10^3/uL Basophils # (0.01-0.08) x10^3/uL Sodium 138 (135-145) mmol/L Potassium 4.5 (3.5-5.1) mmol/L Chloride 102 (98-107) mmol/L Carbon Dioxide 26 (22-30) mmol/L Anion Gap 14.8 (5-15) MEQ/L BUN 29 H (9-20) mg/dL Creatinine 1.35 H (0.66-1.25) mg/dL Estimated GFR 58.6 ML/MIN Glucose 92 (74-106) mg/dL POC Glucometer 89 (50 to 500) mg/dL Lactic Acid (0.4-2.0) Calcium 8.5 (8.4-10.2) mg/dL Magnesium (1.6-2.3) mg/dL Total Bilirubin 0.80 (0.2-1.3) mg/dL AST 18 (17-59) U/L ALT 13 (0-50) U/L Alkaline Phosphatase 75 (38-126) U/L Lactate Dehydrogenase 124 (120-246) U/L Troponin I (0.000-0.033) ng/mL NT-Pro-B Natriuret Pep (<300) pg/mL Serum Total Protein 6.5 (6.3-8.2) g/dL Albumin 3.8 (3.5-5.0) g/dL Procalcitonin (0.030-0.080) ng/mL Urine Color (Yellow) Urine Appearance (Clear) Urine pH (4.6-8.0) Ur Specific [place] (1.005-1.030) Urine Protein (Negative) Urine Glucose (UA) (Negative) mg/dL Urine Ketones (Negative) Urine Blood (Negative) Urine Nitrite (Negative) Urine Bilirubin (Negative) Urine Urobilinogen (0.2) mg/dL Ur Leukocyte Esterase (Negative) U Hyaline Cast (Auto) (0-2) /LPF Urine Microscopic RBC (0-5) /HPF Urine Microscopic WBC (0-5) /HPF Ur Epithelial Cells (None Seen) /HPF Urine Bacteria (None Seen) /HPF Urine Culture Reflexed (NO) Fluid Color XANTHROCHORMIC A (COLORLESS) Fluid Clarity CLEAR (CLEAR) Fluid WBC (Auto) 0.503 u/L Fluid RBC (Auto) < 0.002 x10^6u/L Fld Polynuclear WBCs % 5.600 % Fl Mononuclear % Auto 94.400 % Influenza Type A Ag (NEGATIVE) Influenza Type B Ag (NEGATIVE) RSV (PCR) (NEGATIVE) SARS-CoV-2 (PCR) (NEGATIVE) Slides for Path Review 11/18/23 11/18/23 Range/Units 12:45 16:08 Specimen Type WBC (4.23-9.07) x10^3/uL RBC (4.63-6.08) x10^6/uL Hgb (13.7-17.5) g/dL Hct (40.1-51.0) % MCV (79.0-92.2) fL MCH (25.7-32.2) pg MCHC (32.3-36.5) g/dL RDW (11.6-14.4) % Plt Count (163-337) x10^3/uL MPV (9.4-12.4) fL Gran % (34.0-67.9) % Immature Gran % (Auto) (0.001-0.429) % Nucleat RBC Rel Count (0.00-0.2) % Eos # (Auto) (0.04-0.54) x10^3/uL Immature Gran # (Auto) (0.001-0.031) x10^3u/L Absolute Lymphs (auto) (1.32-3.57) x10^3/uL Absolute Monos (auto) (0.30-0.82) x10^3/uL Absolute Nucleated RBC (0.00-0.012) x10^3u/L Lymphocytes % (21.8-53.1) % Monocytes % (5.3-12.2) % Eosinophils % (0.8-7.0) % Basophils % (0.2-1.2) % Absolute Granulocytes (1.78-5.38) x10^3/uL Basophils # (0.01-0.08) x10^3/uL Sodium (135-145) mmol/L Potassium (3.5-5.1) mmol/L Chloride (98-107) mmol/L Carbon Dioxide (22-30) mmol/L Anion Gap (5-15) MEQ/L BUN (9-20) mg/dL Creatinine (0.66-1.25) mg/dL Estimated GFR ML/MIN Glucose (74-106) mg/dL POC Glucometer 95 125 H (50 to 500) mg/dL Lactic Acid (0.4-2.0) Calcium (8.4-10.2) mg/dL Magnesium (1.6-2.3) mg/dL Total Bilirubin (0.2-1.3) mg/dL AST (17-59) U/L ALT (0-50) U/L Alkaline Phosphatase (38-126) U/L Lactate Dehydrogenase (120-246) U/L Troponin I (0.000-0.033) ng/mL NT-Pro-B Natriuret Pep (<300) pg/mL Serum Total Protein (6.3-8.2) g/dL Albumin (3.5-5.0) g/dL Procalcitonin (0.030-0.080) ng/mL Urine Color (Yellow) Urine Appearance (Clear) Urine pH (4.6-8.0) Ur Specific [place] (1.005-1.030) Urine Protein (Negative) Urine Glucose (UA) (Negative) mg/dL Urine Ketones (Negative) Urine Blood (Negative) Urine Nitrite (Negative) Urine Bilirubin (Negative) Urine Urobilinogen (0.2) mg/dL Ur Leukocyte Esterase (Negative) U Hyaline Cast (Auto) (0-2) /LPF Urine Microscopic RBC (0-5) /HPF Urine Microscopic WBC (0-5) /HPF Ur Epithelial Cells (None Seen) /HPF Urine Bacteria (None Seen) /HPF Urine Culture Reflexed (NO) Fluid Color (COLORLESS) Fluid Clarity (CLEAR) Fluid WBC (Auto) u/L Fluid RBC (Auto) x10^6u/L Fld Polynuclear WBCs % % Fl Mononuclear % Auto % Influenza Type A Ag (NEGATIVE) Influenza Type B Ag (NEGATIVE) RSV (PCR) (NEGATIVE) SARS-CoV-2 (PCR) (NEGATIVE) Slides for Path Review Radiology Exams: Radiology Procedures Category Date Time Status CHEST 1 VIEW (PORTABLE) Routine Exams 11/18/23 11:23 Completed CHEST 1 VIEW (PORTABLE) Stat Exams 11/17/23 16:32 Completed THORACENTESIS [US] Routine Exams 11/18/23 07:00 Taken Assessment/Plan (1) Septic shock Current Visit: Yes Status: Acute Assessment & Plan: - 2:2 pneumonia - hypotension, rapid heart rate, low O2 - IV Antibiotics - tele - sputum culture - BC X2 Code(s): A41.9 - SEPSIS, UNSPECIFIED ORGANISM; R65.21 - SEVERE SEPSIS WITH SEPTIC SHOCK (2) Pneumonia Current Visit: Yes Status: Acute Assessment & Plan: - IV Antibiotics changed to zosyn - WBC 15.6- increased from yesterday - tele - sputum culture - BC X2 Code(s): J18.9 - PNEUMONIA, UNSPECIFIED ORGANISM (3) Pleural effusion Current Visit: Yes Status: Acute Assessment & Plan: - Tele - 2lNC 94% - Chest XR: Portable chest again demonstrates CT proven diffuse bilateral patchy consolidating/nonconsolidating airspace disease with moderate bilateral pleural effusions/atelectasis. Heart not enlarged again with left arm PICC line. No new cardiopulmonary abnormalities. -Thoracentesis ordered- 2.2 L removed from right side by radiologist. - labs ordered - WBC 15.6 - antibiotics changed to Zosyn - Sputum culture pending - CXR post thoracentesis 11/18/23 Portable chest demonstrates marked diminished right effusion/atelectasis with mild residual consistent with paracentesis. No pneumothorax. Remaining chest unchanged again left lung infiltrate/atelectasis/effusion, cardiomegaly, and left arm PICC line. Code(s): J90 - PLEURAL EFFUSION, NOT ELSEWHERE CLASSIFIED (4) YAS (acute kidney injury) Current Visit: Yes Status: Acute Assessment & Plan: - creat 1.35, baseline 1.03- trend Code(s): N17.9 - ACUTE KIDNEY FAILURE, UNSPECIFIED (5) DM2 (diabetes mellitus, type 2) Current Visit: Yes Status: Acute Assessment & Plan: - A1C 5.73 08/23/23- controlled - HUmalog s/s accuchecks ac/hs - Glucophage (6) Generalized weakness Current Visit: Yes Status: Acute Assessment & Plan: - PT yves; and treat Code(s): R53.1 - WEAKNESS (7) Wounds, multiple open, lower extremity Current Visit: Yes Status: Chronic Assessment & Plan: - Follows podiatry OP - podiatry consulted as wraps need replaced. - Picc line in place [employer] d/t wound care/ antibiotic needs VTE: Eliquis PPI: Protonix Code status: Full Code(s): S81.809A - UNSPECIFIED OPEN WOUND, UNSPECIFIED LOWER LEG, INIT ENCNTR
[2023-11-18] MEDS: PROTONIX 40 MG IV IV SCH (17:20)
[2023-11-18] MEDS: NYSTOP POWDER 15 GM TOP SCH (21:46)
[2023-11-19 06:31] LABS: Hematocrit 32.5 % (40.1-51.0); Hemoglobin 9.6 g/dL (13.7-17.5); Mean Cell Volume 92.3 fL (79.0-92.2); Mean Corpuscular Hemoglobin 27.3 pg (25.7-32.2); Mean Corpuscular Hgb Concent. 29.5 g/dL (32.3-36.5); Mean Platelet Volume 8.9 fL (9.4-12.4); Platelet Count 242 x10^3/uL (163-337); Red Blood Count 3.52 x10^6/uL (4.63-6.08); Red Cell Distribution Width 24.3 % (11.6-14.4); White Blood Count 10.9 x10^3/uL (4.23-9.07)
[2023-11-19 06:45] LABS: ALBUMIN 2.8 g/dL (3.5-5.0); ANION GAP 14.2 MEQ/L (5-15); BILIRUBIN,TOTAL 0.9 mg/dL (0.2-1.3); Calcium 7.9 mg/dL (8.4-10.2); Creatinine 1 1.3 mg/dL (0.66-1.25); EST GLOMERULAR FILTRATION RATE 61.4 ML/MIN; Potassium 4.9 mmol/L (3.5-5.1); Total Protein 5.2 g/dL (6.3-8.2)
[2023-11-19 11:09] LABS: Protein, Body Fluid 2.9 g/dL (.)
--- NOTE | 2023-11-19 11:23 | XRAY ---
CLINICAL HISTORY: left lower chest pain COMPARISON: CR 11/18/2023 TECHNIQUE: Portable X-ray of the chest, AP view, semi-upright. FINDINGS: Bilateral pleural effusions show reduction in size compared to the last x-ray, with basal atelectasis. Bilateral perihilar airspace opacification extending to upper zones is more prominent compared to the last CR. The cardiac size is within normal limits. The bony thorax is unremarkable. IMPRESSION: 1. Feature of acute pulmonary edema, with perihilar airspace opacification and bilateral pleural effusion. 2. The effusion show interval reduction, however, the air space shadowing increased. 3. Clinical, and lab correlation is advised. Electronically Signed by: Netta Blackwood MD. (11/19/2023 11:18:05 EDT)
[2023-11-19 11:29] LABS: Slide Review YES
--- NOTE | 2023-11-19 12:55 | PCM.NOTE ---
Date and Time: 11/19/23 1250 Subjective Assessment: 11/18/23 is a 63 year old male with a history of hypertension, coronary artery disease with stenting, diabetes mellitus with right above-knee amputation, wounds on the left heel, and lower extremity swelling. He is a resident of [facility]. He was brought in the ER on 11/16 with complaint of altered mental status, generalized weakness fatigue and tiredness. Patient per EMS was not confused or altered. He was having some shortness of breath with oxygen saturation in low 90s, placed on 2 L oxygen and improved in mid 90s. Patient does report coughing up clear to yellow sputum and generalized malaise for the past "couple of days" with worsening. Denies any chest pain. Patient recently has been increasing the dose of Lasix to get rid of excessive water/CHF. Patient denies any fever or chills. When EMS arrived patient blood pressure was in 80s, on presentation in the ER upon recheck it is in 90s. Subsequently in the ED, his BP improved to 126/75. In the ED, the patient was noted to have bilateral infiltrates and pleural effusions. Today he had 2.2 L removed of right pleural effusion. He explained he has never had that done before. He is on 2LNC 94%, baseline is room air. Antibiotics changed to Zosyn as WBC elevated to 15.6 and not on steroids. Podiatry consulted for BLLE wounds and rewrapping. He had been following podiatry OP for these concerns. He states he overall does not feel well today. He denies CP, abd pain, N/V/D. 11/19/23 Pt sitting up in bed. He is feeling much better today after thoracentesis yesterday. He is now on 2lNC at 94%. Per nursing staff pt appears to have sleep apnea and requires more oxygen at night. Will do overnight pulse ox. WBC 10.9 improved. Creat 1.30 improved. Corrected Ca+ 8.5. BP soft this AM so held BP meds. Continue Zosyn for pneumonia. He may need 1-2 more days of antibiotics. He denies CP, abd pain, N/V/D. - Review of Systems Constitutional: No Fever, No Chills Eyes: No Symptoms Ears, Nose, & Throat: No Symptoms Respiratory: Short Of Breath, No Cough Cardiac: No Chest Pain, No Edema, No Syncope Abdominal/Gastrointestinal: No Abdominal Pain, No Nausea, No Vomiting, No Diarrhea Genitourinary Symptoms: No Dysuria Musculoskeletal: No Back Pain, No Neck Pain Skin: No Rash Neurological: No Dizziness, No Focal Weakness, No Sensory Changes Psychological: No Symptoms Endocrine: No Symptoms Hematologic/Lymphatic: No Symptoms Immunological/Allergic: No Symptoms Objective Exam General Appearance: no apparent distress, alert Neurologic Exam: alert, oriented x 3, cooperative, normal mood/affect, nml cerebellar function, sensation nml, No motor deficits Skin Exam: normal color, warm, dry, other (LLE wrapped by podiatry yesterday) Wound Assessment: Skin/Wound Assessment Wound/Incision Assessment Start: 11/17/23 19:58 Text: Status: Active Freq: Q6H Protocol: Document 11/19/23 08:00 [facility] (Rec: 11/19/23 08:26 [facility] [id number]) Wound/Incision Assessment Medial Back Wound Assessment Shift Assessment Wound Type Puncture Wound Stage Non Pressure Wound Drainage Amount Minimal Drainage Odor None/Absent Primary Dressing Non-Adherent Gauze Pads Secondary Dressing Absorbant Pad Left Lateral Heel Wound Assessment Shift Assessment Wound Type Pressure Ulcer Dressing Status Dry & Intact Drainage Amount None Drainage Odor None/Absent Comment unna boot in place Left Toe Wound Assessment Shift Assessment Wound Type Abrasion Wound Stage Non Pressure Wound Dressing Status Dry & Intact Drainage Amount Minimal Comment dressing in place Left Upper Thigh Wound Assessment Shift Assessment Wound Type skin graft donor site Wound Stage Non Pressure Wound Drainage Amount Minimal Primary Dressing Non-Adherent Gauze Pads Secondary Dressing tegaderm Left Knee Wound Assessment Shift Assessment Wound Type Abrasion Wound Stage Non Pressure Wound Dressing Status Dry & Intact Primary Dressing mepilex Lower Abdomen Wound Assessment Shift Assessment Wound Type excoriation Wound Stage Non Pressure Wound General Appearance Open to air,Reddened Surrounding Tissue [place] Sacrum Wound Assessment Shift Assessment Wound Type shearing Wound Stage Non Pressure Wound Drainage Amount None General Appearance Open to air,Reddened Surrounding Tissue [place] Comment barrier cream applied PRN Wound Photo Photo Taken No Comment: See paper chart for previous photos taken. Eye Exam: PERRL, EOMI, eyes nml inspection Ears, Nose, Throat Exam: normal ENT inspection, pharynx normal, moist mucous membranes Neck Exam: normal inspection, non-tender, supple, full range of motion Respiratory Exam: normal breath sounds, lungs clear, diminished breath sounds (BLLL), No respiratory distress Cardiovascular Exam: regular rate/rhythm, normal heart sounds Gastrointestinal/Abdomen Exam: soft, No tenderness, No mass Extremity Exam: normal inspection, normal range of motion Back Exam: normal inspection, normal range of motion, No CVA tenderness, No vertebral tenderness Male Genitalia Exam: deferred Rectal Exam: deferred Objective Data Vital Signs: Vital Signs - 24 hr Temp Pulse Resp BP Pulse Ox 11/19/23 12:42 94 L 11/19/23 12:05 97.1 F 88 16 103/57 96 11/19/23 10:59 93 L 11/19/23 09:20 87 91/53 11/19/23 07:55 91 H 18 94 L 11/19/23 07:43 97.5 F 90 16 72/48 95 11/19/23 04:00 98.0 F 88 12 88/55 90 L 11/19/23 00:00 98.3 F 95 H 17 90/54 94 L 11/18/23 20:00 97.1 F 91 H 16 97/52 91 L 11/18/23 19:57 76 16 94 L 11/18/23 16:00 97.6 F 84 16 89/55 92 L Pain Assessment - Last Documented Pain Intensity 0 Intake and Output: Intake & Output 11/17/23 11/18/23 11/19/23 11/20/23 11:59 11:59 11:59 11:59 Intake Total 300 1918 Output Total 1800 1400 Balance -1500 518 Weight 126.3 kg 126.3 kg Lab Results: Lab Results-Last 24 Hours 11/17/23 11/18/23 11/18/23 Range/Units 19:35 12:30 12:30 Specimen Type PLEURAL WBC (4.23-9.07) x10^3/uL RBC (4.63-6.08) x10^6/uL Hgb (13.7-17.5) g/dL Hct (40.1-51.0) % MCV (79.0-92.2) fL MCH (25.7-32.2) pg MCHC (32.3-36.5) g/dL RDW (11.6-14.4) % Plt Count (163-337) x10^3/uL MPV (9.4-12.4) fL Sodium (135-145) mmol/L Potassium (3.5-5.1) mmol/L Chloride (98-107) mmol/L Carbon Dioxide (22-30) mmol/L Anion Gap (5-15) MEQ/L BUN (9-20) mg/dL Creatinine (0.66-1.25) mg/dL Estimated GFR ML/MIN Glucose (74-106) mg/dL POC Glucometer (74 to 106) mg/dL Calcium (8.4-10.2) mg/dL Total Bilirubin (0.2-1.3) mg/dL AST (17-59) U/L ALT (0-50) U/L Alkaline Phosphatase (38-126) U/L Serum Total Protein (6.3-8.2) g/dL Albumin (3.5-5.0) g/dL Prealbumin (17.6-36.0) mg/dL Urine Color Yellow (Yellow) Urine Appearance Clear (Clear) Urine pH 5.0 (4.6-8.0) Ur Specific [place] 1.020 (1.005-1.030) Urine Protein Negative (Negative) Urine Glucose (UA) >=1000 A (Negative) mg/dL Urine Ketones Trace A (Negative) Urine Blood Negative (Negative) Urine Nitrite Negative (Negative) Urine Bilirubin Negative (Negative) Urine Urobilinogen 0.2 (0.2) mg/dL Ur Leukocyte Esterase Negative (Negative) U Hyaline Cast (Auto) 3-5 A (0-2) /LPF Urine Microscopic RBC 0-2 (0-5) /HPF Urine Microscopic WBC 0-2 (0-5) /HPF Ur Epithelial Cells None Seen (None Seen) /HPF Urine Bacteria None Seen (None Seen) /HPF Urine Culture Reflexed NO (NO) Fluid Color XANTHROCHORMIC A (COLORLESS) Fluid Clarity CLEAR (CLEAR) Fluid pH Pending Fluid WBC (Auto) 0.503 u/L Fluid RBC (Auto) < 0.002 x10^6u/L Fld Polynuclear WBCs % 5.600 % Fl Mononuclear % Auto 94.400 % Fluid Glucose 98 (.) mg/dL Fluid Total Protein 2.9 (.) g/dL Fluid LDH 81 (.) IU/L Slides for Path Review 08/30/24 08/30/24 08/30/24 Range/Units 16:08 20:36 23:56 Specimen Type WBC (4.23-9.07) x10^3/uL RBC (4.63-6.08) x10^6/uL Hgb (13.7-17.5) g/dL Hct (40.1-51.0) % MCV (79.0-92.2) fL MCH (25.7-32.2) pg MCHC (32.3-36.5) g/dL RDW (11.6-14.4) % Plt Count (163-337) x10^3/uL MPV (9.4-12.4) fL Sodium (135-145) mmol/L Potassium (3.5-5.1) mmol/L Chloride (98-107) mmol/L Carbon Dioxide (22-30) mmol/L Anion Gap (5-15) MEQ/L BUN (9-20) mg/dL Creatinine (0.66-1.25) mg/dL Estimated GFR ML/MIN Glucose (74-106) mg/dL POC Glucometer 125 H 148 H 139 H (74 to 106) mg/dL Calcium (8.4-10.2) mg/dL Total Bilirubin (0.2-1.3) mg/dL AST (17-59) U/L ALT (0-50) U/L Alkaline Phosphatase (38-126) U/L Serum Total Protein (6.3-8.2) g/dL Albumin (3.5-5.0) g/dL Prealbumin (17.6-36.0) mg/dL Urine Color (Yellow) Urine Appearance (Clear) Urine pH (4.6-8.0) Ur Specific [place] (1.005-1.030) Urine Protein (Negative) Urine Glucose (UA) (Negative) mg/dL Urine Ketones (Negative) Urine Blood (Negative) Urine Nitrite (Negative) Urine Bilirubin (Negative) Urine Urobilinogen (0.2) mg/dL Ur Leukocyte Esterase (Negative) U Hyaline Cast (Auto) (0-2) /LPF Urine Microscopic RBC (0-5) /HPF Urine Microscopic WBC (0-5) /HPF Ur Epithelial Cells (None Seen) /HPF Urine Bacteria (None Seen) /HPF Urine Culture Reflexed (NO) Fluid Color (COLORLESS) Fluid Clarity (CLEAR) Fluid pH Fluid WBC (Auto) u/L Fluid RBC (Auto) x10^6u/L Fld Polynuclear WBCs % % Fl Mononuclear % Auto % Fluid Glucose (.) mg/dL Fluid Total Protein (.) g/dL Fluid LDH (.) IU/L Slides for Path Review 11/19/23 11/19/23 11/19/23 Range/Units 04:07 06:10 06:10 Specimen Type WBC 10.9 H (4.23-9.07) x10^3/uL RBC 3.52 L (4.63-6.08) x10^6/uL Hgb 9.6 L (13.7-17.5) g/dL Hct 32.5 L (40.1-51.0) % MCV 92.3 H (79.0-92.2) fL MCH 27.3 (25.7-32.2) pg MCHC 29.5 L (32.3-36.5) g/dL RDW 24.3 H (11.6-14.4) % Plt Count 242 (163-337) x10^3/uL MPV 8.9 L (9.4-12.4) fL Sodium (135-145) mmol/L Potassium (3.5-5.1) mmol/L Chloride (98-107) mmol/L Carbon Dioxide (22-30) mmol/L Anion Gap (5-15) MEQ/L BUN (9-20) mg/dL Creatinine (0.66-1.25) mg/dL Estimated GFR ML/MIN Glucose (74-106) mg/dL POC Glucometer 135 H (74 to 106) mg/dL Calcium (8.4-10.2) mg/dL Total Bilirubin (0.2-1.3) mg/dL AST (17-59) U/L ALT (0-50) U/L Alkaline Phosphatase (38-126) U/L Serum Total Protein (6.3-8.2) g/dL Albumin (3.5-5.0) g/dL Prealbumin 13.25 L (17.6-36.0) mg/dL Urine Color (Yellow) Urine Appearance (Clear) Urine pH (4.6-8.0) Ur Specific [place] (1.005-1.030) Urine Protein (Negative) Urine Glucose (UA) (Negative) mg/dL Urine Ketones (Negative) Urine Blood (Negative) Urine Nitrite (Negative) Urine Bilirubin (Negative) Urine Urobilinogen (0.2) mg/dL Ur Leukocyte Esterase (Negative) U Hyaline Cast (Auto) (0-2) /LPF Urine Microscopic RBC (0-5) /HPF Urine Microscopic WBC (0-5) /HPF Ur Epithelial Cells (None Seen) /HPF Urine Bacteria (None Seen) /HPF Urine Culture Reflexed (NO) Fluid Color (COLORLESS) Fluid Clarity (CLEAR) Fluid pH Fluid WBC (Auto) u/L Fluid RBC (Auto) x10^6u/L Fld Polynuclear WBCs % % Fl Mononuclear % Auto % Fluid Glucose (.) mg/dL Fluid Total Protein (.) g/dL Fluid LDH (.) IU/L Slides for Path Review YES 11/19/23 11/19/23 11/19/23 Range/Units 06:10 07:52 11:57 Specimen Type WBC (4.23-9.07) x10^3/uL RBC (4.63-6.08) x10^6/uL Hgb (13.7-17.5) g/dL Hct (40.1-51.0) % MCV (79.0-92.2) fL MCH (25.7-32.2) pg MCHC (32.3-36.5) g/dL RDW (11.6-14.4) % Plt Count (163-337) x10^3/uL MPV (9.4-12.4) fL Sodium 136 (135-145) mmol/L Potassium 4.9 (3.5-5.1) mmol/L Chloride 106 (98-107) mmol/L Carbon Dioxide 21 L (22-30) mmol/L Anion Gap 14.2 (5-15) MEQ/L BUN 28 H (9-20) mg/dL Creatinine 1.30 H (0.66-1.25) mg/dL Estimated GFR 61.4 ML/MIN Glucose 131 H (74-106) mg/dL POC Glucometer 117 H 103 (74 to 106) mg/dL Calcium 7.9 L (8.4-10.2) mg/dL Total Bilirubin 0.90 (0.2-1.3) mg/dL AST 15 L (17-59) U/L ALT 9 (0-50) U/L Alkaline Phosphatase 65 (38-126) U/L Serum Total Protein 5.2 L (6.3-8.2) g/dL Albumin 2.8 L (3.5-5.0) g/dL Prealbumin (17.6-36.0) mg/dL Urine Color (Yellow) Urine Appearance (Clear) Urine pH (4.6-8.0) Ur Specific [place] (1.005-1.030) Urine Protein (Negative) Urine Glucose (UA) (Negative) mg/dL Urine Ketones (Negative) Urine Blood (Negative) Urine Nitrite (Negative) Urine Bilirubin (Negative) Urine Urobilinogen (0.2) mg/dL Ur Leukocyte Esterase (Negative) U Hyaline Cast (Auto) (0-2) /LPF Urine Microscopic RBC (0-5) /HPF Urine Microscopic WBC (0-5) /HPF Ur Epithelial Cells (None Seen) /HPF Urine Bacteria (None Seen) /HPF Urine Culture Reflexed (NO) Fluid Color (COLORLESS) Fluid Clarity (CLEAR) Fluid pH Fluid WBC (Auto) u/L Fluid RBC (Auto) x10^6u/L Fld Polynuclear WBCs % % Fl Mononuclear % Auto % Fluid Glucose (.) mg/dL Fluid Total Protein (.) g/dL Fluid LDH (.) IU/L Slides for Path Review Radiology Exams: Radiology Procedures Category Date Time Status CHEST 1 VIEW (PORTABLE) Routine Exams 11/18/23 11:23 Completed CHEST 1 VIEW (PORTABLE) Stat Exams 11/17/23 16:32 Completed CHEST 1 VIEW (PORTABLE) Stat Exams 11/19/23 09:51 Completed THORACENTESIS [US] Routine Exams 11/18/23 07:00 Taken Assessment/Plan (1) Septic shock Current Visit: Yes Status: Acute Code(s): A41.9 - SEPSIS, UNSPECIFIED ORGANISM; R65.21 - SEVERE SEPSIS WITH SEPTIC SHOCK (2) Pneumonia Current Visit: Yes Status: Acute Code(s): J18.9 - PNEUMONIA, UNSPECIFIED ORGANISM (3) Pleural effusion Current Visit: Yes Status: Acute Code(s): J90 - PLEURAL EFFUSION, NOT ELSEWHERE CLASSIFIED (4) YAS (acute kidney injury) Current Visit: Yes Status: Acute Code(s): N17.9 - ACUTE KIDNEY FAILURE, UNSPECIFIED (5) DM2 (diabetes mellitus, type 2) Current Visit: Yes Status: Acute (6) Generalized weakness Current Visit: Yes Status: Acute Code(s): R53.1 - WEAKNESS (7) Wounds, multiple open, lower extremity Current Visit: Yes Status: Chronic Assessment & Plan: (1) Septic shock Current Visit: Yes Status: Acute Assessment & Plan: - 2:2 pneumonia - hypotension, rapid heart rate, low O2 - IV Antibiotics - tele - sputum culture- pending - BC X2- pending Code(s): A41.9 - SEPSIS, UNSPECIFIED ORGANISM; R65.21 - SEVERE SEPSIS WITH SEPTIC SHOCK (2) Pneumonia Current Visit: Yes Status: Acute Assessment & Plan: - IV Antibiotics changed to zosyn - WBC 15.6- increased from yesterday - tele - sputum culture- pending - BC X2- pending Code(s): J18.9 - PNEUMONIA, UNSPECIFIED ORGANISM (3) Pleural effusion Current Visit: Yes Status: Acute Assessment & Plan: - Tele - 2lNC 94% - Chest XR: Portable chest again demonstrates CT proven diffuse bilateral patchy consolidating/nonconsolidating airspace disease with moderate bilateral pleural effusions/atelectasis. Heart not enlarged again with left arm PICC line. No new cardiopulmonary abnormalities. -Thoracentesis ordered- 2.2 L removed from right side by radiologist. - labs ordered - WBC 15.6 - antibiotics changed to Zosyn - Sputum culture pending - CXR post thoracentesis 11/18/23 Portable chest demonstrates marked diminished right effusion/atelectasis with mild residual consistent with paracentesis. No pneumothorax. Remaining chest unchanged again left lung infiltrate/atelectasis/effusion, cardiomegaly, and left arm PICC line. 11/18 - 2lNC 94% Code(s): J90 - PLEURAL EFFUSION, NOT ELSEWHERE CLASSIFIED (4) YSA (acute kidney injury) Current Visit: Yes Status: Acute Assessment & Plan: - creat 1.35, baseline 1.03- trend 11/18 - Creat 1.30- improved- trend Code(s): N17.9 - ACUTE KIDNEY FAILURE, UNSPECIFIED (5) DM2 (diabetes mellitus, type 2) Current Visit: Yes Status: Acute Assessment & Plan: - A1C 5.73 08/23/23- controlled - Humalog s/s accuchecks ac/hs - Glucophage (6) Generalized weakness Current Visit: Yes Status: Acute Assessment & Plan: - PT eval and treat Code(s): R53.1 - WEAKNESS (7) Wounds, multiple open, lower extremity Current Visit: Yes Status: Chronic Assessment & Plan: - Follows podiatry OP - podiatry consulted as wraps need replaced- completed - Picc line in place CHART CHANGER d/t wound care/ antibiotic needs - wound culture by podiatry - gram negative- sensitivity pending VTE: Eliquis PPI: Protonix Code status: Full Code(s): S81.809A - UNSPECIFIED OPEN WOUND, UNSPECIFIED LOWER LEG, INIT ENCNTR
--- NOTE | 2023-11-19 17:58 | XRAY ---
Indication: Bilateral pleural effusions, largest on the right. Informed consent obtained. Initial ultrasound of the right back performed for localization. Largest pocket lower chest. The right back was prepped and draped in sterile fashion. 1% lidocaine plain was used for local anesthesia. Tiny skin incision made. 5 [employer] [facility] [employer] paracentesis needle/catheter was then percutaneously inserted. Once fluid was aspirating, the outer catheter was then advanced with the inner needle removed. Catheter was connected to a Vacutainer. Approximately 2.2 L clear shannan colored fluid aspirated and was disposed of properly. Approximately 50 cc was collected and sent to laboratory for analysis as ordered by the clinician. Repeat sonogram demonstrates improvement with tiny residual. Catheter removed. Hemostasis achieved using digital pressure over the puncture site. Band-Aid applied over the puncture site. Postthoracentesis chest radiograph pending. Impression: Technically successful ultrasound guided right thoracentesis for both diagnostic and therapeutic purpose. No immediate complications or blood loss.
[2023-11-20 06:28] LABS: Hematocrit 34.4 % (40.1-51.0); Hemoglobin 9.8 g/dL (13.7-17.5); Mean Cell Volume 95.8 fL (79.0-92.2); Mean Corpuscular Hemoglobin 27.3 pg (25.7-32.2); Mean Corpuscular Hgb Concent. 28.5 g/dL (32.3-36.5); Platelet Count 234 x10^3/uL (163-337); Red Blood Count 3.59 x10^6/uL (4.63-6.08); White Blood Count 10.9 x10^3/uL (4.23-9.07)
[2023-11-20 06:43] LABS: ALBUMIN 3.3 g/dL (3.5-5.0); ANION GAP 16.2 MEQ/L (5-15); BILIRUBIN,TOTAL 0.7 mg/dL (0.2-1.3); Creatinine 1 1.64 mg/dL (0.66-1.25); EST GLOMERULAR FILTRATION RATE 46.4 ML/MIN; Potassium 4.2 mmol/L (3.5-5.1); Total Protein 5.9 g/dL (6.3-8.2)
[2023-11-20] MEDS: Sodium Chloride 0.9% 1000 ML 1,000 ML IV SCH (08:26)
[2023-11-20 11:15] LABS: Slide Review YES
--- NOTE | 2023-11-20 13:18 | PCM.NOTE ---
Date and Time: 11/20/23 1313 Subjective Assessment: 11/18/23 is a 63 year old male with a history of hypertension, coronary artery disease with stenting, diabetes mellitus with right above-knee amputation, wounds on the left heel, and lower extremity swelling. He is a resident of [facility]. He was brought in the ER on 11/16 with complaint of altered mental status, generalized weakness fatigue and tiredness. Patient per EMS was not confused or altered. He was having some shortness of breath with oxygen saturation in low 90s, placed on 2 L oxygen and improved in mid 90s. Patient does report coughing up clear to yellow sputum and generalized malaise for the past "couple of days" with worsening. Denies any chest pain. Patient recently has been increasing the dose of Lasix to get rid of excessive water/CHF. Patient denies any fever or chills. When EMS arrived patient blood pressure was in 80s, on presentation in the ER upon recheck it is in 90s. Subsequently in the ED, his BP improved to 126/75. In the ED, the patient was noted to have bilateral infiltrates and pleural effusions. Today he had 2.2 L removed of right pleural effusion. He explained he has never had that done before. He is on 2LNC 94%, baseline is room air. Antibiotics changed to Zosyn as WBC elevated to 15.6 and not on steroids. Podiatry consulted for BLLE wounds and rewrapping. He had been following podiatry OP for these concerns. He states he overall does not feel well today. He denies CP, abd pain, N/V/D. 11/19/23 Pt sitting up in bed. He is feeling much better today after thoracentesis yesterday. He is now on 2lNC at 94%. Per nursing staff pt appears to have sleep apnea and requires more oxygen at night. Will do overnight pulse ox. WBC 10.9 improved. Creat 1.30 improved. Corrected Ca+ 8.5. BP soft this AM so held BP meds. Continue Zosyn for pneumonia. He may need 1-2 more days of antibiotics. He denies CP, abd pain, N/V/D. 11/20/23 Pt resting in bed. He is feeling better today. He is still requiring O2 at 2lNC 95%. WBC same as yesterday 10.9. Continue zosyn fo pneumonia. CReat 1.62 and anion gap 16.2, NS @ 50ML/hr started. Corrected Ca+ 8.2. RT to eval home need for O@ at D/c, overnight pulse ox ordered yesterday. Pt denies CP, SOB, abd. pain, N/V/D. - Review of Systems Constitutional: No Fever, No Chills Eyes: No Symptoms Ears, Nose, & Throat: No Symptoms Respiratory: No Cough, No Short Of Breath Cardiac: No Chest Pain, No Edema, No Syncope Abdominal/Gastrointestinal: No Abdominal Pain, No Nausea, No Vomiting, No Diarrhea Genitourinary Symptoms: No Dysuria Musculoskeletal: No Back Pain, No Neck Pain Skin: No Rash Neurological: No Dizziness, No Focal Weakness, No Sensory Changes Psychological: No Symptoms Endocrine: No Symptoms Hematologic/Lymphatic: No Symptoms Immunological/Allergic: No Symptoms Objective Exam General Appearance: no apparent distress, alert Neurologic Exam: alert, oriented x 3, cooperative, normal mood/affect, nml cerebellar function, sensation nml, No motor deficits Skin Exam: normal color, warm, dry, other (LE wraps by podiatry) Wound Assessment: Skin/Wound Assessment Wound/Incision Assessment Start: 11/17/23 19:58 Text: Status: Active Freq: Q6H Protocol: Document 11/20/23 08:00 [facility] (Rec: 11/20/23 11:39 [facility] [id number]) Wound/Incision Assessment Right Hand Wound Assessment Shift Assessment Wound Type Skin Tear Wound Stage Non Pressure Wound Dressing Status Dry & Intact Comment 5th digit skin tear- dressing intact, non-adherent telfa and coband Medial Back Wound Assessment Shift Assessment Wound Type Puncture Wound Stage Non Pressure Wound Drainage Odor None/Absent Primary Dressing Non-Adherent Gauze Pads Secondary Dressing Absorbant Pad Comment Dressing remains intact Left Lateral Heel Wound Assessment Shift Assessment Wound Type Pressure Ulcer Dressing Status Dry & Intact Drainage Amount None Drainage Odor None/Absent Comment unna boot in place Left Toe Wound Assessment Shift Assessment Wound Type Abrasion Wound Stage Non Pressure Wound Dressing Status Dry & Intact Comment dressing intact Left Upper Thigh Wound Assessment Shift Assessment Wound Type skin graft donor site Wound Stage Non Pressure Wound Drainage Amount Minimal Drainage Description Yellow Drainage Odor None/Absent General Appearance Draining Surrounding Tissue [place] Primary Dressing Non-Adherent Gauze Pads Secondary Dressing paper tape Comment dressing remains intact Left Knee Wound Assessment Shift Assessment Wound Type Abrasion Wound Stage Non Pressure Wound Drainage Amount None Drainage Odor None/Absent General Appearance Open to air,Clean/Dry Surrounding Tissue [place] Lower Abdomen Wound Assessment Shift Assessment Wound Type excoriation Wound Stage Non Pressure Wound General Appearance Open to air,Reddened Surrounding Tissue [place] Comment Nystatin powder applied as directed Sacrum Wound Assessment Shift Assessment Wound Type shearing Wound Stage Non Pressure Wound Drainage Amount None General Appearance Open to air,Reddened Surrounding Tissue [place] Comment barrier cream applied PRN Wound Photo Photo Taken Yes Comment: See paper chart Eye Exam: PERRL, EOMI, eyes nml inspection Ears, Nose, Throat Exam: normal ENT inspection, pharynx normal, moist mucous membranes Neck Exam: normal inspection, non-tender, supple, full range of motion Respiratory Exam: normal breath sounds, lungs clear, No respiratory distress Cardiovascular Exam: regular rate/rhythm, normal heart sounds, tachycardia Gastrointestinal/Abdomen Exam: soft, No tenderness, No mass Extremity Exam: normal inspection, normal range of motion Back Exam: normal inspection, normal range of motion, No CVA tenderness, No vertebral tenderness Male Genitalia Exam: deferred Rectal Exam: deferred Objective Data Vital Signs: Vital Signs - 24 hr Temp Pulse Resp BP Pulse Ox 11/20/23 11:25 97.3 F 103 H 18 97/52 95 11/20/23 10:55 98 H 16 95 11/20/23 09:27 99 H 96/54 11/20/23 07:00 97.5 F 104 H 9 L 111/55 96 11/20/23 03:00 97.5 F 102 H 20 98/57 95 11/19/23 23:43 97.1 F 93 H 18 87/51 97 11/19/23 19:50 97.1 F 91 H 13 88/51 90 L 11/19/23 19:00 91 H 18 93 L 11/19/23 17:00 97.1 F 83 16 81/44 90 L 11/19/23 14:48 94 L Pain Assessment - Last Documented Pain Intensity 0 Intake and Output: Intake & Output 11/18/23 11/19/23 11/20/23 11/21/23 11:59 11:59 11:59 11:59 Intake Total 300 1918 1840 Output Total 1800 1400 1550 Balance -1500 518 290 Weight 126.3 kg 126.3 kg Lab Results: Lab Results-Last 24 Hours 11/19/23 11/19/23 11/19/23 Range/Units 17:11 19:56 23:56 WBC (4.23-9.07) x10^3/uL RBC (4.63-6.08) x10^6/uL Hgb (13.7-17.5) g/dL Hct (40.1-51.0) % MCV (79.0-92.2) fL MCH (25.7-32.2) pg MCHC (32.3-36.5) g/dL RDW (11.6-14.4) % Plt Count (163-337) x10^3/uL MPV (9.4-12.4) fL Sodium (135-145) mmol/L Potassium (3.5-5.1) mmol/L Chloride (98-107) mmol/L Carbon Dioxide (22-30) mmol/L Anion Gap (5-15) MEQ/L BUN (9-20) mg/dL Creatinine (0.66-1.25) mg/dL Estimated GFR ML/MIN Glucose (74-106) mg/dL POC Glucometer 106 144 H 157 H (74 to 106) mg/dL Calcium (8.4-10.2) mg/dL Total Bilirubin (0.2-1.3) mg/dL AST (17-59) U/L ALT (0-50) U/L Alkaline Phosphatase (38-126) U/L Serum Total Protein (6.3-8.2) g/dL Albumin (3.5-5.0) g/dL Slides for Path Review 11/20/23 11/20/23 11/20/23 Range/Units 04:14 05:30 05:30 WBC 10.9 H (4.23-9.07) x10^3/uL RBC 3.59 L (4.63-6.08) x10^6/uL Hgb 9.8 L (13.7-17.5) g/dL Hct 34.4 L (40.1-51.0) % MCV 95.8 H (79.0-92.2) fL MCH 27.3 (25.7-32.2) pg MCHC 28.5 L (32.3-36.5) g/dL RDW 24.0 H (11.6-14.4) % Plt Count 234 (163-337) x10^3/uL MPV 9.0 L (9.4-12.4) fL Sodium 138 (135-145) mmol/L Potassium 4.2 (3.5-5.1) mmol/L Chloride 106 (98-107) mmol/L Carbon Dioxide 21 L (22-30) mmol/L Anion Gap 16.2 H (5-15) MEQ/L BUN 31 H (9-20) mg/dL Creatinine 1.64 H (0.66-1.25) mg/dL Estimated GFR 46.4 ML/MIN Glucose 155 H (74-106) mg/dL POC Glucometer 136 H (74 to 106) mg/dL Calcium 8.0 L (8.4-10.2) mg/dL Total Bilirubin 0.70 (0.2-1.3) mg/dL AST 34 (17-59) U/L ALT 14 (0-50) U/L Alkaline Phosphatase 76 (38-126) U/L Serum Total Protein 5.9 L (6.3-8.2) g/dL Albumin 3.3 L (3.5-5.0) g/dL Slides for Path Review YES 11/20/23 11/20/23 Range/Units 07:43 12:20 WBC (4.23-9.07) x10^3/uL RBC (4.63-6.08) x10^6/uL Hgb (13.7-17.5) g/dL Hct (40.1-51.0) % MCV (79.0-92.2) fL MCH (25.7-32.2) pg MCHC (32.3-36.5) g/dL RDW (11.6-14.4) % Plt Count (163-337) x10^3/uL MPV (9.4-12.4) fL Sodium (135-145) mmol/L Potassium (3.5-5.1) mmol/L Chloride (98-107) mmol/L Carbon Dioxide (22-30) mmol/L Anion Gap (5-15) MEQ/L BUN (9-20) mg/dL Creatinine (0.66-1.25) mg/dL Estimated GFR ML/MIN Glucose (74-106) mg/dL POC Glucometer 150 H 120 H (74 to 106) mg/dL Calcium (8.4-10.2) mg/dL Total Bilirubin (0.2-1.3) mg/dL AST (17-59) U/L ALT (0-50) U/L Alkaline Phosphatase (38-126) U/L Serum Total Protein (6.3-8.2) g/dL Albumin (3.5-5.0) g/dL Slides for Path Review Radiology Exams: Radiology Procedures Category Date Time Status CHEST 1 VIEW (PORTABLE) Stat Exams 11/19/23 09:51 Completed Assessment/Plan (1) Septic shock Current Visit: Yes Status: Acute Code(s): A41.9 - SEPSIS, UNSPECIFIED ORGANISM; R65.21 - SEVERE SEPSIS WITH SEPTIC SHOCK (2) Pneumonia Current Visit: Yes Status: Acute Code(s): J18.9 - PNEUMONIA, UNSPECIFIED ORGANISM (3) Pleural effusion Current Visit: Yes Status: Acute Code(s): J90 - PLEURAL EFFUSION, NOT ELSEWHERE CLASSIFIED (4) YAS (acute kidney injury) Current Visit: Yes Status: Acute Code(s): N17.9 - ACUTE KIDNEY FAILURE, UNSPECIFIED (5) DM2 (diabetes mellitus, type 2) Current Visit: Yes Status: Acute (6) Generalized weakness Current Visit: Yes Status: Acute Code(s): R53.1 - WEAKNESS (7) Wounds, multiple open, lower extremity Current Visit: Yes Status: Chronic Assessment & Plan: (1) Septic shock Current Visit: Yes Status: Acute Assessment & Plan: - 2:2 pneumonia - hypotension, rapid heart rate, low O2 - IV Antibiotics - tele - sputum culture- pending - BC X2- negative Code(s): A41.9 - SEPSIS, UNSPECIFIED ORGANISM; R65.21 - SEVERE SEPSIS WITH SEPTIC SHOCK (2) Pneumonia Current Visit: Yes Status: Acute Assessment & Plan: - IV Antibiotics changed to zosyn - WBC 15.6- increased from yesterday - tele - sputum culture- pending - BC X2- pending - overnight pulse ox 11/19 - WBC 10.9 - On 2lNC 95% - not on home O2- can d/c with o2 when needed as pt lives in [facility] Code(s): J18.9 - PNEUMONIA, UNSPECIFIED ORGANISM (3) Pleural effusion Current Visit: Yes Status: Acute Assessment & Plan: - Tele - 2lNC 94% - Chest XR: Portable chest again demonstrates CT proven diffuse bilateral patchy consolidating/nonconsolidating airspace disease with moderate bilateral pleural effusions/atelectasis. Heart not enlarged again with left arm PICC line. No new cardiopulmonary abnormalities. -Thoracentesis ordered- 2.2 L removed from right side by radiologist. - labs ordered - WBC 15.6 - antibiotics changed to Zosyn - Sputum culture pending - CXR post thoracentesis 11/18/23 Portable chest demonstrates marked diminished right effusion/atelectasis with mild residual consistent with paracentesis. No pneumothorax. Remaining chest unchanged again left lung infiltrate/atelectasis/effusion, cardiomegaly, and left arm PICC line. 11/18 - 2lNC 94% Code(s): J90 - PLEURAL EFFUSION, NOT ELSEWHERE CLASSIFIED (4) YAS (acute kidney injury) Current Visit: Yes Status: Acute Assessment & Plan: - creat 1.35, baseline 1.03- trend 11/18 - Creat 1.30- improved- trend 11/19 - Creat 1.64- up - Anion gap 16.2- up - NS @ 50ml/hr started Code(s): N17.9 - ACUTE KIDNEY FAILURE, UNSPECIFIED (5) DM2 (diabetes mellitus, type 2) Current Visit: Yes Status: Acute Assessment & Plan: - A1C 5.73 08/23/23- controlled - Humalog s/s accuchecks ac/hs - Glucophage (6) Generalized weakness Current Visit: Yes Status: Acute Assessment & Plan: - PT eval and treat Code(s): R53.1 - WEAKNESS (7) Wounds, multiple open, lower extremity Current Visit: Yes Status: Chronic Assessment & Plan: - Follows podiatry OP - podiatry consulted as wraps need replaced- completed - Picc line in place [facility] d/t wound care/ antibiotic needs - wound culture by podiatry - gram negative- pseudomonas aeruginosa- continue zosyn VTE: Eliquis PPI: Protonix Code status: Full Code(s): S81.809A - UNSPECIFIED OPEN WOUND, UNSPECIFIED LOWER LEG, INIT ENCNTR
[2023-11-21 05:32] LABS: Hematocrit 31.5 % (40.1-51.0); Hemoglobin 9.2 g/dL (13.7-17.5); Mean Cell Volume 93.5 fL (79.0-92.2); Mean Corpuscular Hemoglobin 27.3 pg (25.7-32.2); Mean Corpuscular Hgb Concent. 29.2 g/dL (32.3-36.5); Mean Platelet Volume 8.5 fL (9.4-12.4); Platelet Count 222 x10^3/uL (163-337); Red Blood Count 3.37 x10^6/uL (4.63-6.08); Red Cell Distribution Width 23.6 % (11.6-14.4)
--- NOTE | 2023-11-21 05:35 | PCM.NOTE ---
Date and Time: 11/21/23 0534 Subjective Assessment: HPI: is a 63 year old male with a PMHX of HTN, CAD with stenting, DM, right above-knee amputation, wounds on the left heel, and lower extremity swelling resident of [facility] admitted 11/17/23 with sepsis secondary to pneumonia after experiencing generalized weakness, fatigue, dyspnea with spo2 in the low 90s, and a productive cough with yellow sputum. Initial CXR showing diffuse bilateral patchy consolidation/nonconsolidating airspace disease with moderate bilateral pleural effusions. Patient did have Throacentesis performed 11/18/23 with 2200 CC removed. IP treatment with Zosyn. Podiatry consulted for BLLE wound and rewrapping who he follows with OP. Wound culture of the left heel showing pseudomonas aeruginosa sensitive to Zosyn. Patient endorses dyspnea has improved. Still requiring 2L of oxygen, mostly at night. Overnight pulse ox pending. Labs and vitals stable. Patient has PICC placed, can continue IV abx at [facility] on discharge. Did have episodes of AFIB with HR in the 130-150's per RN. Metoprolol and amiodarone resumed. Plan for CXR tomorrow to evaluate pleural effusion. Creat improving. - Review of Systems Constitutional: Weakness Eyes: No Symptoms Ears, Nose, & Throat: No Symptoms Respiratory: Short Of Breath Cardiac: Edema Abdominal/Gastrointestinal: No Symptoms Genitourinary Symptoms: No Symptoms Musculoskeletal: No Symptoms Skin: Skin Lesions (BLE edema/wounds ) Neurological: No Symptoms Psychological: No Symptoms Endocrine: No Symptoms Hematologic/Lymphatic: No Symptoms Immunological/Allergic: No Symptoms Objective Exam General Appearance: no apparent distress Neurologic Exam: alert, oriented x 3, cooperative Skin Exam: normal color Wound Assessment: Skin/Wound Assessment Wound/Incision Assessment Start: 11/17/23 19:58 Text: Status: Active Freq: Q6H Protocol: Document 11/21/23 02:00 [facility] (Rec: 11/21/23 02:57 [facility] [id number]) Wound/Incision Assessment Right Hand Wound Assessment Shift Assessment Wound Type Skin Tear Wound Stage Non Pressure Wound Dressing Status Dry & Intact Medial Back Wound Assessment Shift Assessment Wound Type Puncture Wound Stage Non Pressure Wound Dressing Status Dry & Intact Drainage Odor None/Absent Primary Dressing Non-Adherent Gauze Pads Left Lateral Heel Wound Assessment Shift Assessment Wound Type Pressure Ulcer Dressing Status Changed Drainage Amount None Comment dressing in place CDI Left Toe Wound Assessment Shift Assessment Wound Type Abrasion Wound Stage Non Pressure Wound Dressing Status Dry & Intact Drainage Amount None Left Upper Thigh Wound Assessment Shift Assessment Wound Type skin graft donor site Wound Stage Non Pressure Wound Dressing Status Dry & Intact Surrounding Tissue [place] Primary Dressing Non-Adherent Gauze Pads Secondary Dressing paper tape Left Knee Wound Assessment Shift Assessment Wound Type Abrasion Wound Stage Non Pressure Wound Drainage Amount None Drainage Odor None/Absent General Appearance Open to air,Clean/Dry Surrounding Tissue [place] Lower Abdomen Wound Assessment Shift Assessment Wound Type excoriation Wound Stage Non Pressure Wound General Appearance Open to air,Reddened Surrounding Tissue [place] Sacrum Wound Assessment Shift Assessment Wound Type shearing Wound Stage Non Pressure Wound Drainage Amount None General Appearance Open to air,Reddened Surrounding Tissue [place] Comment barrier cream applied PRN Wound Photo Photo Taken Yes Comment: See paper chart Eye Exam: PERRL Ears, Nose, Throat Exam: normal ENT inspection Neck Exam: normal inspection Respiratory Exam: crackles/rales Cardiovascular Exam: regular rate/rhythm, normal heart sounds Gastrointestinal/Abdomen Exam: normal bowel sounds Extremity Exam: other (BLE edema, multiple BLE lesions in various stages of healing) Back Exam: normal inspection Male Genitalia Exam: deferred Rectal Exam: deferred Objective Data Vital Signs: Vital Signs - 24 hr Temp Pulse Resp BP Pulse Ox 11/21/23 04:00 133 H 20 95/47 95 11/21/23 00:00 98.6 F 111 H 20 113/57 96 11/20/23 19:27 101 H 18 92 L 11/20/23 17:00 97.1 F 97 H 18 114/66 97 11/20/23 11:25 97.3 F 103 H 18 97/52 95 11/20/23 10:55 98 H 16 95 11/20/23 09:27 99 H 96/54 11/20/23 07:00 97.5 F 104 H 9 L 111/55 96 Pain Assessment - Last Documented Pain Intensity 0 Intake and Output: Intake & Output 11/18/23 11/19/23 11/20/23 11/21/23 11:59 11:59 11:59 11:59 Intake Total 300 1918 1840 828 Output Total 1800 1400 1550 1600 Balance -1500 518 290 -772 Weight 126.3 kg 126.3 kg Lab Results: Lab Results-Last 24 Hours 11/20/23 11/20/23 11/20/23 Range/Units 05:30 05:30 07:43 WBC 10.9 H (4.23-9.07) x10^3/uL RBC 3.59 L (4.63-6.08) x10^6/uL Hgb 9.8 L (13.7-17.5) g/dL Hct 34.4 L (40.1-51.0) % MCV 95.8 H (79.0-92.2) fL MCH 27.3 (25.7-32.2) pg MCHC 28.5 L (32.3-36.5) g/dL RDW 24.0 H (11.6-14.4) % Plt Count 234 (163-337) x10^3/uL MPV 9.0 L (9.4-12.4) fL Sodium 138 (135-145) mmol/L Potassium 4.2 (3.5-5.1) mmol/L Chloride 106 (98-107) mmol/L Carbon Dioxide 21 L (22-30) mmol/L Anion Gap 16.2 H (5-15) MEQ/L BUN 31 H (9-20) mg/dL Creatinine 1.64 H (0.66-1.25) mg/dL Estimated GFR 46.4 ML/MIN Glucose 155 H (74-106) mg/dL POC Glucometer 150 H (74 to 106) mg/dL Calcium 8.0 L (8.4-10.2) mg/dL Total Bilirubin 0.70 (0.2-1.3) mg/dL AST 34 (17-59) U/L ALT 14 (0-50) U/L Alkaline Phosphatase 76 (38-126) U/L Serum Total Protein 5.9 L (6.3-8.2) g/dL Albumin 3.3 L (3.5-5.0) g/dL Slides for Path Review YES 11/20/23 11/20/23 11/20/23 Range/Units 12:20 16:49 20:42 WBC (4.23-9.07) x10^3/uL RBC (4.63-6.08) x10^6/uL Hgb (13.7-17.5) g/dL Hct (40.1-51.0) % MCV (79.0-92.2) fL MCH (25.7-32.2) pg MCHC (32.3-36.5) g/dL RDW (11.6-14.4) % Plt Count (163-337) x10^3/uL MPV (9.4-12.4) fL Sodium (135-145) mmol/L Potassium (3.5-5.1) mmol/L Chloride (98-107) mmol/L Carbon Dioxide (22-30) mmol/L Anion Gap (5-15) MEQ/L BUN (9-20) mg/dL Creatinine (0.66-1.25) mg/dL Estimated GFR ML/MIN Glucose (74-106) mg/dL POC Glucometer 120 H 110 H 117 H (74 to 106) mg/dL Calcium (8.4-10.2) mg/dL Total Bilirubin (0.2-1.3) mg/dL AST (17-59) U/L ALT (0-50) U/L Alkaline Phosphatase (38-126) U/L Serum Total Protein (6.3-8.2) g/dL Albumin (3.5-5.0) g/dL Slides for Path Review Radiology Exams: Radiology Procedures Category Date Time Status CHEST 1 VIEW (PORTABLE) Stat Exams 11/19/23 09:51 Completed Multi-Disciplinary Progress Notes: Multi-Disciplinary Progress Notes 11/20/23 22:19 Respiratory Note by Matilda Boyle Unable to complete overnight pulse oximetry due to low SpO2 on room air while awake. SpO2 81% on room air while awake. Placed back on 2L SpO2 92%. Addendum entered by Matilda Boyle 11/20/23 22:29: Patient also became tachycardic with HR of 117, while SpO2 decreased to 81%. Initialized on 11/20/23 22:19 - END OF NOTE 11/20/23 15:08 Respiratory Note by Yarely Reyes ROOM AIR SATS 91%. ROOM AIR SATS ASLEEP 85%. PLACED ON 2L NC. Initialized on 11/20/23 15:08 - END OF NOTE Assessment/Plan (1) Septic shock Current Visit: Yes Status: Acute Assessment & Plan: - 2:2 pneumonia/wounds - hypotension, rapid heart rate, low O2 - tele - sputum culture- pending - BC X2- negative -wound cultures with pseudomonas aeruginosa- -Zosyn for pneumonia/ pseudomonas coverage -No longer meets criteria Code(s): A41.9 - SEPSIS, UNSPECIFIED ORGANISM; R65.21 - SEVERE SEPSIS WITH SEPTIC SHOCK (2) Pneumonia Current Visit: Yes Status: Acute Assessment & Plan: -supplemental oxygen with goal spo2 > 92% - RA at baseline - requiring 2L mostly at night -Zosyn - continue -Sputum cult/ blood culture pending -tele -WBC WNL Code(s): J18.9 - PNEUMONIA, UNSPECIFIED ORGANISM (3) Pleural effusion Current Visit: Yes Status: Acute Assessment & Plan: -CXR noting CT proven diffuse bilateral patchy consolidating/nonconsolidating airspace disease with moderate bilateral pleural effusions/atelectasis -Thoracentesis performed removing 2.2L of fluid 11/18/23 -- CXR post thoracentesis 11/18/23 Portable chest demonstrates marked diminished right effusion/atelectasis with mild residual consistent with paracentesis. No pneumothorax. Remaining chest unchanged again left lung infiltrate/atelectasis/effusion, cardiomegaly, and left arm PICC line. 11/20: -Repeat CXR tomorrow Code(s): J90 - PLEURAL EFFUSION, NOT ELSEWHERE CLASSIFIED (4) YAS (acute kidney injury) Current Visit: Yes Status: Acute Assessment & Plan: -baseline 0.9, on admission 1.39 -Avoid ALLYSON/ARB/NSAIDS -IVF at 50ml/hr 11/20: -Resolving - dc fluids Code(s): N17.9 - ACUTE KIDNEY FAILURE, UNSPECIFIED (5) DM2 (diabetes mellitus, type 2) Current Visit: Yes Status: Acute Assessment & Plan: - A1C 5.73 08/23/23- controlled - Humalog s/s accuchecks ac/hs (6) Generalized weakness Current Visit: Yes Status: Acute Assessment & Plan: - PT eval and treat Code(s): R53.1 - WEAKNESS (7) Wounds, multiple open, lower extremity Current Visit: Yes Status: Chronic Assessment & Plan: - Follows podiatry OP - podiatry consulted as wraps need replaced- completed - Picc line in place [facility] d/t wound care/ antibiotic needs - wound culture by podiatry - gram negative- pseudomonas aeruginosa- continue zosyn VTE: Eliquis PPI: Protonix Code status: Full Code(s): S81.809A - UNSPECIFIED OPEN WOUND, UNSPECIFIED LOWER LEG, INIT ENCNTR
[2023-11-21 05:48] LABS: ANION GAP 12.7 MEQ/L (5-15); BILIRUBIN,TOTAL 0.4 mg/dL (0.2-1.3); Creatinine 1 1.45 mg/dL (0.66-1.25); EST GLOMERULAR FILTRATION RATE 53.8 ML/MIN; Potassium 4.3 mmol/L (3.5-5.1); Total Protein 5.6 g/dL (6.3-8.2)
[2023-11-21] MEDS: Cordarone 200 MG PO SCH (10:30)
[2023-11-21 11:24] LABS: Slide Review YES
--- NOTE | 2023-11-22 05:25 | PCM.NOTE ---
Date and Time: 11/22/23523 Subjective Assessment: HPI: is a 63 year old male with a PMHX of HTN, CAD with stenting, DM, right above-knee amputation, wounds on the left heel, and lower extremity swelling resident of [facility] admitted 11/17/23 with sepsis secondary to pneumonia after experiencing generalized weakness, fatigue, dyspnea with spo2 in the low 90s, and a productive cough with yellow sputum. Initial CXR showing diffuse bilateral patchy consolidation/nonconsolidating airspace disease with moderate bilateral pleural effusions. Patient did have Throacentesis performed 11/18/23 with 2200 CC removed. IP treatment with Zosyn. Podiatry consulted for BLLE wound and rewrapping who he follows with OP. Wound culture of the left heel showing pseudomonas aeruginosa sensitive to Zosyn. Patient endorses dyspnea has improved. Still requiring 2L of oxygen, mostly at night. Overnight pulse ox pending. Labs and vitals stable. Patient has PICC placed, can continue IV abx at [place] on discharge. Did have episodes of AFIB with HR in the 130-150's per RN. Metoprolol and amiodarone resumed. CXR 11/22/23 with worsening bilteral infiltrates/effusions R>L. 11/22/23: Met with patient bedside. Notably lethargic during interview. CXR showing worsening bilateral infiltrates/effusions R>L. ABG showing primary resp. chronic acidosis with secondary metabolic acidosis. Patient placed on BIPAP. DDimer elevated. CT chest ordered. - Review of Systems Constitutional: Lethargy, Weakness Eyes: No Symptoms Ears, Nose, & Throat: No Symptoms Respiratory: Short Of Breath Cardiac: No Symptoms Abdominal/Gastrointestinal: No Symptoms Genitourinary Symptoms: No Symptoms Musculoskeletal: No Symptoms Skin: No Symptoms Neurological: No Symptoms Psychological: No Symptoms Endocrine: No Symptoms Hematologic/Lymphatic: No Symptoms Immunological/Allergic: No Symptoms Objective Exam General Appearance: lethargy Neurologic Exam: oriented x 3, cooperative Skin Exam: normal color Wound Assessment: Skin/Wound Assessment Wound/Incision Assessment Start: 11/17/23 19:58 Text: Status: Active Freq: Q6H Protocol: Document 11/22/23 02:00 OTTO (Rec: 11/22/23 02:17 OTTO [id number]) Wound/Incision Assessment Right Hand Wound Assessment Shift Assessment Wound Type Skin Tear Wound Stage Non Pressure Wound Dressing Status Dry & Intact Primary Dressing Non-Adherent Gauze Pads Secondary Dressing Elastic Bandage Medial Back Wound Assessment Shift Assessment Wound Type Puncture Wound Stage Non Pressure Wound Dressing Status Dry & Intact Drainage Odor None/Absent Primary Dressing Bandaid Left Lateral Heel Wound Assessment Shift Assessment Wound Type Pressure Ulcer Dressing Status Dry & Intact Drainage Amount None Comment DRESSING CLEAN, DRY AND INTACT Left Toe Wound Assessment Shift Assessment Wound Type Abrasion Wound Stage Non Pressure Wound Dressing Status Dry & Intact Drainage Amount None Primary Dressing Bandaid Left Upper Thigh Wound Assessment Shift Assessment Wound Type skin graft donor site Wound Stage Non Pressure Wound Dressing Status Dry & Intact,Changed Drainage Amount None Primary Dressing Non-Adherent Gauze Pads Secondary Dressing paper tape Comment DRESSING CLEAN, DRY AND INTACT Left Knee Wound Assessment Shift Assessment Wound Type Abrasion Wound Stage Non Pressure Wound Dressing Status Dry & Intact Drainage Amount None Surrounding Tissue [place] Primary Dressing Bandaid Lower Abdomen Wound Assessment Shift Assessment Wound Type EXORIATION Wound Stage Non Pressure Wound General Appearance Open to air,Reddened Surrounding Tissue [place] Comment POWDER APPLIED ORDERED Sacrum Wound Assessment Shift Assessment Wound Type SHEARING Wound Stage Non Pressure Wound Drainage Amount None General Appearance Open to air,Reddened Surrounding Tissue [place] Comment BARRIER CREAM APPLIED Wound Photo Photo Taken No Eye Exam: PERRL Ears, Nose, Throat Exam: normal ENT inspection Respiratory Exam: diminished breath sounds Cardiovascular Exam: regular rate/rhythm, normal heart sounds Gastrointestinal/Abdomen Exam: soft, normal bowel sounds Extremity Exam: normal inspection, amputations Back Exam: normal inspection Male Genitalia Exam: deferred Objective Data Vital Signs: Vital Signs - 24 hr Temp Pulse Resp BP Pulse Ox 11/22/23 04:00 97.5 F 93 H 18 110/51 95 11/22/23 00:00 97.0 F 99 H 17 103/55 77 L 11/21/23 19:10 97.5 F 99 H 18 111/57 92 L 11/21/23 18:35 101 H 18 93 L 11/21/23 16:00 97.2 F 95 H 17 108/57 95 11/21/23 12:00 97.8 F 100 H 18 108/59 90 L 11/21/23 09:24 102 H 18 94 L 11/21/23 08:00 98.1 F 104 H 18 103/59 90 L Pain Assessment - Last Documented Pain Intensity 0 Intake and Output: Intake & Output 11/19/23 11/20/23 11/21/23 11/22/23 11:59 11:59 11:59 11:59 Intake Total 1918 9738 786 3670 Output Total 1400 1550 1600 950 Balance 518 290 -712 1117 Weight 126.3 kg Lab Results: Lab Results-Last 24 Hours 11/21/23 11/21/23 11/21/23 Range/Units 05:25 05:25 07:17 WBC 9.0 (4.23-9.07) x10^3/uL RBC 3.37 L (4.63-6.08) x10^6/uL Hgb 9.2 L (13.7-17.5) g/dL Hct 31.5 L (40.1-51.0) % MCV 93.5 H (79.0-92.2) fL MCH 27.3 (25.7-32.2) pg MCHC 29.2 L (32.3-36.5) g/dL RDW 23.6 H (11.6-14.4) % Plt Count 222 (163-337) x10^3/uL MPV 8.5 L (9.4-12.4) fL Sodium 139 (135-145) mmol/L Potassium 4.3 (3.5-5.1) mmol/L Chloride 107 (98-107) mmol/L Carbon Dioxide 23 (22-30) mmol/L Anion Gap 12.7 (5-15) MEQ/L BUN 31 H (9-20) mg/dL Creatinine 1.45 H (0.66-1.25) mg/dL Estimated GFR 53.8 ML/MIN Glucose 151 H (74-106) mg/dL POC Glucometer 143 H (74 to 106) mg/dL Calcium 8.0 L (8.4-10.2) mg/dL Total Bilirubin 0.40 (0.2-1.3) mg/dL AST 17 (17-59) U/L ALT 13 (0-50) U/L Alkaline Phosphatase 64 (38-126) U/L Serum Total Protein 5.6 L (6.3-8.2) g/dL Albumin 3.0 L (3.5-5.0) g/dL Slides for Path Review YES 11/21/23 11/21/2324 Range/Units 11:37 16:04 21:36 WBC (4.23-9.07) x10^3/uL RBC (4.63-6.08) x10^6/uL Hgb (13.7-17.5) g/dL Hct (40.1-51.0) % MCV (79.0-92.2) fL MCH (25.7-32.2) pg MCHC (32.3-36.5) g/dL RDW (11.6-14.4) % Plt Count (163-337) x10^3/uL MPV (9.4-12.4) fL Sodium (135-145) mmol/L Potassium (3.5-5.1) mmol/L Chloride (98-107) mmol/L Carbon Dioxide (22-30) mmol/L Anion Gap (5-15) MEQ/L BUN (9-20) mg/dL Creatinine (0.66-1.25) mg/dL Estimated GFR ML/MIN Glucose (74-106) mg/dL POC Glucometer 122 H 132 H 138 H (74 to 106) mg/dL Calcium (8.4-10.2) mg/dL Total Bilirubin (0.2-1.3) mg/dL AST (17-59) U/L ALT (0-50) U/L Alkaline Phosphatase (38-126) U/L Serum Total Protein (6.3-8.2) g/dL Albumin (3.5-5.0) g/dL Slides for Path Review Radiology Exams: Radiology Procedures Category Date Time Status CHEST 1 VIEW (PORTABLE) Routine Exams 11/22/23 08:00 Ordered Assessment/Plan (1) Septic shock Current Visit: Yes Status: Acute Assessment & Plan: - 2:2 pneumonia/wounds - hypotension, rapid heart rate, low O2 - tele - sputum culture- pending - BC X2- negative -wound cultures with pseudomonas aeruginosa- -Zosyn for pneumonia/ pseudomonas coverage -No longer meets criteria Code(s): A41.9 - SEPSIS, UNSPECIFIED ORGANISM; R65.21 - SEVERE SEPSIS WITH SEPTIC SHOCK (2) Pneumonia Current Visit: Yes Status: Acute Assessment & Plan: -supplemental oxygen with goal spo2 > 92% - RA at baseline - requiring 2L mostly at night -Zosyn - continue -Sputum cult/ blood culture pending -tele -WBC WNL 11/21: -Repeat Cxr showing worsening effusions/infiltrates - order CT Code(s): J18.9 - PNEUMONIA, UNSPECIFIED ORGANISM (3) Pleural effusion Current Visit: Yes Status: Acute Assessment & Plan: -CXR noting CT proven diffuse bilateral patchy consolidating/nonconsolidating airspace disease with moderate bilateral pleural effusions/atelectasis -Thoracentesis performed removing 2.2L of fluid 11/18/23 -- CXR post thoracentesis 11/18/23 Portable chest demonstrates marked diminished right effusion/atelectasis with mild residual consistent with paracentesis. No pneumothorax. Remaining chest unchanged again left lung infiltrate/atelectasis/effusion, cardiomegaly, and left arm PICC line. 11/20: -Repeat CXR tomorrow 11/21: -Worsening infiltrates/effusion on CXR - CT ordered Code(s): J90 - PLEURAL EFFUSION, NOT ELSEWHERE CLASSIFIED (4) YAS (acute kidney injury) Current Visit: Yes Status: Acute Assessment & Plan: -baseline 0.9, on admission 1.39 -Avoid ALLYSON/ARB/NSAIDS -IVF at 50ml/hr 11/20: -Resolving - dc fluids 11/21: -Hold jardiance/metformin Code(s): N17.9 - ACUTE KIDNEY FAILURE, UNSPECIFIED (5) DM2 (diabetes mellitus, type 2) Current Visit: Yes Status: Acute Assessment & Plan: - A1C 5.73 08/23/23- controlled - Humalog s/s accuchecks ac/hs (6) Generalized weakness Current Visit: Yes Status: Acute Assessment & Plan: - PT eval and treat Code(s): R53.1 - WEAKNESS (7) Wounds, multiple open, lower extremity Current Visit: Yes Status: Chronic Assessment & Plan: - Follows podiatry OP - podiatry consulted as wraps need replaced- completed - Picc line in place [employer] d/t wound care/ antibiotic needs - wound culture by podiatry - gram negative- pseudomonas aeruginosa- continue zosyn VTE: Eliquis PPI: Protonix Code status: Full Code(s): A41.9 - SEPSIS, UNSPECIFIED ORGANISM; R65.21 - SEVERE SEPSIS WITH SEPTIC SHOCK (2) Pneumonia Current Visit: Yes Status: Acute Code(s): J18.9 - PNEUMONIA, UNSPECIFIED ORGANISM (3) Pleural effusion Current Visit: Yes Status: Acute Code(s): J90 - PLEURAL EFFUSION, NOT ELSEWHERE CLASSIFIED (4) YAS (acute kidney injury) Current Visit: Yes Status: Acute Code(s): N17.9 - ACUTE KIDNEY FAILURE, UNSPECIFIED (5) DM2 (diabetes mellitus, type 2) Current Visit: Yes Status: Acute (6) Generalized weakness Current Visit: Yes Status: Acute Code(s): R53.1 - WEAKNESS (7) Wounds, multiple open, lower extremity Current Visit: Yes Status: Chronic Code(s): S81.809A - UNSPECIFIED OPEN WOUND, UNSPECIFIED LOWER LEG, INIT ENCNTR
[2023-11-22 06:14] LABS: Absolute Neutrophil Ct (ANC) 6.99 x10^3/uL (1.78-5.38); BASOPHIL % 0.4 % (0.2-1.2); Basophil (Absolute #) 0.03 x10^3/uL (0.01-0.08); Eosinophil % 4.4 % (0.8-7.0); Eosinophil (Absolute #) 0.38 x10^3/uL (0.04-0.54); Hematocrit 33.1 % (40.1-51.0); Hemoglobin 9.5 g/dL (13.7-17.5); IMMATURE GRAN # 0.04 x10^3u/L (0.001-0.031); IMMATURE GRAN % 0.5 % (0.001-0.429); Lymphocyte (Absolute #) 0.74 x10^3/uL (1.32-3.57); Lymphocytes % 8.7 % (21.8-53.1); Mean Cell Volume 94.6 fL (79.0-92.2); Mean Corpuscular Hemoglobin 27.1 pg (25.7-32.2); Mean Corpuscular Hgb Concent. 28.7 g/dL (32.3-36.5); Mean Platelet Volume 9.5 fL (9.4-12.4); Monocyte (Absolute #) 0.36 x10^3/uL (0.30-0.82); Monocytes % 4.2 % (5.3-12.2); Neutrophil % 81.8 % (34.0-67.9); Platelet Count 275 x10^3/uL (163-337); Red Cell Distribution Width 23.6 % (11.6-14.4); White Blood Count 8.5 x10^3/uL (4.23-9.07)
[2023-11-22 06:29] LABS: ALBUMIN 3.2 g/dL (3.5-5.0); ANION GAP 12.1 MEQ/L (5-15); BILIRUBIN,TOTAL 0.4 mg/dL (0.2-1.3); Calcium 8.1 mg/dL (8.4-10.2); Creatinine 1 1.5 mg/dL (0.66-1.25); EST GLOMERULAR FILTRATION RATE 51.7 ML/MIN; Potassium 4.4 mmol/L (3.5-5.1); Total Protein 6.1 g/dL (6.3-8.2)
[2023-11-22 07:31] LABS: Slide Review 1 YES
--- NOTE | 2023-11-22 09:09 | XRAY ---
Indication: Pleural effusion. Comparison: November 19, 2023 Portable chest demonstrates interval worsening moderate bilateral infiltrates/atelectasis/effusions, right greater than left. Heart borderline enlarged again with left PICC line.
[2023-11-22] MEDS ORDERED: BACIGUENT PACKET TP SCH (10:00)
[2023-11-22 10:23] LABS: pH,Body Fluid 7.3 (Not Estab.)
[2023-11-22] MEDS: BACIGUENT 30 GM TP SCH (10:56)
[2023-11-22 11:32] LABS: A-aADO2 59; ABG HEMOGLOBIN 10.1; ABG POTASSIUM 4.2 (3.5-5.1); ARTERIAL BLD GAS O2 SATURATION 95.7 % (95-100); ARTERIAL BLOOD GAS BASE EXCESS -3.8 (-2.0-2.0); ARTERIAL BLOOD GAS FIO2 28 %; ARTERIAL BLOOD GAS PCO2 54 mmHg (35-45); ARTERIAL BLOOD GAS PO2 73 mmHg (75-100); CARBOXYHEMOGLOBIN 1.6 % THgb (0.0-6.9); HCO3- 23.7 (22-28); HGB O2 SAT 93.7 g/dF (94-100); Methhemoglobin 0.5 % (1.4-1.5); paO2 pAO1 0.55
[2023-11-22 11:34] LABS: ALLEN TEST OK? y; ARTERIAL BLOOD GAS pH 7.25 (7.35-7.45)
[2023-11-22] MEDS: HUMALOG SQ PRN (12:53)
--- NOTE | 2023-11-22 16:32 | PCM.CONS ---
Podiatry HPI - Consult Date of Consultation Date: 11/18/23 Reason for Consult: DFU left chronic OM Consulting Provider: CÉSAR BURNS DPM - [facility] History of Present Illness: is a 63 year old male with a history of hypertension, coronary artery disease with stenting, diabetes mellitus with right above-knee amputation, wounds on the left heel, lower extremity swelling resident of [facility] is brought in the ER with complaint of altered mental status, generalized weakness fatigue and tiredness. Patient per EMS was not confused or altered. He was having some shortness of breath with oxygen saturation in low 90s, placed on 2 L oxygen and improved in mid 90s. Patient does report coughing up clear to yellow sputum and generalized malaise for the past "couple of days" with worsening. Denies any chest pain. Patient recently has been increasing the dose of Lasix to get rid of excessive water/CHF. Patient denies any fever or chills. When EMS arrived patient blood pressure was in 80s, on presentation in the ER upon recheck it is in 90s. Subsequently in the ED, his BP improved to 126/75. In the ED, the patient was noted to have bilateral infiltrates and pleural effusions. Medications & Allergies Home Medications: Home Medication List Allopurinol 300 mg [Zyloprim 300 mg] 300 mg PO DAILY 04/26/15 [History Confirmed 11/17/23] Atorvastatin Calcium [Lipitor] 80 mg PO HS 07/07/17 [History Confirmed 11/17/23] Empagliflozin/Metformin HCl [Synjardy 5-1,000 mg Tablet] 5 - 1,000 mg PO BID 09/09/20 [History Confirmed 11/17/23] Gabapentin 900 mg PO TID 09/09/20 [History Confirmed 11/17/23] Glipizide 5 mg [Glucotrol 5 MG] 5 mg PO BID 10/06/21 [History Confirmed 11/17/23] Aspirin EC 81 mg [Ecotrin 81 mg] 81 mg PO DAILY #0 01/18/23 [Rx Confirmed 11/17/23] Ferrous Sulfate 325 mg [Feosol 325 mg] 325 mg PO QID 03/31/23 [History Confirmed 11/17/23] [place]-3 Fatty Acids/Fish Oil [Fish Oil 1,000 mg Capsule] 1,000 mg PO DAILY 03/31/23 [History Confirmed 11/17/23] Potassium Chloride 20 meq PO DAILY 03/31/23 [History Confirmed 11/17/23] Ropinirole HCl 1 mg PO BID 03/31/23 [History Confirmed 11/17/23] Acetaminophen 325 mg [Tylenol 325 mg] 650 mg PO Q6HPRN PRN 05/17/23 [History Confirmed 11/17/23] Clopidogrel Bisulfate [Clopidogrel] 75 mg PO DAILY 05/17/23 [History Confirmed 11/17/23] Cyanocobalamin 1000 Mcg/ml [Cyanocobalamin B-12 1000 MCG/ML] 1,000 mcg IM UD 05/17/23 [History Confirmed 11/17/23] Docusate Sodium 100 mg [Docusate Sodium 100 MG] 100 mg PO DAILY 05/17/23 [History Confirmed 11/17/23] Dulaglutide [Trulicity] 0.5 ml SQ WEEKLY 05/17/23 [History Confirmed 11/17/23] Glucagon [Baqsimi] 3 mg NS UD 05/17/23 [History Confirmed 11/17/23] Polyethylene Glycol 3350 17 gm [Miralax Powder 17GM PACKET] 17 gm PO F42IMAN PRN 05/17/23 [History Confirmed 11/17/23] Hydrocodone/Acetaminophen [Hydrocodone-Acetamin 10-325 mg] 1 each PO Q4H PRN PRN 08/30/23 [History Confirmed 11/17/23] Nitroglycerin 0.4 mg Tablet [Nitrostat 0.4 MG Tablet] 0.4 mg SL Q5MIN PRN MR X 3 PRN 08/30/23 [History Confirmed 11/17/23] Amiodarone HCl 200 mg PO DAILY 11/17/23 [History Confirmed 11/17/23] Apixaban [Eliquis] 5 mg PO BID 11/17/23 [History Confirmed 11/17/23] Heparin Sodium,Porcine/Pf [Heparin Lock Flush 100 Unit/ml] 1 each IV UD PRN 11/17/23 [History Confirmed 11/17/23] Losartan Potassium [Cozaar] 12.5 mg PO DAILY 11/17/23 [History Confirmed 11/17/23] Metoprolol Succinate 25 mg Xl* [Toprol-Xl 25MG Tablets] 25 mg PO BID 11/17/23 [History Confirmed 11/17/23] Nystatin 1 each TOP UD PRN 11/17/23 [History Confirmed 11/17/23] Pregabalin 50 mg [Lyrica 50MG] 50 mg PO TID 11/17/23 [History Confirmed 11/17/23] Allergies/Adverse Reactions: Allergies Allergy/AdvReac Type Severity Reaction Status Date / Time No Known Drug Allergies Allergy Verified 10/26/23 10:36 - Past Medical History Past Medical History: Yes Neurological History: Peripheral Neuropathy ENT History: Cataracts Cardiac History: Deep Vein Thrombosis, High Cholesterol, Hypertension, Peripheral Vascular Disease Respiratory History: Pneumonia, Sleep Apnea Endocrine Medical History: Diabetes Type II, Hypoglycemia Musculoskelatal History: Fractures, Other GI Medical History: No Pertinent History History: No Pertinent History Pyscho-Social History: No Pertinent History Male Reproductive Disorders: Other Comment: Osteomyelitis, PVD, Sepsis, Cardiomyopathy, Anemia, Hand contracture - Past Surgical History Past Surgical History: Yes Neuro Surgical History: No Pertinent History Cardiac History: Vascular Surgery, Cardiac Stent, Cardiac Catheterization Respiratory Surgery: No Pertinent History GI Surgical History: No Pertinent History Genitourinary Surgical Hx: No Pertinent History Musculskeletal Surgical Hx: No Pertinent History, Other Male Surgical History: No Pertinent History Other Surgical History: Vascular surg pradeep legs, in grown toe nails, FOOT SURGERY FOR DECUBITUS, multiple foot surgeries, multiple right foot surgeries eventually leading to right [id number] - Social History Smoking Status: Former smoker How long have you smoked: 2016 Exposure to second hand smoke: No Alcohol: None Drug Use: none - Social Determinants of Health Will the patient participate in the screening: Yes Do you worry about a steady place to live?: No Do you have any problems with any of the following?: No known problems In the past 12 months,have you had to go without utilities?: No Have you or anyone in your house had to go without enough: No Transportation Issues: No Has anyone in your support network made you feel unsafe?: No Does the patient want assistance with any of the above?: No Comment: Currently living at [facility] Physical Exam - Narrative Narrative Physical Exam: Podiatry Physical Exam Results - Labs Lab/Micro Results: Lab Results-Last 24 Hours 11/18/23 11/18/23 11/21/23 Range/Units 12:30 12:30 21:36 WBC (4.23-9.07) x10^3/uL RBC (4.63-6.08) x10^6/uL Hgb (13.7-17.5) g/dL Hct (40.1-51.0) % MCV (79.0-92.2) fL MCH (25.7-32.2) pg MCHC (32.3-36.5) g/dL RDW (11.6-14.4) % Plt Count (163-337) x10^3/uL MPV (9.4-12.4) fL Gran % (34.0-67.9) % Immature Gran % (Auto) (0.001-0.429) % Nucleat RBC Rel Count (0.00-0.2) % Eos # (Auto) (0.04-0.54) x10^3/uL Immature Gran # (Auto) (0.001-0.031) x10^3u/L Absolute Lymphs (auto) (1.32-3.57) x10^3/uL Absolute Monos (auto) (0.30-0.82) x10^3/uL Absolute Nucleated RBC (0.00-0.012) x10^3u/L Lymphocytes % (21.8-53.1) % Monocytes % (5.3-12.2) % Eosinophils % (0.8-7.0) % Basophils % (0.2-1.2) % Absolute Granulocytes (1.78-5.38) x10^3/uL Basophils # (0.01-0.08) x10^3/uL D-Dimer (0.0-0.50) mg/L Puncture Site pCO2 (35-45) mmHg pO2 (75-100) mmHg Base Excess (-2.0-2.0) O2 Saturation (94-100) g/dF ABG pH (7.35-7.45) ABG HCO3 (22-28) ABG O2 Sat (Measured) (95-100) % Dong Test A-a Gradient a/A Ratio Hemoglobin Carboxyhemoglobin (0.0-6.9) % THgb Methemoglobin (1.4-1.5) % Temperature C POC O2 Flow Rate % Sodium (135-145) mmol/L Potassium (3.5-5.1) mmol/L Chloride (98-107) mmol/L Carbon Dioxide (22-30) mmol/L Anion Gap (5-15) MEQ/L BUN (9-20) mg/dL Creatinine (0.66-1.25) mg/dL Estimated GFR ML/MIN Glucose (74-106) mg/dL POC Glucometer 138 H (74 to 106) mg/dL Calcium (8.4-10.2) mg/dL Total Bilirubin (0.2-1.3) mg/dL AST (17-59) U/L ALT (0-50) U/L Alkaline Phosphatase (38-126) U/L NT-Pro-B Natriuret Pep (<300) pg/mL Serum Total Protein (6.3-8.2) g/dL Albumin (3.5-5.0) g/dL Fluid pH 7.3 (Not Estab.) Non-Gen Cyto Rpt Notes SEE COMMENTS Slides for Path Review 11/22/23 11/22/23 11/22/23 Range/Units 05:11 05:40 05:40 WBC 8.5 (4.23-9.07) x10^3/uL RBC 3.50 L (4.63-6.08) x10^6/uL Hgb 9.5 L (13.7-17.5) g/dL Hct 33.1 L (40.1-51.0) % MCV 94.6 H (79.0-92.2) fL MCH 27.1 (25.7-32.2) pg MCHC 28.7 L (32.3-36.5) g/dL RDW 23.6 H (11.6-14.4) % Plt Count 275 (163-337) x10^3/uL MPV 9.5 (9.4-12.4) fL Gran % 81.8 H (34.0-67.9) % Immature Gran % (Auto) 0.5 H (0.001-0.429) % Nucleat RBC Rel Count 0.0 (0.00-0.2) % Eos # (Auto) 0.38 (0.04-0.54) x10^3/uL Immature Gran # (Auto) 0.04 H (0.001-0.031) x10^3u/L Absolute Lymphs (auto) 0.74 L (1.32-3.57) x10^3/uL Absolute Monos (auto) 0.36 (0.30-0.82) x10^3/uL Absolute Nucleated RBC 0.00 (0.00-0.012) x10^3u/L Lymphocytes % 8.7 L (21.8-53.1) % Monocytes % 4.2 L (5.3-12.2) % Eosinophils % 4.4 (0.8-7.0) % Basophils % 0.4 (0.2-1.2) % Absolute Granulocytes 6.99 H (1.78-5.38) x10^3/uL Basophils # 0.03 (0.01-0.08) x10^3/uL D-Dimer (0.0-0.50) mg/L Puncture Site pCO2 (35-45) mmHg pO2 (75-100) mmHg Base Excess (-2.0-2.0) O2 Saturation (94-100) g/dF ABG pH (7.35-7.45) ABG HCO3 (22-28) ABG O2 Sat (Measured) (95-100) % Dong Test A-a Gradient a/A Ratio Hemoglobin Carboxyhemoglobin (0.0-6.9) % THgb Methemoglobin (1.4-1.5) % Temperature C POC O2 Flow Rate % Sodium 139 (135-145) mmol/L Potassium 4.4 (3.5-5.1) mmol/L Chloride 106 (98-107) mmol/L Carbon Dioxide 25 (22-30) mmol/L Anion Gap 12.1 (5-15) MEQ/L BUN 33 H (9-20) mg/dL Creatinine 1.50 H (0.66-1.25) mg/dL Estimated GFR 51.7 ML/MIN Glucose 194 H (74-106) mg/dL POC Glucometer (74 to 106) mg/dL Calcium 8.1 L (8.4-10.2) mg/dL Total Bilirubin 0.40 (0.2-1.3) mg/dL AST 22 (17-59) U/L ALT 11 (0-50) U/L Alkaline Phosphatase 71 (38-126) U/L NT-Pro-B Natriuret Pep 16621 (<300) pg/mL Serum Total Protein 6.1 L (6.3-8.2) g/dL Albumin 3.2 L (3.5-5.0) g/dL Fluid pH (Not Estab.) Non-Gen Cyto Rpt Notes Slides for Path Review YES 11/22/23 11/22/23 11/22/23 Range/Units 06:44 10:33 11:10 WBC (4.23-9.07) x10^3/uL RBC (4.63-6.08) x10^6/uL Hgb (13.7-17.5) g/dL Hct (40.1-51.0) % MCV (79.0-92.2) fL MCH (25.7-32.2) pg MCHC (32.3-36.5) g/dL RDW (11.6-14.4) % Plt Count (163-337) x10^3/uL MPV (9.4-12.4) fL Gran % (34.0-67.9) % Immature Gran % (Auto) (0.001-0.429) % Nucleat RBC Rel Count (0.00-0.2) % Eos # (Auto) (0.04-0.54) x10^3/uL Immature Gran # (Auto) (0.001-0.031) x10^3u/L Absolute Lymphs (auto) (1.32-3.57) x10^3/uL Absolute Monos (auto) (0.30-0.82) x10^3/uL Absolute Nucleated RBC (0.00-0.012) x10^3u/L Lymphocytes % (21.8-53.1) % Monocytes % (5.3-12.2) % Eosinophils % (0.8-7.0) % Basophils % (0.2-1.2) % Absolute Granulocytes (1.78-5.38) x10^3/uL Basophils # (0.01-0.08) x10^3/uL D-Dimer 1.17 H* (0.0-0.50) mg/L Puncture Site lt rad pCO2 54 H (35-45) mmHg pO2 73 L (75-100) mmHg Base Excess -3.8 L (-2.0-2.0) O2 Saturation 93.7 L (94-100) g/dF ABG pH 7.25 L* (7.35-7.45) ABG HCO3 23.7 (22-28) ABG O2 Sat (Measured) 95.7 (95-100) % Dong Test y A-a Gradient 59 a/A Ratio 0.55 Hemoglobin 10.1 Carboxyhemoglobin 1.6 (0.0-6.9) % THgb Methemoglobin 0.5 L (1.4-1.5) % Temperature 37.0 C POC O2 Flow Rate 28 % Sodium (135-145) mmol/L Potassium 4.2 (3.5-5.1) mmol/L Chloride (98-107) mmol/L Carbon Dioxide (22-30) mmol/L Anion Gap (5-15) MEQ/L BUN (9-20) mg/dL Creatinine (0.66-1.25) mg/dL Estimated GFR ML/MIN Glucose (74-106) mg/dL POC Glucometer 179 H (74 to 106) mg/dL Calcium (8.4-10.2) mg/dL Total Bilirubin (0.2-1.3) mg/dL AST (17-59) U/L ALT (0-50) U/L Alkaline Phosphatase (38-126) U/L NT-Pro-B Natriuret Pep (<300) pg/mL Serum Total Protein (6.3-8.2) g/dL Albumin (3.5-5.0) g/dL Fluid pH (Not Estab.) Non-Gen Cyto Rpt Notes Slides for Path Review 11/22/23 11/22/23 Range/Units 11:18 16:07 WBC (4.23-9.07) x10^3/uL RBC (4.63-6.08) x10^6/uL Hgb (13.7-17.5) g/dL Hct (40.1-51.0) % MCV (79.0-92.2) fL MCH (25.7-32.2) pg MCHC (32.3-36.5) g/dL RDW (11.6-14.4) % Plt Count (163-337) x10^3/uL MPV (9.4-12.4) fL Gran % (34.0-67.9) % Immature Gran % (Auto) (0.001-0.429) % Nucleat RBC Rel Count (0.00-0.2) % Eos # (Auto) (0.04-0.54) x10^3/uL Immature Gran # (Auto) (0.001-0.031) x10^3u/L Absolute Lymphs (auto) (1.32-3.57) x10^3/uL Absolute Monos (auto) (0.30-0.82) x10^3/uL Absolute Nucleated RBC (0.00-0.012) x10^3u/L Lymphocytes % (21.8-53.1) % Monocytes % (5.3-12.2) % Eosinophils % (0.8-7.0) % Basophils % (0.2-1.2) % Absolute Granulocytes (1.78-5.38) x10^3/uL Basophils # (0.01-0.08) x10^3/uL D-Dimer (0.0-0.50) mg/L Puncture Site pCO2 (35-45) mmHg pO2 (75-100) mmHg Base Excess (-2.0-2.0) O2 Saturation (94-100) g/dF ABG pH (7.35-7.45) ABG HCO3 (22-28) ABG O2 Sat (Measured) (95-100) % Dong Test A-a Gradient a/A Ratio Hemoglobin Carboxyhemoglobin (0.0-6.9) % THgb Methemoglobin (1.4-1.5) % Temperature C POC O2 Flow Rate % Sodium (135-145) mmol/L Potassium (3.5-5.1) mmol/L Chloride (98-107) mmol/L Carbon Dioxide (22-30) mmol/L Anion Gap (5-15) MEQ/L BUN (9-20) mg/dL Creatinine (0.66-1.25) mg/dL Estimated GFR ML/MIN Glucose (74-106) mg/dL POC Glucometer 157 H 103 (74 to 106) mg/dL Calcium (8.4-10.2) mg/dL Total Bilirubin (0.2-1.3) mg/dL AST (17-59) U/L ALT (0-50) U/L Alkaline Phosphatase (38-126) U/L NT-Pro-B Natriuret Pep (<300) pg/mL Serum Total Protein (6.3-8.2) g/dL Albumin (3.5-5.0) g/dL Fluid pH (Not Estab.) Non-Gen Cyto Rpt Notes Slides for Path Review Microbiology 11/18/23 11:22 Wound Culture - Final Toe - L Big (Greater) ORGANISMS ISOLATED ARE CONSISTENT WITH NORMAL SKIN PAVEL LIGHT GROWTH, NO PREDOMINANT ORGANISM 11/17/23 16:55 Blood Culture - Final Blood 11/18/23 12:30 Body Fluid Culture - Final Pleural Fluid NO GROWTH 11/18/23 11:22 Wound Culture - Final Heel - Left Pseudomonas Aeruginosa 11/18/23 12:30 Anaerobic Culture Result 2 - Final Lung - Right Not Reportable Anaerobic Culture Result 3 - Final Not Reportable Anaerobic Culture Result 4 - Final Not Reportable Antimicrobic Susceptibility - Final Not Reportable Accuchecks Date 11/22/23 Date 11/22/23 Date 11/22/23 Date 11/21/23 Time 16:07 Time 11:18 Time 07:00 - Radiology Impressions Radiology Exams & Impressions: Radiology Procedures Category Date Time Status CHEST 1 VIEW (PORTABLE) Routine Exams 11/22/23 08:00 Completed CHEST WITH CONTRAST [CT] Stat Exams 11/22/23 10:09 Taken - Other Procedures and Tests Respiratory Therapy 11/22/23 12:23 BiPap/CPAP ROUTINE Assessment/Plan (1) YAS (acute kidney injury) Current Visit: Yes Status: Acute Code(s): N17.9 - ACUTE KIDNEY FAILURE, UNSPECIFIED (2) DM2 (diabetes mellitus, type 2) Current Visit: Yes Status: Acute (3) Generalized weakness Current Visit: Yes Status: Acute Code(s): R53.1 - WEAKNESS (4) Diabetic foot ulcer Current Visit: No Status: Acute Assessment & Plan: Culture obtained Iodine, aquacel, and unna boot Unna boot applied to the left lower extremity for venous insufficiency Code(s): E11.621 - TYPE 2 DIABETES MELLITUS WITH FOOT ULCER; L97.509 - NON- PRESSURE CHRONIC ULCER OTH PRT UNSP FOOT W UNSP SEVERITY (5) Leukocytosis Current Visit: No Status: Acute Code(s): D72.829 - ELEVATED WHITE BLOOD CELL COUNT, UNSPECIFIED (6) Osteomyelitis Current Visit: No Status: Acute Onset Date: ~02/02/18 Qualifiers: Osteomyelitis type: unspecified type Osteomyelitis location: foot Laterality: right Qualified Code(s): M86.9 - Osteomyelitis, unspecified Code(s): M86.9 - OSTEOMYELITIS, UNSPECIFIED (7) Diabetes type 2, uncontrolled Current Visit: No Status: Chronic Code(s): E11.65 - TYPE 2 DIABETES MELLITUS WITH HYPERGLYCEMIA (8) Hyperlipidemia Current Visit: No Status: Chronic Code(s): E78.5 - HYPERLIPIDEMIA, UNSPECIFIED (9) Hypertension Current Visit: No Status: Chronic Qualifiers: Hypertension type: essential hypertension Qualified Code(s): I10 - [place] l (primary) hypertension Code(s): I10 - ESSENTIAL (PRIMARY) HYPERTENSION
--- NOTE | 2023-11-22 16:36 | XRAY ---
Indication: Infiltrates. Short of breath. Pulmonary embolus. Multiple contiguous axial images obtained through the chest using 80 cc Isovue 370 contrast and PE protocol. Comparison: October 26, 2023 Adequate opacification pulmonary arteries. Large bilateral effusions/atelectasis limits evaluation of both lower lobe pulmonary arteries. Remaining pulmonary arteries again negative for pulmonary embolus. Heart not enlarged again with scattered coronary calcifications and left arm PICC line. Aorta again demonstrates mild scattered arteriosclerotic calcifications without aneurysm/dissection. Grossly stable small mediastinal lymph nodes again largest right paratracheal. No new mediastinal/hilar lymphadenopathy. Lungs demonstrates dramatic worsening large bilateral effusions occupying at least 50% in each hemithorax. Subsequent bilateral lower lobe and lesser degree right middle lobe compressive atelectasis. Visualized aerated upper lungs demonstrates minimal patchy interstitial alveolar opacities, less than before. Bony thorax intact again with degenerative changes throughout spine. Limited upper abdomen demonstrates new incompletely visualized small perisplenic/perihepatic ascites. Impression: 1. Pulmonary embolus evaluation limited as detailed. Continued negative for pulmonary embolus. 2. Dramatic worsening large bilateral effusions with compressive atelectasis. No cardiomegaly. 3. Previous bilateral airspace disease improved with minimal residual in both aerated lungs. 4. New incompletely visualized small perisplenic/perihepatic ascites.
--- NOTE | 2023-11-22 16:38 | PCM.NOTE ---
Date and Time: 11/22/23 1635 Subjective Assessment: Ok with brother at bedside this afternoon. extremely short of breath. No evidence of confusion. Left leg elevated on pillow. Physical Exam - General General Appearance: mild distress - Narrative Narrative Physical Exam: Podiatry Physical Exam Objective Data Vital Signs: Vital Signs - 24 hr Temp Pulse Resp BP Pulse Ox 11/22/23 15:13 97.8 F 81 24 108/67 100 11/22/23 11:12 97.9 F 89 16 111/58 93 L 11/22/23 07:02 97.9 F 92 H 24 115/70 93 L 11/22/23 05:25 89 22 94 L 11/22/23 04:00 97.5 F 93 H 18 110/51 95 11/22/23 00:00 97.0 F 99 H 17 103/55 77 L 11/21/23 19:10 97.5 F 99 H 18 111/57 92 L 11/21/23 18:35 101 H 18 93 L Pain Assessment - Last Documented Pain Intensity 0 Intake and Output: Intake & Output 11/20/23 11/21/23 11/22/23 11/23/23 11:59 11:59 11:59 11:59 Intake Total 5016 285 6679 Output Total 1550 1600 950 Balance 290 -646 1537 Lab Results: Lab Results-Last 24 Hours 11/18/23 11/18/23 11/21/23 Range/Units 12:30 12:30 21:36 WBC (4.23-9.07) x10^3/uL RBC (4.63-6.08) x10^6/uL Hgb (13.7-17.5) g/dL Hct (40.1-51.0) % MCV (79.0-92.2) fL MCH (25.7-32.2) pg MCHC (32.3-36.5) g/dL RDW (11.6-14.4) % Plt Count (163-337) x10^3/uL MPV (9.4-12.4) fL Gran % (34.0-67.9) % Immature Gran % (Auto) (0.001-0.429) % Nucleat RBC Rel Count (0.00-0.2) % Eos # (Auto) (0.04-0.54) x10^3/uL Immature Gran # (Auto) (0.001-0.031) x10^3u/L Absolute Lymphs (auto) (1.32-3.57) x10^3/uL Absolute Monos (auto) (0.30-0.82) x10^3/uL Absolute Nucleated RBC (0.00-0.012) x10^3u/L Lymphocytes % (21.8-53.1) % Monocytes % (5.3-12.2) % Eosinophils % (0.8-7.0) % Basophils % (0.2-1.2) % Absolute Granulocytes (1.78-5.38) x10^3/uL Basophils # (0.01-0.08) x10^3/uL D-Dimer (0.0-0.50) mg/L Puncture Site pCO2 (35-45) mmHg pO2 (75-100) mmHg Base Excess (-2.0-2.0) O2 Saturation (94-100) g/dF ABG pH (7.35-7.45) ABG HCO3 (22-28) ABG O2 Sat (Measured) (95-100) % Dong Test A-a Gradient a/A Ratio Hemoglobin Carboxyhemoglobin (0.0-6.9) % THgb Methemoglobin (1.4-1.5) % Temperature C POC O2 Flow Rate % Sodium (135-145) mmol/L Potassium (3.5-5.1) mmol/L Chloride (98-107) mmol/L Carbon Dioxide (22-30) mmol/L Anion Gap (5-15) MEQ/L BUN (9-20) mg/dL Creatinine (0.66-1.25) mg/dL Estimated GFR ML/MIN Glucose (74-106) mg/dL POC Glucometer 138 H (74 to 106) mg/dL Calcium (8.4-10.2) mg/dL Total Bilirubin (0.2-1.3) mg/dL AST (17-59) U/L ALT (0-50) U/L Alkaline Phosphatase (38-126) U/L NT-Pro-B Natriuret Pep (<300) pg/mL Serum Total Protein (6.3-8.2) g/dL Albumin (3.5-5.0) g/dL Fluid pH 7.3 (Not Estab.) Non-Gen Cyto Rpt Notes SEE COMMENTS Slides for Path Review 11/22/23 11/22/23 11/22/23 Range/Units 05:11 05:40 05:40 WBC 8.5 (4.23-9.07) x10^3/uL RBC 3.50 L (4.63-6.08) x10^6/uL Hgb 9.5 L (13.7-17.5) g/dL Hct 33.1 L (40.1-51.0) % MCV 94.6 H (79.0-92.2) fL MCH 27.1 (25.7-32.2) pg MCHC 28.7 L (32.3-36.5) g/dL RDW 23.6 H (11.6-14.4) % Plt Count 275 (163-337) x10^3/uL MPV 9.5 (9.4-12.4) fL Gran % 81.8 H (34.0-67.9) % Immature Gran % (Auto) 0.5 H (0.001-0.429) % Nucleat RBC Rel Count 0.0 (0.00-0.2) % Eos # (Auto) 0.38 (0.04-0.54) x10^3/uL Immature Gran # (Auto) 0.04 H (0.001-0.031) x10^3u/L Absolute Lymphs (auto) 0.74 L (1.32-3.57) x10^3/uL Absolute Monos (auto) 0.36 (0.30-0.82) x10^3/uL Absolute Nucleated RBC 0.00 (0.00-0.012) x10^3u/L Lymphocytes % 8.7 L (21.8-53.1) % Monocytes % 4.2 L (5.3-12.2) % Eosinophils % 4.4 (0.8-7.0) % Basophils % 0.4 (0.2-1.2) % Absolute Granulocytes 6.99 H (1.78-5.38) x10^3/uL Basophils # 0.03 (0.01-0.08) x10^3/uL D-Dimer (0.0-0.50) mg/L Puncture Site pCO2 (35-45) mmHg pO2 (75-100) mmHg Base Excess (-2.0-2.0) O2 Saturation (94-100) g/dF ABG pH (7.35-7.45) ABG HCO3 (22-28) ABG O2 Sat (Measured) (95-100) % Dong Test A-a Gradient a/A Ratio Hemoglobin Carboxyhemoglobin (0.0-6.9) % THgb Methemoglobin (1.4-1.5) % Temperature C POC O2 Flow Rate % Sodium 139 (135-145) mmol/L Potassium 4.4 (3.5-5.1) mmol/L Chloride 106 (98-107) mmol/L Carbon Dioxide 25 (22-30) mmol/L Anion Gap 12.1 (5-15) MEQ/L BUN 33 H (9-20) mg/dL Creatinine 1.50 H (0.66-1.25) mg/dL Estimated GFR 51.7 ML/MIN Glucose 194 H (74-106) mg/dL POC Glucometer (74 to 106) mg/dL Calcium 8.1 L (8.4-10.2) mg/dL Total Bilirubin 0.40 (0.2-1.3) mg/dL AST 22 (17-59) U/L ALT 11 (0-50) U/L Alkaline Phosphatase 71 (38-126) U/L NT-Pro-B Natriuret Pep 73433 (<300) pg/mL Serum Total Protein 6.1 L (6.3-8.2) g/dL Albumin 3.2 L (3.5-5.0) g/dL Fluid pH (Not Estab.) Non-Gen Cyto Rpt Notes Slides for Path Review YES 11/22/23 11/22/23 11/22/23 Range/Units 06:44 10:33 11:10 WBC (4.23-9.07) x10^3/uL RBC (4.63-6.08) x10^6/uL Hgb (13.7-17.5) g/dL Hct (40.1-51.0) % MCV (79.0-92.2) fL MCH (25.7-32.2) pg MCHC (32.3-36.5) g/dL RDW (11.6-14.4) % Plt Count (163-337) x10^3/uL MPV (9.4-12.4) fL Gran % (34.0-67.9) % Immature Gran % (Auto) (0.001-0.429) % Nucleat RBC Rel Count (0.00-0.2) % Eos # (Auto) (0.04-0.54) x10^3/uL Immature Gran # (Auto) (0.001-0.031) x10^3u/L Absolute Lymphs (auto) (1.32-3.57) x10^3/uL Absolute Monos (auto) (0.30-0.82) x10^3/uL Absolute Nucleated RBC (0.00-0.012) x10^3u/L Lymphocytes % (21.8-53.1) % Monocytes % (5.3-12.2) % Eosinophils % (0.8-7.0) % Basophils % (0.2-1.2) % Absolute Granulocytes (1.78-5.38) x10^3/uL Basophils # (0.01-0.08) x10^3/uL D-Dimer 1.17 H* (0.0-0.50) mg/L Puncture Site lt rad pCO2 54 H (35-45) mmHg pO2 73 L (75-100) mmHg Base Excess -3.8 L (-2.0-2.0) O2 Saturation 93.7 L (94-100) g/dF ABG pH 7.25 L* (7.35-7.45) ABG HCO3 23.7 (22-28) ABG O2 Sat (Measured) 95.7 (95-100) % Dong Test y A-a Gradient 59 a/A Ratio 0.55 Hemoglobin 10.1 Carboxyhemoglobin 1.6 (0.0-6.9) % THgb Methemoglobin 0.5 L (1.4-1.5) % Temperature 37.0 C POC O2 Flow Rate 28 % Sodium (135-145) mmol/L Potassium 4.2 (3.5-5.1) mmol/L Chloride (98-107) mmol/L Carbon Dioxide (22-30) mmol/L Anion Gap (5-15) MEQ/L BUN (9-20) mg/dL Creatinine (0.66-1.25) mg/dL Estimated GFR ML/MIN Glucose (74-106) mg/dL POC Glucometer 179 H (74 to 106) mg/dL Calcium (8.4-10.2) mg/dL Total Bilirubin (0.2-1.3) mg/dL AST (17-59) U/L ALT (0-50) U/L Alkaline Phosphatase (38-126) U/L NT-Pro-B Natriuret Pep (<300) pg/mL Serum Total Protein (6.3-8.2) g/dL Albumin (3.5-5.0) g/dL Fluid pH (Not Estab.) Non-Gen Cyto Rpt Notes Slides for Path Review 11/22/23 11/22/23 Range/Units 11:18 16:07 WBC (4.23-9.07) x10^3/uL RBC (4.63-6.08) x10^6/uL Hgb (13.7-17.5) g/dL Hct (40.1-51.0) % MCV (79.0-92.2) fL MCH (25.7-32.2) pg MCHC (32.3-36.5) g/dL RDW (11.6-14.4) % Plt Count (163-337) x10^3/uL MPV (9.4-12.4) fL Gran % (34.0-67.9) % Immature Gran % (Auto) (0.001-0.429) % Nucleat RBC Rel Count (0.00-0.2) % Eos # (Auto) (0.04-0.54) x10^3/uL Immature Gran # (Auto) (0.001-0.031) x10^3u/L Absolute Lymphs (auto) (1.32-3.57) x10^3/uL Absolute Monos (auto) (0.30-0.82) x10^3/uL Absolute Nucleated RBC (0.00-0.012) x10^3u/L Lymphocytes % (21.8-53.1) % Monocytes % (5.3-12.2) % Eosinophils % (0.8-7.0) % Basophils % (0.2-1.2) % Absolute Granulocytes (1.78-5.38) x10^3/uL Basophils # (0.01-0.08) x10^3/uL D-Dimer (0.0-0.50) mg/L Puncture Site pCO2 (35-45) mmHg pO2 (75-100) mmHg Base Excess (-2.0-2.0) O2 Saturation (94-100) g/dF ABG pH (7.35-7.45) ABG HCO3 (22-28) ABG O2 Sat (Measured) (95-100) % Dong Test A-a Gradient a/A Ratio Hemoglobin Carboxyhemoglobin (0.0-6.9) % THgb Methemoglobin (1.4-1.5) % Temperature C POC O2 Flow Rate % Sodium (135-145) mmol/L Potassium (3.5-5.1) mmol/L Chloride (98-107) mmol/L Carbon Dioxide (22-30) mmol/L Anion Gap (5-15) MEQ/L BUN (9-20) mg/dL Creatinine (0.66-1.25) mg/dL Estimated GFR ML/MIN Glucose (74-106) mg/dL POC Glucometer 157 H 103 (74 to 106) mg/dL Calcium (8.4-10.2) mg/dL Total Bilirubin (0.2-1.3) mg/dL AST (17-59) U/L ALT (0-50) U/L Alkaline Phosphatase (38-126) U/L NT-Pro-B Natriuret Pep (<300) pg/mL Serum Total Protein (6.3-8.2) g/dL Albumin (3.5-5.0) g/dL Fluid pH (Not Estab.) Non-Gen Cyto Rpt Notes Slides for Path Review Radiology Exams: Radiology Procedures Category Date Time Status CHEST 1 VIEW (PORTABLE) Routine Exams 11/22/23 08:00 Completed CHEST WITH CONTRAST [CT] Stat Exams 11/22/23 10:09 Taken Multi-Disciplinary Progress Notes: Multi-Disciplinary Progress Notes 11/22/23 13:48 Case Management Note by Delmy Zaidi S/W PATIENT- HE CONTINUES TO PLAN TO TRANSITION BACK TO [facility] AT TIME OF DC Initialized on 11/22/23 13:48 - END OF NOTE Assessment/Plan (1) YAS (acute kidney injury) Current Visit: Yes Status: Acute Code(s): N17.9 - ACUTE KIDNEY FAILURE, UNSPECIFIED (2) DM2 (diabetes mellitus, type 2) Current Visit: Yes Status: Acute (3) Generalized weakness Current Visit: Yes Status: Acute Code(s): R53.1 - WEAKNESS (4) Diabetic foot ulcer Current Visit: No Status: Acute Assessment & Plan: Patient assessment Wound debridement of heel Q7 Attention was directed to the left lateral heel Verbal consent was obtained prior to the procedure. Sharp, excisional debridement was performed of the left lateral heel ulcer using a curette. Removal of nonviable tissue was performed with the debridement: fibrotic and necrotic tissue Depth of debridement: skin and subcutaneous tissue Hemostasis was obtained a using pressure dressing. Pre- and post- debridement measurements as follows: Pre-Debridement: Size - 2.8x1.3x 0. 4 Post-Debridement: Size - 3.2 x1.8x 0.7 Wound showing granulation tissue and healthing bleeding under the fibrotic tissue during debridement Unna boot applied to left lower extremity for venous insuffiecncy and localized edema. Will follow with you. Code(s): E11.621 - TYPE 2 DIABETES MELLITUS WITH FOOT ULCER; L97.509 - NON- PRESSURE CHRONIC ULCER OTH PRT UNSP FOOT W UNSP SEVERITY (5) Leukocytosis Current Visit: No Status: Acute Code(s): D72.829 - ELEVATED WHITE BLOOD CELL COUNT, UNSPECIFIED (6) Osteomyelitis Current Visit: No Status: Acute Onset Date: ~02/02/18 Qualifiers: Osteomyelitis type: unspecified type Osteomyelitis location: foot Laterality: right Qualified Code(s): M86.9 - Osteomyelitis, unspecified Code(s): M86.9 - OSTEOMYELITIS, UNSPECIFIED (7) Diabetes type 2, uncontrolled Current Visit: No Status: Chronic Code(s): E11.65 - TYPE 2 DIABETES MELLITUS WITH HYPERGLYCEMIA (8) Hyperlipidemia Current Visit: No Status: Chronic Code(s): E78.5 - HYPERLIPIDEMIA, UNSPECIFIED (9) Hypertension Current Visit: No Status: Chronic Qualifiers: Hypertension type: essential hypertension Qualified Code(s): I10 - Essential (primary) hypertension Code(s): I10 - ESSENTIAL (PRIMARY) HYPERTENSION
[2023-11-22] MEDS: Lasix 40 MG/4 ML IV ONE (17:28)
[2023-11-23 05:28] LABS: Absolute Neutrophil Ct (ANC) 4.27 x10^3/uL (1.78-5.38); BASOPHIL % 0.8 % (0.2-1.2); Basophil (Absolute #) 0.05 x10^3/uL (0.01-0.08); Eosinophil % 9.6 % (0.8-7.0); Eosinophil (Absolute #) 0.58 x10^3/uL (0.04-0.54); Hematocrit 31.7 % (40.1-51.0); Hemoglobin 9.3 g/dL (13.7-17.5); IMMATURE GRAN # 0.02 x10^3u/L (0.001-0.031); IMMATURE GRAN % 0.3 % (0.001-0.429); Lymphocyte (Absolute #) 0.77 x10^3/uL (1.32-3.57); Lymphocytes % 12.8 % (21.8-53.1); Mean Cell Volume 92.2 fL (79.0-92.2); Mean Corpuscular Hgb Concent. 29.3 g/dL (32.3-36.5); Mean Platelet Volume 8.5 fL (9.4-12.4); Monocyte (Absolute #) 0.34 x10^3/uL (0.30-0.82); Monocytes % 5.6 % (5.3-12.2); Neutrophil % 70.9 % (34.0-67.9); Platelet Count 209 x10^3/uL (163-337); Red Blood Count 3.44 x10^6/uL (4.63-6.08); Red Cell Distribution Width 22.5 % (11.6-14.4)
--- NOTE | 2023-11-23 05:33 | PCM.NOTE ---
Date and Time: 11/23/23 0530 Subjective Assessment: HPI: is a 63 year old male with a PMHX of HTN, CAD with stenting, DM, right above-knee amputation, wounds on the left heel, and lower extremity swelling resident of [facility] admitted 11/17/23 with sepsis secondary to pneumonia after experiencing generalized weakness, fatigue, dyspnea with spo2 in the low 90s, and a productive cough with yellow sputum. Initial CXR showing diffuse bilateral patchy consolidation/nonconsolidating airspace disease with moderate bilateral pleural effusions. Patient did have Throacentesis performed 11/18/23 with 2200 CC removed. IP treatment with Zosyn. Podiatry consulted for BLLE wound and rewrapping who he follows with OP. Wound culture of the left heel showing pseudomonas aeruginosa sensitive to Zosyn. Patient endorses dyspnea has improved. Still requiring 2L of oxygen, mostly at night. Overnight pulse ox pending. Labs and vitals stable. Patient has PICC placed, can continue IV abx at [facility] on discharge. Did have episodes of AFIB with HR in the 130-150's per RN. Metoprolol and amiodarone resumed. CXR 11/22/23 with worsening bilteral infiltrates/effusions R>L. CTA 11/22/23 showing Dramatic worsening large bilateral effusions with compressive atelectasis. Previous bilateral airspace disease improved with minimal residual in both aerated lungs. Negative for PE. Lasix given. 11/22/23: Met with patient bedside. Notably lethargic during interview. CXR showing worsening bilateral infiltrates/effusions R>L. ABG showing primary resp. chronic acidosis with secondary metabolic acidosis. Patient placed on BIPAP. DDimer elevated. CT chest ordered. 11/23/23 Patient more alert today. States dyspnea improved. Plan for thoracentesis - CTA showing worsening bilateral effusions. Continue abx for pneumonia/left heel wounds. - Review of Systems Constitutional: No Symptoms (LLE with compression dressing) Eyes: No Symptoms Ears, Nose, & Throat: No Symptoms Respiratory: Short Of Breath Cardiac: Edema Abdominal/Gastrointestinal: No Symptoms Genitourinary Symptoms: No Symptoms Musculoskeletal: No Symptoms Skin: Skin Lesions (left heel) Neurological: No Symptoms Psychological: No Symptoms Endocrine: No Symptoms Hematologic/Lymphatic: No Symptoms Immunological/Allergic: No Symptoms Objective Exam General Appearance: no apparent distress Neurologic Exam: alert, oriented x 3, cooperative Wound Assessment: Skin/Wound Assessment Wound/Incision Assessment Start: 11/17/23 19:58 Text: Status: Active Freq: Q6H Protocol: Document 11/23/23 02:00 LB (Rec: 11/23/23 03:31 LB [id number]) Wound/Incision Assessment Right Hand Wound Assessment Shift Assessment Wound Type Skin Tear Wound Stage Non Pressure Wound Dressing Status Dry & Intact Primary Dressing Non-Adherent Gauze Pads Secondary Dressing Elastic Bandage Medial Back Wound Assessment Shift Assessment Wound Type Puncture Wound Stage Non Pressure Wound Dressing Status Dry & Intact Drainage Odor None/Absent Primary Dressing Bandaid Left Lateral Heel Wound Assessment Shift Assessment Wound Type Pressure Ulcer Dressing Status Drainage circled Drainage Amount None Comment DRESSING INTACT Left Toe Wound Assessment Shift Assessment Wound Type Abrasion Wound Stage Non Pressure Wound Dressing Status Dry & Intact Drainage Amount None Primary Dressing Bandaid Left Upper Thigh Wound Assessment Shift Assessment Wound Type skin graft donor site Wound Stage Non Pressure Wound Dressing Status Dry & Intact Drainage Amount None Primary Dressing Non-Adherent Gauze Pads Secondary Dressing paper tape Comment DRESSING CLEAN, DRY AND INTACT Left Knee Wound Assessment Shift Assessment Wound Type Abrasion Wound Stage Non Pressure Wound Dressing Status Dry & Intact Drainage Amount None Surrounding Tissue [place] Primary Dressing Bandaid Lower Abdomen Wound Assessment Shift Assessment Wound Type EXCORIATION Wound Stage Non Pressure Wound General Appearance Open to air,Reddened Surrounding Tissue [place] Comment NYSTATIN APPLIED ORDERED Sacrum Wound Assessment Shift Assessment Wound Type SHEARING Wound Stage Non Pressure Wound Drainage Amount None General Appearance Open to air,Reddened Surrounding Tissue [place] Comment BARRIER CREAM APPLIED Wound Photo Photo Taken Yes Comment: IN PAPER CHART Eye Exam: PERRL Ears, Nose, Throat Exam: normal ENT inspection Neck Exam: normal inspection Respiratory Exam: crackles/rales Cardiovascular Exam: regular rate/rhythm, normal heart sounds Gastrointestinal/Abdomen Exam: soft, normal bowel sounds Extremity Exam: amputations (R- above the knee) Back Exam: normal inspection Objective Data Vital Signs: Vital Signs - 24 hr Temp Pulse Resp BP Pulse Ox 11/23/23 04:00 96.6 F 79 16 111/57 96 11/23/23 00:00 78 15 106/53 95 11/22/23 21:34 83 18 95 11/22/23 20:00 97.4 F 84 18 180/68 95 11/22/23 15:13 97.8 F 81 24 108/67 100 11/22/23 11:12 97.9 F 89 16 111/58 93 L 11/22/23 07:02 97.9 F 92 H 24 115/70 93 L Pain Assessment - Last Documented Pain Intensity 0 Intake and Output: Intake & Output 11/20/23 11/21/23 11/22/23 11/23/23 11:59 11:59 11:59 11:59 Intake Total 1775 755 3716 1500 Output Total 1550 2181 990 8487 Balance 290 -712 1537 450 Lab Results: Lab Results-Last 24 Hours 11/18/23 11/18/23 11/22/23 Range/Units 12:30 12:30 05:11 WBC (4.23-9.07) x10^3/uL RBC (4.63-6.08) x10^6/uL Hgb (13.7-17.5) g/dL Hct (40.1-51.0) % MCV (79.0-92.2) fL MCH (25.7-32.2) pg MCHC (32.3-36.5) g/dL RDW (11.6-14.4) % Plt Count (163-337) x10^3/uL MPV (9.4-12.4) fL Gran % (34.0-67.9) % Immature Gran % (Auto) (0.001-0.429) % Nucleat RBC Rel Count (0.00-0.2) % Eos # (Auto) (0.04-0.54) x10^3/uL Immature Gran # (Auto) (0.001-0.031) x10^3u/L Absolute Lymphs (auto) (1.32-3.57) x10^3/uL Absolute Monos (auto) (0.30-0.82) x10^3/uL Absolute Nucleated RBC (0.00-0.012) x10^3u/L Lymphocytes % (21.8-53.1) % Monocytes % (5.3-12.2) % Eosinophils % (0.8-7.0) % Basophils % (0.2-1.2) % Absolute Granulocytes (1.78-5.38) x10^3/uL Basophils # (0.01-0.08) x10^3/uL D-Dimer (0.0-0.50) mg/L Puncture Site pCO2 (35-45) mmHg pO2 (75-100) mmHg Base Excess (-2.0-2.0) O2 Saturation (94-100) g/dF ABG pH (7.35-7.45) ABG HCO3 (22-28) ABG O2 Sat (Measured) (95-100) % Dong Test A-a Gradient a/A Ratio Hemoglobin Carboxyhemoglobin (0.0-6.9) % THgb Methemoglobin (1.4-1.5) % Temperature C POC O2 Flow Rate % Sodium (135-145) mmol/L Potassium (3.5-5.1) mmol/L Chloride (98-107) mmol/L Carbon Dioxide (22-30) mmol/L Anion Gap (5-15) MEQ/L BUN (9-20) mg/dL Creatinine (0.66-1.25) mg/dL Estimated GFR ML/MIN Glucose (74-106) mg/dL POC Glucometer (74 to 106) mg/dL Calcium (8.4-10.2) mg/dL Total Bilirubin (0.2-1.3) mg/dL AST (17-59) U/L ALT (0-50) U/L Alkaline Phosphatase (38-126) U/L NT-Pro-B Natriuret Pep 99681 (<300) pg/mL Serum Total Protein (6.3-8.2) g/dL Albumin (3.5-5.0) g/dL Fluid pH 7.3 (Not Estab.) Non-Gen Cyto Rpt Notes SEE COMMENTS Slides for Path Review 11/22/23 11/22/23 11/22/23 Range/Units 05:40 05:40 06:44 WBC 8.5 (4.23-9.07) x10^3/uL RBC 3.50 L (4.63-6.08) x10^6/uL Hgb 9.5 L (13.7-17.5) g/dL Hct 33.1 L (40.1-51.0) % MCV 94.6 H (79.0-92.2) fL MCH 27.1 (25.7-32.2) pg MCHC 28.7 L (32.3-36.5) g/dL RDW 23.6 H (11.6-14.4) % Plt Count 275 (163-337) x10^3/uL MPV 9.5 (9.4-12.4) fL Gran % 81.8 H (34.0-67.9) % Immature Gran % (Auto) 0.5 H (0.001-0.429) % Nucleat RBC Rel Count 0.0 (0.00-0.2) % Eos # (Auto) 0.38 (0.04-0.54) x10^3/uL Immature Gran # (Auto) 0.04 H (0.001-0.031) x10^3u/L Absolute Lymphs (auto) 0.74 L (1.32-3.57) x10^3/uL Absolute Monos (auto) 0.36 (0.30-0.82) x10^3/uL Absolute Nucleated RBC 0.00 (0.00-0.012) x10^3u/L Lymphocytes % 8.7 L (21.8-53.1) % Monocytes % 4.2 L (5.3-12.2) % Eosinophils % 4.4 (0.8-7.0) % Basophils % 0.4 (0.2-1.2) % Absolute Granulocytes 6.99 H (1.78-5.38) x10^3/uL Basophils # 0.03 (0.01-0.08) x10^3/uL D-Dimer (0.0-0.50) mg/L Puncture Site pCO2 (35-45) mmHg pO2 (75-100) mmHg Base Excess (-2.0-2.0) O2 Saturation (94-100) g/dF ABG pH (7.35-7.45) ABG HCO3 (22-28) ABG O2 Sat (Measured) (95-100) % Dong Test A-a Gradient a/A Ratio Hemoglobin Carboxyhemoglobin (0.0-6.9) % THgb Methemoglobin (1.4-1.5) % Temperature C POC O2 Flow Rate % Sodium 139 (135-145) mmol/L Potassium 4.4 (3.5-5.1) mmol/L Chloride 106 (98-107) mmol/L Carbon Dioxide 25 (22-30) mmol/L Anion Gap 12.1 (5-15) MEQ/L BUN 33 H (9-20) mg/dL Creatinine 1.50 H (0.66-1.25) mg/dL Estimated GFR 51.7 ML/MIN Glucose 194 H (74-106) mg/dL POC Glucometer 179 H (74 to 106) mg/dL Calcium 8.1 L (8.4-10.2) mg/dL Total Bilirubin 0.40 (0.2-1.3) mg/dL AST 22 (17-59) U/L ALT 11 (0-50) U/L Alkaline Phosphatase 71 (38-126) U/L NT-Pro-B Natriuret Pep (<300) pg/mL Serum Total Protein 6.1 L (6.3-8.2) g/dL Albumin 3.2 L (3.5-5.0) g/dL Fluid pH (Not Estab.) Non-Gen Cyto Rpt Notes Slides for Path Review YES 11/22/23 11/22/23 11/22/23 Range/Units 10:33 11:10 11:18 WBC (4.23-9.07) x10^3/uL RBC (4.63-6.08) x10^6/uL Hgb (13.7-17.5) g/dL Hct (40.1-51.0) % MCV (79.0-92.2) fL MCH (25.7-32.2) pg MCHC (32.3-36.5) g/dL RDW (11.6-14.4) % Plt Count (163-337) x10^3/uL MPV (9.4-12.4) fL Gran % (34.0-67.9) % Immature Gran % (Auto) (0.001-0.429) % Nucleat RBC Rel Count (0.00-0.2) % Eos # (Auto) (0.04-0.54) x10^3/uL Immature Gran # (Auto) (0.001-0.031) x10^3u/L Absolute Lymphs (auto) (1.32-3.57) x10^3/uL Absolute Monos (auto) (0.30-0.82) x10^3/uL Absolute Nucleated RBC (0.00-0.012) x10^3u/L Lymphocytes % (21.8-53.1) % Monocytes % (5.3-12.2) % Eosinophils % (0.8-7.0) % Basophils % (0.2-1.2) % Absolute Granulocytes (1.78-5.38) x10^3/uL Basophils # (0.01-0.08) x10^3/uL D-Dimer 1.17 H* (0.0-0.50) mg/L Puncture Site lt rad pCO2 54 H (35-45) mmHg pO2 73 L (75-100) mmHg Base Excess -3.8 L (-2.0-2.0) O2 Saturation 93.7 L (94-100) g/dF ABG pH 7.25 L* (7.35-7.45) ABG HCO3 23.7 (22-28) ABG O2 Sat (Measured) 95.7 (95-100) % Dong Test y A-a Gradient 59 a/A Ratio 0.55 Hemoglobin 10.1 Carboxyhemoglobin 1.6 (0.0-6.9) % THgb Methemoglobin 0.5 L (1.4-1.5) % Temperature 37.0 C POC O2 Flow Rate 28 % Sodium (135-145) mmol/L Potassium 4.2 (3.5-5.1) mmol/L Chloride (98-107) mmol/L Carbon Dioxide (22-30) mmol/L Anion Gap (5-15) MEQ/L BUN (9-20) mg/dL Creatinine (0.66-1.25) mg/dL Estimated GFR ML/MIN Glucose (74-106) mg/dL POC Glucometer 157 H (74 to 106) mg/dL Calcium (8.4-10.2) mg/dL Total Bilirubin (0.2-1.3) mg/dL AST (17-59) U/L ALT (0-50) U/L Alkaline Phosphatase (38-126) U/L NT-Pro-B Natriuret Pep (<300) pg/mL Serum Total Protein (6.3-8.2) g/dL Albumin (3.5-5.0) g/dL Fluid pH (Not Estab.) Non-Gen Cyto Rpt Notes Slides for Path Review 11/22/23 11/22/23 Range/Units 16:07 21:20 WBC (4.23-9.07) x10^3/uL RBC (4.63-6.08) x10^6/uL Hgb (13.7-17.5) g/dL Hct (40.1-51.0) % MCV (79.0-92.2) fL MCH (25.7-32.2) pg MCHC (32.3-36.5) g/dL RDW (11.6-14.4) % Plt Count (163-337) x10^3/uL MPV (9.4-12.4) fL Gran % (34.0-67.9) % Immature Gran % (Auto) (0.001-0.429) % Nucleat RBC Rel Count (0.00-0.2) % Eos # (Auto) (0.04-0.54) x10^3/uL Immature Gran # (Auto) (0.001-0.031) x10^3u/L Absolute Lymphs (auto) (1.32-3.57) x10^3/uL Absolute Monos (auto) (0.30-0.82) x10^3/uL Absolute Nucleated RBC (0.00-0.012) x10^3u/L Lymphocytes % (21.8-53.1) % Monocytes % (5.3-12.2) % Eosinophils % (0.8-7.0) % Basophils % (0.2-1.2) % Absolute Granulocytes (1.78-5.38) x10^3/uL Basophils # (0.01-0.08) x10^3/uL D-Dimer (0.0-0.50) mg/L Puncture Site pCO2 (35-45) mmHg pO2 (75-100) mmHg Base Excess (-2.0-2.0) O2 Saturation (94-100) g/dF ABG pH (7.35-7.45) ABG HCO3 (22-28) ABG O2 Sat (Measured) (95-100) % Dong Test A-a Gradient a/A Ratio Hemoglobin Carboxyhemoglobin (0.0-6.9) % THgb Methemoglobin (1.4-1.5) % Temperature C POC O2 Flow Rate % Sodium (135-145) mmol/L Potassium (3.5-5.1) mmol/L Chloride (98-107) mmol/L Carbon Dioxide (22-30) mmol/L Anion Gap (5-15) MEQ/L BUN (9-20) mg/dL Creatinine (0.66-1.25) mg/dL Estimated GFR ML/MIN Glucose (74-106) mg/dL POC Glucometer 103 160 H (74 to 106) mg/dL Calcium (8.4-10.2) mg/dL Total Bilirubin (0.2-1.3) mg/dL AST (17-59) U/L ALT (0-50) U/L Alkaline Phosphatase (38-126) U/L NT-Pro-B Natriuret Pep (<300) pg/mL Serum Total Protein (6.3-8.2) g/dL Albumin (3.5-5.0) g/dL Fluid pH (Not Estab.) Non-Gen Cyto Rpt Notes Slides for Path Review Radiology Exams: Radiology Procedures Category Date Time Status CHEST 1 VIEW (PORTABLE) Routine Exams 11/22/23 08:00 Completed CHEST 2 VIEWS (PA AND LAT) Routine Exams 11/23/23 08:00 Ordered CHEST WITH CONTRAST [CT] Stat Exams 11/22/23 10:09 Completed Multi-Disciplinary Progress Notes: Multi-Disciplinary Progress Notes 11/22/23 13:48 Case Management Note by Delmy Zaidi S/W PATIENT- HE CONTINUES TO PLAN TO TRANSITION BACK TO [facility] AT TIME OF DC Initialized on 11/22/23 13:48 - END OF NOTE Assessment/Plan (1) Septic shock Current Visit: Yes Status: Acute Assessment & Plan: - 2:2 pneumonia/wounds - hypotension, rapid heart rate, low O2 - tele - sputum culture- pending - BC X2- negative -wound cultures with pseudomonas aeruginosa- -Zosyn for pneumonia/ pseudomonas coverage -No longer meets criteria Code(s): A41.9 - SEPSIS, UNSPECIFIED ORGANISM; R65.21 - SEVERE SEPSIS WITH SEPTIC SHOCK (2) Pneumonia Current Visit: Yes Status: Acute Assessment & Plan: -supplemental oxygen with goal spo2 > 92% - RA at baseline - requiring 2L mostly at night -Zosyn - continue -Sputum cult/ blood culture pending -tele -WBC WNL 11/21: -Repeat Cxr showing worsening effusions/infiltrates - order CT 11/22: -continue zosyn -3L continuous oxygen Code(s): J18.9 - PNEUMONIA, UNSPECIFIED ORGANISM (3) Pleural effusion Current Visit: Yes Status: Acute Assessment & Plan: -CXR noting CT proven diffuse bilateral patchy consolidating/nonconsolidating airspace disease with moderate bilateral pleural effusions/atelectasis -Thoracentesis performed removing 2.2L of fluid 11/18/23 -- CXR post thoracentesis 11/18/23 Portable chest demonstrates marked diminished right effusion/atelectasis with mild residual consistent with paracentesis. No pneumothorax. Remaining chest unchanged again left lung infiltrate/atelectasis/effusion, cardiomegaly, and left arm PICC line. 11/20: -Repeat CXR tomorrow 11/21: -Worsening infiltrates/effusion on CXR - CT ordered 11/22: -CT demonstrating worsening bilateral effusions - thoracentesis ordered with labs - will perform today Code(s): J90 - PLEURAL EFFUSION, NOT ELSEWHERE CLASSIFIED (4) YAS (acute kidney injury) Current Visit: Yes Status: Acute Assessment & Plan: -baseline 0.9, on admission 1.39 -Avoid ALLYSON/ARB/NSAIDS -IVF at 50ml/hr 11/20: -Resolving - dc fluids 11/21: -Hold jardiance/metformin 11/22: Creat improved now at 1.31 Code(s): N17.9 - ACUTE KIDNEY FAILURE, UNSPECIFIED (5) DM2 (diabetes mellitus, type 2) Current Visit: Yes Status: Acute Assessment & Plan: - A1C 5.73 08/23/23- controlled - Humalog s/s accuchecks ac/hs (6) Generalized weakness Current Visit: Yes Status: Acute Assessment & Plan: - PT eval and treat Code(s): R53.1 - WEAKNESS (7) Wounds, multiple open, lower extremity Current Visit: Yes Status: Chronic Assessment & Plan: - Follows podiatry OP - podiatry consulted as wraps need replaced- completed - Picc line in place [employer] d/t wound care/ antibiotic needs - wound culture by podiatry - gram negative- pseudomonas aeruginosa- continue zosyn VTE: Eliquis PPI: Protonix Code status: Full Code(s): A41.9 - SEPSIS, UNSPECIFIED ORGANISM; R65.21 - SEVERE SEPSIS WITH SEPTIC SHOCK (2) Pneumonia Current Visit: Yes Status: Acute Code(s): J18.9 - PNEUMONIA, UNSPECIFIED ORGANISM (3) Pleural effusion Current Visit: Yes Status: Acute Code(s): J90 - PLEURAL EFFUSION, NOT ELSEWHERE CLASSIFIED (4) YAS (acute kidney injury) Current Visit: Yes Status: Acute Code(s): N17.9 - ACUTE KIDNEY FAILURE, UNSPECIFIED (5) DM2 (diabetes mellitus, type 2) Current Visit: Yes Status: Acute (6) Generalized weakness Current Visit: Yes Status: Acute Code(s): R53.1 - WEAKNESS (7) Wounds, multiple open, lower extremity Current Visit: Yes Status: Chronic Code(s): S81.809A - UNSPECIFIED OPEN WOUND, UNSPECIFIED LOWER LEG, INIT ENCNTR
[2023-11-23 05:51] LABS: ALBUMIN 3.1 g/dL (3.5-5.0); ANION GAP 10.9 MEQ/L (5-15); BILIRUBIN,TOTAL 0.4 mg/dL (0.2-1.3); Calcium 8.2 mg/dL (8.4-10.2); Creatinine 1 1.31 mg/dL (0.66-1.25); EST GLOMERULAR FILTRATION RATE 60.8 ML/MIN; Potassium 3.7 mmol/L (3.5-5.1); Total Protein 5.8 g/dL (6.3-8.2)
[2023-11-23 07:18] LABS: Slide Review 1 YES
--- NOTE | 2023-11-23 09:35 | XRAY ---
Indication: Pleural effusion. Comparison: One day earlier. Portable chest demonstrates CT proven large bilateral pleural effusions/atelectasis, mildly worsened bilaterally. Heart now enlarged again with left PICC line in situ.
[2023-11-23 11:15] LABS: INR 1.09 (0.8-3.0); PROTIME 11.8 SECONDS (9.4-12.5)
[2023-11-23 11:57] VITALS: TEMP 98.1
--- NOTE | 2023-11-23 14:03 | XRAY ---
Indication: Bilateral pleural effusions. Informed consent obtained. Initial ultrasound of the right back performed for localization. Largest pocket lower chest. The right back was prepped and draped in sterile fashion. 1% lidocaine plain was used for local anesthesia. Tiny skin incision made. 5 [employer] paracentesis needle/catheter was then percutaneously inserted. Once fluid was aspirating, the outer catheter was then advanced with the inner needle removed. Catheter was connected to a Vacutainer. Approximately 2.3 L clear tea colored fluid aspirated and was disposed of properly. Repeat sonogram demonstrates improvement with tiny residual. Catheter removed. Hemostasis achieved using digital pressure over the puncture site. Band-Aid applied over the puncture site. Postthoracentesis chest radiograph pending. Impression: Technically successful ultrasound guided right thoracentesis for therapeutic purpose. No immediate complications or blood loss.
--- NOTE | 2023-11-23 14:11 | XRAY ---
Indication: Status post right thoracentesis. Comparison: Taken earlier in the day. Portable chest obtained in expiration demonstrates marked clearing previous right effusion with tiny residual in lung base consistent with thoracentesis. No pneumothorax. Remaining chest unchanged again with cardiomegaly and large left effusion/atelectasis.
[2023-11-23] MEDS: Lasix 40 MG/4 ML IV SCH (14:13)
[2023-11-23] MEDS: NOREPINEPHRINE 8 MG/250 ML-D5W 8 MG/250 ML PLAST..BAG IV PRN (18:00)
[2023-11-23] MEDS ORDERED: NOREPINEPHRINE 8 MG/250 ML-D5W 8 MG/250 ML PLAST..BAG IV ONE (18:00)
[2023-11-23 18:02] LABS: Absolute Neutrophil Ct (ANC) 8.58 x10^3/uL (1.78-5.38); BASOPHIL % 0.7 % (0.2-1.2); Eosinophil % 4.3 % (0.8-7.0); Eosinophil (Absolute #) 0.59 x10^3/uL (0.04-0.54); Hematocrit 36.5 % (40.1-51.0); Hemoglobin 10.3 g/dL (13.7-17.5); IMMATURE GRAN % 4.3 % (0.001-0.429); Lymphocyte (Absolute #) 3.45 x10^3/uL (1.32-3.57); Mean Cell Volume 94.8 fL (79.0-92.2); Mean Corpuscular Hemoglobin 26.8 pg (25.7-32.2); Mean Corpuscular Hgb Concent. 28.2 g/dL (32.3-36.5); Mean Platelet Volume 9.3 fL (9.4-12.4); Monocytes % 3.6 % (5.3-12.2); NUCLEATED RBC # 0.09 x10^3u/L (0.00-0.012); NUCLEATED RBC % 0.7 % (0.00-0.2); Neutrophil % 62.1 % (34.0-67.9); Platelet Count 304 x10^3/uL (163-337); Red Blood Count 3.85 x10^6/uL (4.63-6.08); Red Cell Distribution Width 22.4 % (11.6-14.4); White Blood Count 13.8 x10^3/uL (4.23-9.07)
[2023-11-23] MEDS ORDERED: Versed 50 MG/ 10 Ml MDV ONE (18:27)
[2023-11-23] MEDS ORDERED: Sodium Chloride 0.9% 250 ML 250 ML IV ONE (18:28)
[2023-11-23] MEDS: Versed 50 MG/ 10 Ml MDV*** 50 MG in Sodium Chloride 0.9% 250 ML 240 ML IV PRN (18:39)
[2023-11-23 18:45] LABS: A-aADO2 565; ABG HEMOGLOBIN 10.8; ABG POTASSIUM 5.9 (3.5-5.1); ARTERIAL BLD GAS O2 SATURATION 94.5 % (95-100); ARTERIAL BLOOD GAS BASE EXCESS -9.4 (-2.0-2.0); ARTERIAL BLOOD GAS FIO2 100 %; ARTERIAL BLOOD GAS PO2 73 mmHg (75-100); CARBOXYHEMOGLOBIN 1.9 % THgb (0.0-6.9); HGB O2 SAT 92.2 g/dF (94-100); Methhemoglobin 0.5 % (1.4-1.5); paO2 pAO1 0.11
[2023-11-23] MEDS ORDERED: Sodium Chloride 0.9% 1000 ML 1,000 ML IV SCH (18:45)
[2023-11-23 18:46] LABS: ARTERIAL BLOOD GAS pH 7.13 (7.35-7.45)
[2023-11-23 18:47] LABS: ABG SITE LEFT RADIAL; ALLEN TEST OK? YES; ARTERIAL BLOOD GAS PCO2 60 mmHg (35-45)
[2023-11-23 18:51] LABS: ALBUMIN 3.3 g/dL (3.5-5.0); BILIRUBIN,TOTAL 0.4 mg/dL (0.2-1.3); Creatinine 1 1.29 mg/dL (0.66-1.25); EST GLOMERULAR FILTRATION RATE 61.9 ML/MIN; MAGNESIUM 2.3 mg/dL (1.6-2.3); Potassium 3.7 mmol/L (3.5-5.1); Total Protein 5.9 g/dL (6.3-8.2)
[2023-11-23 19:13] LABS: TROPONIN 0.057 ng/mL (0.000-0.033)
[2023-11-23 19:17] LABS: Slide Review 1 YES
[2023-11-23 19:23] VITALS: O2SAT 100
--- NOTE | 2023-11-23 19:42 | PCM.DS ---
Discharge Summary Date of Admission: 11/19/23 09:51 Date of Discharge: 11/23/23 Admitting Physician: CORNELIA MORGAN MD Consults: Consults on Case 11/18/23 08:21 Consult Podiatry ROUTINE Primary Care Provider: [facility] Allergies Allergies No Known Drug Allergies Allergy (Verified 10/26/23 10:36) Hospital Summary - Hospital Course Hospital Course: HPI: is a 63 year old male with a PMHX of HTN, CAD with stenting, DM, right above-knee amputation, wounds on the left heel, and lower extremity swelling resident of [facility] admitted 11/17/23 with sepsis sec ondary to pneumonia after experiencing generalized weakness, fatigue, dyspnea with spo2 in the low 90s, and a productive cough with yellow sputum. Initial CXR showing diffuse bilateral patchy consolidation/nonconsolidating airspace disease with moderate bilateral pleural effusions. Patient did have Throacentesis performed 11/18/23 with 2200 CC removed. IP treatment with Zosyn. Podiatry consulted for BLLE wound and rewrapping who he follows with OP. Wound culture of the left heel showing pseudomonas aeruginosa sensitive to Zosyn. Patient endorses dyspnea has improved. Still requiring 2L of oxygen, mostly at night. Overnight pulse ox pending. Labs and vitals stable. Patient has PICC placed, can continue IV abx at [place] on discharge. Did have episodes of AFIB with HR in the 130-150's per RN. Metoprolol and amiodarone resumed. CXR 11/22/23 with worsening bilteral infiltrates/effusions R>L. CTA 11/22/23 showing Dramatic worsening large bilateral effusions with compressive atelectasis. Previous bilateral airspace disease improved with minimal residual in both aerated lungs. Negative for PE. Lasix given. 11/22/23: Met with patient bedside. Notably lethargic during interview. CXR showing worsening bilateral infiltrates/effusions R>L. ABG showing primary resp. chronic acidosis with secondary metabolic acidosis. Patient placed on BIPAP. DDimer elevated. CT chest ordered. 11/23/23 Patient more alert today. States dyspnea improved. Plan for thoracentesis - CTA showing worsening bilateral effusions. Continue abx for pneumonia/left heel wounds. Patient received bedside thoracentesis today with 2.3L removed at 1350. Patient was found in room unresponsive at 1734 and code blue called. CPR started. VFIB on the monitor,shocked at 200j, 1mg of epi IV given. 1 amp of bica rb given. Levophed drip started. Versed drip initiated. Patient intubated and stabilized. Current vitals 115/73 map of 87, 84 HR NS. Patient to transfer to higher level of care at [facility] - Vitals & Intake/Output Vital Signs: Vital Signs Temperature 98.1 F 11/23/23 16:00 Pulse Rate 84 11/23/23 19:20 Respiratory Rate 22 11/23/23 19:20 Blood Pressure 115/73 11/23/23 19:20 O2 Sat by Pulse Oximetry 100 11/23/23 19:20 Intake & Output: Intake & Output 11/21/23 11/22/23 11/23/23 11/24/23 11:59 11:59 11:59 11:59 Intake Total 888 2487 2080 220 Output Total 4222 194 0479 850 Balance -712 1537 730 -630 - Lab Result Diagrams: 11/23/23 17:55 11/23/23 17:55 Lab Results-Last 24 Hrs: Lab Results-Last 24 Hours 11/22/23 11/23/23 11/23/23 Range/Units 21:20 05:16 05:16 WBC 6.0 (4.23-9.07) x10^3/uL RBC 3.44 L (4.63-6.08) x10^6/uL Hgb 9.3 L (13.7-17.5) g/dL Hct 31.7 L (40.1-51.0) % MCV 92.2 (79.0-92.2) fL MCH 27.0 (25.7-32.2) pg MCHC 29.3 L (32.3-36.5) g/dL RDW 22.5 H (11.6-14.4) % Plt Count 209 (163-337) x10^3/uL MPV 8.5 L (9.4-12.4) fL Gran % 70.9 H (34.0-67.9) % Immature Gran % (Auto) 0.3 (0.001-0.429) % Nucleat RBC Rel Count 0.0 (0.00-0.2) % Eos # (Auto) 0.58 H (0.04-0.54) x10^3/uL Immature Gran # (Auto) 0.02 (0.001-0.031) x10^3u/L Absolute Lymphs (auto) 0.77 L (1.32-3.57) x10^3/uL Absolute Monos (auto) 0.34 (0.30-0.82) x10^3/uL Absolute Nucleated RBC 0.00 (0.00-0.012) x10^3u/L Lymphocytes % 12.8 L (21.8-53.1) % Monocytes % 5.6 (5.3-12.2) % Eosinophils % 9.6 H (0.8-7.0) % Basophils % 0.8 (0.2-1.2) % Absolute Granulocytes 4.27 (1.78-5.38) x10^3/uL Basophils # 0.05 (0.01-0.08) x10^3/uL PT (9.4-12.5) SECONDS INR (0.8-3.0) Puncture Site pCO2 (35-45) mmHg pO2 (75-100) mmHg Base Excess (-2.0-2.0) O2 Saturation (94-100) g/dF ABG pH (7.35-7.45) ABG HCO3 (22-28) ABG O2 Sat (Measured) (95-100) % Dong Test A-a Gradient a/A Ratio Hemoglobin Carboxyhemoglobin (0.0-6.9) % THgb Methemoglobin (1.4-1.5) % Temperature C POC O2 Flow Rate % Sodium 138 (135-145) mmol/L Potassium 3.7 (3.5-5.1) mmol/L Chloride 106 (98-107) mmol/L Carbon Dioxide 25 (22-30) mmol/L Anion Gap 10.9 (5-15) MEQ/L BUN 26 H (9-20) mg/dL Creatinine 1.31 H (0.66-1.25) mg/dL Estimated GFR 60.8 ML/MIN Glucose 144 H (74-106) mg/dL POC Glucometer 160 H (74 to 106) mg/dL Lactic Acid (0.4-2.0) Calcium 8.2 L (8.4-10.2) mg/dL Magnesium (1.6-2.3) mg/dL Total Bilirubin 0.40 (0.2-1.3) mg/dL AST 16 L (17-59) U/L ALT 10 (0-50) U/L Alkaline Phosphatase 53 (38-126) U/L Troponin I (0.000-0.033) ng/mL Serum Total Protein 5.8 L (6.3-8.2) g/dL Albumin 3.1 L (3.5-5.0) g/dL Slides for Path Review YES 11/23/23 11/23/23 11/23/23 Range/Units 07:23 10:59 11:50 WBC (4.23-9.07) x10^3/uL RBC (4.63-6.08) x10^6/uL Hgb (13.7-17.5) g/dL Hct (40.1-51.0) % MCV (79.0-92.2) fL MCH (25.7-32.2) pg MCHC (32.3-36.5) g/dL RDW (11.6-14.4) % Plt Count (163-337) x10^3/uL MPV (9.4-12.4) fL Gran % (34.0-67.9) % Immature Gran % (Auto) (0.001-0.429) % Nucleat RBC Rel Count (0.00-0.2) % Eos # (Auto) (0.04-0.54) x10^3/uL Immature Gran # (Auto) (0.001-0.031) x10^3u/L Absolute Lymphs (auto) (1.32-3.57) x10^3/uL Absolute Monos (auto) (0.30-0.82) x10^3/uL Absolute Nucleated RBC (0.00-0.012) x10^3u/L Lymphocytes % (21.8-53.1) % Monocytes % (5.3-12.2) % Eosinophils % (0.8-7.0) % Basophils % (0.2-1.2) % Absolute Granulocytes (1.78-5.38) x10^3/uL Basophils # (0.01-0.08) x10^3/uL PT 11.8 (9.4-12.5) SECONDS INR 1.09 (0.8-3.0) Puncture Site pCO2 (35-45) mmHg pO2 (75-100) mmHg Base Excess (-2.0-2.0) O2 Saturation (94-100) g/dF ABG pH (7.35-7.45) ABG HCO3 (22-28) ABG O2 Sat (Measured) (95-100) % Dong Test A-a Gradient a/A Ratio Hemoglobin Carboxyhemoglobin (0.0-6.9) % THgb Methemoglobin (1.4-1.5) % Temperature C POC O2 Flow Rate % Sodium (135-145) mmol/L Potassium (3.5-5.1) mmol/L Chloride (98-107) mmol/L Carbon Dioxide (22-30) mmol/L Anion Gap (5-15) MEQ/L BUN (9-20) mg/dL Creatinine (0.66-1.25) mg/dL Estimated GFR ML/MIN Glucose (74-106) mg/dL POC Glucometer 147 H 173 H (74 to 106) mg/dL Lactic Acid (0.4-2.0) Calcium (8.4-10.2) mg/dL Magnesium (1.6-2.3) mg/dL Total Bilirubin (0.2-1.3) mg/dL AST (17-59) U/L ALT (0-50) U/L Alkaline Phosphatase (38-126) U/L Troponin I (0.000-0.033) ng/mL Serum Total Protein (6.3-8.2) g/dL Albumin (3.5-5.0) g/dL Slides for Path Review 11/23/23 11/23/23 11/23/23 Range/Units 16:50 17:45 17:55 WBC 13.8 H (4.23-9.07) x10^3/uL RBC 3.85 L (4.63-6.08) x10^6/uL Hgb 10.3 L (13.7-17.5) g/dL Hct 36.5 L (40.1-51.0) % MCV 94.8 H (79.0-92.2) fL MCH 26.8 (25.7-32.2) pg MCHC 28.2 L (32.3-36.5) g/dL RDW 22.4 H (11.6-14.4) % Plt Count 304 D (163-337) x10^3/uL MPV 9.3 L (9.4-12.4) fL Gran % 62.1 (34.0-67.9) % Immature Gran % (Auto) 4.3 H (0.001-0.429) % Nucleat RBC Rel Count 0.7 H (0.00-0.2) % Eos # (Auto) 0.59 H (0.04-0.54) x10^3/uL Immature Gran # (Auto) 0.60 H (0.001-0.031) x10^3u/L Absolute Lymphs (auto) 3.45 (1.32-3.57) x10^3/uL Absolute Monos (auto) 0.50 (0.30-0.82) x10^3/uL Absolute Nucleated RBC 0.09 H (0.00-0.012) x10^3u/L Lymphocytes % 25.0 (21.8-53.1) % Monocytes % 3.6 L (5.3-12.2) % Eosinophils % 4.3 (0.8-7.0) % Basophils % 0.7 (0.2-1.2) % Absolute Granulocytes 8.58 H (1.78-5.38) x10^3/uL Basophils # 0.10 H (0.01-0.08) x10^3/uL PT (9.4-12.5) SECONDS INR (0.8-3.0) Puncture Site LEFT RADIAL pCO2 60 H* (35-45) mmHg pO2 73 L (75-100) mmHg Base Excess -9.4 L (-2.0-2.0) O2 Saturation 92.2 L (94-100) g/dF ABG pH 7.13 L* (7.35-7.45) ABG HCO3 20.0 L (22-28) ABG O2 Sat (Measured) 94.5 L (95-100) % Dong Test YES A-a Gradient 565 a/A Ratio 0.11 Hemoglobin 10.8 Carboxyhemoglobin 1.9 (0.0-6.9) % THgb Methemoglobin 0.5 L (1.4-1.5) % Temperature 37.0 C POC O2 Flow Rate 100 % Sodium (135-145) mmol/L Potassium 5.9 H (3.5-5.1) mmol/L Chloride (98-107) mmol/L Carbon Dioxide (22-30) mmol/L Anion Gap (5-15) MEQ/L BUN (9-20) mg/dL Creatinine (0.66-1.25) mg/dL Estimated GFR ML/MIN Glucose (74-106) mg/dL POC Glucometer 156 H (74 to 106) mg/dL Lactic Acid 6.0 H (0.4-2.0) Calcium (8.4-10.2) mg/dL Magnesium (1.6-2.3) mg/dL Total Bilirubin (0.2-1.3) mg/dL AST (17-59) U/L ALT (0-50) U/L Alkaline Phosphatase (38-126) U/L Troponin I (0.000-0.033) ng/mL Serum Total Protein (6.3-8.2) g/dL Albumin (3.5-5.0) g/dL Slides for Path Review YES 11/23/23 Range/Units 17:55 WBC (4.23-9.07) x10^3/uL RBC (4.63-6.08) x10^6/uL Hgb (13.7-17.5) g/dL Hct (40.1-51.0) % MCV (79.0-92.2) fL MCH (25.7-32.2) pg MCHC (32.3-36.5) g/dL RDW (11.6-14.4) % Plt Count (163-337) x10^3/uL MPV (9.4-12.4) fL Gran % (34.0-67.9) % Immature Gran % (Auto) (0.001-0.429) % Nucleat RBC Rel Count (0.00-0.2) % Eos # (Auto) (0.04-0.54) x10^3/uL Immature Gran # (Auto) (0.001-0.031) x10^3u/L Absolute Lymphs (auto) (1.32-3.57) x10^3/uL Absolute Monos (auto) (0.30-0.82) x10^3/uL Absolute Nucleated RBC (0.00-0.012) x10^3u/L Lymphocytes % (21.8-53.1) % Monocytes % (5.3-12.2) % Eosinophils % (0.8-7.0) % Basophils % (0.2-1.2) % Absolute Granulocytes (1.78-5.38) x10^3/uL Basophils # (0.01-0.08) x10^3/uL PT (9.4-12.5) SECONDS INR (0.8-3.0) Puncture Site pCO2 (35-45) mmHg pO2 (75-100) mmHg Base Excess (-2.0-2.0) O2 Saturation (94-100) g/dF ABG pH (7.35-7.45) ABG HCO3 (22-28) ABG O2 Sat (Measured) (95-100) % Dong Test A-a Gradient a/A Ratio Hemoglobin Carboxyhemoglobin (0.0-6.9) % THgb Methemoglobin (1.4-1.5) % Temperature C POC O2 Flow Rate % Sodium 138 (135-145) mmol/L Potassium 3.7 (3.5-5.1) mmol/L Chloride 106 (98-107) mmol/L Carbon Dioxide 18 L (22-30) mmol/L Anion Gap 17.0 H (5-15) MEQ/L BUN 27 H (9-20) mg/dL Creatinine 1.29 H (0.66-1.25) mg/dL Estimated GFR 61.9 ML/MIN Glucose 244 H (74-106) mg/dL POC Glucometer (74 to 106) mg/dL Lactic Acid (0.4-2.0) Calcium 8.0 L (8.4-10.2) mg/dL Magnesium 2.3 (1.6-2.3) mg/dL Total Bilirubin 0.40 (0.2-1.3) mg/dL AST 38 (17-59) U/L ALT 27 (0-50) U/L Alkaline Phosphatase 54 (38-126) U/L Troponin I 0.057 H* (0.000-0.033) ng/mL Serum Total Protein 5.9 L (6.3-8.2) g/dL Albumin 3.3 L (3.5-5.0) g/dL Slides for Path Review Micro Results-Entire Visit: Microbiology 11/18/23 12:30 Anaerobic Culture - Preliminary Lung - Right Anaerobic Culture Result 1 - Preliminary 11/18/23 11:22 Wound Culture - Final Toe - L Big (Greater) ORGANISMS ISOLATED ARE CONSISTENT WITH NORMAL SKIN PAVEL LIGHT GROWTH, NO PREDOMINANT ORGANISM 11/17/23 16:55 Blood Culture - Final Blood 11/18/23 12:30 Body Fluid Culture - Final Pleural Fluid NO GROWTH 11/18/23 11:22 Wound Culture - Final Heel - Left Pseudomonas Aeruginosa Accuchecks Date 11/23/23 Date 11/23/23 Date 11/23/23 Date 11/22/23 Time 16:57 Time 11:57 Time 07:28 Time 21:00 - Radiology Exams Ordered Rad Exams-Entire Visit: Radiology Procedures Category Date Time Status CHEST 1 VIEW (PORTABLE) Routine Exams 11/22/23 08:00 Completed CHEST 1 VIEW (PORTABLE) Routine Exams 11/23/23 08:00 Completed CHEST 1 VIEW (PORTABLE) Routine Exams 11/23/23 12:52 Completed CHEST 1 VIEW (PORTABLE) Stat Exams 11/23/23 18:18 Taken CHEST WITH CONTRAST [CT] Stat Exams 11/22/23 10:09 Completed THORACENTESIS [US] Stat Exams 11/23/23 10:08 Completed - Procedures and Test Procedures and Tests throughout Hospitalization: Therapy Orders & Screens 11/17/23 16:44 Respiratory Therapy Assessment DAILY Comment: 11/17/23 18:52 Oxygen Nasal Cannula 2 lpm Comment: Respiratory Therapy Consult ONCE Comment: Reason For Exam: 11/21/23 03:06 EKG ROUTINE Comment: Diagnosis: Cough 11/22/23 12:23 BiPap/CPAP ROUTINE Comment: Diagnosis: ADRIAN PNEUMONIA, ADRIAN PLEURAL EFFUSION 11/23/23 18:58 Intubate Patient STAT Comment: Diagnosis: ADRIAN PNEUMONIA, ADRIAN PLEURAL EFFUSION Standby STAT Comment: Diagnosis: ADRIAN PNEUMONIA, ADRIAN PLEURAL EFFUSION Ventilator Management STAT Comment: Diagnosis: DARIAN PNEUMONIA, ADRIAN PLEURAL EFFUSION Discharge Exam Wound Assessment: Skin/Wound Assessment Wound/Incision Assessment Start: 11/17/23 19:58 Text: Status: Active Freq: Q6H Protocol: Document 11/23/23 14:00 [facility] (Rec: 11/23/23 14:37 [facility] [id number]) Wound/Incision Assessment Right Hand Wound Assessment Shift Assessment Wound Type Skin Tear Wound Stage Non Pressure Wound Dressing Status Dry & Intact Primary Dressing Non-Adherent Gauze Pads Secondary Dressing Elastic Bandage Medial Back Wound Assessment Shift Assessment Wound Type Puncture Wound Stage Non Pressure Wound Dressing Status Dry & Intact Drainage Odor None/Absent Primary Dressing Bandaid Comment Healing punture wound S/P thoracentesis 2nd puncture wound S/P thoracentesis done today -Bandaid intact, no drainage noted at this time. Will continue to monitor. Left Lateral Heel Wound Assessment Shift Assessment Wound Type Pressure Ulcer Dressing Status Drainage circled Drainage Amount Minimal Comment Dry and intact, strike through noted, though does not appear to be any active bleeding at this time. Left Toe Wound Assessment Shift Assessment Wound Type Abrasion Wound Stage Non Pressure Wound Dressing Status Dry & Intact Drainage Amount None Primary Dressing Bandaid Comment 2nd & 3rd left deigit healing abrasions, open to air. Left great toe, bandaide in place, minimal strikethough noted. Left Upper Thigh Wound Assessment Shift Assessment Wound Type skin graft donor site Wound Stage Non Pressure Wound Dressing Status Dry & Intact Drainage Amount Minimal Drainage Description Yellow Primary Dressing Bandaid Comment Skin grift site, bacitracin applied as ordered, bandaid intact Left Knee Wound Assessment Shift Assessment Wound Type Abrasion Wound Stage Non Pressure Wound Dressing Status Dry & Intact Drainage Amount None General Appearance Open to air Surrounding Tissue [place] Lower Abdomen Wound Assessment Shift Assessment Wound Type EXCORIATION Wound Stage Non Pressure Wound General Appearance Open to air Surrounding Tissue [place] Comment NYSTATIN APPLIED ORDERED Sacrum Wound Assessment Shift Assessment Wound Type SHEARING Wound Stage Non Pressure Wound Drainage Amount None General Appearance Open to air,Reddened Surrounding Tissue [place] Comment BARRIER CREAM APPLIED Wound Photo Comment: IN PAPER CHART Final Diagnosis/Problem List - Final Discharge Diagnosis/Problem (1) Septic shock Current Visit: Yes Status: Acute Code(s): A41.9 - SEPSIS, UNSPECIFIED ORGANISM; R65.21 - SEVERE SEPSIS WITH SEPTIC SHOCK (2) Pneumonia Current Visit: Yes Status: Acute Code(s): J18.9 - PNEUMONIA, UNSPECIFIED ORGANISM (3) Pleural effusion Current Visit: Yes Status: Acute Code(s): J90 - PLEURAL EFFUSION, NOT ELSEWHERE CLASSIFIED (4) YAS (acute kidney injury) Current Visit: Yes Status: Acute Code(s): N17.9 - ACUTE KIDNEY FAILURE, UNSPECIFIED (5) DM2 (diabetes mellitus, type 2) Current Visit: Yes Status: Acute (6) Generalized weakness Current Visit: Yes Status: Acute Code(s): R53.1 - WEAKNESS (7) Wounds, multiple open, lower extremity Current Visit: Yes Status: Chronic Code(s): S81.809A - UNSPECIFIED OPEN WOUND, UNSPECIFIED LOWER LEG, INIT ENCNTR - Discharge Disposition: [facility] Condition: Serious Prescriptions: New Albuterol/Ipratropium 3ml Neb* [DUONEB 0.5-3 MG/3 ml Neb] 3 ml IH Q4HPRN PRN PRN Reason: Shortness Of Breath/Wheezing Apixaban [Eliquis 2.5 mg Tablet] 5 mg PO BID tablet Empagliflozin [Jardiance] 5 mg PO BIDWM tablet Gabapentin [Neurontin ] 900 mg PO TID cap Norepinephrine Bitartrate/D5w [Norepinephrine 8 mg/250 ml-D5w] 8 mg IV .Q24H PRN PRN Reason: HYPOTENSION Piperacillin/Tazobactam Inj [Piperacillin/Tazobactam] 4.5 gm IV Q6HT Pantoprazole 40 mg [Protonix 40 mg IV] 40 mg IV Q24H10 Midazolam HCl 50 mg/10 ml Mdv* [Versed 50 MG/ 10 Ml MDV] 50 mg IV .[id number] PRN PRN Reason: SEDATION Ondansetron HCl 4 mg/2 ml [Zofran 4 MG/2 ML VIAL] 4 mg IV Q6H PRN PRN PRN Reason: Nausea/Vomiting Continue Atorvastatin Calcium [Lipitor] 80 mg PO HS Gabapentin 900 mg PO TID Empagliflozin/Metformin HCl [Synjardy 5-1,000 mg Tablet] 5 - 1,000 mg PO BID Glipizide 5 mg [Glucotrol 5 MG] 5 mg PO BID Aspirin EC 81 mg [Ecotrin 81 mg] 81 mg PO DAILY #0 Potassium Chloride 20 meq PO DAILY [place]-3 Fatty Acids/Fish Oil [Fish Oil 1,000 mg Capsule] 1,000 mg PO DAILY Ferrous Sulfate 325 mg [Feosol 325 mg] 325 mg PO QID Ropinirole HCl 1 mg PO BID Polyethylene Glycol 3350 17 gm [Miralax Powder 17GM PACKET] 17 gm PO Q12HP RN PRN PRN Reason: Constipation Clopidogrel Bisulfate [Clopidogrel] 75 mg PO DAILY Docusate Sodium 100 mg [Docusate Sodium 100 MG] 100 mg PO DAILY Cyanocobalamin 1000 Mcg/ml [Cyanocobalamin B-12 1000 MCG/ML] 1,000 mcg IM UD Acetaminophen 325 mg [Tylenol 325 mg] 650 mg PO Q6HPRN PRN PRN Reason: Pain And/Or Fever Dulaglutide [Trulicity] 0.5 ml SQ WEEKLY Glucagon [Baqsimi] 3 mg NS UD Nitroglycerin 0.4 mg Tablet [Nitrostat 0.4 MG Tablet] 0.4 mg SL Q5MIN PRN MR X 3 PRN PRN Reason: Chest Pain Hydrocodone/Acetaminophen [Hydrocodone-Acetamin 10-325 mg] 1 each PO Q4H PRN PRN PRN Reason: Pain Losartan Potassium [Cozaar] 12.5 mg PO DAILY Apixaban [Eliquis] 5 mg PO BID Amiodarone HCl 200 mg PO DAILY Metoprolol Succinate 25 mg Xl* [Toprol-Xl 25MG Tablets] 25 mg PO BID Nystatin 1 each TOP UD PRN PRN Reason: yeast Discontinued Allopurinol 300 mg [Zyloprim 300 mg] 300 mg PO DAILY Pregabalin 50 mg [Lyrica 50MG] 50 mg PO TID Heparin Sodium,Porcine/Pf [Heparin Lock Flush 100 Unit/ml] 1 each IV UD PRN PRN Reason: [place] Follow up with: GARY BARBOSA [facility] [Primary Care Provider] -
[2023-11-23 19:49] VITALS: RESP 20
--- NOTE | 2023-11-23 20:36 | XRAY ---
Indication: Intubation. Status post right thoracentesis earlier in the day. Comparison: Taken earlier in the day. Portable chest demonstrates new endotracheal tube tip 3 cm above stoney. Remaining chest demonstrates reaccumulating small right base effusion/atelectasis and worsening large left effusion/atelectasis. No pneumothorax. Heart not enlarged with stable left PICC line.
[2023-11-23 21:45] VITALS: BP 109/62; PULSE 85
== END 2023-11-23 21:50 | disposition short-term general hospital (02) | DRG 871 ==
LOC: ED 16:09 → MED SURG 18:48 → UNDOADMOB 18:48 → MED SURG 11-19 09:51 → INTOOBSV 11-19 09:51 → OBSVTOIN 11-19 09:51 → ICU 11-23 18:49
PROVIDERS: ADMIT Internal Medicine; ATTEND Internal Medicine
PROC: 2W1MX6Z Compression of Left Lower Extremity using Pressure Dressing (ICD-10-PCS; principal; 2023-11-22)
PROC: 0J9P0ZZ Drainage of Left Lower Leg Subcutaneous Tissue and Fascia, Open Approach (ICD-10-PCS; 2023-11-22)
PROC: 05HY33Z Insertion of Infusion Device into Upper Vein, Percutaneous Approach (ICD-10-PCS; 2023-11-22)
DX: A41.9 Sepsis, unspecified organism (principal); J18.9 Pneumonia, unspecified organism; R65.21 Severe sepsis with septic shock; J90 Pleural effusion, not elsewhere classified; N17.9 Acute kidney failure, unspecified; M86.9 Osteomyelitis, unspecified; E11.9 Type 2 diabetes mellitus without complications; R53.1 Weakness; S81.802A Unspecified open wound, left lower leg, initial encounter; E11.621 Type 2 diabetes mellitus with foot ulcer; L97.529 Non-pressure chronic ulcer of other part of left foot with unspecified severity; D72.829 Elevated white blood cell count, unspecified; E11.65 Type 2 diabetes mellitus with hyperglycemia; E78.5 Hyperlipidemia, unspecified; I10 Essential (primary) hypertension; E11.51 Type 2 diabetes mellitus with diabetic peripheral angiopathy without gangrene; R41.82 Altered mental status, unspecified; Z89.511 Acquired absence of right leg below knee; Z79.01 Long term (current) use of anticoagulants; Z79.899 Other long term (current) drug therapy; Z86.718 Personal history of other venous thrombosis and embolism
CPT/HCPCS: 0241U; 10060; 29580; 31500; 32555; 36415; 36569; 36600; 71045; 71260; 80053; 81001; 82375; 82803; 82945; 82947; 83605; 83615; 83735; 83880; 83986; 84134; 84145; 84157; 84484; 85025; 85027; 85379; 85610; 87040; 87070; 87075; 87077; 87186; 87205; 89051; 92950; 93005; 94002; 94640; 94760; 94762; 94799; 96374; 99214; 99231; 99285; Q3014; 93268; 96372; 96375; J0456; J0696; J1817; J1940; J2250; J2543; A9270-GY; G0378